=== PATIENT | male | born 1970 | race Caucasian/White ===

== ENCOUNTER → 2016-09-27 | Outpatient (CLI) | payer BC ==
[~2016-09-27] MED LIST: AMLO10TA4 PO; FLNIN NAE; IBUP-1050 PO; LORA10CA2 PO; LPR25 PO; OMEP20CA9 PO; TRIATAB3 PO; XRL20 PO
[2016-09-27 13:04] LABS: BASO % 0.4 %; BASO ABS # 0.03 K/uL (0-0.2); COMPLETE YES; EOS % 2.2 %; HEMATOCRIT 40.2 % (42-52); IG% 0.2 %; LYMPH % 14.2 %; LYMPH ABS # 1.21 K/uL (1.2-3.4); MEAN CELL VOLUME 86.5 fL (80-100); MEAN CORPUSCULAR HEMOGLOBIN 28.6 pg (25-34); MEAN CORPUSCULAR HGB CONC 33.1 g/dl (32-36); MEAN PLATELET VOLUME 10.8 fL (7.4-10.4); MONO % 8.8 %; NEUT % 74.2 %; PLATELET COUNT 300 K/uL (130-400); RED BLOOD COUNT 4.65 M/uL (4.7-6.1); WHITE BLOOD COUNT 8.52 K/uL (4.8-10.8)
[2016-09-27 13:38] LABS: ALT/SGPT 32 U/L (12-78); BLOOD UREA NITROGEN 16 mg/dl (7-18); BUN/CREATININE RATIO 16.3 (10-20); CARBON DIOXIDE 28 mmol/L (21-32); CHLORIDE 105 mmol/L (98-107); CHOLESTEROL 161 mg/dl (0-200); GLUCOSE 90 mg/dl (70-99); POTASSIUM 3.3 mmol/L (3.5-5.1); SODIUM 142 mmol/L (136-145); TRIGLYCERIDES 156 mg/dl (0-150); VERY LOW DENSITY LIPOPROT CALC 31 mg/dl
[2016-09-27 13:43] LABS: ALB/GLOB RATIO 0.9 (0.9-2); ALKALINE PHOSPHATASE 64 U/L (45-117); AST/SGOT 15 U/L (15-37); CHOLESTEROL/HDL RATIO 4.5; HDL CHOLESTEROL 36 mg/dl; LDL CHOLESTEROL CALCULATED 94 mg/dl
== END | disposition home or self-care (01) ==
LOC: C.LABPVFM 08:10
PROVIDERS: ATTEND Family Medicine
DX: I10 Essential (primary) hypertension (principal); D64.9 Anemia, unspecified; E66.01 Morbid (severe) obesity due to excess calories; I48.91 Unspecified atrial fibrillation; G47.30 Sleep apnea, unspecified

== ENCOUNTER → 2017-03-27 | Outpatient (CLI) | payer BC ==
[2017-03-27 13:14] LABS: ALT/SGPT 30 U/L (12-78); AST/SGOT 14 U/L (15-37); BLOOD UREA NITROGEN 19 mg/dl (7-18); BUN/CREATININE RATIO 17.5 (10-20); CALCIUM 8.8 mg/dl (8.5-10.1); CARBON DIOXIDE 31 mmol/L (21-32); CHLORIDE 104 mmol/L (98-107); CREATININE 1.08 mg/dl (0.60-1.40); GLUCOSE 93 mg/dl (70-99); POTASSIUM 3.5 mmol/L (3.5-5.1); SODIUM 141 mmol/L (136-145)
[2017-03-27 13:17] LABS: ALB/GLOB RATIO 0.9 (0.9-2); ALKALINE PHOSPHATASE 63 U/L (45-117)
== END | disposition home or self-care (01) ==
LOC: C.LABPVFM 10:15
PROVIDERS: ATTEND Family Medicine
DX: I10 Essential (primary) hypertension (principal); I48.91 Unspecified atrial fibrillation; E87.6 Hypokalemia

== ENCOUNTER 2022-12-15 07:00 | Inpatient (IN) ==
[2022-12-15] MEDS ORDERED: NITROGLYCERIN SL 0.4 MG/TAB TAB SL STA ×3 (07:26→09:37)
[2022-12-15] MEDS ORDERED: METOPROLOL TARTRATE 1 MG/ML VIAL IV STA ×2 (07:26→08:23)
--- NOTE | 2022-12-15 07:38 | Emergency Department Note ---
Impression & Plan Atrial fibrillation with rapid ventricular response, Chest pain, Non-ST elevation [place] (NSTEMI) ED Provider Note Provider: Maxime Suarez MD DATE OF SERVICE: 12/15/2022 CHIEF COMPLAINT: Chest discomfort HISTORY OF PRESENT ILLNESS: Patient is a 52-year-old gentleman history of atrial fibrillation on Xarelto, obesity, hypertension, and gout presenting here today reporting onset last evening of indigestion chest discomfort. Some radiation to the back. Was maximal around 2 AM but has moderated little bit. Describes 4-5 out of 10 pain. Denies any trauma. Maybe a little bit positional but not pleuritic in nature. Denies significant shortness of breath. States he is taken a bunch of antacid but this has not helped his symptoms as he initially thought this was just indigestion. Denies nausea or other abdominal pain. Was recently treated with steroids for some gout but that is been improving. Some trace but not worsened significant leg swelling. States the pain does radiate to between his shoulder blades to some degree. Given ongoing symptoms came here for evaluation. States compliance with home medications. Denies significant lightheadedness or palpitation sensation. PAST MEDICAL HISTORY: As noted above MEDICATIONS: Reviewed with him includes Xarelto (takes in the evening) and to take his morning medicines this morning SOCIAL HISTORY: Non-smoker PHYSICAL EXAM: GENERAL: alert and oriented in no acute distress on stretcher Head: normocephalic and atraumatic EYES: No injection, discharge or icterus. NECK: Trachea midline. ENT: Mucous membranes pink and moist. LUNGS: Airway patent. No retractions. Breath sounds clear HEART: Irregular irregular rate and rhythm. No chest wall tenderness ABDOMEN: Soft and non-tender, without guarding or rebound. SKIN: Acyanotic, warm, dry, without rashes EXTREMITIES: Without tenderness with 1+ bilateral lower extremity edema without erythema. NEUROLOGICAL: No focal deficits. No aphasia. No facial droop or slurred speech. Ambulatory. EK bpm atrial fibrillation with rapid ventricular response. Nonspecific interventricular conduction delay noted with some diffuse T wave inversions but no clear acute ST segment elevation. QTc approximately 540. CONTINUOUS CARDIAC MONITORING: was ordered and showed a heart rate of 80s-120s bpm in variable A-fib Patient's laboratory studies and imaging reviewed. Differential includes Cardiac ischemia, aortic dissection, pulmonary embolism, pneumothorax, pneumonia, pericarditis, myocarditis, esophageal rupture, GERD, cholecystitis, pancreatitis, musculoskeletal, as well as other pathologies. IMPRESSION/MEDICAL DECISION MAKING: Patient with mid chest discomfort rating to the back started last evening. Somewhat hypertensive. On Xarelto for history of A-fib. Appears to be in A-fib variably rate controlled to rapid response A-fib. We will give a bit of extra metoprolol but states compliance with medication. Low suspicion for VTE given the anticoagulation status. Fairly benign abdomen. We will complete a CT scan of the chest to exclude dissection. A little bit metoprolol nitroglycerin to see if this helps with his symptoms and do have suspicion for cardiac disease. EKG without evidence of acute STEMI but new interventricular conduction delay with rapid RVR will again attempt some better rate control and see how symptoms evolve. Blood work was sent. Slight leuks that is 11.2 and nonspecific. No anemia. Normal platelet count. No significant renal dysfunction or evidence of electrolyte abnormality. No does hepatitis or pancreatitis. Troponin elevated 610 consistent with concerns for ACS. CT of the chest completed without evidence of acute aortic dissection. Coronary artery calcifications noted again of concern given his presentation. Report reviewed patient aware of incidental renal lesion.. Given this finding given a dose of aspirin. On reassessment patient symptoms have improved somewhat with maybe a 2 out of 10 to 3 out of 10 chest discomfort. Discussed with him and his findings. Discussed the need for further cardiac evaluation here. Hospitalist consulted. Recently took Xarelto last evening will defer immediate heparin at this time. Given additional nitroglycerin to see if this would further improve any pain symptoms he is having. DIAGNOSIS: A-fib RVR, NSTEMI, chest DISPOSITION: Hospitalist will evaluate Patient was agreeable with this plan. Patient later had repeat EKG and troponin as ordered by hospitalist and a consultation with bending shed worker and taken to the Drink Box Mechanic from the ER. Past Med/Surg History Medical History Asthma Atrial fibrillation Diabetes mellitus Finger laceration involving tendon Glaucoma Gout HTN (hypertension) Obesity, diabetes, and hypertension syndrome ERNESTO on CPAP Proteinuria Surgical History H/O oral surgery History of hand surgery Family History Mother Coronary heart disease Myocardial infarction Diabetes Father Coronary heart disease Myocardial infarction Other Hypertension Denies family history of Ovarian cancer Prostate cancer Breast cancer Colorectal cancer Social History (Updated 12/15/22 @ 09:58 by Mary Mazariegos PA-C) Smoking Status: Never smoker Second Hand Exposure: No; Do You Dip or Chew Tobacco: No; Hx Alcohol Use: Yes (occasional drink, nothing in 2-3 weeks) Hx Substance Use: No Preferred Language: Uzbek Communication Ability: Effective Visual Impairment: No Limitations Hearing Ability: Normal 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 Conditioner Installer Helper Required: No marital status: Current Living Situation: Spouse current occupational status: employed 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 How many Children do You have: 0 Feels Safe at Home: Yes Childhood Exposure to Second-Hand Smoke: Yes Diet: regular caffeine: Yes Dental Care, Regularly: Yes Physical Activity Frequency: Does not Exercise Seatbelt Use: always Sunscreen Use: No Allergies Allergies Allergy/AdvReac Type Severity Reaction Status Date / Time cat dander Allergy Intermediate Itchy, Verified 11/03/22 11:26 watery eyes, sneezing dog dander Allergy Intermediate Itchy, Verified 11/03/22 11:26 watery eyes, sneezing pollen extracts Allergy Intermediate SNEEZE,ITCHY Verified 11/03/22 11:26 WATERY EYES acetaminophen [From Percocet] Allergy Verified 11/03/22 11:26 house dust mite Allergy Verified 11/03/22 11:26 mold Allergy Verified 11/03/22 11:26 oxycodone [From Percocet] Allergy Verified 11/03/22 11:26 Home Meds Home Medications Medication Instructions Recorded Confirmed fluticasone propionate 50 2 sprays intranasal DAILY 02/24/19 12/15/22 mcg/actuation nasal spray,suspension loratadine 10 mg tablet 10 mg PO DAILY 02/24/19 12/15/22 dorzolamide 22.3 mg-timolol 6.8 1 drops ophthalmic (eye) BID 02/25/19 12/15/22 mg/mL eye drops acetaminophen 500 mg tablet 1,000 mg PO BID PRN Pain 12/15/22 12/15/22 calcium carbonate 600 mg calcium 600 mg PO BID 12/15/22 12/15/22 (1,500 mg) tablet (Calcium) cholecalciferol (vitamin D3) 125 125 mcg PO DAILY 12/15/22 12/15/22 mcg (5,000 unit) tablet (Vitamin D3) ferrous sulfate 325 mg (65 mg 325 mg PO DAILY 12/15/22 12/15/22 iron) tablet Previous Rx's Medication Instructions Recorded colchicine 0.6 mg tablet 0.6 mg PO DAILY PRN gout #9 tabs 09/18/21 amlodipine 10 mg tablet 10 mg PO DAILY #90 tabs 05/02/22 metoprolol tartrate 75 mg tablet 75 mg PO BID #180 tabs 05/02/22 montelukast 10 mg tablet 10 mg PO DAILY #90 tabs 05/02/22 omeprazole 40 mg capsule,delayed 40 mg PO DAILY #90 caps 05/02/22 release triamterene 37.5 1 tab PO DAILY #90 tabs 05/02/22 mg-hydrochlorothiazide 25 mg tablet rivaroxaban 20 mg tablet (Xarelto) 20 mg PO DAILY #90 tabs 08/12/22 metformin 500 mg tablet 500 mg PO DAILY #90 tabs 10/08/22 indomethacin 25 mg capsule 25 mg PO Q8H PRN gout flare #90 10/10/22 caps lisinopril 20 mg tablet 20 mg PO DAILY #30 tabs 10/16/22 empagliflozin 10 mg tablet 10 mg PO DAILY #90 tabs 11/03/22 (Jardiance) allopurinol 300 mg tablet 300 mg PO DAILY #90 tabs 12/12/22 Results & Data (ED) Vital Signs Vital Signs - 24 hr 12/15/22 07:08 12/15/22 07:22 12/15/22 07:33 Temperature 36.3 C L Temperature Source Temporal Artery Scan Pulse Rate 121 H 111 H 104 H Pulse Rate from SpO2 Sensor Pulse Rhythm Respiratory Rate 22 Respiratory Effort / Characteristics Non-Labored Spontaneous Respiratory Depth Blood Pressure 164/108 H 167/104 H Blood Pressure Mean 126 Pulse Oximetry 98 Oxygen Delivery Method Room Air Sepsis Recent Fever Within 48 Hours No Sepsis New/Unexplained Change in Mental Status No Sepsis Action Taken by Nursing No Action Required 12/15/22 07:10 12/15/22 08:02 12/15/22 08:32 Temperature Temperature Source Pulse Rate 105 H 107 H Pulse Rate from SpO2 Sensor Pulse Rhythm Irregular Respiratory Rate 22 Respiratory Effort / Characteristics Respiratory Depth Blood Pressure 155/104 H Blood Pressure Mean Pulse Oximetry 99 99 Oxygen Delivery Method Room Air Room Air Sepsis Recent Fever Within 48 Hours Sepsis New/Unexplained Change in Mental Status Sepsis Action Taken by Nursing 12/15/22 09:00 12/15/22 07:19 12/15/22 07:20 Temperature Temperature Source Pulse Rate 106 H Pulse Rate from SpO2 Sensor 79 Pulse Rhythm Respiratory Rate 13 Respiratory Effort / Characteristics Non-Labored Respiratory Depth Normal Blood Pressure 145/104 H Blood Pressure Mean 125 Pulse Oximetry 94 Oxygen Delivery Method Room Air Sepsis Recent Fever Within 48 Hours Sepsis New/Unexplained Change in Mental Status Sepsis Action Taken by Nursing 12/15/22 07:30 12/15/22 07:31 12/15/22 07:31 Temperature Temperature Source Pulse Rate 122 H 107 H Pulse Rate from SpO2 Sensor 78 79 Pulse Rhythm Respiratory Rate 22 14 Respiratory Effort / Characteristics Respiratory Depth Blood Pressure 167/104 H Blood Pressure Mean 127 Pulse Oximetry 94 95 Oxygen Delivery Method Sepsis Recent Fever Within 48 Hours Sepsis New/Unexplained Change in Mental Status Sepsis Action Taken by Nursing 12/15/22 07:39 12/15/22 07:39 12/15/22 07:40 Temperature Temperature Source Pulse Rate 98 H 109 H Pulse Rate from SpO2 Sensor 75 66 Pulse Rhythm Respiratory Rate 20 22 Respiratory Effort / Characteristics Respiratory Depth Blood Pressure 152/99 H Blood Pressure Mean 103 Pulse Oximetry 95 94 Oxygen Delivery Method Sepsis Recent Fever Within 48 Hours Sepsis New/Unexplained Change in Mental Status Sepsis Action Taken by Nursing 12/15/22 07:59 12/15/22 08:00 12/15/22 08:01 Temperature Temperature Source Pulse Rate 111 H Pulse Rate from SpO2 Sensor 77 97 H 75 Pulse Rhythm Respiratory Rate 16 17 Respiratory Effort / Characteristics Respiratory Depth Blood Pressure Blood Pressure Mean Pulse Oximetry 95 96 94 Oxygen Delivery Method Sepsis Recent Fever Within 48 Hours Sepsis New/Unexplained Change in Mental Status Sepsis Action Taken by Nursing 12/15/22 08:01 12/15/22 08:10 12/15/22 08:20 Temperature Temperature Source Pulse Rate 87 107 H Pulse Rate from SpO2 Sensor 84 72 Pulse Rhythm Respiratory Rate 13 19 Respiratory Effort / Characteristics Respiratory Depth Blood Pressure 145/90 H Blood Pressure Mean 100 Pulse Oximetry 91 93 Oxygen Delivery Method Sepsis Recent Fever Within 48 Hours Sepsis New/Unexplained Change in Mental Status Sepsis Action Taken by Nursing 12/15/22 08:30 12/15/22 08:31 12/15/22 08:31 Temperature Temperature Source Pulse Rate 107 H 98 H Pulse Rate from SpO2 Sensor 75 65 Pulse Rhythm Respiratory Rate 18 15 Respiratory Effort / Characteristics Respiratory Depth Blood Pressure 155/104 H Blood Pressure Mean 124 Pulse Oximetry 95 93 Oxygen Delivery Method Sepsis Recent Fever Within 48 Hours Sepsis New/Unexplained Change in Mental Status Sepsis Action Taken by Nursing 12/15/22 08:40 12/15/22 08:50 12/15/22 08:54 Temperature Temperature Source Pulse Rate 112 H 95 H Pulse Rate from SpO2 Sensor 89 86 Pulse Rhythm Respiratory Rate 38 H 11 L Respiratory Effort / Characteristics Respiratory Depth Blood Pressure 149/103 H Blood Pressure Mean 127 Pulse Oximetry 93 91 Oxygen Delivery Method Sepsis Recent Fever Within 48 Hours Sepsis New/Unexplained Change in Mental Status Sepsis Action Taken by Nursing 12/15/22 08:54 Temperature Temperature Source Pulse Rate 99 H Pulse Rate from SpO2 Sensor 92 H Pulse Rhythm Respiratory Rate 15 Respiratory Effort / Characteristics Respiratory Depth Blood Pressure Blood Pressure Mean Pulse Oximetry 97 Oxygen Delivery Method Sepsis Recent Fever Within 48 Hours Sepsis New/Unexplained Change in Mental Status Sepsis Action Taken by Nursing Laboratory Data 12/15/22 07:22 12/15/22 07:22 Lab Results 12/15/22 12/15/22 12/15/22 Range/Units 07:22 07:22 07:26 WBC 11.24 H (4.8-10.8) K/ul RBC 4.81 (4.70-6.10) M/uL Hgb 14.1 (14.0-18.0) g/dl POC Hgb 15.0 (14.0-18.0) g/dl Hct 40.3 L (42.0-52.0) % POC Hct 44 (42-52) % MCV 83.8 (80.0-100.0) fL MCH 29.3 (25.0-34.0) pg MCHC 35.0 (32.0-36.0) g/dL RDW Std Deviation 37.7 (36.4-46.3) fL RDW Coeff of Tripp 12.5 (11.5-14.5) % Plt Count 279 (130-400) K/uL MPV 11.2 (9.4-12.4) fL Immature Gran % (Auto) 0.5 % Neut % (Auto) 83.0 % Lymph % (Auto) 8.0 % [place] % (Auto) 6.5 % Eos % (Auto) 1.6 % Baso % (Auto) 0.4 % Neut # (Auto) 9.32 H (1.40-6.50) K/uL Lymph # (Auto) 0.90 L (1.2-3.4) K/uL [place] # (Auto) 0.73 H (0.11-0.59) K/uL Eos # (Auto) 0.18 (0-0.50) K/uL Baso # (Auto) 0.05 (0-0.2) K/uL Immature Gran # (Auto) 0.06 (0.01-0.20) K/uL POC Sodium 138 (135-144) mmol/L Sodium 137 (136-145) mmol/L POC Potassium 3.6 (3.3-5.0) mmol/L Potassium 3.6 (3.5-5.1) mmol/L POC Chloride 100 L (101-112) mmol/L Chloride 101 (98-107) mmol/L Carbon Dioxide 25 (21-32) mmol/L POC Total CO2 23 L (24-31) mmol/L Anion Gap 11 (3-11) POC Anion Gap 20.0 (16-25) mmol/L POC BUN 29 H (7-18) mg/dl BUN 30 H (6-23) mg/dl Creatinine 1.05 (0.6-1.4) mg/dl POC Creatinine 1.0 (0.6-1.3) mg/dl Est Cr Clr Drug Dosing 145.1 ml/min Est GFR ( Amer) 95.5 ml/min Est GFR (Non-Af Amer) 82.4 ml/min BUN/Creatinine Ratio 28.6 H (10-20) Glucose 112 H (70-99(Fasting)) mg/dl POC Glucose (other) 111 H (70-99) mg/dl Calcium 9.5 (8.6-10.3) mg/dl POC Ioniz Calcium [place] 1.14 (1.12-1.32) mmol/l Magnesium (1.7-2.4) mg/dl Total Bilirubin 0.5 (0.2-1.0) mg/dl AST 25 (13-39) U/L ALT 21 (7-52) U/L Alkaline Phosphatase 50 (34-104) U/L Troponin I High Sens 610.4 H* (0-20) pg/ml Total Protein 7.7 (6.0-8.3) gm/dl Albumin 4.3 (3.4-5.0) gm/dl Globulin 3.4 (2.5-4.0) gm/dl Albumin/Globulin Ratio 1.3 (0.9-2) Lipase 36 (11-82) U/L TSH (0.300-4.500) uIu/ml 12/15/22 12/15/22 Range/Units 09:21 09:21 WBC (4.8-10.8) K/ul RBC (4.70-6.10) M/uL Hgb (14.0-18.0) g/dl POC Hgb (14.0-18.0) g/dl Hct (42.0-52.0) % POC Hct (42-52) % MCV (80.0-100.0) fL MCH (25.0-34.0) pg MCHC (32.0-36.0) g/dL RDW Std Deviation (36.4-46.3) fL RDW Coeff of Tripp (11.5-14.5) % Plt Count (130-400) K/uL MPV (9.4-12.4) fL Immature Gran % (Auto) % Neut % (Auto) % Lymph % (Auto) % [place] % (Auto) % Eos % (Auto) % Baso % (Auto) % Neut # (Auto) (1.40-6.50) K/uL Lymph # (Auto) (1.2-3.4) K/uL [place] # (Auto) (0.11-0.59) K/uL Eos # (Auto) (0-0.50) K/uL Baso # (Auto) (0-0.2) K/uL Immature Gran # (Auto) (0.01-0.20) K/uL POC Sodium (135-144) mmol/L Sodium (136-145) mmol/L POC Potassium (3.3-5.0) mmol/L Potassium (3.5-5.1) mmol/L POC Chloride (101-112) mmol/L Chloride (98-107) mmol/L Carbon Dioxide (21-32) mmol/L POC Total CO2 (24-31) mmol/L Anion Gap (3-11) POC Anion Gap (16-25) mmol/L POC BUN (7-18) mg/dl BUN (6-23) mg/dl Creatinine (0.6-1.4) mg/dl POC Creatinine (0.6-1.3) mg/dl Est Cr Clr Drug Dosing ml/min Est GFR ( Amer) ml/min Est GFR (Non-Af Amer) ml/min BUN/Creatinine Ratio (10-20) Glucose (70-99(Fasting)) mg/dl POC Glucose (other) (70-99) mg/dl Calcium (8.6-10.3) mg/dl POC Ioniz Calcium [place] (1.12-1.32) mmol/l Magnesium 1.8 (1.7-2.4) mg/dl Total Bilirubin (0.2-1.0) mg/dl AST (13-39) U/L ALT (7-52) U/L Alkaline Phosphatase (34-104) U/L Troponin I High Sens 1189.4 H* D (0-20) pg/ml Total Protein (6.0-8.3) gm/dl Albumin (3.4-5.0) gm/dl Globulin (2.5-4.0) gm/dl Albumin/Globulin Ratio (0.9-2) Lipase (11-82) U/L TSH 1.295 (0.300-4.500) uIu/ml Administered Medications Discontinued Medications Aspirin (Aspirin 81 Mg Chew) 324 mg PO NOW STA Stop: 12/15/22 08:24 Last Admin: 12/15/22 08:32 Dose: 324 mg Documented By: KT Fentanyl Citrate (Fentanyl Citrate Pf 100 Mcg/2 Ml Vial) Confirm Administered Dose 100 mcg .ROUTE .STK-MED ONE Stop: 12/15/22 10:19 Last Increment: 12/15/22 11:06 Dose: 50 mcg Documented By: ABIGAIL Fentanyl Citrate (Fentanyl Citrate Pf 100 Mcg/2 Ml Vial) Confirm Administered D ose 100 mcg .ROUTE .STK-MED ONE Stop: 12/15/22 11:23 Last Increment: 12/15/22 11:42 Dose: 25 mcg Documented By: ABIGAIL Increment: 12/15/22 11:38 Dose: 25 mcg Documented By: ABIGAIL Heparin Sodium (Porcine) (Heparin (Porcine) 1000 Unit/Ml 10 Ml (Drink Box Mechanic Use Only)) Confirm Administered Dose 10,000 units .ROUTE .STK-MED ONE Stop: 12/15/22 10:18 Last Admin: 12/15/22 11:05 Dose: 5,000 units Documented By: ABIGAIL Heparin Sodium (Porcine) (Heparin (Porcine) 1000 Unit/Ml 10 Ml (Drink Box Mechanic Use Only)) Confirm Administered Dose 10,000 units .ROUTE .STK-MED ONE Stop: 12/15/22 11:36 Last Admin: 12/15/22 11:38 Dose: 4,000 units Documented By: ABIGAIL Heparin Sodium/Dextrose (Heparin Iv Adult Wt-Based Standard *No* Bolus Protocol) 1 each IV NOW STA; Protocol Stop: 12/15/22 09:57 Last Admin: 12/15/22 10:09 Dose: Not Given Documented By: KATRINA Heparin Sodium/Dextrose (Heparin 95706 Unit/500 Ml D5w) Confirm Administered Dose 25,000 units IV .STK-MED ONE Stop: 12/15/22 10:07 Last Admin: 12/15/22 10:12 Dose: Not Given Documented By: KATRINA Ioversol (Ioversol 350 Mg 125ml Prefilled Syringe) 120 ml IV ONCE ONE Stop: 12/15/22 07:52 Last Admin: 12/15/22 07:51 Dose: 120 ml Documented By: DEYSI Metoprolol Tartrate (Metoprolol Tartrate 1 Mg/Ml Vial) 5 mg IV NOW STA Stop: 12/15/22 07:27 Last Admin: 12/15/22 07:33 Dose: 5 mg Documented By: KATRINA Metoprolol Tartrate (Metoprolol Tartrate 1 Mg/Ml Vial) 5 mg IV NOW STA Stop: 12/15/22 08:24 Last Admin: 12/15/22 08:32 Dose: 5 mg Documented By: KATRINA Midazolam HCl (Midazolam Hcl 1 Mg/Ml 2ml Vial) Confirm Administered Dose 2 mg .ROUTE .STK-MED ONE Stop: 12/15/22 10:18 Last Increment: 12/15/22 11:06 Dose: 1 mg Documented By: ABIGAIL Midazolam HCl (Midazolam Hcl 1 Mg/Ml 2ml Vial) Confirm Administered Dose 2 mg .ROUTE .STK-MED ONE Stop: 12/15/22 11:23 Last Increment: 12/15/22 11:38 Dose: 1 mg Documented By: ABIGAIL Nitroglycerin (Nitroglycerin Sl 0.4 Mg/Tab Tab) 0.4 mg SL NOW STA Stop: 12/15/22 07:27 Last Admin: 12/15/22 07:33 Dose: 0.4 mg Documented By: KT Nitroglycerin (Nitroglycerin Sl 0.4 Mg/Tab Tab) 0.4 mg SL NOW STA Stop: 12/15/22 08:54 Last Admin: 12/15/22 08:54 Dose: 0.4 mg Documented By: KT Nitroglycerin (Nitroglycerin Sl 0.4 Mg/Tab Tab) 0.4 mg SL NOW STA Stop: 12/15/22 09:38 Last Admin: 12/15/22 09:37 Dose: 0.4 mg Documented By: KT Perflutren Lipid Microsphere (Perflutren Lipid Microsphere (Definity)) 2 ml IV ONCE ONE Stop: 12/15/22 10:03 Last Admin: 12/15/22 10:02 Dose: 2 ml Documented By: NATHAN Ticagrelor (Ticagrelor 90 Mg Tab) Confirm Administered Dose 180 mg .ROUTE .STK- MED ONE Stop: 12/15/22 11:37 Last Admin: 12/15/22 11:38 Dose: 180 mg Documented By: [facility] Imaging Data Radiologist's Impression: Chest CTA 12/15/22 07:28 CT ANGIOGRAPHY OF THE CHEST DISSECTION PROTOCOL CLINICAL HISTORY: Chest pain radiating to back. Evaluate for dissection. COMPARISON STUDY: Chest radiograph February 22, 2016. TECHNIQUE: Before and following the IV administration of 120 mL of Optiray, helical axial images of the chest were obtained. Maximal intensity projections and sagittal and coronal reformats were viewed on an independent 3D workstation. IV contrast was administered without complication. Automated exposure control was utilized for the study. A dose lowering technique was utilized adhering to the principles of ALARA. CT DOSE: 2267.00 mGy.cm FINDINGS: The caliber of the thoracic aorta is normal. There is no intramural hematoma or thoracic aortic dissection. Moderate cardiomegaly is noted. There is no pericardial effusion. There is moderate to extensive coronary calcification. No central pulmonary emboli are identified. The remainder of the pulmonary arteries suboptimally assessed on this exam. There is no thoracic lymphadenopathy. No pneumothorax or pleural effusion is present. There is no consolidation to suggest pneumonia. No acute fractures within the bony thorax are present. Hepatic steatosis is noted. A 3.8 cm subcapsular right hepatic lobe lesion represents a cyst. The left kidney is atrophic. A 1.8 cm lesion within the midpole the right kidney measures above water attenuation. A small lesion arising from the upper pole of the right kidney likely reflects a cyst. IMPRESSION: 1. No thoracic aortic dissection. 2. Moderate cardiomegaly. Moderate to extensive coronary artery calcification. 3. No consolidation to suggest pneumonia. 4. 1.8 cm right renal lesion. This could reflect a complex cyst or small solid renal lesion. Nonemergent renal protocol CT is recommended. 5. Atrophic left kidney. ACT 112: Positive. There are findings on this exam that require communication between the performing entity and the patient following Patient Test Result Information Act ([place] Act 112) guidelines. Electronically signed by: Donovan Sanders M.D. 12/15/2022 8:31 AM Discharge Plan Visit Data Chief Complaint: Chest Pain Stated Complaint: CHEST PAIN ED Provider: Maxime Suarez Discharge Problem: Atrial fibrillation with rapid ventricular response, Chest pain, Non-ST elevation LA (NSTEMI) Patient Disposition: Admitted As Inpatient Discharge Instructions Interventions: ED Discharge Assessment Last Done: 12/15/22 10:22
[2022-12-15 07:40] LABS: iSTAT Ionized Calcium 1.14 mmol/l (1.12-1.32); iSTAT Potassium 3.6 mmol/L (3.3-5.0)
[2022-12-15 07:42] LABS: Basophils # (auto) 0.05 K/uL (0-0.2); Basophils % (auto) 0.4 %; Eosinophils # (auto) 0.18 K/uL (0-0.50); Eosinophils % (auto) 1.6 %; Hematocrit (blood only) 40.3 % (42.0-52.0); Hemoglobin 14.1 g/dl (14.0-18.0); Immature Granulocytes # (auto) 0.06 K/uL (0.01-0.20); Immature Granulocytes % (auto) 0.5 %; Mean Corpuscular Hemoglobin 29.3 pg (25.0-34.0); Mean Corpuscular Volume 83.8 fL (80.0-100.0); Mean Platelet Volume 11.2 fL (9.4-12.4); Monocytes # (auto) 0.73 K/uL (0.11-0.59); Monocytes % (auto) 6.5 %; Neutrophils # (auto) 9.32 K/uL (1.40-6.50); Platelet Count 279 K/uL (130-400); RDW Coefficient of Variation 12.5 % (11.5-14.5); RDW Standard Deviation 37.7 fL (36.4-46.3); Red Blood Count 4.81 M/uL (4.70-6.10); White Blood Count 11.24 K/ul (4.8-10.8)
[2022-12-15] MEDS ORDERED: IOVERSOL 350 MG 125mL Prefilled Syringe IV ONE (07:51)
[2022-12-15 07:57] LABS: Albumin Globulin Ratio 1.3 (0.9-2); Albumin Level 4.3 gm/dl (3.4-5.0); BUN Creatinine Ratio 28.6 (10-20); Bilirubin,Total 0.5 mg/dl (0.2-1.0); Calcium 9.5 mg/dl (8.6-10.3); Creatinine Clr Calc Pharmacy 145.1 ml/min; Est GFR (African American) 95.5 ml/min; Est GFR (Non-African American) 82.4 ml/min; Globulin 3.4 gm/dl (2.5-4.0); Potassium 3.6 mmol/L (3.5-5.1); Total Protein 7.7 gm/dl (6.0-8.3)
[2022-12-15 08:09] LABS: Troponin I High Sensitivity 610.4 pg/ml (0-20)
[2022-12-15] MEDS ORDERED: ASPIRIN 81 MG CHEW PO STA (08:23)
--- NOTE | 2022-12-15 08:32 | CT Scan Report ---
CT ANGIOGRAPHY OF THE CHEST DISSECTION PROTOCOL CLINICAL HISTORY: Chest pain radiating to back. Evaluate for dissection. COMPARISON STUDY: Chest radiograph February 22, 2016. TECHNIQUE: Before and following the IV administration of 120 mL of Optiray, helical axial images of t he chest were obtained. Maximal intensity projections and sagittal and coronal reformats were viewed on an independent 3D workstation. IV contrast was administered without complication. Automated exp osure control was utilized for the study. A dose lowering technique was utilized adhering to the kranthi Saleem. CT DOSE: 2267.00 mGy.cm FINDINGS: The caliber of the thoracic aorta is normal. There is no intramural hematoma or thoracic a ortic dissection. Moderate cardiomegaly is noted. There is no pericardial effusion. There is moderate to extensive coronary calcification. No central pulmonary emboli are identified. The remainder of th e pulmonary arteries suboptimally assessed on this exam. There is no thoracic lymphadenopathy. No pne umothorax or pleural effusion is present. There is no consolidation to suggest pneumonia. No acute fr actures within the bony thorax are present. Hepatic steatosis is noted. A 3.8 cm subcapsular right he patic lobe lesion represents a cyst. The left kidney is atrophic. A 1.8 cm lesion within the midpole the right kidney measures above water attenuation. A small lesion arising from the upper pole of the right kidney likely reflects a cyst. IMPRESSION: 1. No thoracic aortic dissection. 2. Moderate cardiomegaly. Moderate to extensive coronary artery calcification. 3. No consolidation to suggest pneumonia. 4. 1.8 cm right renal lesion. This could reflect a complex cyst or small solid renal lesion. Nonemerg ent renal protocol CT is recommended. 5. Atrophic left kidney. ACT 112: Positive. There are findings on this exam that require communication between the performing entity and the patient following Patient Test Result Information Act ([place] Act 112) guidelines. Electronically signed by: Donovan Sanders M.D. 12/15/2022 8:31 AM
[2022-12-15] MEDS ORDERED: MoRPHine SULFATE 2 MG/ML CARP IV PRN (09:15)
--- NOTE | 2022-12-15 09:18 | History & Physical Report ---
Date of Service December 15, 2022 Assessment & Plan (1) Non-ST elevation [place] (NSTEMI): Plan: concerns for NSTEMI w/ elevaed troponin/EKG/symptoms -- tx as outlined below (2) Chest pain: Plan: Presented with CP since last evening, initially thought was indigestion/heartburn but unrelieved with his usual PPI or pepcid x 2, initial trop 610.4 EKG w/o significant ST elevation however new IVCD since prior EKG in system. Concerning for NSTEMI ASCVD risk factors include type 2 diabetes, hypertension, dyslipidemia, obesity, family history of premature CAD in mom/dad (father w/ bypass in 50s) Nitro x 2, ASA 324mg x 1, Lopressor IV in ER w/ ongoing discomfort / Admit to PCU Additional 1 nitro x 1, alerted cardiology Repeat EKG/troponin NOW EKG w/ CP Trend troponin ECHO now -- tech at bedside Lopressor IV prn, pain control as needed, supplemenatal O2 to maintain sats Cardiology consulted Heparin gtt ordered -- defer to cards as Dr Barroso regarding need for bolus as just saw and taking to cath. Xarelto placed on hold ASA ordered for AM, defer to cards pending cath results for further recs NPO for likely need for cath, cardiology alerted and seeing at bedside IVF while npo K/mag replete given afib Hold diuretics for now to prevent JEANINE w/ cath/dye Lipid panel/A1c in AM (not on statin) Monitor labs in AM (3) Atrial fibrillation with rapid ventricular response: Plan: rates fairly stable but were 110s in ER, provided IV lopressor. Patient did take his morning medications Continue metoprolol 75mg BID for now, holding amlodipine in meantime Check Mag/TSH, replete electrolytes as needed Mag 1.8 -- will give 2 gm IV, K 3.6 -- 2gm IV to keep Mag ~2, K ~4 Holding xarelto, placed on heprarin gtt as above Monitor on telemetry (4) HTN (hypertension): Plan: BP elevation on arrival, ?2nd to pain from above. No hx HLD (last lipid panel August w/ chol 178, LDL 111, HDL 45, TRG 112) Took his AM meds, will continue metoprolol alone, hold diuretics, pain control Monitor (5) Diabetes mellitus: Plan: Last A1c 6.3 Hold home DM meds, BSG AC/HS while inpatient/SSI A1c w/ am labs Monitor BSGs (6) ERNESTO on CPAP: Plan: CPAP HS (7) Obesity, diabetes, and hypertension syndrome: Plan: noted, weight loss encouraged, ?ozempic pending A1c (8) Acid reflux disease: Plan: continue PPI Plan for cardiac cath tech this morning w/ Dr Barroso. Repeat troponin just resulted 1189.4 from 610.4 on admission. History of Present Illness Chief Complaint: chest pain Primary Care Provider: Fidel Borden, DO 52yo male with PMHx significant for afib (on Xarelto, last dose last evening), HTN, DM (A1c 6.3 earlier this year), obesity, gout presented with chest pain which he thought initially was indigestion starting last evening, no relief with OTC antacids, worsening overnight around 2am and convinced to bring im in. Given metoprolol, nitro, aspirin. Initial troponin 600s. Pain reported 4/10 on arrival, 2/10 after nitro. Patient evaluated in B10 with at bedside. States last night after supper started having discomfort, midsternum/radiation to back. Thought was reflux/indigestion. Had already taken his omeprazole but then took two pepcid and awoke around 11pm with worsening pain, which he reports was slightly better moving around but worsened around 2am. convinced him to come in to be evaluated. No smoking/chewing tobacco history, occassional wine use. He reports the pain is still present but not worsening in nature. Discussed likely need for cardiac catheterization for evaluation, repeat troponin being drawn now in the room and RN to obtain repeat EKG. Messaged cardiology given ongoing chest discomfort/elevated troponin and symptoms concerning for CAD and requirement for catheterization. He reports he had not missed dose of Xarelto, no palpitations/fluttering repor marci in his chest, no shortness of breath, abdominal pain, vomiting at this time. Did take his usual medications this morning. Asked RN to provide additional nitro SL x 1 and notified cardiology about ongoing discomfort. Dr Barroso to see. BP in ER 140s/100s, rates 90s-100, afib. 97% on RA Discussed code status - FULL CODE. Questions/concerns addressed at this time. STRONG Family History -- reports mother and father with MIs in their 50s, also discussed imaging with moderate to severe coronary artery calcifications. No prior hx HLD or on statin statin therapy. ER Course; New IVCD on EKG, rates low 110s. Troponin 610.4 on initial draw. CTA chest negative for dissection but does note moderate to severe coronary artery calcifications. WBC elevation, afebrile. BUN/Cr 30/1.05. Added repeat troponin/EKG, mag/TSH to labs. diesel technician mechanic alerted, obtaining bedside ECHO presently, Dr Barroso now at bedside to see patient as well. Allergies Allergy/AdvReac Type Severity Reaction Status Date / Time cat dander Allergy Intermediate Itchy, Verified 11/03/22 11:26 watery eyes, sneezing dog dander Allergy Intermediate Itchy, Verified 11/03/22 11:26 watery eyes, sneezing pollen extracts Allergy Intermediate SNEEZE,ITCHY Verified 11/03/22 11:26 WATERY EYES acetaminophen [From Percocet] Allergy Verified 11/03/22 11:26 house dust mite Allergy Verified 11/03/22 11:26 mold Allergy Verified 11/03/22 11:26 oxycodone [From Percocet] Allergy Verified 11/03/22 11:26 Home Medications Medication Instructions Recorded Confirmed Type fluticasone propionate 50 2 sprays intranasal DAILY 02/24/19 12/15/22 History mcg/actuation nasal spray,suspension loratadine 10 mg tablet 10 mg PO DAILY 02/24/19 12/15/22 History dorzolamide 22.3 mg-timolol 6.8 1 drops ophthalmic (eye) BID 02/25/19 12/15/22 History mg/mL eye drops colchicine 0.6 mg tablet 0.6 mg PO DAILY PRN gout #9 tabs 09/18/21 12/15/22 Rx amlodipine 10 mg tablet 10 mg PO DAILY #90 tabs 05/02/22 12/15/22 Rx metoprolol tartrate 75 mg tablet 75 mg PO BID #180 tabs 05/02/22 12/15/22 Rx montelukast 10 mg tablet 10 mg PO DAILY #90 tabs 05/02/22 12/15/22 Rx omeprazole 40 mg capsule,delayed 40 mg PO DAILY #90 caps 05/02/22 12/15/22 Rx release triamterene 37.5 1 tab PO DAILY #90 tabs 05/02/22 12/15/22 Rx mg-hydrochlorothiazide 25 mg tablet rivaroxaban 20 mg tablet (Xarelto) 20 mg PO DAILY #90 tabs 08/12/22 12/15/22 Rx metformin 500 mg tablet 500 mg PO DAILY #90 tabs 10/08/22 12/15/22 Rx indomethacin 25 mg capsule 25 mg PO Q8H PRN gout flare #90 10/10/22 12/15/22 Rx caps lisinopril 20 mg tablet 20 mg PO DAILY #30 tabs 10/16/22 12/15/22 Rx empagliflozin 10 mg tablet 10 mg PO DAILY #90 tabs 11/03/22 12/15/22 Rx (Jardiance) allopurinol 300 mg tablet 300 mg PO DAILY #90 tabs 12/12/22 12/15/22 Rx acetaminophen 500 mg tablet 1,000 mg PO BID PRN Pain 12/15/22 12/15/22 History calcium carbonate 600 mg calcium 600 mg PO BID 12/15/22 12/15/22 History (1,500 mg) tablet (Calcium) cholecalciferol (vitamin D3) 125 125 mcg PO DAILY 12/15/22 12/15/22 History mcg (5,000 unit) tablet (Vitamin D3) ferrous sulfate 325 mg (65 mg 325 mg PO DAILY 12/15/22 12/15/22 History iron) tablet Past Med/Surg History Medical History Asthma Atrial fibrillation Diabetes mellitus Finger laceration involving tendon Glaucoma Gout HTN (hypertension) Obesity, diabetes, and hypertension syndrome ERNESTO on CPAP Proteinuria Surgical History H/O oral surgery History of hand surgery Family History Mother Coronary heart disease Myocardial infarction Diabetes Father Coronary heart disease Myocardial infarction Other Hypertension Denies family history of Ovarian cancer Prostate cancer Breast cancer Colorectal cancer Social History (Updated 12/15/22 @ 09:58 by Mary Mazariegos PA-C) Smoking Status: Never smoker Second Hand Exposure: No; Do You Dip or Chew Tobacco: No; Hx Alcohol Use: Yes (occasional drink, nothing in 2-3 weeks) Hx Substance Use: No Preferred Language: Upper [place] Communication Ability: Effective Visual Impairment: No Limitations Hearing Ability: Normal Bakery Supervisor Required: No marital status: Current Living Situation: Spouse current occupational status: employed 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 How many Children do You have: 0 Feels Safe at Home: Yes Childhood Exposure to Second-Hand Smoke: Yes Diet: regular caffeine: Yes Dental Care, Regularly: Yes Physical Activity Frequency: Does not Exercise Seatbelt Use: always Sunscreen Use: No Review of Systems Review of Systems: All systems reviewed & are unremarkable except as noted in HPI & below Physical Exam Physical Exam: General: WD/WN obese male sitting up in bed, at bedside, NAD but appears minimally uncomfortable at rest HEENT: head normocephalic, atraumatic, mm slightly dry, trachea midline, thick neck Resp: CTA, no w/c/r, on room air Chest: no reproducible pain, irregularly irregular rhythm, rates in 90s on monitor at present, no significant m/r/g, trace pedal edema, no calf tenderness, pulses palpable GI: +BS, soft/NT to palpation : no jesus MSK/Neuro: no focal deficits, no slurred speech, no facial droop, following commands Psych: alert to person/place/time/events, cooperative with examination Skin: no obvious lesions/rashes Results & Data Results & Data Vital Signs (Past 12 Hours) Vital Signs Temp Pulse Resp BP Pulse Ox O2 Del Method 12/15/22 08:54 99 H 15 97 12/15/22 08:54 149/103 H 12/15/22 08:50 95 H 11 L 91 12/15/22 08:40 112 H 38 H 93 12/15/22 08:31 155/104 H 12/15/22 08:31 98 H 15 93 12/15/22 08:30 107 H 18 95 12/15/22 08:20 107 H 19 93 12/15/22 08:10 87 13 91 12/15/22 08:01 145/90 H 12/15/22 08:01 17 94 12/15/22 08:00 111 H 16 96 12/15/22 07:59 95 12/15/22 07:40 109 H 22 94 12/15/22 07:39 152/99 H 12/15/22 07:39 98 H 20 95 12/15/22 07:31 167/104 H 12/15/22 07:31 107 H 14 95 12/15/22 07:30 122 H 22 94 12/15/22 07:20 106 H 13 94 12/15/22 07:19 145/104 H 12/15/22 09:00 Room Air 12/15/22 08:32 107 H 155/104 H 12/15/22 08:02 99 Room Air 12/15/22 07:10 105 H 22 99 Room Air 12/15/22 07:33 104 H 167/104 H 12/15/22 07:22 111 H 12/15/22 07:08 36.3 C L 121 H 22 164/108 H 98 Room Air Laboratory Results 12/15/22 12/15/22 12/15/22 Range/Units 09:21 09:21 07:26 WBC (4.8-10.8) K/ul RBC (4.70-6.10) M/uL Hgb (14.0-18.0) g/dl POC Hgb 15.0 (14.0-18.0) g/dl Hct (42.0-52.0) % POC Hct 44 (42-52) % MCV (80.0-100.0) fL MCH (25.0-34.0) pg MCHC (32.0-36.0) g/dL RDW Std Deviation (36.4-46.3) fL RDW Coeff of Tripp (11.5-14.5) % Plt Count (130-400) K/uL MPV (9.4-12.4) fL Immature Gran % (Auto) % Neut % (Auto) % Lymph % (Auto) % [place] % (Auto) % Eos % (Auto) % Baso % (Auto) % Neut # (Auto) (1.40-6.50) K/uL Lymph # (Auto) (1.2-3.4) K/uL [place] # (Auto) (0.11-0.59) K/uL Eos # (Auto) (0-0.50) K/uL Baso # (Auto) (0-0.2) K/uL Immature Gran # (Auto) (0.01-0.20) K/uL POC Sodium 138 (135-144) mmol/L Sodium (136-145) mmol/L POC Potassium 3.6 (3.3-5.0) mmol/L Potassium (3.5-5.1) mmol/L POC Chloride 100 L (101-112) mmol/L Chloride (98-107) mmol/L Carbon Dioxide (21-32) mmol/L POC Total CO2 23 L (24-31) mmol/L Anion Gap (3-11) POC Anion Gap 20.0 (16-25) mmol/L POC BUN 29 H (7-18) mg/dl BUN (6-23) mg/dl Creatinine (0.6-1.4) mg/dl POC Creatinine 1.0 (0.6-1.3) mg/dl Est Cr Clr Drug Dosing ml/min Est GFR ( Amer) ml/min Est GFR (Non-Af Amer) ml/min BUN/Creatinine Ratio (10-20) Glucose (70-99(Fasting)) mg/dl POC Glucose (other) 111 H (70-99) mg/dl Calcium (8.6-10.3) mg/dl POC Ioniz Calcium Estrellita 1.14 (1.12-1.32) mmol/l Magnesium Pending Total Bilirubin (0.2-1.0) mg/dl AST (13-39) U/L ALT (7-52) U/L Alkaline Phosphatase (34-104) U/L Troponin I High Sens Pending (0-20) pg/ml Total Protein (6.0-8.3) gm/dl Albumin (3.4-5.0) gm/dl Globulin (2.5-4.0) gm/dl Albumin/Globulin Ratio (0.9-2) Lipase (11-82) U/L TSH Pending 12/15/22 12/15/22 Range/Units 07:22 07:22 WBC 11.24 H (4.8-10.8) K/ul RBC 4.81 (4.70-6.10) M/uL Hgb 14.1 (14.0-18.0) g/dl POC Hgb (14.0-18.0) g/dl Hct 40.3 L (42.0-52.0) % POC Hct (42-52) % MCV 83.8 (80.0-100.0) fL MCH 29.3 (25.0-34.0) pg MCHC 35.0 (32.0-36.0) g/dL RDW Std Deviation 37.7 (36.4-46.3) fL RDW Coeff of Tripp 12.5 (11.5-14.5) % Plt Count 279 (130-400) K/uL MPV 11.2 (9.4-12.4) fL Immature Gran % (Auto) 0.5 % Neut % (Auto) 83.0 % Lymph % (Auto) 8.0 % [place] % (Auto) 6.5 % Eos % (Auto) 1.6 % Baso % (Auto) 0.4 % Neut # (Auto) 9.32 H (1.40-6.50) K/uL Lymph # (Auto) 0.90 L (1.2-3.4) K/uL [place] # (Auto) 0.73 H (0.11-0.59) K/uL Eos # (Auto) 0.18 (0-0.50) K/uL Baso # (Auto) 0.05 (0-0.2) K/uL Immature Gran # (Auto) 0.06 (0.01-0.20) K/uL POC Sodium (135-144) mmol/L Sodium 137 (136-145) mmol/L POC Potassium (3.3-5.0) mmol/L Potassium 3.6 (3.5-5.1) mmol/L POC Chloride (101-112) mmol/L Chloride 101 (98-107) mmol/L Carbon Dioxide 25 (21-32) mmol/L POC Total CO2 (24-31) mmol/L Anion Gap 11 (3-11) POC Anion Gap (16-25) mmol/L POC BUN (7-18) mg/dl BUN 30 H (6-23) mg/dl Creatinine 1.05 (0.6-1.4) mg/dl POC Creatinine (0.6-1.3) mg/dl Est Cr Clr Drug Dosing 145.1 ml/min Est GFR ( Amer) 95.5 ml/min Est GFR (Non-Af Amer) 82.4 ml/min BUN/Creatinine Ratio 28.6 H (10-20) Glucose 112 H (70-99(Fasting)) mg/dl POC Glucose (other) (70-99) mg/dl Calcium 9.5 (8.6-10.3) mg/dl POC Ioniz Calcium Estrellita (1.12-1.32) mmol/l Magnesium Total Bilirubin 0.5 (0.2-1.0) mg/dl AST 25 (13-39) U/L ALT 21 (7-52) U/L Alkaline Phosphatase 50 (34-104) U/L Troponin I High Sens 610.4 H* (0-20) pg/ml Total Protein 7.7 (6.0-8.3) gm/dl Albumin 4.3 (3.4-5.0) gm/dl Globulin 3.4 (2.5-4.0) gm/dl Albumin/Globulin Ratio 1.3 (0.9-2) Lipase 36 (11-82) U/L TSH Diagnostic Findings Chest CTA 12/15/22 07:28 CT ANGIOGRAPHY OF THE CHEST DISSECTION PROTOCOL CLINICAL HISTORY: Chest pain radiating to back. Evaluate for dissection. COMPARISON STUDY: Chest radiograph February 22, 2016. TECHNIQUE: Before and following the IV administration of 120 mL of Optiray, helical axial images of the chest were obtained. Maximal intensity projections and sagittal and coronal reformats were viewed on an independent 3D workstation. IV contrast was administered without complication. Automated exposure control was utilized for the study. A dose lowering technique was utilized adhering to the principles of ALARA. CT DOSE: 2267.00 mGy.cm FINDINGS: The caliber of the thoracic aorta is normal. There is no intramural hematoma or thoracic aortic dissection. Moderate cardiomegaly is noted. There is no pericardial effusion. There is moderate to extensive coronary calcification. No central pulmonary emboli are identified. The remainder of the pulmonary arteries suboptimally assessed on this exam. There is no thoracic lymphadenopathy. No pneumothorax or pleural effusion is present. There is no consolidation to suggest pneumonia. No acute fractures within the bony thorax are present. Hepatic steatosis is noted. A 3.8 cm subcapsular right hepatic lobe lesion represents a cyst. The left kidney is atrophic. A 1.8 cm lesion within the midpole the right kidney measures above water attenuation. A small lesion arising from the upper pole of the right kidney likely reflects a cyst. IMPRESSION: 1. No thoracic aortic dissection. 2. Moderate cardiomegaly. Moderate to extensive coronary artery calcification. 3. No consolidation to suggest pneumonia. 4. 1.8 cm right renal lesion. This could reflect a complex cyst or small solid renal lesion. Nonemergent renal protocol CT is recommended. 5. Atrophic left kidney. ACT 112: Positive. There are findings on this exam that require communication between the performing entity and the patient following Patient Test Result Information Act ([place] Act 112) guidelines. Electronically signed by: Donovan Sanders M.D. 12/15/2022 8:31 AM ECG Additional Comments: Initial EKG Afib/RVR w/ IVCD, rates 114bpm Repeat EKG appearing afib in 90s but with changes in inferior leads concerning Supervising Physician Co-Signing Physician Notes During face to face encounter, I obtained a history and physical examination with patient. I discussed discharge plan of care with IRENE Mazariegos. I reviewed above note and agree with it except for the following: Patient will be admitted for chest pain, likely NSTEMI. Patient will be going to a cardiac cath directly. Discussed with cardiology. PG Care Time/CCT Total # of Minutes Spent Total Time Spent with Patient: Total time spent is greater than 50% in coordination of care (as documented) at patient's floor/unit and/or counseling patient: Coding Level of Care Code 07225 INT INP/OBS CARE 3/75MIN Diagnoses Non-ST elevation IA (NSTEMI) I21.4 Chest pain R07.9 Atrial fibrillation with rapid ventricular response I48.91 HTN (hypertension) I10 Diabetes mellitus E11.9 ERNESTO on CPAP G47.33; Z99.89 Obesity, diabetes, and hypertension syndrome E11.69; E11.59; E66.9; I15.2 Acid reflux disease K21.9
[2022-12-15] MEDS ORDERED: Heparin IV Adult Wt-Based Standard *NO* Bolus Protocol IV STA (09:56)
[2022-12-15] MEDS ORDERED: PERFLUTREN LIPID MICROSPHERE (DEFINITY) IV ONE (10:02)
[2022-12-15 10:05] LABS: Magnesium 1.8 mg/dl (1.7-2.4)
[2022-12-15] MEDS ORDERED: HEPARIN 25000 UNIT/500 ML D5W IV ONE (10:06)
[2022-12-15 10:12] LABS: Troponin I High Sensitivity 1189.4 pg/ml (0-20)
[2022-12-15] MEDS ORDERED: HEPARIN SODIUM/DEXTROSE 25,000 UNITS/500 ML BAG IV SCH (10:15)
[2022-12-15] MEDS ORDERED: SODIUM CHLORIDE 0.9% 1000ML 1,000 ML IV SCH (10:15)
[2022-12-15] MEDS ORDERED: HEPARIN (PORCINE) 1000 UNIT/ML 10 ML (CATH LAB USE ONLY) ONE ×2 (10:17→11:35)
[2022-12-15] MEDS ORDERED: niCARdipine HCL INJ 2.5 MG/ML 10 ML AMP ONE (10:17)
[2022-12-15] MEDS ORDERED: MIDAZOLAM HCL 1 MG/ML 2ML VIAL ONE ×2 (10:17→11:22)
[2022-12-15] MEDS ORDERED: NITROGLYCERIN/D5W 100MCG/ML 20ML SYR ONE (10:18)
[2022-12-15] MEDS ORDERED: fentaNYL citrate PF 100 MCG/2 ML VIAL ONE ×2 (10:18→11:22)
--- NOTE | 2022-12-15 10:25 | Cardiology Consultation ---
Date of Consultation December 15, 2022 Assessment & Plan (1) Non-ST elevation [place] (NSTEMI): Presentation consistent with high risk ACS and recommend proceeding with cardiac catheterization and possible PCI. No apparent contraindications to procedure. Discussed risks, benefits, alternatives of procedure with patient and they are willing to proceed. Further recommendations pending findings of coronary angiography. History of Present Illness History of Present Illness Mr. Roque is a 52-year-old male here with acute chest pain and elevated troponin concerning for ACS. Past cardiac history remarkable for persistent atrial fibrillation. He is followed by Dr. Espinal for his cardiac care. ASCVD risk factors include type 2 diabetes, hypertension, dyslipidemia, obesity and family history of premature CAD (father had bypass surgery in 50s). Other medical issues include ERNESTO on CPAP, GERD, anemia, gout. Chest pain began approximately 6 PM yesterday, approximately 13 hours prior to arrival. Patient had persistent pain overnight repeatedly waking him from sleep. Describes substernal chest pain with associated nausea Denies similar symptoms in the past. Prior to chest pain has been in his usual state of health. Not terribly active but no recent change to exercise tolerance. Has never had a heart catheterization previously. Prior remote stress test. Chest pain at time of arrival 07/25. Hemodynamically stable. EKG showed atrial fibrillation with RVR to the [id number] and new right bundle branch block. HS TropI elevated at 610, uptrending to 1100. CTA in ED negative for PE, dissection or pneumonia. Heavy coronary calcifications on CT. Patient with ongoing mild chest pain despite sublingual nitroglycerin, IV Toprol. Social history: Works for [employer]. . Lifelong non-smoker. Allergies Allergy/AdvReac Type Severity Reaction Status Date / Time cat dander Allergy Intermediate Itchy, Verified 11/03/22 11:26 watery eyes, sneezing dog dander Allergy Intermediate Itchy, Verified 11/03/22 11:26 watery eyes, sneezing pollen extracts Allergy Intermediate SNEEZE,ITCHY Verified 11/03/22 11:26 WATERY EYES acetaminophen [From Percocet] Allergy Verified 11/03/22 11:26 house dust mite Allergy Verified 11/03/22 11:26 mold Allergy Verified 11/03/22 11:26 oxycodone [From Percocet] Allergy Verified 11/03/22 11:26 Home Medications Medication Instructions Recorded Confirmed Type fluticasone propionate 50 2 sprays intranasal DAILY 02/24/19 12/15/22 History mcg/actuation nasal spray,suspension loratadine 10 mg tablet 10 mg PO DAILY 02/24/19 12/15/22 History dorzolamide 22.3 mg-timolol 6.8 1 drops ophthalmic (eye) BID 02/25/19 12/15/22 History mg/mL eye drops colchicine 0.6 mg tablet 0.6 mg PO DAILY PRN gout #9 tabs 09/18/21 12/15/22 Rx amlodipine 10 mg tablet 10 mg PO DAILY #90 tabs 05/02/22 12/15/22 Rx metoprolol tartrate 75 mg tablet 75 mg PO BID #180 tabs 05/02/22 12/15/22 Rx montelukast 10 mg tablet 10 mg PO DAILY #90 tabs 05/02/22 12/15/22 Rx omeprazole 40 mg capsule,delayed 40 mg PO DAILY #90 caps 05/02/22 12/15/22 Rx release triamterene 37.5 1 tab PO DAILY #90 tabs 05/02/22 12/15/22 Rx mg-hydrochlorothiazide 25 mg tablet rivaroxaban 20 mg tablet (Xarelto) 20 mg PO DAILY #90 tabs 08/12/22 12/15/22 Rx metformin 500 mg tablet 500 mg PO DAILY #90 tabs 10/08/22 12/15/22 Rx indomethacin 25 mg capsule 25 mg PO Q8H PRN gout flare #90 10/10/22 12/15/22 Rx caps lisinopril 20 mg tablet 20 mg PO DAILY #30 tabs 10/16/22 12/15/22 Rx empagliflozin 10 mg tablet 10 mg PO DAILY #90 tabs 11/03/22 12/15/22 Rx (Jardiance) allopurinol 300 mg tablet 300 mg PO DAILY #90 tabs 12/12/22 12/15/22 Rx acetaminophen 500 mg tablet 1,000 mg PO BID PRN Pain 12/15/22 12/15/22 History calcium carbonate 600 mg calcium 600 mg PO BID 12/15/22 12/15/22 History (1,500 mg) tablet (Calcium) cholecalciferol (vitamin D3) 125 125 mcg PO DAILY 12/15/22 12/15/22 History mcg (5,000 unit) tablet (Vitamin D3) ferrous sulfate 325 mg (65 mg 325 mg PO DAILY 12/15/22 12/15/22 History iron) tablet Patient History Medical History Asthma Atrial fibrillation Diabetes mellitus Finger laceration involving tendon Glaucoma Gout HTN (hypertension) Obesity, diabetes, and hypertension syndrome ERNESTO on CPAP Proteinuria Surgical History H/O oral surgery History of hand surgery Family History Mother Coronary heart disease Myocardial infarction Diabetes Father Coronary heart disease Myocardial infarction Other Hypertension Denies family history of Ovarian cancer Prostate cancer Breast cancer Colorectal cancer Social History (Updated 12/15/22 @ 09:58 by Mary Mazariegos PA-C) Smoking Status: Never smoker Second Hand Exposure: No; Do You Dip or Chew Tobacco: No; Hx Alcohol Use: No Hx Substance Use: No Preferred Language: [place] Citizen Communication Ability: Effective Visual Impairment: No Limitations Hearing Ability: Normal Chocolate Maker Required: No Beliefs That Will Affect Care: None marital status: Current Living Situation: Spouse current occupational status: employed 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 How many Children do You have: 0 Feels Safe at Home: Yes Safety Concerns: Feels Safe At This Time Childhood Exposure to Second-Hand Smoke: Yes Diet: regular caffeine: Yes Dental Care, Regularly: Yes Physical Activity Frequency: Does not Exercise Seatbelt Use: always Sunscreen Use: No Assistive Devices: None Review of Systems Review of Systems: All systems reviewed & are unremarkable except as noted in HPI & below Physical Exam Physical Exam: General: Comfortable HEENT: Sclerae anicteric Lungs: Clear to auscultation bilaterally Cardiac: Irregularly irregular, no murmurs Vascular: 2+ radial Abdomen: Soft, nontender Extremities: Well perfused, no peripheral edema Neuro: Nonfocal Psych: Alert orient x3, normal affect and mood Results & Data Vital Signs (Past 12 Hours) Vital Signs Temp Pulse Resp BP Pulse Ox O2 Del Method 12/15/22 08:54 99 H 15 97 12/15/22 08:54 149/103 H 12/15/22 08:50 95 H 11 L 91 12/15/22 08:40 112 H 38 H 93 12/15/22 08:31 155/104 H 12/15/22 08:31 98 H 15 93 12/15/22 08:30 107 H 18 95 12/15/22 08:20 107 H 19 93 12/15/22 08:10 87 13 91 12/15/22 08:01 145/90 H 12/15/22 08:01 17 94 12/15/22 08:00 111 H 16 96 12/15/22 07:59 95 12/15/22 07:40 109 H 22 94 12/15/22 07:39 152/99 H 12/15/22 07:39 98 H 20 95 12/15/22 07:31 167/104 H 12/15/22 07:31 107 H 14 95 12/15/22 07:30 122 H 22 94 12/15/22 07:20 106 H 13 94 12/15/22 07:19 145/104 H 12/15/22 09:00 Room Air 12/15/22 08:32 107 H 155/104 H 12/15/22 08:02 99 Room Air 12/15/22 07:10 105 H 22 99 Room Air 12/15/22 07:33 104 H 167/104 H 12/15/22 07:22 111 H 12/15/22 07:08 97.3 F L 121 H 22 164/108 H 98 Room Air PG Care Time/CCT Total # of Minutes Spent Total Time Spent with Patient: Total time spent is greater than 50% in coordination of care (as documented) at patient's floor/unit and/or counseling patient: Coding Level of Care Code 94967 IN/OBS CONSULT LVL 4,60M Diagnoses Non-ST elevation [place] (NSTEMI) I21.4
--- NOTE | 2022-12-15 10:32 | Pre Anesthesia Assessment ---
Date of Service December 15, 2022 Pre Sedation Assessment Vital Signs Temp Pulse Resp BP Pulse Ox O2 Del Method 12/15/22 08:54 99 H 15 97 12/15/22 08:54 149/103 H 12/15/22 08:50 95 H 11 L 91 12/15/22 08:40 112 H 38 H 93 12/15/22 08:31 155/104 H 12/15/22 08:31 98 H 15 93 12/15/22 08:30 107 H 18 95 12/15/22 08:20 107 H 19 93 12/15/22 08:10 87 13 91 12/15/22 08:01 145/90 H 12/15/22 08:01 17 94 12/15/22 08:00 111 H 16 96 12/15/22 07:59 95 12/15/22 07:40 109 H 22 94 12/15/22 07:39 152/99 H 12/15/22 07:39 98 H 20 95 12/15/22 07:31 167/104 H 12/15/22 07:31 107 H 14 95 12/15/22 07:30 122 H 22 94 12/15/22 07:20 106 H 13 94 12/15/22 07:19 145/104 H 12/15/22 09:00 Room Air 12/15/22 08:32 107 H 155/104 H 12/15/22 08:02 99 Room Air 12/15/22 07:10 105 H 22 99 Room Air 12/15/22 07:33 104 H 167/104 H 12/15/22 07:22 111 H 12/15/22 07:08 97.3 F L 121 H 22 164/108 H 98 Room Air Cardiovascular RRR, no murmur, no edema Respiratory normal respiratory effort, lungs clear to auscultation Pre-Sedation Airway Assessment Smoking Status: Never smoker Hx Sleep Apnea: Yes Hx Difficult Intubation: No Short, Thick Neck: No Thyromental Distance: > or= 3.5 Finger Breadths Oral Cavity: + WNL Mallampati Class: III ASA: ASA4 Procedure Planning Contraindications for Sedation: none Current Medications Reviewed: Yes Notes The planned sedation has been discussed with the patient. Informed Consent was obtained. I have identified the patient, determined the appropriateness of sedation and have assessed the patient immediately prior to the procedure. All medicine(s) and interventions are by my order.
[2022-12-15] MEDS ORDERED: TICAGRELOR 90 MG TAB ONE (11:36)
--- NOTE | 2022-12-15 12:17 | Post Anesthesia Assessment ---
Date of Service December 15, 2022 Post Sedation Assessment Vital Signs Temp Pulse Pulse Resp BP BP Pulse Ox 12/15/22 12:00 74 18 178/94 H 93 12/15/22 08:54 99 H 15 97 12/15/22 08:54 149/103 H 12/15/22 08:50 95 H 11 L 91 12/15/22 08:40 112 H 38 H 93 12/15/22 08:31 155/104 H 12/15/22 08:31 98 H 15 93 12/15/22 08:30 107 H 18 95 12/15/22 08:20 107 H 19 93 12/15/22 08:10 87 13 91 12/15/22 08:01 145/90 H 12/15/22 08:01 17 94 12/15/22 08:00 111 H 16 96 12/15/22 07:59 95 12/15/22 07:40 109 H 22 94 12/15/22 07:39 152/99 H 12/15/22 07:39 98 H 20 95 12/15/22 07:31 167/104 H 12/15/22 07:31 107 H 14 95 12/15/22 07:30 122 H 22 94 12/15/22 07:20 106 H 13 94 12/15/22 07:19 145/104 H 12/15/22 09:00 12/15/22 08:32 107 H 155/104 H 12/15/22 08:02 99 12/15/22 07:10 105 H 22 99 12/15/22 07:33 104 H 167/104 H 12/15/22 07:22 111 H 12/15/22 07:08 97.3 F L 121 H 22 164/108 H 98 O2 Del Method 12/15/22 12:00 Room Air 12/15/22 08:54 12/15/22 08:54 12/15/22 08:50 12/15/22 08:40 12/15/22 08:31 12/15/22 08:31 12/15/22 08:30 12/15/22 08:20 12/15/22 08:10 12/15/22 08:01 12/15/22 08:01 12/15/22 08:00 12/15/22 07:59 12/15/22 07:40 12/15/22 07:39 12/15/22 07:39 12/15/22 07:31 12/15/22 07:31 12/15/22 07:30 12/15/22 07:20 12/15/22 07:19 12/15/22 09:00 Room Air 12/15/22 08:32 12/15/22 08:02 Room Air 12/15/22 07:10 Room Air 12/15/22 07:33 12/15/22 07:22 12/15/22 07:08 Room Air Recovery Score Activity: Moves 4 extremities Respiration: Deep Breath/Cough Circulation: +/-20% PreAnes Value Consciousness: Fully Awake Oxygen Saturation: > 92% On Room Air Post Anesthesia Score: 10 Discharge Sedation Level of Care: Fast Track Phase II Post Sedation Plan On clinical assessment, the patient appears to have tolerated the sedation without complications. Patient is recovering as anticipated. Patient will continue to be monitored by nursing and may be discharged when sedation discharge criteria are met per below protocol. Upon Completions of procedure up to 15 minutes continue every 5 minute vital si gns and the P.A.R. score; then discharge to a Phase I or Fast Track to Phase II per the following guidelines: * Discharge Patient to appropriate Phase II area if PAR is 8 or greater or return to pre- procedure baseline. The post - procedure orders will be as directed. * If PAR score is less than 8 or not return to pre-procedure baseline then patient will follow Phase I monitoring till PAR is reached for Phase II. The Phase I may be done in procedure room or may call to secure a Phase I area. * If naloxone or flumazenil are used for reversal, hold in Phase I for continued monitoring from when last reversal dose was given for a minimum of 60 minutes or longer pending the nurse and/or physician discretion of patient condition before discharge to Phase II. Please call the Sedation Physician to re-evaluate and complete post-note for discharge to Phase II area. Do NOT discharge from procedure sedation or Phase 1 until post- sedation evaluation note is complete by procedure /sedation MD Sedation Discharge Instructions to be given to the patient at discharge to home.
[2022-12-15] MEDS ORDERED: ONDANSETRON INJ 2 MG/ML 2 ML VIAL IV PRN ×2 (12:33→14:10)
--- NOTE | 2022-12-15 12:45 | Cardiac Catheterization ---
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 Clinical evaluation leading to the procedure CAD Presenation: Non STEMI Anginal Classification: CCS IV Heart Failure: No Diagnostic Physicians Name: Zane Barroso MD Closure Device Recommendations: PCI without planned CABG Cardiac Cath Procedure Full Procedure Date December 15, 2022 Pre-Procedure Diagnosis Pre-Procedure Diagnosis: Non STEMI AUC Score AUC Score: 8 Post-Procedure Diagnosis Post-Procedure Diagnosis: Severe CAD, Successful PCI and Elevated Intracardiac Pressures Procedure(s) Performed Procedure(s) Performed: Coronary Angiography, Left Heart Cath and Drug Eluting Stent Bag Making Machine Tender Zane Barroso MD Interpretive Naturalist(s) Carlos Estimated Blood Loss Estimated Blood Loss: 10 Medication(s) Medication(s): Fentanyl, Heparin, Lidocaine 1%, Nicardipine, Nitroglycerin and Versed Summary of Findings Indication: High risk NSTEMI Access: 6 Fr right radial artery Catheters: [place], diagnostic JR4, JL 3.5. EBU 3.5 guide Findings: LM -normal caliber, no significant disease LAD -large caliber, calcified, 50 to 60% mid segment stenosis at takeoff of second diagonal, distal vessel without significant disease and wraps around apex. Small to medium bifurcating D1 with 90% proximal stenosis and sluggish flow in superior branch. Medium D2 with 80-90% ostial stenosis Circumflex -large caliber, 20 to 30% proximal stenosis, 30 to 40% mid segment stenosis at takeoff of small OM2. Gives a very small left PDA which tapers prior to apex RCA -nondominant, 30% proximal to mid disease LVEDP -20 -- PCI -- Antithrombotic therapy: Heparin, ticagrelor Procedure: Left main cannulated with EBU 3.5 guide Pre-procedure flow EDWIGE 2-3 Evaporator Helper 50 wire passed across lesion into distal D1 Proximal D1 lesion predilated with 2.0 compliant balloon Dilated lesion stented with 2.25 x 22 mm Isai drug-eluting stent Stent post-dilated with 2.5 noncompliant balloon IC vasodilators administered for spasm Post procedure EDWIGE 3 flow, stent well expanded with minimal residual stenosis and no apparent cardiac complications. Arterial Closure: TR band Summary: 1. Multivessel coronary artery disease -Small to medium D1 90% proximal 50 to 60% mid LAD at bifurcation with D2. Medium D2 80-90% ostial 40% mid circumflex 2. Elevated intracardiac filling pressure 3. Successful PCI of proximal D1 with single drug-eluting stent (2.5 x 22 mm Apex; postdilated with 2.5 NC). Recommendations: To PCU for continued monitoring Loaded with ticagrelor 180 mg. Transition to clopidogrel tomorrow and continue dual therapy with Xarelto, clopidogrel after discharge for at least 1 year. Continue statin, and ASCVD risk factor modification Consult cardiac Rehab Medical management of residual CAD. If refractory anginal symptoms in the future could consider bifurcation PCI of mid LAD/D2. Hemodynamics Rest Ao:: 150/110/124 Final Ao: 139/98/110 LV: 140/20 Recommendations Recommendations: PCI without planned CABG Specimens Specimens: None Radiation Exposure (mGy) 3551 Contrast (mls) 210 Anesthesia Moderate 8330-8708 Procedural Complication(s) None Disposition PCU I attest to the content of the Intraoperative Record and any orders documented therein. Any exceptions are noted below. [facility] Card Cath Procedure Codes Cardiac Catheterization Procedure 1: Cardiovascular Cath Procedures: 01582 Coronaries and LHC (+/-LV) Moderate Sedation Procedure 1: Sedation/Anesthesia: 79788 Mod Sedation by the same physician;Init15 Min Child Age 5 & Up Procedure 2: Sedation/Anesthesia: 21375 Mod Sedation by the same physician; Ea [id number] Minutes Stenting Procedure 1: Cardiovascular Stent Procedures: 98330 Perc transcatheter placement of intracoronary stent(s), with ang PG Care Time/CCT Total # of Minutes Spent Total Time Spent with Patient: Total time spent is greater than 50% in coordination of care (as documented) at patient's floor/unit and/or counseling patient:
[2022-12-15] MEDS ORDERED: GLUCOSE 40% GEL 15 GM TUBE PO PRN (14:10)
[2022-12-15] MEDS ORDERED: CARBOHYDRATES FOR HYPOGLYCEMIA PO PRN (14:10)
[2022-12-15] MEDS ORDERED: NITROGLYCERIN SL 0.4 MG/TAB TAB SL PRN (14:10)
[2022-12-15] MEDS ORDERED: ACETAMINOPHEN 325 MG TAB PO PRN (14:10)
[2022-12-15] MEDS ORDERED: GLUCAGON FOR INJ 1 MG VIAL SQ PRN (14:10)
[2022-12-15] MEDS ORDERED: DEXTROSE 50% 50 ML SYRINGE IV PRN (14:10)
[2022-12-15] MEDS ORDERED: GLUCOSE 10 TAB/TUBE PO PRN (14:10)
[2022-12-15] MEDS: POTASSIUM CHLORIDE / WTR 10 MEQ/100 ML PLCT IV SCH ×2 (14:20→14:21)
[2022-12-15] MEDS: MAGNESIUM SULFATE / D5W 1 GM/100 ML BAG IV SCH ×2 (14:20→14:21)
[2022-12-15] MEDS: METOPROLOL TARTRATE 1 MG/ML VIAL IV PRN ×2 (14:31→17:49)
[2022-12-15] MEDS ORDERED: METOPROLOL TARTRATE 25 MG TAB PO STA (14:34)
[2022-12-15] MEDS: INSULIN ASPART PER UNIT CHARGE SC SCH ×3 (14:52→20:50)
[2022-12-15 15:18] LABS: Partial Thromboplastin Ratio 1.4; Partial Thromboplastin Time 38.5 Seconds (21.0-31.0)
[2022-12-15] MEDS: PANTOprazole 40 MG TAB PO SCH (17:54)
[2022-12-15] MEDS ORDERED: lisinopril 10 MG TAB PO ONE (18:07)
--- NOTE | 2022-12-15 18:47 | XCELERA ---
[id number] \\[id number]
[2022-12-15] MEDS: DORZOLAMIDE/TIMOLOL 22.3/6.8MG/ML 10 ML BTL OP SCH (20:50)
[2022-12-15] MEDS ORDERED: METOPROLOL TARTRATE 25 MG TAB PO SCH (21:00)
[2022-12-16] MEDS: METOPROLOL TARTRATE 1 MG/ML VIAL IV PRN ×2 (02:17→06:37)
[2022-12-16 06:39] LABS: Basophils # (auto) 0.03 K/uL (0-0.2); Basophils % (auto) 0.2 %; Eosinophils # (auto) 0.06 K/uL (0-0.50); Eosinophils % (auto) 0.4 %; Hematocrit (blood only) 39.6 % (42.0-52.0); Hemoglobin 13.7 g/dl (14.0-18.0); Immature Granulocytes # (auto) 0.06 K/uL (0.01-0.20); Immature Granulocytes % (auto) 0.4 %; Lymphocytes # (auto) 0.76 K/uL (1.2-3.4); Mean Corpuscular Hemoglobin 29.3 pg (25.0-34.0); Mean Corpuscular Hgb Conc 34.6 g/dL (32.0-36.0); Mean Corpuscular Volume 84.6 fL (80.0-100.0); Mean Platelet Volume 10.9 fL (9.4-12.4); Monocytes # (auto) 1.32 K/uL (0.11-0.59); Monocytes % (auto) 8.7 %; Neutrophils # (auto) 12.95 K/uL (1.40-6.50); Neutrophils % (auto) 85.3 %; Platelet Count 278 K/uL (130-400); RDW Coefficient of Variation 12.9 % (11.5-14.5); RDW Standard Deviation 39.1 fL (36.4-46.3); Red Blood Count 4.68 M/uL (4.70-6.10); White Blood Count 15.18 K/ul (4.8-10.8)
[2022-12-16 07:05] LABS: Albumin Globulin Ratio 1.2 (0.9-2); Albumin Level 4.1 gm/dl (3.4-5.0); BUN Creatinine Ratio 18.1 (10-20); Bilirubin,Total 0.5 mg/dl (0.2-1.0); Calcium 9.6 mg/dl (8.6-10.3); Chol HDL Ratio 4.4 (0-5); Creatinine Clr Calc Pharmacy 116.9 ml/min; Est GFR (African American) 75.8 ml/min; Est GFR (Non-African American) 65.4 ml/min; Globulin 3.5 gm/dl (2.5-4.0); Magnesium 1.9 mg/dl (1.7-2.4); Potassium 3.3 mmol/L (3.5-5.1); Total Protein 7.6 gm/dl (6.0-8.3)
[2022-12-16 07:15] LABS: Troponin I High Sensitivity 13327.3 pg/ml (0-20)
[2022-12-16 07:35] LABS: Estimated Average Glucose 123 mg/dl; Hemoglobin A1C 5.9 % (4.5-5.6)
[2022-12-16] MEDS ORDERED: POTASSIUM CHLORIDE CRTAB 20 MEQ TABCR PO STA ×2 (07:57→07:59)
[2022-12-16] MEDS ORDERED: MAGNESIUM SULFATE / D5W 1 GM/100 ML BAG IV ONE (07:59)
[2022-12-16] MEDS ORDERED: CLOPIDOGREL BISULFATE 300 MG TAB PO ONE (08:00)
--- NOTE | 2022-12-16 08:04 | Hospitalist Progress Note ---
Date of Service December 16, 2022 Assessment & Plan (1) Non-ST elevation MS (NSTEMI): Plan: concerns for NSTEMI w/ elevaed troponin/EKG/symptoms Presented with CP since evening 12/14, initially thought was indigestion/heartburn but unrelieved with his usual PPI or pepcid x 2, initial trop 610.4 EKG w/o significant ST elevation however new IVCD since prior EKG in system. Concerning for NSTEMI ASCVD risk factors include type 2 diabetes, hypertension, dyslipidemia, obesity, family history of premature CAD in mom/dad (father w/ bypass in 50s) Nitro x 2, ASA 324mg x 1, Lopressor IV in ER w/ ongoing discomfort 06/27 ECHO w/ mildly dilated LV. Mildly to moderately reduced systolic function. EF 40-45%. Akinesis of basal inferoseptum and inferior base. Otherwise mild global hypokinesis. Mild-mod cLVH. Mild left atrial dilation. Atrial fibrillation. Poor image quality. Compared to prior study 2015, LV systolic function declined w/ wma abnormalities as reported. Afib replaced SR Cards consulted, Dr Barroso s/p cath with Dr Barroso on 12/15 Summary: 1. Multivessel coronary artery disease * Small to medium D1 90% proximal * 50 to 60% mid LAD at bifurcation with D2. Medium D2 80-90% ostial * 40% mid circumflex 2. Elevated intracardiac filling pressure 3. Successful PCI of proximal D1 with single drug-eluting stent (2.5 x 22 mm Isai; postdilated with 2.5 NC). Discussed w/ Dr Barroso and will continue ASA/Plavix and Xarelto (resumed today) for today, plan for Xarelto/Plavix alone for tomorrow (will place ASA on hold for tomorrow) Metoprolol increased to 100mg BID given ongoing afib/RVR. Mag/K replacement Resume home lisinopril -- 20mg PO x1 now, resume for AM. Consideration to add amlodipine if BPs remain elevated after resuming this Resume jardiance as outpatient. Unclear if reduced EF 2nd to true LV dysfunction vs artifact in setting of AF/conduction abn. Consider adding spironolactone as outpatient Rates now down to the 50s this afternoon, BPs improving Trop w/ continued rise -- did report discomfort overnight that has since resolved. Monitoring repeat troponin, no discharge until trending down and discussed continued inpatient stay HLD- heavy calcifications, lipid panel reviewed/cath report. Started lipitor 40mg daily DM- A1c 5.9 from 6.3 and can continue current regimen (SSI while inpatient) ERNESTO--> CPAP ordered while sleeping -- has machine but hasn't used/dirty. Will need cleaned/compliance. If needing new machine likely set up outpatient for repeat studies Continued inpatient stay, monitoring HR/troponin on repeat Hopefully able to discharge tomorrow --> will need rx for Plavix 75mg daily, increased metoprolol 100mg BID, as well as atorvastatin 40mg daily --> would also send rx for Nitro SL/instructions when to use (2) Chest pain: Plan: none reported at present, trop trending til downtrending prior to dc (3) Atrial fibrillation with rapid ventricular response: Plan: elevated rates on admission, IV lopressor, mag/K replacement (of note, ordered in ER yesterday, [employer] non-admin as wasn't sure if given despite confirming w/ ER/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 If still elevated, consideration to add amlodipine Improvement in BP this afternoon adn will monitor HLD not previously on statin therapy- last lipid panel August w/ chol 178, LDL 111, HDL 45, TRG 112 given CAD as above, s/p stent. Repeat lipid panel w/ TRG 141, Chl 155, LDL 92, HDL 35 STARTED lipitor 40mg daily -- new RX at discharge (5) Diabetes mellitus: Plan: Last A1c 6.3 Hold home DM meds, BSG AC/HS while inpatient/SSI A1c w/ am labs Monitor BSGs (6) ERNESTO on CPAP: Plan: CPAP HS (7) Obesity, diabetes, and hypertension syndrome: Plan: noted, weight loss encouraged compliance w/ CPAP (8) Acid reflux disease: Plan: continue PPI -- resumed Plan continued inpatient stay, hopeful discharge tomorrow Admission and Anticipated Discharge Date Admission Date: December 15, 2022 Subjective Eval this afternoon, HRs now to the 50s, no further increase in metorpolol and maintaining 100mg BID. Discussed CPAP -- asked RN to call RT to place on CPAP while sleeping, currently sleeping on arrival in room. Unsure of his home settings but agreeable to clean/start using at discharge. Had some CP overnight, nothing further. Per Dr Barroso, also wanting to see downtrending of his trop prior to discharge. Hopefully now that HR improved repeat will be as well. Physical Exam Physical Exam: General: WD/WN obese male sleeping in bed, NAD HEENT: head normocephalic, atraumatic, mmm, trachea midline, thick neck Resp: CTA, no w/c/r, on room air CV: irregularly irregular (rates now down to 50s), no significant m/r/g, trace pedal edema, no calf tenderness, radial site looks good, no significant hematoma GI: +BS, soft/NT to palpation : no jesus MSK/Neuro: no focal deficits, no slurred speech, no facial droop, following commands Psych: alert to person/place/time/events, cooperative with examination Skin: no obvious lesions/rashes Results & Data Results & Data Vital Signs (Past 12 Hours) Vital Signs Temp Pulse Pulse Resp BP BP Pulse Ox 12/16/22 06:47 121 H 12/16/22 06:37 131 H 12/16/22 02:30 110 H 12/16/22 03:18 36.8 C 16 140/97 94 12/16/22 02:17 135 H 12/15/22 22:40 37.3 C 66 18 141/71 H 96 O2 Del Method 12/16/22 06:47 12/16/22 06:37 12/16/22 02:30 12/16/22 03:18 Room Air 12/16/22 02:17 12/15/22 22:40 Room Air Laboratory Results 12/16/22 12/16/22 12/16/22 Range/Units 11:41 11:41 07:36 WBC (4.8-10.8) K/ul RBC (4.70-6.10) M/uL Hgb (14.0-18.0) g/dl Hct (42.0-52.0) % MCV (80.0-100.0) fL MCH (25.0-34.0) pg MCHC (32.0-36.0) g/dL RDW Std Deviation (36.4-46.3) fL RDW Coeff of Tripp (11.5-14.5) % Plt Count (130-400) K/uL MPV (9.4-12.4) fL Immature Gran % (Auto) % Neut % (Auto) % Lymph % (Auto) % [place] % (Auto) % Eos % (Auto) % Baso % (Auto) % Neut # (Auto) (1.40-6.50) K/uL Lymph # (Auto) (1.2-3.4) K/uL [place] # (Auto) (0.11-0.59) K/uL Eos # (Auto) (0-0.50) K/uL Baso # (Auto) (0-0.2) K/uL Immature Gran # (Auto) (0.01-0.20) K/uL PT (9.0-12.0) Seconds INR (0.9-1.1) APTT (21.0-31.0) Seconds PTT Ratio Sodium (136-145) mmol/L Potassium (3.5-5.1) mmol/L Chloride (98-107) mmol/L Carbon Dioxide (21-32) mmol/L Anion Gap (3-11) BUN (6-23) mg/dl Creatinine (0.6-1.4) mg/dl Est Cr Clr Drug Dosing ml/min Est GFR ( Amer) ml/min Est GFR (Non-Af Amer) ml/min BUN/Creatinine Ratio (10-20) Glucose (70-99(Fasting)) mg/dl POC Glucose 118 H 113 H (70-99) mg/dl Estimat Average Glucose mg/dl Hemoglobin A1c (4.5-5.6) % Calcium (8.6-10.3) mg/dl Magnesium (1.7-2.4) mg/dl Total Bilirubin (0.2-1.0) mg/dl AST (13-39) U/L ALT (7-52) U/L Alkaline Phosphatase (34-104) U/L Troponin I High Sens 59334.2 H* (0-20) pg/ml Total Protein (6.0-8.3) gm/dl Albumin (3.4-5.0) gm/dl Globulin (2.5-4.0) gm/dl Albumin/Globulin Ratio (0.9-2) Triglycerides (0-150) mg/dl Cholesterol (0-200) mg/dl LDL Cholesterol, Calc mg/dl VLDL Cholesterol, Calc (0-30) mg/dl HDL Cholesterol mg/dl Cholesterol/HDL Ratio (0-5) 12/16/22 12/16/22 12/16/22 Range/Units 05:57 05:57 05:57 WBC 15.18 H (4.8-10.8) K/ul RBC 4.68 L (4.70-6.10) M/uL Hgb 13.7 L (14.0-18.0) g/dl Hct 39.6 L (42.0-52.0) % MCV 84.6 (80.0-100.0) fL MCH 29.3 (25.0-34.0) pg MCHC 34.6 (32.0-36.0) g/dL RDW Std Deviation 39.1 (36.4-46.3) fL RDW Coeff of Tripp 12.9 (11.5-14.5) % Plt Count 278 (130-400) K/uL MPV 10.9 (9.4-12.4) fL Immature Gran % (Auto) 0.4 % Neut % (Auto) 85.3 % Lymph % (Auto) 5.0 % [place] % (Auto) 8.7 % Eos % (Auto) 0.4 % Baso % (Auto) 0.2 % Neut # (Auto) 12.95 H (1.40-6.50) K/uL Lymph # (Auto) 0.76 L (1.2-3.4) K/uL [place] # (Auto) 1.32 H (0.11-0.59) K/uL Eos # (Auto) 0.06 (0-0.50) K/uL Baso # (Auto) 0.03 (0-0.2) K/uL Immature Gran # (Auto) 0.06 (0.01-0.20) K/uL PT (9.0-12.0) Seconds INR (0.9-1.1) APTT (21.0-31.0) Seconds PTT Ratio Sodium 138 (136-145) mmol/L Potassium 3.3 L (3.5-5.1) mmol/L Chloride 101 (98-107) mmol/L Carbon Dioxide 28 (21-32) mmol/L Anion Gap 9 (3-11) BUN 23 (6-23) mg/dl Creatinine 1.27 (0.6-1.4) mg/dl Est Cr Clr Drug Dosing 116.9 ml/min Est GFR ( Amer) 75.8 ml/min Est GFR (Non-Af Amer) 65.4 ml/min BUN/Creatinine Ratio 18.1 (10-20) Glucose 108 H (70-99(Fasting)) mg/dl POC Glucose (70-99) mg/dl Estimat Average Glucose 123 mg/dl Hemoglobin A1c 5.9 H (4.5-5.6) % Calcium 9.6 (8.6-10.3) mg/dl Magnesium 1.9 (1.7-2.4) mg/dl Total Bilirubin 0.5 (0.2-1.0) mg/dl AST 114 H (13-39) U/L ALT 28 (7-52) U/L Alkaline Phosphatase 56 (34-104) U/L Troponin I High Sens 09956.3 H* D (0-20) pg/ml Total Protein 7.6 (6.0-8.3) gm/dl Albumin 4.1 (3.4-5.0) gm/dl Globulin 3.5 (2.5-4.0) gm/dl Albumin/Globulin Ratio 1.2 (0.9-2) Triglycerides 141 (0-150) mg/dl Cholesterol 155 (0-200) mg/dl LDL Cholesterol, Calc 92 mg/dl VLDL Cholesterol, Calc 28 (0-30) mg/dl HDL Cholesterol 35 mg/dl Cholesterol/HDL Ratio 4.4 (0-5) 12/15/22 12/15/22 12/15/22 Range/Units 20:05 14:52 14:25 WBC (4.8-10.8) K/ul RBC (4.70-6.10) M/uL Hgb (14.0-18.0) g/dl Hct (42.0-52.0) % MCV (80.0-100.0) fL MCH (25.0-34.0) pg MCHC (32.0-36.0) g/dL RDW Std Deviation (36.4-46.3) fL RDW Coeff of Tripp (11.5-14.5) % Plt Count (130-400) K/uL MPV (9.4-12.4) fL Immature Gran % (Auto) % Neut % (Auto) % Lymph % (Auto) % [place] % (Auto) % Eos % (Auto) % Baso % (Auto) % Neut # (Auto) (1.40-6.50) K/uL Lymph # (Auto) (1.2-3.4) K/uL [place] # (Auto) (0.11-0.59) K/uL Eos # (Auto) (0-0.50) K/uL Baso # (Auto) (0-0.2) K/uL Immature Gran # (Auto) (0.01-0.20) K/uL PT 11.0 (9.0-12.0) Seconds INR 1.0 (0.9-1.1) APTT 38.5 H (21.0-31.0) Seconds PTT Ratio 1.4 Sodium (136-145) mmol/L Potassium (3.5-5.1) mmol/L Chloride (98-107) mmol/L Carbon Dioxide (21-32) mmol/L Anion Gap (3-11) BUN (6-23) mg/dl Creatinine (0.6-1.4) mg/dl Est Cr Clr Drug Dosing ml/min Est GFR ( Amer) ml/min Est GFR (Non-Af Amer) ml/min BUN/Creatinine Ratio (10-20) Glucose (70-99(Fasting)) mg/dl POC Glucose 108 H 106 H (70-99) mg/dl Estimat Average Glucose mg/dl Hemoglobin A1c (4.5-5.6) % Calcium (8.6-10.3) mg/dl Magnesium (1.7-2.4) mg/dl Total Bilirubin (0.2-1.0) mg/dl AST (13-39) U/L ALT (7-52) U/L Alkaline Phosphatase (34-104) U/L Troponin I High Sens (0-20) pg/ml Total Protein (6.0-8.3) gm/dl Albumin (3.4-5.0) gm/dl Globulin (2.5-4.0) gm/dl Albumin/Globulin Ratio (0.9-2) Triglycerides (0-150) mg/dl Cholesterol (0-200) mg/dl LDL Cholesterol, Calc mg/dl VLDL Cholesterol, Calc (0-30) mg/dl HDL Cholesterol mg/dl Cholesterol/HDL Ratio (0-5) 12/15/22 Range/Units 14:25 WBC (4.8-10.8) K/ul RBC (4.70-6.10) M/uL Hgb (14.0-18.0) g/dl Hct (42.0-52.0) % MCV (80.0-100.0) fL MCH (25.0-34.0) pg MCHC (32.0-36.0) g/dL RDW Std Deviation (36.4-46.3) fL RDW Coeff of Tripp (11.5-14.5) % Plt Count (130-400) K/uL MPV (9.4-12.4) fL Immature Gran % (Auto) % Neut % (Auto) % Lymph % (Auto) % [place] % (Auto) % Eos % (Auto) % Baso % (Auto) % Neut # (Auto) (1.40-6.50) K/uL Lymph # (Auto) (1.2-3.4) K/uL [place] # (Auto) (0.11-0.59) K/uL Eos # (Auto) (0-0.50) K/uL Baso # (Auto) (0-0.2) K/uL Immature Gran # (Auto) (0.01-0.20) K/uL PT (9.0-12.0) Seconds INR (0.9-1.1) APTT (21.0-31.0) Seconds PTT Ratio Sodium (136-145) mmol/L Potassium (3.5-5.1) mmol/L Chloride (98-107) mmol/L Carbon Dioxide (21-32) mmol/L Anion Gap (3-11) BUN (6-23) mg/dl Creatinine (0.6-1.4) mg/dl Est Cr Clr Drug Dosing ml/min Est GFR ( Amer) ml/min Est GFR (Non-Af Amer) ml/min BUN/Creatinine Ratio (10-20) Glucose (70-99(Fasting)) mg/dl POC Glucose (70-99) mg/dl Estimat Average Glucose mg/dl Hemoglobin A1c (4.5-5.6) % Calcium (8.6-10.3) mg/dl Magnesium (1.7-2.4) mg/dl Total Bilirubin (0.2-1.0) mg/dl AST (13-39) U/L ALT (7-52) U/L Alkaline Phosphatase (34-104) U/L Troponin I High Sens 4115.5 H* D (0-20) pg/ml Total Protein (6.0-8.3) gm/dl Albumin (3.4-5.0) gm/dl Globulin (2.5-4.0) gm/dl Albumin/Globulin Ratio (0.9-2) Triglycerides (0-150) mg/dl Cholesterol (0-200) mg/dl LDL Cholesterol, Calc mg/dl VLDL Cholesterol, Calc (0-30) mg/dl HDL Cholesterol mg/dl Cholesterol/HDL Ratio (0-5) Diagnostic Findings ECHOCARDIOGRAM - mildly dilated LV. Mildly to moderately reduced systolic function. EF 40-45%. Akinesis of basal inferoseptum and inferior base. Otherwise mild global hypokinesis. Mild-mod cLVH. Mild left atrial dilation. Atrial fibrillation. PG Care Time/CCT Total # of Minutes Spent Total Time Spent with Patient: Total time spent is greater than 50% in coordination of care (as documented) at patient's floor/unit and/or counseling patient: Coding Level of Care Code 40800 SUB INP/OBS CARE 3/50MIN Diagnoses Non-ST elevation MS (NSTEMI) I21.4 Chest pain R07.9 Atrial fibrillation with rapid ventricular response I48.91 HTN (hypertension) I10 Diabetes mellitus E11.9 ERNESTO on CPAP G47.33; Z99.89 Obesity, diabetes, and hypertension syndrome E11.69; E11.59; E66.9; I15.2 Acid reflux disease K21.9
[2022-12-16] MEDS: ATORVASTATIN 40 MG TAB PO SCH (08:54)
[2022-12-16] MEDS: LORATADINE 10 MG TAB PO SCH (08:54)
[2022-12-16] MEDS: DORZOLAMIDE/TIMOLOL 22.3/6.8MG/ML 10 ML BTL OP SCH ×2 (08:54→20:33)
[2022-12-16] MEDS: RIVAROXABAN 20 MG TAB PO SCH (08:54)
[2022-12-16] MEDS: FLUTICASONE PROPIONATE NA SPR 16 GM BTL NAE SCH (08:54)
[2022-12-16] MEDS: allopurinoL 300 MG TAB PO SCH (08:54)
[2022-12-16] MEDS: CHOLECALCIFEROL 5,000 UNITS 125 MCG TAB PO SCH (08:54)
[2022-12-16] MEDS: METOPROLOL TARTRATE 100 MG TAB PO SCH ×2 (08:54→20:29)
[2022-12-16] MEDS ORDERED: ASPIRIN 81 MG ECTAB PO SCH ×2 (09:00)
[2022-12-16] MEDS: INSULIN ASPART PER UNIT CHARGE SC SCH ×4 (09:03→20:31)
[2022-12-16] MEDS: PANTOprazole 40 MG TAB PO SCH (09:59)
--- NOTE | 2022-12-16 11:28 | Cardiology Progress Note ---
Date of Service December 16, 2022 Assessment & Plan (1) Non-ST elevation PA (NSTEMI): Plan: 2. 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 Residual intermediate mid LAD, 90% ostial D2 3. A-fib with RVR 4. CardiomyopathyEF 40 to 45% with inferoseptal wall motion abnormality 5. Hypertension 6. Right bundle branch block 7. Type 2 diabetes 8. GERD Patient chest pain-free this morning. No signs of heart failure on exam. No apparent access site complications. Troponin up this morning, may have peaked overnight Remains in A-fib with RVR, asymptomatic. Repeat HS TropI later today Okay to restart Xarelto this morning. Triple therapy while hospitalized Xarelto, clopidogrel, aspirin. Discharged on dual therapy with Xarelto, clopidogrel. Titrate beta-maico to heart rates <110 ideally less than 90. Metoprolol increased to 100 mg twice daily today. If remains elevated can increase to 3 times daily Restart home lisinopril 20 mg daily. Can resume amlodipine if blood pressures remain elevated High intensity statin with LDL goal <70 Continue to hold metformin. Resume Jardiance as an outpatient Unclear how much of newly reduced EF secondary to true LV dysfunction versus artifact in setting of AF/conduction abnormality. We will consider chelo nolactone as an outpatient Continue to monitor on telemetry today. If heart rate better controlled and troponin downtrending potentially could be discharged this evening or tomorrow a.m. We will follow Admission and Anticipated Discharge Date Admission Date: December 15, 2022 Subjective Feeling well this morning. Chest pain has completely resolved. Had some mild nausea this morning which attributed to phlegm. Appetite still not normal. No other new concerns. Telemetry reviewedA-fib with RVR primarily in the 120s up to as high as the 150s this morning. Review of Systems Review of Systems: All systems reviewed & are unremarkable except as noted in HPI & below Physical Exam Physical Exam: General: Comfortable HEENT: Sclerae anicteric Lungs: Clear to auscultation bilaterally Cardiac: Irregularly irregular, no murmurs Vascular: Right radial artery access site with no ecchymosis, hematoma. Distal pulse and sensation intact. Abdomen: Soft, nontender Extremities: Well perfused, no peripheral edema Neuro: Nonfocal Psych: Alert orient x3, normal affect and mood Results & Data Vital Signs (Past 12 Hours) Vital Signs Temp Pulse Pulse Resp BP Pulse Ox O2 Del Method 12/16/22 10:50 53 L 12/16/22 08:07 97.9 F 95 H 20 159/81 H 97 Room Air 12/16/22 08:01 115 H 12/16/22 06:47 121 H 12/16/22 06:37 131 H 12/16/22 02:30 110 H 12/16/22 03:18 98.2 F 16 140/97 94 Room Air 12/16/22 02:17 135 H PG Care Time/CCT Total # of Minutes Spent Total Time Spent with Patient: Total time spent is greater than 50% in coordination of care (as documented) at patient's floor/unit and/or counseling patient: Coding Level of Care Code 81959 SUB INP/OBS CARE 3/50MIN Diagnoses Non-ST elevation PA (NSTEMI) I21.4
[2022-12-16] MEDS ORDERED: lisinopril 20 MG TAB PO STA (14:22)
--- NOTE | 2022-12-16 18:16 | Communication Note ---
Date of Service: December 16, 2022 Discussed rising troponin levels with Dr Barroso. Possible small occluded branch not able to be found during cath, but given patient chest pain free at present, ok to hold off repeating troponin until AM. Would repeat sooner if any reported of CP w/ EKG for eval but per cardiology, on appropriate medical therapy at present time and will continue current course for now.
[2022-12-16] MEDS ORDERED: MONTELUKAST SODIUM 10 MG TABLET PO SCH (21:00)
--- NOTE | 2022-12-17 05:41 | Electrocardiogram Report ---
Test Reason : Blood Pressure : / mmHG Vent. Rate : 114 BPM Atrial Rate : 000 BPM P-R Int : 000 ms QRS Dur : 150 ms QT Int : 392 ms P-R-T Axes : 000 024 -63 degrees QTc Int : 540 ms Atrial fibrillation with rapid ventricular response Right bundle branch block Abnormal ECG When compared with ECG of 22-FEB-2016 16:10, Right bundle branch block is now Present Confirmed by Tommy Min ([id number]) on 12/17/2022 5:41:27 AM Referred By: Confirmed By:Tommy Min
--- NOTE | 2022-12-17 05:50 | Electrocardiogram Report ---
Test Reason : Blood Pressure : / mmHG Vent. Rate : 090 BPM Atrial Rate : 000 BPM P-R Int : 000 ms QRS Dur : 154 ms QT Int : 428 ms P-R-T Axes : 000 010 -19 degrees QTc Int : 523 ms Atrial fibrillation Right bundle branch block Inferior infarct , age undetermined Abnormal ECG When compared with ECG of 15-DEC-2022 07:07, No significant change was found Confirmed by Tommy Min ([id number]) on 12/17/2022 5:49:52 AM Referred By: REFERRED SELF Confirmed By:Tommy Min
--- NOTE | 2022-12-17 06:07 | Electrocardiogram Report ---
Test Reason : Blood Pressure : / mmHG Vent. Rate : 110 BPM Atrial Rate : 000 BPM P-R Int : 000 ms QRS Dur : 148 ms QT Int : 360 ms P-R-T Axes : 000 017 -32 degrees QTc Int : 487 ms Atrial fibrillation with rapid ventricular response Right bundle branch block T wave abnormality, consider inferolateral ischemia Abnormal ECG When compared with ECG of 15-DEC-2022 09:28, No significant change was found Confirmed by Tommy Min ([id number]) on 12/17/2022 6:07:05 AM Referred By: REFERRED SELF Confirmed By:Tommy Min
--- NOTE | 2022-12-17 06:22 | Electrocardiogram Report ---
Test Reason : Blood Pressure : / mmHG Vent. Rate : 101 BPM Atrial Rate : 182 BPM P-R Int : 000 ms QRS Dur : 154 ms QT Int : 408 ms P-R-T Axes : 000 038 -14 degrees QTc Int : 529 ms Atrial fibrillation with rapid ventricular response Right bundle branch block Anteroseptal infarct , age undetermined T wave abnormality, consider inferolateral ischemia Abnormal ECG When compared with ECG of 15-DEC-2022 12:14, Anteroseptal infarct is now Present Confirmed by Tommy Min ([id number]) on 12/17/2022 6:22:25 AM Referred By: REFERRED SELF Confirmed By:Tommy Min
[2022-12-17 07:12] LABS: Basophils # (auto) 0.04 K/uL (0-0.2); Basophils % (auto) 0.3 %; Eosinophils # (auto) 0.06 K/uL (0-0.50); Eosinophils % (auto) 0.4 %; Hematocrit (blood only) 38.5 % (42.0-52.0); Hemoglobin 13.1 g/dl (14.0-18.0); Immature Granulocytes % (auto) 1.9 %; Lymphocytes # (auto) 1.03 K/uL (1.2-3.4); Lymphocytes % (auto) 6.5 %; Mean Corpuscular Hemoglobin 29.6 pg (25.0-34.0); Mean Corpuscular Volume 87.1 fL (80.0-100.0); Mean Platelet Volume 11.2 fL (9.4-12.4); Monocytes # (auto) 1.92 K/uL (0.11-0.59); Neutrophils # (auto) 12.61 K/uL (1.40-6.50); Neutrophils % (auto) 78.9 %; Platelet Count 242 K/uL (130-400); RDW Coefficient of Variation 12.9 % (11.5-14.5); RDW Standard Deviation 41.1 fL (36.4-46.3); Red Blood Count 4.42 M/uL (4.70-6.10); White Blood Count 15.96 K/ul (4.8-10.8)
[2022-12-17 07:32] LABS: BUN Creatinine Ratio 17.8 (10-20); Calcium 9.1 mg/dl (8.6-10.3); Creatinine Clr Calc Pharmacy 102.3 ml/min; Est GFR (African American) 64.1 ml/min; Est GFR (Non-African American) 55.3 ml/min; Magnesium 2.1 mg/dl (1.7-2.4); Potassium 3.6 mmol/L (3.5-5.1)
[2022-12-17] MEDS ORDERED: lisinopril 20 MG TAB PO SCH (09:00)
[2022-12-17] MEDS ORDERED: CLOPIDOGREL BISULFATE 75 MG TAB PO SCH (09:00)
[2022-12-17] MEDS: allopurinoL 300 MG TAB PO SCH (09:02)
[2022-12-17] MEDS: CHOLECALCIFEROL 5,000 UNITS 125 MCG TAB PO SCH (09:02)
[2022-12-17] MEDS: LORATADINE 10 MG TAB PO SCH (09:02)
[2022-12-17] MEDS: METOPROLOL TARTRATE 100 MG TAB PO SCH (09:02)
[2022-12-17] MEDS: ATORVASTATIN 40 MG TAB PO SCH (09:02)
[2022-12-17] MEDS: FLUTICASONE PROPIONATE NA SPR 16 GM BTL NAE SCH (09:02)
[2022-12-17] MEDS: DORZOLAMIDE/TIMOLOL 22.3/6.8MG/ML 10 ML BTL OP SCH (09:02)
[2022-12-17] MEDS: PANTOprazole 40 MG TAB PO SCH (09:03)
[2022-12-17] MEDS: RIVAROXABAN 20 MG TAB PO SCH (09:03)
[2022-12-17] MEDS: INSULIN ASPART PER UNIT CHARGE SC SCH ×2 (09:05→12:27)
--- NOTE | 2022-12-17 13:12 | Cardiology Progress Note ---
Date of Service December 17, 2022 Assessment & Plan (1) Non-ST elevation DC (NSTEMI): Plan: 2. 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 Residual intermediate mid LAD, 90% ostial D2 3. A-fib with RVR 4. CardiomyopathyEF 40 to 45% with inferoseptal wall motion abnormality 5. Hypertension 6. Right bundle branch block 7. Type 2 diabetes 8. GERD 9. Mild JENAINE Troponin downtrending and patient chest pain-free No signs of heart failure on exam. No apparent access site complications. Back in AF with RVR but heart rates better controlled From a cardiac standpoint okay with discharge today Discharge on dual therapy with Xarelto, clopidogrel. Continue current metoprolol 100 mg twice daily Hold lisinopril, HCTZ with JEANINE. Can resume amlodipine 10 mg daily Continue current statin Can resume metformin, Jardiance as an outpatient Repeat echo as an outpatient to reassess LV function. Consider spironolactone if LV dysfunction persists Follow-up with Dr. Espinal in 1 to 2 weeks. He will arrange cardiac rehab. Admission and Anticipated Discharge Date Admission Date: December 15, 2022 Subjective Patient feeling well today. No recurrent chest pain. No other new concerns. Appetite improved. Telemetry reviewedyesterday afternoon converted to what appears to be sinus rhythm with heart rates in the low 50s. Overnight flipped back into A-fib with heart rates primarily in the 90s to 110s this morning. Review of Systems Review of Systems: All systems reviewed & are unremarkable except as noted in HPI & below Physical Exam Physical Exam: General: Comfortable HEENT: Sclerae anicteric Lungs: Clear to auscultation bilaterally Cardiac: Irregularly irregular, no murmurs Vascular: Right radial artery access site with no ecchymosis, hematoma. Distal pulse and sensation intact. Abdomen: Soft, nontender Extremities: Well perfused, no peripheral edema Neuro: Nonfocal Psych: Alert orient x3, normal affect and mood Results & Data Vital Signs (Past 12 Hours) Vital Signs Temp Pulse Pulse Pulse Resp BP Pulse Ox 12/17/22 11:38 98.1 F 83 18 136/88 94 12/17/22 08:01 97 H 12/17/22 07:50 98.2 F 85 20 152/78 H 96 12/17/22 03:04 98.4 F 78 18 112/57 L 96 12/17/22 02:29 98 H Pulse Ox O2 Del Method O2 Del Method 12/17/22 11:38 Room Air 12/17/22 08:01 12/17/22 07:50 Room Air 12/17/22 03:04 Room Air 12/17/22 02:29 98 Room Air PG Care Time/CCT Total # of Minutes Spent Total Time Spent with Patient: Total time spent is greater than 50% in coordination of care (as documented) at patient's floor/unit and/or counseling patient: Coding Level of Care Code 56712 SUB INP/OBS CARE 3/50MIN Diagnoses Non-ST elevation DC (NSTEMI) I21.4
--- NOTE | 2022-12-17 14:49 | Discharge Summary ---
Date of Service December 17, 2022 Admission HPI Per Admitting Provider 52yo male with PMHx significant for afib (on Xarelto, last dose last evening), HTN, DM (A1c 6.3 earlier this year), obesity, gout presented with chest pain which he thought initially was indigestion starting last evening, no relief with OTC antacids, worsening overnight around 2am and convinced to bring im in. Given metoprolol, nitro, aspirin. Initial troponin 600s. Pain reported 4/10 on arrival, 2/10 after nitro. Patient evaluated in B10 with at bedside. States last night after supper started having discomfort, midsternum/radiation to back. Thought was reflux/indigestion. Had already taken his omeprazole but then took two pepcid and awoke around 11pm with worsening pain, which he reports was slightly better moving around but worsened around 2am. convinced him to come in to be evaluated. No smoking/chewing tobacco history, occassional wine use. He reports the pain is still present but not worsening in nature. Discussed likely need for cardiac catheterization for evaluation, repeat trop onin being drawn now in the room and RN to obtain repeat EKG. Messaged cardiology given ongoing chest discomfort/elevated troponin and symptoms concerning for CAD and requirement for catheterization. He reports he had not missed dose of Xarelto, no palpitations/fluttering reported in his chest, no shortness of breath, abdominal pain, vomiting at this time. Did take his usual medications this morning. Asked RN to provide additional nitro SL x 1 and notified cardiology about ongoing discomfort. Dr Barroso to see. BP in ER 140s/100s, rates 90s-100, afib. 97% on RA Discussed code status - FULL CODE. Questions/concerns addressed at this time. STRONG Family History -- reports mother and father with MIs in their 50s, also discussed imaging with moderate to severe coronary artery calcifications. No prior hx HLD or on statin statin therapy. ER Course; New IVCD on EKG, rates low 110s. Troponin 610.4 on initial draw. CTA chest negative for dissection but does note moderate to severe coronary ar syl calcifications. WBC elevation, afebrile. BUN/Cr 30/1.05. Added repeat troponin/EKG, mag/TSH to labs. upholstery tech alerted, obtaining bedside ECHO presently, Dr Barroso now at bedside to see patient as well. Principal Diagnosis NSTEMI Discharge Exam General: WD/WN obese male sleeping in bed, NAD HEENT: head normocephalic, atraumatic, mmm, trachea midline, thick neck Resp: CTA, no w/c/r, on room air CV: irregularly irregular (rates now down to 50s), no significant m/r/g, trace pedal edema, no calf tenderness, radial site looks good, no significant hematoma GI: +BS, soft/NT to palpation : no jesus MSK/Neuro: no focal deficits, no slurred speech, no facial droop, following commands Psych: alert to person/place/time/events, cooperative with examination Skin: no obvious lesions/rashes Discharge Data Allergies Allergy/AdvReac Type Severity Reaction Status Date / Time cat dander Allergy Intermediate Itchy, Verified 11/03/22 11:26 watery eyes, sneezing dog dander Allergy Intermediate Itchy, Verified 11/03/22 11:26 watery eyes, sneezing pollen extracts Allergy Intermediate SNEEZE,ITCHY Verified 11/03/22 11:26 WATERY EYES house dust mite Allergy Unknown Verified 12/20/22 19:20 mold Allergy Unknown Verified 12/20/22 19:20 morphine Allergy Vomiting Verified 12/20/22 19:20 oxycodone [From Percocet] Allergy Unknown Verified 12/20/22 19:20 Consultations 12/15/22 09:13 ED Decision to Admit Stat 12/15/22 12:36 Consult Cardiac Rehabilitation Routine 12/15/22 14:10 Consult Cardiology Routine Procedures Performed Operation Date: 12/15/22 10:30 Actual Procedures p Cineradiography w/Routine Exam - Jose Angel Barroso MD s Cath, Left with Cors and Vent(Right) - Jose Angel Barroso MD p Drug Eluting Stent SGl Vessel - Jose Angel Barroso MD Ordered Studies 12/15/22 07:28 CT angio chest dissec wo/w con Stat 12/15/22 10:22 CL Cath Imgs for PACS use only Stat Hospital Course (1) Non-ST elevation HI (NSTEMI): concerns for NSTEMI w/ elevaed troponin/EKG/symptoms Presented with CP since evening 12/14, initially thought was indigestion/heartburn but unrelieved with his usual PPI or pepcid x 2, initial trop 610.4 EKG w/o significant ST elevation however new IVCD since prior EKG in system. Concerning for NSTEMI ASCVD risk factors include type 2 diabetes, hypertension, dyslipidemia, obesity, family history of premature CAD in mom/dad (father w/ bypass in 50s) Nitro x 2, ASA 324mg x 1, Lopressor IV in ER w/ ongoing discomfort 06/27 ECHO w/ mildly dilated LV. Mildly to moderately reduced systolic function. EF 40-45%. Akinesis of basal inferoseptum and inferior base. Otherwise mild global hypokinesis. Mild-mod cLVH. Mild left atrial dilation. Atrial fibrillation. Poor image quality. Compared to prior study 2015, LV systolic function declined w/ wma abnormalities as reported. Afib replaced SR Cards consulted, Dr Barroso s/p cath with Dr Barroso on 12/15 Summary: 1. Multivessel coronary artery disease * Small to medium D1 90% proximal * 50 to 60% mid LAD at bifurcation with D2. Medium D2 80-90% ostial * 40% mid circumflex 2. Elevated intracardiac filling pressure 3. Successful PCI of proximal D1 with single drug-eluting stent (2.5 x 22 mm Isai; postdilated with 2.5 NC). Discussed w/ Dr Barroso and will continue ASA/Plavix and Xarelto (resumed today) for today, plan for Xarelto/Plavix alone for tomorrow (will place ASA on hold for tomorrow) Metoprolol increased to 100mg BID given ongoing afib/RVR. Mag/K replacement Resume home lisinopril -- 20mg PO x1 now, resume for AM. Consideration to add amlodipine if BPs remain elevated after resuming this Resume jardiance as outpatient. Unclear if reduced EF 2nd to true LV dysfunction vs artifact in setting of AF/conduction abn. Consider adding spironolactone as outpatient Rates now down to the 50s afternoon prior to discharge BPs improving Trop w/ continued rise -- did report discomfort overnight that has since resolved. Trop now downtrending. HLD- heavy calcifications, lipid panel reviewed/cath report. Started lipitor 40mg daily DM- A1c 5.9 from 6.3 and can continue current regimen (SSI while inpatient) ERNESTO--> CPAP ordered while sleeping -- has machine but hasn't used/dirty. Will need cleaned/compliance. If needing new machine likely set up outpatient for repeat studies Continued inpatient stay, monitoring HR/troponin on repeat will discharge on --> Plavix 75mg daily, increased metoprolol 100mg BID, as well as atorvastatin 40mg daily --> Nitro SL/instructions when to use (2) Chest pain: none reported at present, trop trending til downtrending prior to dc (3) Atrial fibrillation with rapid ventricular response: elevated rates on admission, IV lopressor, mag/K replacement (of note, ordered in ER yesterday, [employer] non-admin as wasn't sure if given despite confirming w/ ER/skill labor these were not - he did not call/verify) K/mag replacement to prevent elevated rates Xarelto resumed Metoprolol increased to 100mg PO BID (had gotten several doses IV lopressor) (4) HTN (hypertension): Significant elevations, no "known" hx HLD, however prior panel not ideal, significant coronary artery calcifications on CT imaging Metoprolol increased as above Resuming lisinopril for today. If still elevated, consideration to add amlodipine Improvement in BP this afternoon HLD not previously on statin therapy- last lipid panel August w/ chol 178, LDL 111, HDL 45, TRG 112 given CAD as above, s/p stent. Repeat lipid panel w/ TRG 141, Chl 155, LDL 92, HDL 35 STARTED lipitor 40mg daily -- new RX at discharge (5) Diabetes mellitus: Last A1c 6.3 (6) ERNESTO on CPAP: CPAP HS (7) Obesity, diabetes, and hypertension syndrome: noted, weight loss encouraged compliance w/ CPAP (8) Acid reflux disease: continue PPI -- resumed Total Time Total Time Spent Total Time Spent (In Minutes): 32 Discharge Plan Discharge Items Patient Disposition: Home - Self-Care Reason For Visit: CHEST PAIN, UNSTABLE ANGINA Discharge Diagnosis: Coronary Artery Disease, NSTEMI Goals: You have been hospitalized for an acute medical problem. During your stay at [facility], we have made an effort to correct the problem that brought you to the hospital while keeping you as comfortable as possible. Medications were used to bring your condition under control and your discharge instructions will include directions for any medications you should take after leaving the hospital. Please make sure you see your Primary Care Provider as part of your follow up plan. Activity: As commented below Non-emergency contact: Primary Care Provider and Associate Director Of Development Call non-emergency contact if: you have any medication questions, your symptoms worsen and your pain is concerning for you Follow-up/Referrals: Roel Mooney PA-C [Physician Rock Loader] - 12/23/22 3:00 pm Fidel Borden DO [Primary Care Provider] - 12/26/22 12:30 pm Diet: Carb Consistent or DM2 and Heart Healthy Addtl Attending Provider Instructions: You have been hospitalized for chest pain concerning for coronary artery disease, especially given findings on cat scan with coronary artery calcifications and family history along with elevated troponin. Cardiology consultation was undertaken and you went to the skill labor which showed multivessel disease and you had a stent placed and should continue on PLAVIX 75mg daily (no more aspirin) as well as your Xarelto for at least one year. Please do not miss any doses of these medications. Please monitor for any bleeding and alert primary care if this occurs. No NSAIDs. You have been started on atorvastatin 40mg daily as per guidelines as well to help with cholesterol/decrease risks. You will be set up for cardiac rehab at discharge as well as cardiology. You had your metoprolol increased to 100mg by mouth twice daily to help with rate control of your afib, and we have resumed your lisinopril for blood pressure. If your blood pressure remains elevated we can consider adding amlodipine in the outpatient setting. You should resume your Jardiance as an outpatient. We have also sent in for sublingual nitroglycerin to take as needed if you have chest pain at home. This can be taken every 5 minutes and you should report to the ER for any chest pain not relieved with nitro. You should follow up with Dr Barroso at discharge as well as primary care to monitor your progress after discharge from the hospital to monitor your progress after discharge. Please return to the ER with any fever, chills, chest pain, shortness of breath or for any other symptoms concerning for you. It has been a pleasure being a part of the medical team providing for you while you have been in the hospital. Take care! Pending Studies at Discharge: No Stand-Alone Forms: My [employer], Work/School Release, Smoking Cessation Medications and DC Order Prescriptions: New atorvastatin 40 mg Tablet 40 mg PO QAM Qty: 30 3RF metoprolol tartrate 100 mg Tablet 100 mg PO BID Qty: 60 0RF clopidogrel 75 mg Tablet 75 mg PO QAM Qty: 30 3RF nitroglycerin 0.4 mg tablet, sublingual 0.4 mg sublingual Q5M PRN (Reason: chest pain) Qty: 14 0RF Rx Instructions: every 5 minutes for chest pain x max 3 doses. Report to ER for pain not relieved with Nitro pantoprazole 40 mg Tablet,Delayed Release (Dr/Ec) 40 mg PO QAM Qty: 30 0RF Continued montelukast 10 mg tablet 10 mg PO DAILY Qty: 90 3RF amlodipine 10 mg tablet 10 mg PO DAILY Qty: 90 3RF Xarelto 20 mg tablet 20 mg PO DAILY Qty: 90 3RF Rx Instructions: must administer with evening meal metformin 500 mg tablet 500 mg PO DAILY Qty: 90 3RF allopurinol 300 mg tablet 300 mg PO DAILY Qty: 90 3RF fluticasone propionate 50 mcg/actuation spray,suspension 2 sprays intranasal DAILY loratadine 10 mg tablet 10 mg PO DAILY dorzolamide-timolol 22.3-6.8 mg/mL drops 1 drops OP BID Jardiance 10 mg tablet 10 mg PO DAILY Qty: 90 3RF acetaminophen 500 mg Tablet 1,000 mg PO BID PRN (Reason: Pain) calcium carbonate [Calcium 600] 600 mg calcium (1,500 mg) Tablet 600 mg PO BID ferrous sulfate 325 mg (65 mg iron) Tablet 325 mg PO DAILY cholecalciferol (vitamin D3) [Vitamin D3] 125 mcg (5,000 unit) Tablet 125 mcg PO DAILY Discontinued metoprolol tartrate 75 mg tablet 75 mg PO BID Qty: 180 3RF triamterene-hydrochlorothiazid 37.5-25 mg tablet 1 tab PO DAILY Qty: 90 3RF omeprazole 40 mg capsule,delayed release(DR/EC) 40 mg PO DAILY Qty: 90 3RF lisinopril 20 mg tablet 20 mg PO DAILY Qty: 30 2RF No Action fluticasone propion-salmeterol [AirDuo RespiClick] 113-14 mcg/actuation aerosol powdr breath activated 1 inh inhalation BID Qty: 1 5RF Rx Instructions: PT REPORTS THAT HE STILL TAKES THIS 12/18 Discharge Orders: Discharge Order (Routine); Ordered 12/17/22 Ordered By: Sarthak West Admission Data Admit Date/Time: 12/15/22 10:25 Attending Provider: Sarthak West Admit Provider: Sarthak West Primary Care Provider: Fidel Borden Other Providers: Tommy Min ; Sarthak West Other Interventions: Discharge Summary Assessment (RN) Last Done: 12/17/22 16:01 Coding Level of Care Code 51634 INP/OBS DISCH >30 MIN Diagnoses Non-ST elevation HI (NSTEMI) I21.4 Chest pain R07.9 Atrial fibrillation with rapid ventricular response I48.91 HTN (hypertension) I10 Diabetes mellitus E11.9 ERNESTO on CPAP G47.33; Z99.89 Obesity, diabetes, and hypertension syndrome E11.69; E11.59; E66.9; I15.2 Acid reflux disease K21.9
--- NOTE | 2022-12-18 05:47 | Electrocardiogram Report ---
Test Reason : Blood Pressure : / mmHG Vent. Rate : 112 BPM Atrial Rate : 133 BPM P-R Int : 000 ms QRS Dur : 152 ms QT Int : 398 ms P-R-T Axes : 000 037 -45 degrees QTc Int : 543 ms Atrial fibrillation with rapid ventricular response with premature ventricular or aberrantly conducte d complexes Right bundle branch block T wave abnormality, consider inferolateral ischemia Abnormal ECG When compared with ECG of 15-DEC-2022 15:50, Criteria for Anteroseptal infarct are no longer Present T wave inversion more evident in Inferior leads Confirmed by Tommy Min ([id number]) on 12/18/2022 5:47:07 AM Referred By: REFERRED SELF Confirmed By:Tommy Min
== END 2022-12-17 16:26 | disposition home or self-care (01) | DRG 247 ==
LOC: ED 07:00 → CC 10:20 → 2S 10:25
DX: Z79.01 Long term (current) use of anticoagulants; E66.9 Obesity, unspecified; I48.19 Other persistent atrial fibrillation; I21.4 Non-ST elevation (NSTEMI) myocardial infarction; I10 Essential (primary) hypertension; I42.9 Cardiomyopathy, unspecified; G47.33 Obstructive sleep apnea (adult) (pediatric); I45.10 Unspecified right bundle-branch block; K30 Functional dyspepsia; N17.9 Acute kidney failure, unspecified; E11.9 Type 2 diabetes mellitus without complications; Z88.5 Allergy status to narcotic agent; Z68.43 Body mass index [BMI] 50.0-59.9, adult; M10.9 Gout, unspecified; Z79.84 Long term (current) use of oral hypoglycemic drugs; I25.10 Atherosclerotic heart disease of native coronary artery without angina pectoris

== ENCOUNTER 2022-12-20 10:37 | Inpatient (IN) ==
[2022-12-20] MEDS ORDERED: fentaNYL citrate PF 100 MCG/2 ML VIAL ONE ×2 (11:13→11:18)
[2022-12-20] MEDS ORDERED: HEPARIN (PORCINE) 1000 UNIT/ML 10 ML (CATH LAB USE ONLY) ONE ×2 (11:18→12:48)
[2022-12-20] MEDS ORDERED: niCARdipine HCL INJ 2.5 MG/ML 10 ML AMP ONE (11:18)
[2022-12-20] MEDS ORDERED: MIDAZOLAM HCL 1 MG/ML 2ML VIAL ONE (11:18)
[2022-12-20] MEDS ORDERED: NITROGLYCERIN/D5W 100MCG/ML 20ML SYR ONE (11:19)
[2022-12-20 11:22] LABS: iSTAT Creatinine 1.2 mg/dl (0.6-1.3); iSTAT Hemoglobin 12.2 g/dl (14.0-18.0); iSTAT Ionized Calcium 1.05 mmol/l (1.12-1.32); iSTAT Potassium 3.6 mmol/L (3.3-5.0)
[2022-12-20 11:27] LABS: Basophils # (auto) 0.05 K/uL (0-0.2); Basophils % (auto) 0.4 %; Eosinophils # (auto) 0.14 K/uL (0-0.50); Eosinophils % (auto) 1.2 %; Hematocrit (blood only) 35.8 % (42.0-52.0); Hemoglobin 12.4 g/dl (14.0-18.0); Immature Granulocytes # (auto) 0.05 K/uL (0.01-0.20); Immature Granulocytes % (auto) 0.4 %; Lymphocytes # (auto) 0.94 K/uL (1.2-3.4); Lymphocytes % (auto) 7.9 %; Mean Corpuscular Hemoglobin 29.8 pg (25.0-34.0); Mean Corpuscular Hgb Conc 34.6 g/dL (32.0-36.0); Mean Corpuscular Volume 86.1 fL (80.0-100.0); Mean Platelet Volume 11.7 fL (9.4-12.4); Monocytes # (auto) 1.32 K/uL (0.11-0.59); Monocytes % (auto) 11.1 %; Neutrophils # (auto) 9.41 K/uL (1.40-6.50); Platelet Count 272 K/uL (130-400); RDW Coefficient of Variation 12.8 % (11.5-14.5); RDW Standard Deviation 39.8 fL (36.4-46.3); Red Blood Count 4.16 M/uL (4.70-6.10); White Blood Count 11.91 K/ul (4.8-10.8)
[2022-12-20] MEDS ORDERED: LIDOCAINE 1% LOCAL 20 ML VIAL ONE (11:31)
--- NOTE | 2022-12-20 11:33 | History & Physical Report ---
Date of Service December 20, 2022 Assessment & Plan (1) Chest pain: Plan: Chang is a 52-year-old male with a past medical history of ERNESTO on CPAP, A-fib with history of RVR on Xarelto, DM 2, hypertension, GERD and recent hospital admission 12/15 - 12/17 for chest pain who presents to the ER as a heart alert and had multiple 7+ second pauses while on telemetry in the ER Chest pain w/ cadiac pauses >3 sec, CAD, recent NSTEMI admission - P/w crushing substernal chest pain, SoB, diaphoresis ~9:30am 12/20/22 Admitting EKG: A-fib with right bundle branch block and aberrancy vs PVCs, qtc 380. EKG 12/16/2022: A-fib with right bundle branch block and aberrant conduction, inferior T wave inversion. QTc 543 Patient admitted for chest pain s/p PCI. Peak troponin 12/16 was 17,321, was downtrending and at time of discharge 12/17 was 9711 - 7-second recurrent pauses on ER on arrival, recurrent and 1-3 second pauses post 1x atropine. ?mac ischemia. Is w/ hx of Afib on MTP. MTP held. PCI as noted above Cardiac cath 12/15: Multivessel CAD. Small to medium D1 90% proximal disease, 50-60% mid LAD at bifurcation, 80-90% ostial disease, 40% mid circumflex disease 12/15 PCI LUZ x1 to D1, residual mid LAD disease and 90% osteal D2. 12/17 dc: D ischarged on Xarelto/Plavix. DC meds: Metoprolol 100 twice daily. Lisinopril 20 mg daily be resumed once JEANINE resolved. Amlodipine considered if BP persistently elevated Admitting troponin 1934, BNP 334 TTE 12/15/2022: Mildly dilated left ventricle, EF 40-45%. Akinesis of basal inferoseptum and inferior base otherwise mild global hypokinesis. Mild to moderate concentric LVH. Mild left atrial dilation. A-fib. No significant valvular disease noted. Patient taken emergently to the [facility]. D1 stent found to be occluded. S/p transvenous pacer placement, transferred to the ICU postcatheterization. Cardiology consulted, following for ?permanent pacer. BB/PATRICIA pending A-fib with history of RVR Optimize potassium 4.0, magnesium 2.0 Continue Xarelto Continue metoprolol IV metoprolol 5 mg as needed for rate greater than 130 Recent JEANINE, resolved Baseline creatinine approximately 1.11.2 Last discharge creatinine 1.46 Admitting creatinine 1.2. [E] - K 3.6, Mg 1.8, Ical 1.05. ICU electrolyte protocol, mag/k/ca ordered by ICU - Goal K 4.0, Mg 2.0 Hyperlipidemia Started on lipid therapy 12/15, lipid panel last admission with cholesterol 155, LDL 92, HDL 35 Lipitor 40 daily - Defer lipid repeat, was checked within the last week DM 2 Last A1c 5.9% VASCULAR PHYSICIAN regimen includes metformin, recently added Jardiance Hold home antiglycemic's, ICU hyperglycemia protocol Goal BSG [id number] ERNESTO CPAP nightly Hypertension Antihypertensives as noted, nomotensive post cath triam-hctz recently discontinued GERD PPI daily continue DVT prophylaxis: Anticoagulated on DOAC Diet: NPO, pt taken to clinical lab assistant Disposition: ICU post cath CODE STATUS: Full (2) Atrial fibrillation: (3) Diabetes mellitus: (4) HTN (hypertension): (5) ERNESTO on CPAP: (6) Acid reflux disease: History of Present Illness Primary Care Provider: DO Chang Chavez is a 52-year-old male with a past medical history of ERNESTO on CPAP, A-fib with history of RVR on Xarelto, DM 2, hypertension, GERD and recent hospital admission 12/15 - 12/17 for chest pain who presents to the ER as a heart alert and had multiple 7+ second pauses while on telemetry in the ER Patient taken emergently to the Hand [facility], history collected via collateral. Patient was pain-free upon discharge from the hospital from his prior NSTEMI and stent placement. Around 930 this morning patient developedCrushing substernal chest pressure with shortness of breath, diaphoresis, dizziness, and radiation of pain into his left arm. He was brought to the hospital as a heart alert. While in the ER initial EKG was A-fib with aberrancy versus right bundle branch block, while on telemetry patient subsequently had multiple 7-second pauses. Patient received atropine x1 with reduction in pause length to around 1-3 seconds, pacer pads were obtained but ultimately not used, and patient was taken emergently to the [facility] for transvenous pacer placement and cardiac catheterization Addendum: Pt seen after xfer to ICU. Feels cold, but is chest pain free. Denies chest pressur,e chest pain, palpitations at bedside. Does endorse comse chest soreness when moving in bed, none currently at rest. Notes potassium pills did upset his stomach slightly, felt better after burping. He notes he has been taking his Xarelto/Plavix as instructed VASCULAR PHYSICIAN with no missed doses. He reprots he has never had problems with slow heart rate before, only his afib going too quickly. +diarrhea for 2 days, ndenies fever/abdominal pain. Cotinues to feel cold but without shaking/rigors post-cath. Curious about whether he will receive a pacer or not, otherwise no questions at time of visit. Medical History: Reviewed Medications: Reviewed Surgical History: Reviewed Family history: Reviewed Allergies: Reviewed Social History: Reviewed Code Status: Full Allergies Allergy/AdvReac Type Severity Reaction Status Date / Time cat dander Allergy Intermediate Itchy, Verified 11/03/22 11:26 watery eyes, sneezing dog dander Allergy Intermediate Itchy, Verified 11/03/22 11:26 watery eyes, sneezing pollen extracts Allergy Intermediate SNEEZE,ITCHY Verified 11/03/22 11:26 WATERY EYES acetaminophen [From Percocet] Allergy Verified 11/03/22 11:26 house dust mite Allergy Verified 11/03/22 11:26 mold Allergy Verified 11/03/22 11:26 oxycodone [From Percocet] Allergy Verified 11/03/22 11:26 Home Medications Medication Instructions Recorded Confirmed Type fluticasone propionate 50 2 sprays intranasal DAILY 02/24/19 12/18/22 History mcg/actuation nasal spray,suspension loratadine 10 mg tablet 10 mg PO DAILY 02/24/19 12/18/22 History dorzolamide 22.3 mg-timolol 6.8 1 drops ophthalmic (eye) BID 02/25/19 12/18/22 H istory mg/mL eye drops colchicine (gout) 0.6 mg tablet 0.6 mg PO DAILY PRN gout #9 tabs 09/18/21 12/18/22 Rx amlodipine 10 mg tablet 10 mg PO DAILY #90 tabs 05/02/22 12/18/22 Rx montelukast 10 mg tablet 10 mg PO DAILY #90 tabs 05/02/22 12/18/22 Rx rivaroxaban 20 mg tablet (Xarelto) 20 mg PO DAILY #90 tabs 08/12/22 12/18/22 Rx metformin 500 mg tablet 500 mg PO DAILY #90 tabs 10/08/22 12/18/22 Rx indomethacin 25 mg capsule 25 mg PO Q8H PRN gout flare #90 10/10/22 12/18/22 Rx caps empagliflozin 10 mg tablet 10 mg PO DAILY #90 tabs 11/03/22 12/18/22 Rx (Jardiance) allopurinol 300 mg tablet 300 mg PO DAILY #90 tabs 12/12/22 12/18/22 Rx acetaminophen 500 mg tablet 1,000 mg PO BID PRN Pain 12/15/22 12/18/22 History calcium carbonate 600 mg calcium 600 mg PO BID 12/15/22 12/18/22 History (1,500 mg) tablet (Calcium) cholecalciferol (vitamin D3) 125 125 mcg PO DAILY 12/15/22 12/18/22 History mcg (5,000 unit) tablet (Vitamin D3) ferrous sulfate 325 mg (65 mg 325 mg PO DAILY 12/15/22 12/18/22 History iron) tablet atorvastatin 40 mg tablet 40 mg PO QAM #30 tabs 12/16/22 12/18/22 Rx clopidogrel 75 mg tablet 75 mg PO QAM #30 tabs 12/16/22 12/18/22 Rx metoprolol tartrate 100 mg tablet 100 mg PO BID #60 tabs 12/16/22 12/18/22 Rx nitroglycerin 0.4 mg sublingual 0.4 mg sublingual Q5M PRN chest 12/16/22 12/18/22 Rx tablet pain #14 tabs pantoprazole 40 mg tablet,delayed 40 mg PO QAM #30 tabs 12/17/22 12/18/22 Rx release fluticasone 113 mcg-salmeterol 14 1 inh inhalation BID #1 ea 12/18/22 12/18/22 Rx mcg/actuation breath activated powdr (AirDuo RespiClick) Past Med/Surg History Medical History Asthma Atrial fibrillation Diabetes mellitus Finger laceration involving tendon Glaucoma Gout HTN (hypertension) Obesity, diabetes, and hypertension syndrome ERNESTO on CPAP Proteinuria Surgical History H/O oral surgery History of hand surgery Family History Mother Coronary heart disease Myocardial infarction Diabetes Father Coronary heart disease Myocardial infarction Other Hypertension Denies family history of Ovarian cancer Prostate cancer Breast cancer Colorectal cancer Social History Smoking Status: Never smoker Second Hand Exposure: No; Do You Dip or Chew Tobacco: No; Hx Alcohol Use: No Hx Substance Use: No Preferred Language: Frisian Communication Ability: Effective Visual Impairment: No Limitations Hearing Ability: Normal Skidder Operator Required: No Beliefs That Will Affect Care: None marital status: Current Living Situation: Spouse current occupational status: employed 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 NAD post cath. HEENT: Atraumatic, normocephalic. Vision/hearing intact Pulm: CTAB A&P. -wheezes, -rales, -rhonchi. Symmetrical chest rise. No increased work of breathing. No respiratory distress. Cardiac: irir, -mrg. Radial pulses intact and symmetrical. Abdominal: Nontender, nondistended, soft. BS present. Ext: warm, dry. cap refill in fingers intact and brisk Results & Data Results & Data Vital Signs (Past 12 Hours) Vital Signs Temp Pulse Pulse Resp BP BP Pulse Ox 12/20/22 11:09 82 22 145/93 H 96 12/20/22 11:08 96 12/20/22 11:05 152 H 12/20/22 10:43 36.5 C 70 18 140/74 97 O2 Del Method 12/20/22 11:09 Room Air 12/20/22 11:08 Room Air 12/20/22 11:05 12/20/22 10:43 Room Air PG Care Time/CCT Total # of Minutes Spent Total Time Spent with Patient: Total time spent is greater than 50% in coordination of care (as documented) at patient's floor/unit and/or counseling patient: Coding Level of Care Code 85584 INT INP/OBS CARE 3/75MIN Diagnoses Chest pain R07.9 Atrial fibrillation I48.91 Diabetes mellitus E11.9 HTN (hypertension) I10 ERNESTO on CPAP G47.33; Z99.89 Acid reflux disease K21.9
--- NOTE | 2022-12-20 11:33 | Emergency Department Note ---
History of Present Illness General Chief complaint: Chest Pain Stated complaint: SOB, CHEST PAIN Time Seen by Provider: 12/20/22 10:49 History of Present Illness Maximum Pain Intensity: 2 52-year-old male presents emergency department with complaint of substernal chest pressure that started at 9:30 AM while he was getting ready to take his cardiac meds. Patient is status postcardiac cath from Dr. Barroso on Thursday for a acute VA and he received 1 stent. Patient is taking metoprolol he took nitro he is taking amlodipine he is on Xarelto. Patient states that the pain radiates from the substernal region of his chest to the left arm. Patient also states he is sweaty and dizzy. Patient also complains of diarrhea for the past 2 days. Home Medications Medication Instructions Recorded Confirmed Type fluticasone propionate 50 2 sprays intranasal DAILY 02/24/19 12/18/22 History mcg/actuation nasal spray,suspension loratadine 10 mg tablet 10 mg PO DAILY 02/24/19 12/18/22 History dorzolamide 22.3 mg-timolol 6.8 1 drops ophthalmic (eye) BID 02/25/19 12/18/22 History mg/mL eye drops colchicine (gout) 0.6 mg tablet 0.6 mg PO DAILY PRN gout #9 tabs 09/18/21 12/18/22 Rx amlodipine 10 mg tablet 10 mg PO DAILY #90 tabs 05/02/22 12/18/22 Rx montelukast 10 mg tablet 10 mg PO DAILY #90 tabs 05/02/22 12/18/22 Rx rivaroxaban 20 mg tablet (Xarelto) 20 mg PO DAILY #90 tabs 08/12/22 12/18/22 Rx metformin 500 mg tablet 500 mg PO DAILY #90 tabs 10/08/22 12/18/22 Rx indomethacin 25 mg capsule 25 mg PO Q8H PRN gout flare #90 10/10/22 12/18/22 Rx caps empagliflozin 10 mg tablet 10 mg PO DAILY #90 tabs 11/03/22 12/18/22 Rx (Jardiance) allopurinol 300 mg tablet 300 mg PO DAILY #90 tabs 12/12/22 12/18/22 Rx acetaminophen 500 mg tablet 1,000 mg PO BID PRN Pain 12/15/22 12/18/22 History calcium carbonate 600 mg calcium 600 mg PO BID 12/15/22 12/18/22 History (1,500 mg) tablet (Calcium) cholecalciferol (vitamin D3) 125 125 mcg PO DAILY 12/15/22 12/18/22 History mcg (5,000 unit) tablet (Vitamin D3) ferrous sulfate 325 mg (65 mg 325 mg PO DAILY 12/15/22 12/18/22 History iron) tablet atorvastatin 40 mg tablet 40 mg PO QAM #30 tabs 12/16/22 12/18/22 Rx clopidogrel 75 mg tablet 75 mg PO QAM #30 tabs 12/16/22 12/18/22 Rx metoprolol tartrate 100 mg tablet 100 mg PO BID #60 tabs 12/16/22 12/18/22 Rx nitroglycerin 0.4 mg sublingual 0.4 mg sublingual Q5M PRN chest 12/16/22 12/18/22 Rx tablet pain #14 tabs pantoprazole 40 mg tablet,delayed 40 mg PO QAM #30 tabs 12/17/22 12/18/22 Rx release fluticasone 113 mcg-salmeterol 14 1 inh inhalation BID #1 ea 12/18/22 12/18/22 Rx mcg/actuation breath activated powdr (AirDuo RespiClick) Allergies Allergy/AdvReac Type Severity Reaction Status Date / Time cat dander Allergy Intermediate Itchy, Verified 11/03/22 11:26 watery eyes, sneezing dog dander Allergy Intermediate Itchy, Verified 11/03/22 11:26 watery eyes, sneezing pollen extracts Allergy Intermediate SNEEZE,ITCHY Verified 11/03/22 11:26 WATERY EYES acetaminophen [From Percocet] Allergy Verified 11/03/22 11:26 house dust mite Allergy Verified 11/03/22 11:26 mold Allergy Verified 11/03/22 11:26 oxycodone [From Percocet] Allergy Verified 11/03/22 11:26 Past Med/Surg History Medical History Asthma Atrial fibrillation Diabetes mellitus Finger laceration involving tendon Glaucoma Gout HTN (hypertension) Obesity, diabetes, and hypertension syndrome ERNESTO on CPAP Proteinuria Surgical History H/O oral surgery History of hand surgery Family History Mother Coronary heart disease Myocardial infarction Diabetes Father Coronary heart disease Myocardial infarction Other Hypertension Denies family history of Ovarian cancer Prostate cancer Breast cancer Colorectal cancer Social History Smoking Status: Never smoker Second Hand Exposure: No; Do You Dip or Chew Tobacco: No; Hx Alcohol Use: No Hx Substance Use: No Preferred Language: Colombian Communication Ability: Effective Visual Impairment: No Limitations Hearing Ability: Normal Help Desk Analyst Required: No Beliefs That Will Affect Care: None marital status: Current Living Situation: Spouse current occupational status: employed 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 Barroso Review of Systems A total of 10 systems reviewed and were otherwise negative Cardiovascular: + chest pain Gastrointestinal: + nausea and + diarrhea/loose stools Physical Exam Vital Signs Vital Signs - 24 hr 12/20/22 10:43 12/20/22 11:05 12/20/22 11:08 Temperature 36.5 C Temperature Source Temporal Artery Scan Pulse Rate 70 152 H Pulse Rate [Apical] Pulse Rhythm [Apical] Respiratory Rate 18 Respiratory Effort / Characteristics Non-Labored Respiratory Depth Normal Respiratory Pattern Regular Blood Pressure 140/74 Blood Pressure [Right Arm] Blood Pressure Mean 96 Blood Pressure Mean [Right Arm] Blood Pressure Position [Right Arm] Pulse Oximetry 97 96 Oxygen Delivery Method Room Air Room Air Sepsis Recent Fever Within 48 Hours No Sepsis New/Unexplained Change in Mental Status N/A Sepsis Action Taken by Nursing No Action Required 12/20/22 11:09 Temperature Temperature Source Pulse Rate Pulse Rate [Apical] 82 Pulse Rhythm [Apical] Regular Respiratory Rate 22 Respiratory Effort / Characteristics Non-Labored Spontaneous Respiratory Depth Normal Respiratory Pattern Regular Blood Pressure Blood Pressure [Right Arm] 145/93 H Blood Pressure Mean Blood Pressure Mean [Right Arm] 110 Blood Pressure Position [Right Arm] Lying Pulse Oximetry 96 Oxygen Delivery Method Room Air Sepsis Recent Fever Within 48 Hours Sepsis New/Unexplained Change in Mental Status Sepsis Action Taken by Nursing GENERAL: Patient is awake alert in mild distress, diaphoretic EYES: The conjunctivae are clear. The pupils are round and reactive. EARS, NOSE, MOUTH AND THROAT: The nose is without any evidence of any deformity. Mucous membranes are moist. Tongue is midline. NECK: The neck is nontender and supple. RESPIRATORY: Normal respiratory effort is noted there is no evidence of wheezing rhonchi or rales CARDIOVASCULAR: Irregularly irregular with ectopy and sinus pauses GASTROINTESTINAL: The abdomen is soft. Abdomen is nontender. BACK: No midline tenderness or or step-off noted range of motion in flexion extension as well as rotation no signs of muscle spasm noted MUSCULOSKELETAL/EXTREMITIES: There is no evidence of gross deformity full range of motion is noted in the hips and shoulders. SKIN: There is no obvious evidence of any rash. There are no petechiae, pallor or cyanosis noted. Diaphoresis is present NEUROLOGIC: Patient is awake alert and oriented x3 strength is symmetric Course Reevaluation(s) Reevaluation #1: Patient was started on IV fluids was given 600 of saline, fentanyl 50, at 1 point time he was placed on the pacer with pacer pads present he was not however paced. Patient was normotensive and however was also given 1 mg of IV atropine a heart alert was activated. I spoke with Dr. Barroso and the cardiac cath team at bedside regarding the patient's presentation Time: 11:20 Consultations Consultation #1: Case was discussed with Dr. Barroso at bedside at 11:20 AM Time: 11:20 Consultation #2: Case was discussed with the [facility] for admission Time: 11:47 Administered Medications Discontinued Medications Fentanyl Citrate (Fentanyl Citrate Pf 100 Mcg/2 Ml Vial) Confirm Administered Dose 100 mcg .ROUTE .STK-MED ONE Stop: 12/20/22 11:14 Last Increment: 12/20/22 11:14 Dose: 50 mcg Documented By: GARETH Critical Care Time Critical Care Time: Yes Total Critical Care Time: 60 I have personally spent greater than 60 minutes of critical care time in the direct management of this patient. This includes bedside care, interpretation of diagnostic studies, and testing, discussion with consultants, patient, and family members, and other required patient management activities. These minutes are in excess of all separately billable procedures. Medical Decision Making Medical Records Attestation: I reviewed the patient's medical records. Home Medications Current Medication List: was personally reviewed by me Laboratory Data Attestation: I reviewed the patient's lab results. 12/20/22 11:05 12/20/22 11:05 Lab Results 12/20/22 12/20/22 Range/Units 11:05 11:09 WBC 11.91 H (4.8-10.8) K/ul RBC 4.16 L (4.70-6.10) M/uL Hgb 12.4 L (14.0-18.0) g/dl POC Hgb 12.2 L (14.0-18.0) g/dl Hct 35.8 L (42.0-52.0) % POC Hct 36 L (42-52) % MCV 86.1 (80.0-100.0) fL MCH 29.8 (25.0-34.0) pg MCHC 34.6 (32.0-36.0) g/dL RDW Std Deviation 39.8 (36.4-46.3) fL RDW Coeff of Tripp 12.8 (11.5-14.5) % Plt Count 272 (130-400) K/uL MPV 11.7 (9.4-12.4) fL Immature Gran % (Auto) 0.4 % Neut % (Auto) 79.0 % Lymph % (Auto) 7.9 % Caldwell % (Auto) 11.1 % Eos % (Auto) 1.2 % Baso % (Auto) 0.4 % Neut # (Auto) 9.41 H (1.40-6.50) K/uL Lymph # (Auto) 0.94 L (1.2-3.4) K/uL Caldwell # (Auto) 1.32 H (0.11-0.59) K/uL Eos # (Auto) 0.14 (0-0.50) K/uL Baso # (Auto) 0.05 (0-0.2) K/uL Immature Gran # (Auto) 0.05 (0.01-0.20) K/uL POC Sodium 135 (135-144) mmol/L POC Potassium 3.6 (3.3-5.0) mmol/L POC Chloride 103 (101-112) mmol/L POC Total CO2 21 L (24-31) mmol/L POC Anion Gap 16.0 (16-25) mmol/L POC BUN 19 H (7-18) mg/dl POC Creatinine 1.2 (0.6-1.3) mg/dl POC Glucose (other) 147 H (70-99) mg/dl POC Ioniz Calcium Estrellita 1.05 L (1.12-1.32) mmol/l Imaging Data Attestation: I personally reviewed and interpreted this imaging study as follows: My Impression: Chest x-ray interpreted by me cardiomegaly, pneumothorax no effusions Radiologist's Impression: Chest X-Ray 12/20/22 10:49 SINGLE VIEW CHEST CLINICAL HISTORY: Atypical chest pain. FINDINGS: An AP, portable, upright chest radiograph is compared to study dated 02/22/2016 and correlated with chest CT dated 12/15/2022. The examination is degraded by portable technique and apical lordotic positioning. The heart isn't enlarged. The pulmonary vasculature is noncongested. The lungs and pleural spaces are clear noting mild bibasilar atelectasis. No pneumothorax is seen. The bony thorax is grossly intact. IMPRESSION: Cardiomegaly with no acute cardiopulmonary abnormality. ACT 112: Negative or not required by law. Electronically signed by: Nolan Michaels M.D. 12/20/2022 11:36 AM ECG Data Attestation: I personally reviewed and interpreted this ECG as follows: Additional Comments: EKG interpreted by me rapid atrial [place] [id number], no obvious ST segment elevation or depression, normal axis, sinus pauses present in varying leads Telemetry was ordered by me interpreted as sinus pauses, rapid A-fib, rate controlled, PVCs MDM Narrative Medical decision making differential diagnosis includes angina, unstable angina, acute coronary syndrome, acute VA, cardiac dysrhythmia, electrolyte abnormality, occluded stent Plan is to check labs, EKG, chest x-ray A heart alert was activated by me immediately after seeing the patient due to chest pain and sinus pauses Case was discussed with Dr. Barroso at bedside at 1120 Patient will go back to the [facility] emergently Impression & Plan Chest pain, Atrial fibrillation, Sinus pause Discharge Plan Visit Data Chief Complaint: Chest Pain Stated Complaint: SOB, CHEST PAIN ED Provider: Dae Álvarez Discharge Problem: Chest pain, Atrial fibrillation, Sinus pause Patient Disposition: Admitted As Inpatient
--- NOTE | 2022-12-20 11:37 | XRay Report ---
SINGLE VIEW CHEST CLINICAL HISTORY: Atypical chest pain. FINDINGS: An AP, portable, upright chest radiograph is compared to study dated 02/22/2016 and correlat ed with chest CT dated 12/15/2022. The examination is degraded by portable technique and apical lordot ic positioning. The heart isn't enlarged. The pulmonary vasculature is noncongested. The lungs and pl eural spaces are clear noting mild bibasilar atelectasis. No pneumothorax is seen. The bony thorax is grossly intact. IMPRESSION: Cardiomegaly with no acute cardiopulmonary abnormality. ACT 112: Negative or not required by law. Electronically signed by: Nolan Michaels M.D. 12/20/2022 11:36 AM
--- NOTE | 2022-12-20 11:40 | Pre Anesthesia Assessment ---
Date of Service December 20, 2022 Pre Sedation Assessment Vital Signs Temp Pulse Pulse Resp BP BP Pulse Ox 12/20/22 11:09 82 22 145/93 H 96 12/20/22 11:08 96 12/20/22 11:05 152 H 12/20/22 10:43 97.7 F 70 18 140/74 97 O2 Del Method 12/20/22 11:09 Room Air 12/20/22 11:08 Room Air 12/20/22 11:05 12/20/22 10:43 Room Air Cardiovascular RRR, no murmur, no edema Respiratory normal respiratory effort, lungs clear to auscultation Pre-Sedation Airway Assessment Smoking Status: Never smoker Hx Sleep Apnea: Yes Hx Difficult Intubation: No Short, Thick Neck: No Thyromental Distance: > or= 3.5 Finger Breadths Oral Cavity: + WNL Mallampati Class: III ASA: ASA3 Procedure Planning Contraindications for Sedation: none Current Medications Reviewed: Yes Notes The planned sedation has been discussed with the patient. Informed Consent was obtained. I have identified the patient, determined the appropriateness of sedation and have assessed the patient immediately prior to the procedure. All medicine(s) and interventions are by my order.
[2022-12-20] MEDS ORDERED: MAGNESIUM SULFATE 1GM / D5W BAG IV ONE (11:41)
[2022-12-20 11:53] LABS: INR 1.2 (0.9-1.1); Partial Thromboplastin Ratio 1.1; Partial Thromboplastin Time 31.3 Seconds (21.0-31.0); Prothrombin Time 12.6 Seconds (9.0-12.0)
[2022-12-20 11:57] LABS: Troponin I High Sensitivity 1934.7 pg/ml (0-20)
[2022-12-20 12:00] LABS: Albumin Level 3.8 gm/dl (3.4-5.0); Bilirubin,Total 0.6 mg/dl (0.2-1.0); Calcium 8.7 mg/dl (8.6-10.3); Magnesium 1.8 mg/dl (1.7-2.4); Potassium 3.6 mmol/L (3.5-5.1)
[2022-12-20 12:06] LABS: BUN Creatinine Ratio 18.6 (10-20); Creatinine Clr Calc Pharmacy 131.2 ml/min; Est GFR (African American) 87.4 ml/min; Est GFR (Non-African American) 75.4 ml/min; Globulin 3.8 gm/dl (2.5-4.0); Total Protein 7.6 gm/dl (6.0-8.3)
[2022-12-20] MEDS ORDERED: TICAGRELOR 90 MG TAB ONE (12:57)
[2022-12-20] MEDS ORDERED: ONDANSETRON INJ 2 MG/ML 2 ML VIAL IV PRN (13:19)
--- NOTE | 2022-12-20 13:24 | Post Anesthesia Assessment ---
Date of Service December 20, 2022 Post Sedation Assessment Vital Signs Temp Pulse Pulse Resp BP BP Pulse Ox 12/20/22 11:58 12/20/22 11:09 82 22 145/93 H 96 12/20/22 11:08 96 12/20/22 11:05 152 H 12/20/22 10:43 97.7 F 70 18 140/74 97 O2 Del Method 12/20/22 11:58 Room Air 12/20/22 11:09 Room Air 12/20/22 11:08 Room Air 12/20/22 11:05 12/20/22 10:43 Room Air Recovery Score Activity: Moves 4 extremities Respiration: Deep Breath/Cough Circulation: +/-20% PreAnes Value Consciousness: Fully Awake Oxygen Saturation: O2 needed for >90% Discharge Sedation Level of Care: Fast Track Phase II Post Sedation Plan On clinical assessment, the patient appears to have tolerated the sedation without complications. Patient is recovering as anticipated. Patient will continue to be monitored by nursing and may be discharged when sedation discharge criteria are met per below protocol. Upon Completions of procedure up to 15 minutes continue every 5 minute vital signs and the P.A.R. score; then discharge to a Phase I or Fast Track to Phase II per the following guidelines: * Discharge Patient to appropriate Phase II area if PAR is 8 or greater or return to pre- procedure baseline. The post - procedure orders will be as directed. * If PAR score is less than 8 or not return to pre-procedure baseline then patient will follow Phase I monitoring till PAR is reached for Phase II. The Phase I may be done in procedure room or may call to secure a Phase I area. * If naloxone or flumazenil are used for reversal, hold in Phase I for continued monitoring from when last reversal dose was given for a minimum of 60 minutes or longer pending the nurse and/or physician discretion of patient condition before discharge to Phase II. Please call the Sedation Physician to re-evaluate and complete post-note for discharge to Phase II area. Do NOT discharge from procedure sedation or Phase 1 until post- sedation evaluation note is complete by procedure /sedation MD Sedation Discharge Instructions to be given to the patient at discharge to home.
--- NOTE | 2022-12-20 13:26 | Post Operative Brief Note ---
Cardiology Brief Post Op Date of Surgery December 20, 2022 Pre & Post Diagnosis ACS Procedure Cardiac catheterization PCI to 1st diagonal Temporary pacemaker placement Denial Management Representative Zane Barroso MD Rad Technologist Deibler Estimated Blood Loss 20 Findings See Below Acute stent thrombosis of proximal D1 stentsuccessful PCI with new LUZ overlapping proximal aspect of prior stent Stable moderate to severe mid LAD stenosis at bifurcation with D2. D2 with severe ostial stenosis Atrial fibrillation with RVR Prolonged pauses with episode of asystole with initial left system angiographynow post transvenous pacemaker Anesthesia Type RN Sedation Complications none Disposition Accompanied Patient To Recovery: No Disposition: Surgical ICU Overlapping Procedure I was present for: the critical portions of procedure. I was immediately available: during the entire case.
[2022-12-20] MEDS ORDERED: POTASSIUM CHLORIDE 20 MEQ/15 ML UDC PO STA (13:28)
[2022-12-20] MEDS ORDERED: CALCIUM GLUCONATE 10% 2,000 MG in DEXTROSE 5% 50 ML IV ONE (13:30)
[2022-12-20] MEDS ORDERED: STAT IV STA (13:30)
--- NOTE | 2022-12-20 13:42 | Cardiology Consultation ---
Date of Consultation December 20, 2022 Assessment & Plan (1) ACS (acute coronary syndrome): 2. 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 Residual intermediate mid LAD, 90% ostial D2 3. A-fib with RVR 4. CardiomyopathyEF 40 to 45% with inferoseptal wall motion abnormality 5. Hypertension 6. Right bundle branch block 7. Type 2 diabetes 8. GERD 9. Mild JEANINE Patient here with recurrent chest pain reminiscent of his prior symptoms before recent PCI. Electrically unstable currently. Recommend repeating cardiac catheterization to reassess prior stent and evaluate for other new disease or obstructive branch vessel disease not appreciated on prior imaging. Further recommendations pending coronary angiography. History of Present Illness Attending Physician: Zane Barroso MD History of Present Illness Mr. Roque is a 52-year-old man 5 days post PCI to diagonal in the setting of ACS here with recurrent chest pain, AF with RVR and prolonged pauses. Seen emergently in the ED after heart alert activated. Patient discharged 3 days ago initially had been doing okay. More recently been dealing with GI symptoms including diarrhea. This morning acutely developed chest pain reminiscent of what he had preceding stent. No new presyncopal symptoms this morning. In ED hemodynamically stable. Atrial fibrillation showed A-fib with RVR, right bundle branch block (old from last visit) and questionable inferior ST changes. On telemetry had repeated pauses 5 to 7 seconds and received 1 dose of atropine. During prior hospitalization patient underwent cardiac catheterization which revealed moderate to severe mid LAD disease of bifurcation of D2. D2. D2 with chronic severe ostial disease. Culprit for his acute symptoms was not immediately clear. Did have sluggish flow in D1 at time of procedure and treated with 1 LUZ to proximal D1 post procedure chest pain resolved but did have continued rise in troponins peaking at 17,000. Echo preprocedure showed mild reduced LV function, EF 45% with basal inferior/inferoseptal hypokinesis. During hospitalization patient had no additional chest pain. He remained in A- fib with RVR and was discharged on increased metoprolol 100 mg twice daily along with Xarelto, clopidogrel. Patient had been taking medications as prescribed including clopidogrel this morning. Past cardiac history remarkable for persistent atrial fibrillation. He is followed by Dr. Espinal for his cardiac care. ASCVD risk factors include type 2 diabetes, hypertension, dyslipidemia, obesity and family history of premature CAD (father had bypass surgery in 50s). Other medical issues include ERNESTO on CPAP, GERD, anemia, gout. Social history: Works for [employer]. . Lifelong non-smoker. Allergies Allergy/AdvReac Type Severity Reaction Status Date / Time cat dander Allergy Intermediate Itchy, Verified 11/03/22 11:26 watery eyes, sneezing dog dander Allergy Intermediate Itchy, Verified 11/03/22 11:26 watery eyes, sneezing pollen extracts Allergy Intermediate SNEEZE,ITCHY Verified 11/03/22 11:26 WATERY EYES acetaminophen [From Percocet] Allergy Verified 11/03/22 11:26 house dust mite Allergy Verified 11/03/22 11:26 mold Allergy Verified 11/03/22 11:26 oxycodone [From Percocet] Allergy Verified 11/03/22 11:26 Home Medications Medication Instructions Recorded Confirmed Type fluticasone propionate 50 2 sprays intranasal DAILY 02/24/19 12/18/22 History mcg/actuation nasal spray,suspension loratadine 10 mg tablet 10 mg PO DAILY 02/24/19 12/18/22 History dorzolamide 22.3 mg-timolol 6.8 1 drops ophthalmic (eye) BID 02/25/19 12/18/22 History mg/mL eye drops colchicine (gout) 0.6 mg tablet 0.6 mg PO DAILY PRN gout #9 tabs 09/18/21 12/18/22 Rx amlodipine 10 mg tablet 10 mg PO DAILY #90 tabs 05/02/22 12/18/22 Rx montelukast 10 mg tablet 10 mg PO DAILY #90 tabs 05/02/22 12/18/22 Rx rivaroxaban 20 mg tablet (Xarelto) 20 mg PO DAILY #90 tabs 08/12/22 12/18/22 Rx metformin 500 mg tablet 500 mg PO DAILY #90 tabs 10/08/22 12/18/22 Rx indomethacin 25 mg capsule 25 mg PO Q8H PRN gout flare #90 10/10/22 12/18/22 Rx caps empagliflozin 10 mg tablet 10 mg PO DAILY #90 tabs 11/03/22 12/18/22 Rx (Jardiance) allopurinol 300 mg tablet 300 mg PO DAILY #90 tabs 12/12/22 12/18/22 Rx acetaminophen 500 mg tablet 1,000 mg PO BID PRN Pain 12/15/22 12/18/22 History calcium carbonate 600 mg calcium 600 mg PO BID 12/15/22 12/18/22 History (1,500 mg) tablet (Calcium) cholecalciferol (vitamin D3) 125 125 mcg PO DAILY 12/15/22 12/18/22 History mcg (5,000 unit) tablet (Vitamin D3) ferrous sulfate 325 mg (65 mg 325 mg PO DAILY 12/15/22 12/18/22 History iron) tablet atorvastatin 40 mg tablet 40 mg PO QAM #30 tabs 12/16/22 12/18/22 Rx clopidogrel 75 mg tablet 75 mg PO QAM #30 tabs 12/16/22 12/18/22 Rx metoprolol tartrate 100 mg tablet 100 mg PO BID #60 tabs 12/16/22 12/18/22 Rx nitroglycerin 0.4 mg sublingual 0.4 mg sublingual Q5M PRN chest 12/16/22 12/18/22 Rx tablet pain #14 tabs pantoprazole 40 mg tablet,delayed 40 mg PO QAM #30 tabs 12/17/22 12/18/22 Rx release fluticasone 113 mcg-salmeterol 14 1 inh inhalation BID #1 ea 12/18/22 12/18/22 Rx mcg/actuation breath activated powdr (AirDuo RespiClick) Patient History Medical History Asthma Atrial fibrillation Diabetes mellitus Finger laceration involving tendon Glaucoma Gout HTN (hypertension) Obesity, diabetes, and hypertension syndrome ERNESTO on CPAP Proteinuria Surgical History H/O oral surgery History of hand surgery Family History Mother Coronary heart disease Myocardial infarction Diabetes Father Coronary heart disease Myocardial infarction Other Hypertension Denies family history of Ovarian cancer Prostate cancer Breast cancer Colorectal cancer Social History Smoking Status: Never smoker Second Hand Exposure: No; Do You Dip or Chew Tobacco: No; Hx Alcohol Use: No Hx Substance Use: No Preferred Language: Turkish Communication Ability: Effective Visual Impairment: No Limitations Hearing Ability: Normal Roving Court Reporter Required: No Beliefs That Will Affect Care: None marital status: Current Living Situation: Spouse current occupational status: employed 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 [employer] How many Children do You have: 0 Other Information That Helps Us Care for You: No Feels Safe at Home: Yes Safety Concerns: Feels Safe At This Time Childhood Exposure to Second-Hand Smoke: Yes Diet: regular caffeine: Yes Dental Care, Regularly: Yes Physical Activity Frequency: Does not Exercise Seatbelt Use: always Sunscreen Use: No Assistive Devices: CPAP Review of Systems Review of Systems: All systems reviewed & are unremarkable except as noted in HPI & below Physical Exam Physical Exam: General: Uncomfortable HEENT: Sclerae anicteric Lungs: Clear to auscultation anteriorly Cardiac: Tachycardic, irregular irregular Vascular: 2+ radial Abdomen: Soft, nontender Extremities: Well perfused, no peripheral edema Neuro: Nonfocal Psych: Alert orient x3, normal affect and mood Results & Data Vital Signs (Past 12 Hours) Vital Signs Temp Pulse Pulse Resp BP BP Pulse Ox 12/20/22 11:09 82 22 145/93 H 96 12/20/22 11:08 96 12/20/22 11:05 152 H 12/20/22 10:43 97.7 F 70 18 140/74 97 O2 Del Method 12/20/22 11:09 Room Air 12/20/22 11:08 Room Air 12/20/22 11:05 12/20/22 10:43 Room Air PG Care Time/CCT Total # of Minutes Spent Total Time Spent with Patient: Total time spent is greater than 50% in coordination of care (as documented) at patient's floor/unit and/or counseling patient: Coding Level of Care Code 43311 IN/OBS CONSULT LVL 4,60M Diagnoses ACS (acute coronary syndrome) I24.9
--- NOTE | 2022-12-20 13:49 | Critical Care Consultation ---
Date of Consultation December 20, 2022 Assessment & Plan (1) ACS (acute coronary syndrome): (2) Atrial fibrillation: (3) Sinus pause: (4) Atrial fibrillation: (5) Obesity, diabetes, and hypertension syndrome: (6) Gout: (7) ERNESTO on CPAP: Plan NEURO -- A/O x 3 -- PT/OT as able -- Minimize sedatives CV 1. CAD with stent thrombosis at D1 s/p overlapping LUZ after recent stent on 12/15 2. Afib on Xarelto 3. Sinus node dysfunction 2/2 ischemia / metabolic abnormalities vs. sick sinus syndrome s/p TVP 3. HTN 4. RBBB -- Continue Brilinta, Xarelto, statin, metoprolol low dose -- replace K, Mg, Ca -- will avoid amiodarone for now due to QTc -- Repeat Echo, cardiology following, on going evaluation for possible PPM RESP 1. Hx ERNESTO with CPAP intolerance 2. Morbid obesity -- CPAP 8 cm for sleep during hospitalization RENAL 1. Cr has been stable -- Follow daily ENDO 1. DM -- SSI -- Blood glucose goal 140-180 while in ICU GI 1. GERD -- Continue ppi HEME 1. Reactive leukocytosis -- CBC daily DVT ppx: on DOAC GI ppx: ppi History of Present Illness Reason for Consultation: Post cardiac cath Requesting Physician: Dr. Marmolejo Attending Physician: Zane Barroso MD History of Present Illness 52 M with hx of ERNESTO with CPAP intolerance, Afib on Xarelto, DM2, HTN, GRED, CAD with recent hospitalization from 12/15 to 12/17 for NSTEMI and underwent PCI with LUZ x 1 to D1, also noted 60% md LAD, 80-90% ostial, 40% mid cx and was discharged on plavix and Xarelto. Discharge echo with EF 45%, mild global hypokinesis, akinesis of basal inferoseptum / base. Patient presents to the ED on 12/20/2022 with complaints of severe substernal chest pressure, dypsnea, and diaphoresis staring at 9:30 am. Intake EKG with Afib, RVR, RBBB, QTc 540s, with inferolateral T-wave inversions. He was also noted to have frequent pauses. Taken to lab director again today and TVP was inserted, repeat cath demonstrated thrombosis of recent D1 stent and underwent another PCI with prox overlapping stent x 1 with EDWIGE III flow. Arrived in ICU in stable condition, slightly hypertensive, on room air, A/O x 3, chest pressure free. Currently receiving K, Ca, and Mg supplementation. EKG with Afib RVR, QTc 540s, RBBB. TVP 60 bpm, amp5. Cr has been stable. Spouse is at bedside. Allergies Allergy/AdvReac Type Severity Reaction Status Date / Time cat dander Allergy Intermediate Itchy, Verified 11/03/22 11:26 watery eyes, sneezing dog dander Allergy Intermediate Itchy, Verified 11/03/22 11:26 watery eyes, sneezing pollen extracts Allergy Intermediate SNEEZE,ITCHY Verified 11/03/22 11:26 WATERY EYES acetaminophen [From Percocet] Allergy Verified 11/03/22 11:26 house dust mite Allergy Verified 11/03/22 11:26 mold Allergy Verified 11/03/22 11:26 oxycodone [From Percocet] Allergy Verified 11/03/22 11:26 Home Medications Medication Instructions Recorded Confirmed Type fluticasone propionate 50 2 sprays intranasal DAILY 02/24/19 12/18/22 History mcg/actuation nasal spray,suspension loratadine 10 mg tablet 10 mg PO DAILY 02/24/19 12/18/22 History dorzolamide 22.3 mg-timolol 6.8 1 drops ophthalmic (eye) BID 02/25/19 12/18/22 History mg/mL eye drops colchicine (gout) 0.6 mg tablet 0.6 mg PO DAILY PRN gout #9 tabs 09/18/21 12/18/22 Rx amlodipine 10 mg tablet 10 mg PO DAILY #90 tabs 05/02/22 12/18/22 Rx montelukast 10 mg tablet 10 mg PO DAILY #90 tabs 05/02/22 12/18/22 Rx rivaroxaban 20 mg tablet (Xarelto) 20 mg PO DAILY #90 tabs 08/12/22 12/18/22 Rx metformin 500 mg tablet 500 mg PO DAILY #90 tabs 10/08/22 12/18/22 Rx indomethacin 25 mg capsule 25 mg PO Q8H PRN gout flare #90 10/10/22 12/18/22 Rx caps empagliflozin 10 mg tablet 10 mg PO DAILY #90 tabs 11/03/22 12/18/22 Rx (Jardiance) allopurinol 300 mg tablet 300 mg PO DAILY #90 tabs 12/12/22 12/18/22 Rx acetaminophen 500 mg tablet 1,000 mg PO BID PRN Pain 12/15/22 12/18/22 History calcium carbonate 600 mg calcium 600 mg PO BID 12/15/22 12/18/22 History (1,500 mg) tablet (Calcium) cholecalciferol (vitamin D3) 125 125 mcg PO DAILY 12/15/22 12/18/22 History mcg (5,000 unit) tablet (Vitamin D3) ferrous sulfate 325 mg (65 mg 325 mg PO DAILY 12/15/22 12/18/22 History iron) tablet atorvastatin 40 mg tablet 40 mg PO QAM #30 tabs 12/16/22 12/18/22 Rx clopidogrel 75 mg tablet 75 mg PO QAM #30 tabs 12/16/22 12/18/22 Rx metoprolol tartrate 100 mg tablet 100 mg PO BID #60 tabs 12/16/22 12/18/22 Rx nitroglycerin 0.4 mg sublingual 0.4 mg sublingual Q5M PRN chest 12/16/22 12/18/22 Rx tablet pain #14 tabs pantoprazole 40 mg tablet,delayed 40 mg PO QAM #30 tabs 12/17/22 12/18/22 Rx release fluticasone 113 mcg-salmeterol 14 1 inh inhalation BID #1 ea 12/18/22 12/18/22 Rx mcg/actuation breath activated powdr (AirDuo RespiClick) Patient History Medical History Asthma Atrial fibrillation Diabetes mellitus Finger laceration involving tendon Glaucoma Gout HTN (hypertension) Obesity, diabetes, and hypertension syndrome ERNESTO on CPAP Proteinuria Surgical History H/O oral surgery History of hand surgery Family History Mother Coronary heart disease Myocardial infarction Diabetes Father Coronary heart disease Myocardial infarction Other Hypertension Denies family history of Ovarian cancer Prostate cancer Breast cancer Colorectal cancer Social History Smoking Status: Never smoker Second Hand Exposure: No; Do You Dip or Chew Tobacco: No; Hx Alcohol Use: No Hx Substance Use: No Preferred Language: Faroese Communication Ability: Effective Visual Impairment: No Limitations Hearing Ability: Normal Director Supply Required: No Beliefs That Will Affect Care: None marital status: Current Living Situation: Spouse current occupational status: employed 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 How many Children do You have: 0 Other Information That Helps Us Care for You: No Feels Safe at Home: Yes Safety Concerns: Feels Safe At This Time Childhood Exposure to Second-Hand Smoke: Yes Diet: regular caffeine: Yes Dental Care, Regularly: Yes Physical Activity Frequency: Does not Exercise Seatbelt Use: always Sunscreen Use: No Assistive Devices: CPAP Review of Systems Review of Systems: Denies, dyspnea, chest pressure, chest pain, N/V Physical Exam Physical Exam: Gen: A/O x 3, NAD, obese CV: Irregular, tachycardic Resp: CTAB Abd: protuberant, NT Ext: warm, dry, well perfused Skin: no rashes Results & Data Results & Data Vital Signs (Past 12 Hours) Vital Signs Temp Pulse Pulse Resp BP BP Pulse Ox 12/20/22 11:58 12/20/22 11:09 82 22 145/93 H 96 12/20/22 11:08 96 12/20/22 11:05 152 H 12/20/22 10:43 36.5 C 70 18 140/74 97 O2 Del Method 12/20/22 11:58 Room Air 12/20/22 11:09 Room Air 12/20/22 11:08 Room Air 12/20/22 11:05 12/20/22 10:43 Room Air Coding Level of Care Code 21162 CRITICAL CARE 1ST 30-74M Diagnoses ACS (acute coronary syndrome) I24.9 Atrial fibrillation I48.91 Sinus pause I45.5 Obesity, diabetes, and hypertension syndrome E11.69; E11.59; E66.9; I15.2 Gout M10.9 ERNESTO on CPAP G47.33; Z99.89 Time Spent (min) 60
[2022-12-20] MEDS: MAGNESIUM SULFATE / D5W 1 GM/100 ML BAG IV SCH ×2 (13:58→15:48)
--- NOTE | 2022-12-20 14:45 | Cardiac Catheterization ---
[facility] Data: Adding Machine Operator Cardiac Status Clinical evaluation leading to the procedure CAD Presenation: Non STEMI Anginal Classification: CCS IV Diagnostic Physicians Name: Zane Barroso MD Closure Device Recommendations: PCI without planned CABG Cardiac Cath Procedure Full Procedure Date December 20, 2022 Pre-Procedure Diagnosis Pre-Procedure Diagnosis: Acute Coronary Syndrome AUC Score AUC Score: 8 Post-Procedure Diagnosis Post-Procedure Diagnosis: Severe CAD, Successful PCI and Elevated Intracardiac Pressures Procedure(s) Performed Procedure(s) Performed: Coronary Angiography, Left Heart Cath, Drug Eluting Stent and Temporary Pacemaker Mathematics Education Professor Zane Barroso MD Green House Manager(s) Deibler Estimated Blood Loss Estimated Blood Loss: 15 Medication(s) Medication(s): Fentanyl, Heparin, Lidocaine 1%, Nicardipine, Nitroglycerin and Versed Medication(s): Ticagrelor Summary of Findings Indication: ACS, AF with RVR and prolonged pauses. Prior LUZ to D1 5 days ago. Access: 6 Fr right radial artery Catheters: [place], EBU 3.5 guide Findings: LM -normal caliber, no significant disease LAD -large caliber, calcified, 60% mid segment stenosis at takeoff of second diagonal, distal vessel without significant disease and wraps around apex. D1 with acute 100% stent occlusion. Medium D2 with 90% ostial stenosis Circumflex -large caliber, 20 to 30% proximal stenosis, 30 to 40% mid segment stenosis at takeoff of small OM2. Gives a very small left PDA which tapers prior to apex. RCA -nondominant, 30% proximal to mid disease LVEDP -25 With coronary angiography patient developed asystole requiring atropine, transcutaneous pacing. 7 Fr sheath placed to right CFV Temporary transvenous pacing wire navigated into RV. Successful pacing down to outputs <1 mA. Final PPM setting 60 bpm, output 5 mA. -- PCI -- Antithrombotic therapy: Heparin, ticagrelor Procedure: Left main cannulated with EBU 3.5 guide Pre-procedure flow EDWIGE 0 and LAD Firer Retort 50 wire passed across occlusion into distal D1 Proximal D1 lesion predilated with 2.5 compliant balloon with reestablish flow Proximal edge stented with 2.25 x 12 mm Xience LUZ Stent post-dilated with stent balloon IC vasodilators administered for spasm Post procedure EDWIGE 3 flow, stents well expanded with minimal residual stenosis and no apparent cardiac complications. IFR Attempt made to IFR mid LAD stenosis Uninterpretable results in the setting of AF with RVR Arterial Closure: TR band Summary: 1. Multivessel coronary artery disease -Subacute D1 stent thrombosis 60% mid LAD at bifurcation with D2. Medium D2 90% ostial 40% mid circumflex 2. Elevated intracardiac filling pressure 3. Atrial fibrillation with RVR 4. Prolonged pauses with asystole with angiography of left system 5. Successful placement of transvenous temporary pacemaker 6. Successful PCI of occluded D1 stent with angioplasty with 2.5 balloon and placement of additional LUZ (2.25 x 12 mm Xience) overlapping proximal aspect of prior stent. Recommendations: To ICU for continued monitoring Loaded with ticagrelor 180 mg. Can resume Xarelto tomorrow. Long-term plan for triple therapy for at least 1 month Resume beta-blockers as needed for RVR Replete electrolytes and will assess need for continued pacemaker Medical management of residual CAD. Do not feel bifurcation mid LAD/D2 disease causing acute symptoms. Could lead to exertional anginal symptoms in the future. Appears amenable to PCI if refractory angina. Hemodynamics Rest Ao:: 125/87/97 Final Ao: 118/90/98 LV: 131/25 Recommendations Recommendations: PCI without planned CABG Specimens Specimens: None Radiation Exposure (mGy) 3235 Contrast (mls) 105 Anesthesia Moderate 7205-5489 Procedural Complication(s) None Disposition ICU I attest to the content of the Intraoperative Record and any orders documented therein. Any exceptions are noted below. [facility] Card Cath Procedure Codes Cardiac Catheterization Procedure 1: Cardiovascular Cath Procedures: 73072 Coronaries and LHC (+/-LV) Therapeutic Services & Ancillary Procedure 1: Cardiovascular Tx and Anc Procedures: 45043 Temp Pacer Insert Moderate Sedation Procedure 1: Sedation/Anesthesia: 69093 Mod Sedation by the same physician;Init15 Min Child Age 5 & Up Procedure 2: Sedation/Anesthesia: 76167 Mod Sedation by the same physician; Ea [id number] Minutes Stenting Procedure 1: Cardiovascular Stent Procedures: 20099 Perc transluminal revascularization of acute sub/total occl, aMI PG Care Time/CCT Total # of Minutes Spent Total Time Spent with Patient: Total time spent is greater than 50% in coordination of care (as documented) at patient's floor/unit and/or counseling patient:
[2022-12-20] MEDS ORDERED: hydrALAZINE 10 MG TAB PO PRN (15:07)
[2022-12-20] MEDS ORDERED: METOPROLOL TARTRATE 25 MG TAB PO SCH (15:11)
[2022-12-20] MEDS: ATORVASTATIN 40 MG TAB PO SCH (15:53)
[2022-12-20] MEDS: ICU Protocol for HYPERglycemia SCH ×2 (15:53→20:56)
[2022-12-20] MEDS ORDERED: ICU Protocol for HYPERglycemia SCH (16:30)
[2022-12-20] MEDS: FAMOTIDINE 20 MG TAB PO SCH ×2 (17:10→20:56)
[2022-12-20] MEDS: ACETAMINOPHEN 325 MG TAB PO PRN (17:11)
[2022-12-20] MEDS ORDERED: MoRPHine SULFATE 2 MG/ML CARP IV PRN (18:22)
--- NOTE | 2022-12-20 18:44 | XCELERA ---
[id number]
[2022-12-20] MEDS: METOPROLOL TARTRATE 1 MG/ML VIAL IV PRN (18:53)
[2022-12-20] MEDS ORDERED: HYDROmorphone INJ 0.5 MG/0.5 ML SYR IV PRN (19:21)
[2022-12-20] MEDS: METOPROLOL TARTRATE 25 MG TAB PO SCH (20:56)
[2022-12-20 21:42] LABS: BUN Creatinine Ratio 15.5 (10-20); Creatinine Clr Calc Pharmacy 143.1 ml/min; Est GFR (African American) 97.7 ml/min; Est GFR (Non-African American) 84.3 ml/min; Magnesium 2.2 mg/dl (1.7-2.4); Potassium 3.9 mmol/L (3.5-5.1)
[2022-12-20] MEDS: POTASSIUM CHLORIDE / WTR 10 MEQ/100 ML PLCT IV SCH ×2 (22:05→23:50)
[2022-12-21] MEDS: METOPROLOL TARTRATE 1 MG/ML VIAL IV PRN ×2 (00:07→22:21)
[2022-12-21 04:16] LABS: Basophils # (auto) 0.04 K/uL (0-0.2); Basophils % (auto) 0.3 %; Eosinophils # (auto) 0.04 K/uL (0-0.50); Eosinophils % (auto) 0.3 %; Hematocrit (blood only) 35.6 % (42.0-52.0); Immature Granulocytes # (auto) 0.06 K/uL (0.01-0.20); Immature Granulocytes % (auto) 0.5 %; Lymphocytes # (auto) 0.78 K/uL (1.2-3.4); Mean Corpuscular Hemoglobin 29.4 pg (25.0-34.0); Mean Corpuscular Hgb Conc 33.7 g/dL (32.0-36.0); Mean Corpuscular Volume 87.3 fL (80.0-100.0); Mean Platelet Volume 11.8 fL (9.4-12.4); Monocytes % (auto) 10.7 %; Neutrophils # (auto) 10.74 K/uL (1.40-6.50); Neutrophils % (auto) 82.2 %; Platelet Count 253 K/uL (130-400); RDW Standard Deviation 41.5 fL (36.4-46.3); Red Blood Count 4.08 M/uL (4.70-6.10); White Blood Count 13.06 K/ul (4.8-10.8)
[2022-12-21 04:30] LABS: Albumin Level 3.5 gm/dl (3.4-5.0); BUN Creatinine Ratio 16.8 (10-20); Bilirubin,Total 0.7 mg/dl (0.2-1.0); Calcium 8.8 mg/dl (8.6-10.3); Creatinine Clr Calc Pharmacy 155.2 ml/min; Est GFR (African American) 107.7 ml/min; Globulin 3.6 gm/dl (2.5-4.0); Potassium 4.1 mmol/L (3.5-5.1); Total Protein 7.1 gm/dl (6.0-8.3)
--- NOTE | 2022-12-21 07:09 | Electrocardiogram Report ---
Test Reason : Blood Pressure : / mmHG Vent. Rate : 105 BPM Atrial Rate : 136 BPM P-R Int : 000 ms QRS Dur : 158 ms QT Int : 414 ms P-R-T Axes : 000 052 -40 degrees QTc Int : 547 ms Suspect unspecified pacemaker failure Atrial fibrillation with rapid ventricular response with occasional ventricular-paced complexes Right bundle branch block T wave abnormality, consider inferior ischemia Abnormal ECG When compared with ECG of 20-DEC-2022 10:58, (unconfirmed) Electronic ventricular pacemaker has replaced Atrial fibrillation Confirmed by Zane Mccartney ([id number]) on 12/21/2022 7:08:49 AM Referred By: REFERRED SELF Confirmed By:Santana Mccartney
--- NOTE | 2022-12-21 07:11 | Electrocardiogram Report ---
Test Reason : Blood Pressure : / mmHG Vent. Rate : 087 BPM Atrial Rate : 000 BPM P-R Int : 000 ms QRS Dur : 158 ms QT Int : 316 ms P-R-T Axes : 000 043 -69 degrees QTc Int : 380 ms Atrial fibrillation with premature ventricular or aberrantly conducted complexes and with ventricular escape complexes Right bundle branch block T wave abnormality, consider inferolateral ischemia Abnormal ECG When compared with ECG of 16-DEC-2022 05:00, Sinus rhythm is now with ventricular escape complexes T wave inversion more evident in Lateral leads Confirmed by Zane Mccartney ([id number]) on 12/21/2022 7:11:32 AM Referred By: REFERRED SELF Confirmed By:Santana Mccartney
--- NOTE | 2022-12-21 07:18 | Electrocardiogram Report ---
Test Reason : Blood Pressure : / mmHG Vent. Rate : 103 BPM Atrial Rate : 174 BPM P-R Int : 000 ms QRS Dur : 156 ms QT Int : 400 ms P-R-T Axes : 000 068 -33 degrees QTc Int : 524 ms Atrial fibrillation with rapid ventricular response with occasional ventricular-paced complexes and w ith premature ventricular or aberrantly conducted complexes Right bundle branch block T wave abnormality, consider lateral ischemia Abnormal ECG When compared with ECG of 20-DEC-2022 13:36, (unconfirmed) Vent. rate has decreased BY 2 BPM Confirmed by Zane Mccartney ([id number]) on 12/21/2022 7:18:28 AM Referred By: REFERRED SELF Confirmed By:Santana Mccartney
--- NOTE | 2022-12-21 07:59 | Hospitalist Progress Note ---
Date of Service December 21, 2022 Assessment & Plan (1) Chest pain: Plan: Chang is a 52-year-old male with a past medical history of ERNESTO on CPAP, A-fib with history of RVR on Xarelto, DM 2, hypertension, GERD and recent hospital admission 12/15 - 12/17 for chest pain who presents to the ER as a heart alert and had multiple 7+ second pauses while on telemetry in the ER Patient presents with recurrent NSTEMI, emergent cath, D1 stent occludedPCI and additional stent pain, transvenous pacing was required for tachybradycardia syndrome Cardiac cath 12/15: Multivessel CAD. Small to medium D1 90% proximal disease, 50-60% mid LAD at bifurcation, 80-90% ostial disease, 40% mid circumflex disease 12/15 PCI LUZ x1 to D1, residual mid LAD disease and 90% osteal D2. 12/17 dc: Discharged on Xarelto/Plavix. DC meds: Metoprolol 100 twice daily. Lisinopril 20 mg daily be resumed once JEANINE resolved. Amlodipine considered if BP persistently elevated TTE 12/15/2022: Mildly dilated left ventricle, EF 40-45%. Akinesis of basal inferoseptum and inferior base otherwise mild global hypokinesis. Mild to moderate concentric LVH. Mild left atrial dilation. A-fib. No significant valvular disease noted. A-fib with history of RVR Typically on Xarelto which is on hold for possible pacemaker placement Continue metoprolol dose increased 12/21/2022 Consideration tachybradycardia syndrome in the situation of recent NSTEMI and stenting x2 now patient will be considered for permanent pacemaker on 12/22/2022 Recent JEANINE, resolved, ckd 3 Hyperlipidemia Started on lipid therapy 12/15, lipid panel last admission with cholesterol 155, LDL 92, HDL 35 Lipitor 40 daily - DM [address] 5[address]9% [employer] regimen includes metformin, recently added Jardiance Hold home antiglycemic's, ICU hyperglycemia protocol Goal BSG [id number] ERNESTO CPAP nightly Hypertension Amlodipine started metoprolol dose increased GERD PPI daily continue DVT prophylaxis: Anticoagulated on DOAC CODE STATUS: Full (2) Atrial fibrillation: (3) Diabetes mellitus: (4) HTN (hypertension): (5) ERNESTO on CPAP: (6) Acid reflux disease: Admission and Anticipated Discharge Date Admission Date: December 20, 2022 Subjective Patient is no complaints or problems. Did discuss permanent pacemaker placement on [address] Mccartney. Patient lives anticoagulation held. Patient has she is metoprolol dose increased and institute on amlodipine for hypertension. Physical Exam Physical Exam: Patient wires are in place temporarily. Cardiac exam is regular without murmurs clicks rubs or gallops it is tachycardic at times. Lungs are diminished at the bases but otherwise are clear Results & Data Results & Data Vital Signs (Past 12 Hours) Vital Signs Pulse Resp BP Pulse Ox O2 Del Method O2 Flow Rate 12/21/22 07:01 97 H 23 96 12/21/22 07:01 127/78 12/21/22 07:00 100 H 25 H 97 12/21/22 06:00 118 H 27 H 96 12/21/22 06:00 148/97 H 12/21/22 05:00 111 H 19 98 12/21/22 05:00 138/103 H 12/21/22 04:01 112 H 29 H 97 12/21/22 04:01 136/100 12/21/22 04:00 108 H 25 H 97 12/21/22 03:48 141/103 H 12/21/22 03:48 102 H 20 97 12/21/22 03:00 111 H 15 99 12/21/22 02:00 134 H 25 H 95 12/21/22 01:01 121 H 15 94 12/21/22 01:01 145/100 H 12/21/22 01:00 116 H 21 85 L 12/21/22 00:11 154/99 H 12/21/22 00:11 112 H 20 95 12/21/22 00:01 100/74 12/21/22 00:01 114 H 26 H 93 12/21/22 00:00 114 H 21 93 12/20/22 23:01 120 H 20 95 12/20/22 23:01 123/95 12/20/22 23:00 129 H 23 97 12/21/22 00:58 118 H 145/100 H 12/21/22 00:07 114 H 154/99 H 12/20/22 22:40 115 H 16 79 L 12/20/22 22:30 130 H 17 96 12/20/22 22:20 90 14 96 12/20/22 22:10 103 H 13 90 12/20/22 22:01 122 H 24 95 12/20/22 22:00 124 H 13 94 12/20/22 21:50 119 H 12 97 12/20/22 21:40 125 H 17 92 12/20/22 21:30 76 18 91 12/20/22 21:20 141 H 16 97 12/20/22 21:10 115 H 17 96 12/20/22 21:03 130/109 H 12/20/22 21:03 115 H 20 96 12/20/22 21:00 121 H 35 H 94 12/20/22 20:50 132 H 15 97 12/20/22 20:40 126 H 13 97 12/20/22 20:30 149 H 23 87 L 12/20/22 20:20 120 H 26 H 96 12/20/22 20:10 92 H 19 89 L 12/20/22 20:01 106/91 12/20/22 20:01 120 H 17 79 L 12/20/22 20:00 117 H 19 96 12/20/22 20:15 Nasal Cannula 2 Laboratory Results Reviewed CBC, reviewed chemistry, reviewed troponin trend PG Care Time/CCT Total # of Minutes Spent Total Time Spent with Patient: Total time spent is greater than 50% in coordination of care (as documented) at patient's floor/unit and/or counseling patient: Coding Level of Care Code 79334 SUB INP/OBS CARE 2/35MIN Diagnoses Chest pain R07.9 Atrial fibrillation I48.91 Diabetes mellitus E11.9 HTN (hypertension) I10 ERNESTO on CPAP G47.33; Z99.89 Acid reflux disease K21.9
[2022-12-21] MEDS: ATORVASTATIN 40 MG TAB PO SCH (08:07)
[2022-12-21] MEDS: METOPROLOL TARTRATE 25 MG TAB PO SCH (08:07)
[2022-12-21] MEDS: FAMOTIDINE 20 MG TAB PO SCH ×2 (08:07→20:24)
[2022-12-21] MEDS: TICAGRELOR 90 MG TAB PO SCH ×2 (08:07→20:24)
[2022-12-21] MEDS: ASPIRIN 81 MG ECTAB PO SCH (08:07)
[2022-12-21] MEDS: ICU Protocol for HYPERglycemia SCH ×4 (08:08→20:24)
[2022-12-21] MEDS ORDERED: METOPROLOL TARTRATE 25 MG TAB PO ONE (08:20)
[2022-12-21] MEDS ORDERED: STAT IV STA (09:52)
--- NOTE | 2022-12-21 10:00 | Cardiology Progress Note ---
Date of Service December 21, 2022 Assessment & Plan (1) ACS (acute coronary syndrome): Plan 1. Tachy-adeola syndrome 2. 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 Residual intermediate mid LAD, 90% ostial D2 3. A-fib with RVR 4. CardiomyopathyEF 40 to 45% with inferoseptal wall motion abnormality 5. Hypertension 6. Right bundle branch block 7. Type 2 diabetes 8. GERD 9. Mild JEANINE Chest pain has resolved any appears to have completed his NSTEMI. Biomarkers trending down words. Will continue dual anti-platelet therapy, beta blockade and aggressive risk factor modification. He may have an element of mildly reduced LV systolic function. Evaluation was difficulty yesterday in the acute setting. I think we will continue on beta- blockade, control his heart rate and possibly re-evaluate. He continues to have elevated rates at times with brief periods asystole treated with his temporary pacing wire. It is very likely he will require a permanent pacemaker due to tachy-adeola syndrome. I discussed the procedure and associated risks with the patient today and will tentatively plan on proceeding tomorrow. I will reinitiate his amlodipine given the continuously elevated blood pressures. We will continue to hold systemic anticoagulation in anticipation of her procedure tomorrow. I will increase his metoprolol for better rate control. Admission and Anticipated Discharge Date Admission Date: December 20, 2022 Subjective This morning patient reports feeling uncomfortable on his back. He did have significant back discomfort and some element of chest discomfort immediately following his procedure yesterday. This was treated with intravenous morphine which resulted in significant nausea and vomiting. He does report some difficulty taking deep breaths while lying flat on his back. No current chest discomfort. Review of Systems Review of Systems: Per HPI. Nausea resolved. Physical Exam Physical Exam: The patient is alert and oriented. Mood and affect appeared normal. He answered all questions appropriately. Obese HEENT: Pupils are equal and reactive to light and accommodation. Extraocular movements are intact. The sclerae are anicteric. Neuro: Cranial nerves intact Lungs: Clear to auscultation bilaterally. He has good air movement without use of accessory muscles. No rales wheezes or rhonchi. Cardiac: Heart demonstrates an irregular rate and rhythm. Normal S1 and S2. No murmurs on examination. Pulses: Good perfusion of the right hand with palpable right radial pulse. Extremities: There was no evidence of hypoperfusion. There is no cyanosis or clubbing. There is no edema. Temporary pacing wire and sheath in the right femoral vein. No hematoma or bleeding. Skin: I did not appreciate any rashes on examination today. Results & Data Vital Signs (Past 12 Hours) Vital Signs Pulse Resp BP Pulse Ox 12/21/22 08:01 150/111 H 12/21/22 08:01 98 H 24 97 12/21/22 08:00 108 H 23 99 12/21/22 08:00 97 H 12/21/22 07:01 97 H 23 96 12/21/22 07:01 127/78 12/21/22 07:00 100 H 25 H 97 12/21/22 06:00 118 H 27 H 96 12/21/22 06:00 148/97 H 12/21/22 05:00 111 H 19 98 12/21/22 05:00 138/103 H 12/21/22 04:01 112 H 29 H 97 12/21/22 04:01 136/100 12/21/22 04:00 108 H 25 H 97 12/21/22 03:48 141/103 H 12/21/22 03:48 102 H 20 97 12/21/22 03:00 111 H 15 99 12/21/22 02:00 134 H 25 H 95 12/21/22 01:01 121 H 15 94 12/21/22 01:01 145/100 H 12/21/22 01:00 116 H 21 85 L 12/21/22 00:11 154/99 H 12/21/22 00:11 112 H 20 95 12/21/22 00:01 100/74 12/21/22 00:01 114 H 26 H 93 12/21/22 00:00 114 H 21 93 12/20/22 23:01 120 H 20 95 12/20/22 23:01 123/95 12/20/22 23:00 129 H 23 97 12/21/22 00:58 118 H 145/100 H 12/21/22 00:07 114 H 154/99 H 12/20/22 22:40 115 H 16 79 L 12/20/22 22:30 130 H 17 96 12/20/22 22:20 90 14 96 12/20/22 22:10 103 H 13 90 12/20/22 22:01 122 H 24 95 12/20/22 22:00 124 H 13 94 Laboratory Results Abnormal Lab Results 12/20/22 12/20/22 12/20/22 11:05 11:05 11:05 WBC 11.91 H RBC 4.16 L Hgb 12.4 L POC Hgb Hct 35.8 L POC Hct MCV 86.1 MCH 29.8 MCHC 34.6 RDW Std Deviation 39.8 RDW Coeff of Tripp 12.8 Plt Count 272 MPV 11.7 Immature Gran % (Auto) 0.4 Neut % (Auto) 79.0 Lymph % (Auto) 7.9 [place] % (Auto) 11.1 Eos % (Auto) 1.2 Baso % (Auto) 0.4 Neut # (Auto) 9.41 H Lymph # (Auto) 0.94 L [place] # (Auto) 1.32 H Eos # (Auto) 0.14 Baso # (Auto) 0.05 Immature Gran # (Auto) 0.05 PT 12.6 H INR 1.2 H APTT 31.3 H PTT Ratio 1.1 POC Sodium Sodium 134 L POC Potassium Potassium 3.6 POC Chloride Chloride 101 Carbon Dioxide 20 L POC Total CO2 Anion Gap 13 H POC Anion Gap POC BUN BUN 21 Creatinine 1.13 POC Creatinine Est Cr Clr Drug Dosing 131.2 Est GFR ( Amer) 87.4 Est GFR (Non-Af Amer) 75.4 BUN/Creatinine Ratio 18.6 Glucose 142 H POC Glucose POC Glucose (other) Calcium 8.7 POC Ioniz Calcium Estrellita Ionized Calcium Magnesium 1.8 Total Bilirubin 0.6 AST 25 ALT 36 Alkaline Phosphatase 57 Troponin I High Sens 1934.7 H* B-Natriuretic Peptide Total Protein 7.6 Albumin 3.8 Globulin 3.8 Albumin/Globulin Ratio 1.0 Nasal Screen MRSA (PCR) 12/20/22 12/20/22 12/20/22 11:09 11:33 15:59 WBC RBC Hgb POC Hgb 12.2 L Hct POC Hct 36 L MCV MCH MCHC RDW Std Deviation RDW Coeff of Tripp Plt Count MPV Immature Gran % (Auto) Neut % (Auto) Lymph % (Auto) [place] % (Auto) Eos % (Auto) Baso % (Auto) Neut # (Auto) Lymph # (Auto) [place] # (Auto) Eos # (Auto) Baso # (Auto) Immature Gran # (Auto) PT INR APTT PTT Ratio POC Sodium 135 Sodium POC Potassium 3.6 Potassium POC Chloride 103 Chloride Carbon Dioxide POC Total CO2 21 L Anion Gap POC Anion Gap 16.0 POC BUN 19 H BUN Creatinine POC Creatinine 1.2 Est Cr Clr Drug Dosing Est GFR ( Amer) Est GFR (Non-Af Amer) BUN/Creatinine Ratio Glucose POC Glucose 88 POC Glucose (other) 147 H Calcium POC Ioniz Calcium Estrellita 1.05 L Ionized Calcium Magnesium Total Bilirubin AST ALT Alkaline Phosphatase Troponin I High Sens B-Natriuretic Peptide 334 H Total Protein Albumin Globulin Albumin/Globulin Ratio Nasal Screen MRSA (PCR) 12/20/22 12/20/22 12/20/22 20:02 21:10 21:10 WBC RBC Hgb POC Hgb Hct POC Hct MCV MCH MCHC RDW Std Deviation RDW Coeff of Tripp Plt Count MPV Immature Gran % (Auto) Neut % (Auto) Lymph % (Auto) [place] % (Auto) Eos % (Auto) Baso % (Auto) Neut # (Auto) Lymph # (Auto) [place] # (Auto) Eos # (Auto) Baso # (Auto) Immature Gran # (Auto) PT INR APTT PTT Ratio POC Sodium Sodium 135 L POC Potassium Potassium 3.9 POC Chloride Chloride 103 Carbon Dioxide 22 POC Total CO2 Anion Gap 10 POC Anion Gap POC BUN BUN 16 Creatinine 1.03 POC Creatinine Est Cr Clr Drug Dosing 143.1 Est GFR ( Amer) 97.7 Est GFR (Non-Af Amer) 84.3 BUN/Creatinine Ratio 15.5 Glucose 102 H POC Glucose 96 POC Glucose (other) Calcium 9.0 POC Ioniz Calcium Estrellita Ionized Calcium Magnesium 2.2 Total Bilirubin AST ALT Alkaline Phosphatase Troponin I High Sens 79258.9 H* D B-Natriuretic Peptide Total Protein Albumin Globulin Albumin/Globulin Ratio Nasal Screen MRSA (PCR) 12/20/22 12/21/22 12/21/22 Unknown 03:40 03:40 WBC 13.06 H RBC 4.08 L Hgb 12.0 L POC Hgb Hct 35.6 L POC Hct MCV 87.3 MCH 29.4 MCHC 33.7 RDW Std Deviation 41.5 RDW Coeff of Tripp 13.0 Plt Count 253 MPV 11.8 Immature Gran % (Auto) 0.5 Neut % (Auto) 82.2 Lymph % (Auto) 6.0 [place] % (Auto) 10.7 Eos % (Auto) 0.3 Baso % (Auto) 0.3 Neut # (Auto) 10.74 H Lymph # (Auto) 0.78 L [place] # (Auto) 1.40 H Eos # (Auto) 0.04 Baso # (Auto) 0.04 Immature Gran # (Auto) 0.06 PT INR APTT PTT Ratio POC Sodium Sodium POC Potassium Potassium POC Chloride Chloride Carbon Dioxide POC Total CO2 Anion Gap POC Anion Gap POC BUN BUN Creatinine POC Creatinine Est Cr Clr Drug Dosing Est GFR ( Amer) Est GFR (Non-Af Amer) BUN/Creatinine Ratio Glucose POC Glucose POC Glucose (other) Calcium POC Ioniz Calcium Estrellita Ionized Calcium Magnesium Total Bilirubin AST ALT Alkaline Phosphatase Troponin I High Sens 09946.4 H* D B-Natriuretic Peptide Total Protein Albumin Globulin Albumin/Globulin Ratio Nasal Screen MRSA (PCR) Negative 12/21/22 12/21/22 12/21/22 03:40 07:49 09:00 WBC RBC Hgb POC Hgb Hct POC Hct MCV MCH MCHC RDW Std Deviation RDW Coeff of Tripp Plt Count MPV Immature Gran % (Auto) Neut % (Auto) Lymph % (Auto) [place] % (Auto) Eos % (Auto) Baso % (Auto) Neut # (Auto) Lymph # (Auto) [place] # (Auto) Eos # (Auto) Baso # (Auto) Immature Gran # (Auto) PT INR APTT PTT Ratio POC Sodium Sodium 136 POC Potassium Potassium 4.1 POC Chloride Chloride 103 Carbon Dioxide 22 POC Total CO2 Anion Gap 11 POC Anion Gap POC BUN BUN 16 Creatinine 0.95 POC Creatinine Est Cr Clr Drug Dosing 155.2 Est GFR ( Amer) 107.7 Est GFR (Non-Af Amer) 93.0 BUN/Creatinine Ratio 16.8 Glucose 107 H POC Glucose 88 POC Glucose (other) Calcium 8.8 POC Ioniz Calcium Estrelltia Ionized Calcium Magnesium Total Bilirubin 0.7 AST 71 H ALT 40 Alkaline Phosphatase 56 Troponin I High Sens 7787.6 H* D B-Natriuretic Peptide Total Protein 7.1 Albumin 3.5 Globulin 3.6 Albumin/Globulin Ratio 1.0 Nasal Screen MRSA (PCR) 12/21/22 12/21/22 09:00 09:00 WBC RBC Hgb POC Hgb Hct POC Hct MCV MCH MCHC RDW Std Deviation RDW Coeff of Tripp Plt Count MPV Immature Gran % (Auto) Neut % (Auto) Lymph % (Auto) [place] % (Auto) Eos % (Auto) Baso % (Auto) Neut # (Auto) Lymph # (Auto) [place] # (Auto) Eos # (Auto) Baso # (Auto) Immature Gran # (Auto) PT INR APTT PTT Ratio POC Sodium Sodium POC Potassium Potassium POC Chloride Chloride Carbon Dioxide POC Total CO2 Anion Gap POC Anion Gap POC BUN BUN Creatinine POC Creatinine Est Cr Clr Drug Dosing Est GFR ( Amer) Est GFR (Non-Af Amer) BUN/Creatinine Ratio Glucose POC Glucose POC Glucose (other) Calcium POC Ioniz Calcium Estrellita Ionized Calcium 1.10 L Magnesium 2.1 Total Bilirubin AST ALT Alkaline Phosphatase Troponin I High Sens B-Natriuretic Peptide Total Protein Albumin Globulin Albumin/Globulin Ratio Nasal Screen MRSA (PCR) Diagnostic Findings Cardiac catheterization yesterday revealed occlusion of the previously stented 1st diagonal branch. PCI was performed with successful revascularization. Borderline reduced LV systolic function with moderate left atrial dilation. Borderline aortic root dilation PG Care Time/CCT Total # of Minutes Spent Total Time Spent with Patient: Total time spent is greater than 50% in coordination of care (as documented) at patient's floor/unit and/or counseling patient: Coding Level of Care Code 48400 SUB INP/OBS CARE 3/50MIN Diagnoses ACS (acute coronary syndrome) I24.9
[2022-12-21] MEDS ORDERED: CALCIUM GLUCONATE 10% 1,000 MG in DEXTROSE 5% 50 ML IV ONE (10:15)
[2022-12-21] MEDS: amLODIPine BESYLATE 5 MG TAB PO SCH (10:30)
[2022-12-21] MEDS: MAGNESIUM SULFATE / D5W 1 GM/100 ML BAG IV SCH ×2 (10:31→12:15)
[2022-12-21] MEDS: ENOXAPARIN INJ 40 MG/0.4 ML SYR SQ SCH (10:52)
--- NOTE | 2022-12-21 11:51 | Critical Care Progress Note ---
Date of Service December 21, 2022 Assessment & Plan (1) ACS (acute coronary syndrome): (2) Atrial fibrillation: (3) Sinus pause: (4) Obesity, diabetes, and hypertension syndrome: (5) Gout: (6) ERNESTO on CPAP: Plan NEURO -- A/O x 3 -- PT/OT as able -- Minimize sedatives CV 1. CAD with stent thrombosis at D1 s/p overlapping LUZ after recent stent on 12/15 2. Afib on Xarelto 3. Sinus sinus syndrome 3. HTN 4. RBBB -- Continue Brilinta, ASA , statin, metoprolol. -- Current Echo with EF 45-50%, septal hypokinesis -- replace K, Mg, Ca -- Planning for PPM tomorrow, NPO after midnight. Lovenox for chemical DVT ppx today then hold -- Final anticoagulation regimen per cardiology post PPM RESP 1. Hx ERNESTO with CPAP intolerance 2. Morbid obesity -- CPAP 8 cm for sleep during hospitalization RENAL 1. Cr has been stable -- Follow daily ENDO 1. DM -- SSI -- Blood glucose goal 140-180 while in ICU GI 1. GERD -- Continue ppi HEME 1. Reactive leukocytosis -- CBC daily -- Monitoring off abx DVT ppx: on DOAC GI ppx: ppi Admission and Anticipated Discharge Date Admission Date: December 20, 2022 Subjective Summary: 52 M with hx of ERNESTO with CPAP intolerance, Afib on Xarelto, DM2, HTN, GRED, CAD with recent hospitalization from 12/15 to 12/17 for NSTEMI and underwent PCI with LUZ x 1 to D1, also noted 60% md LAD, 80-90% ostial, 40% mid cx and was discharged on plavix and Xarelto. Discharge echo with EF 45%, mild global hypokinesis, akinesis of basal inferoseptum / base. Patient presents to the ED on 12/20/2022 with complaints of severe substernal chest pressure, dypsnea, and diaphoresis staring at 9:30 am. Intake EKG with Afib, RVR, RBBB, QTc 540s, with inferolateral T-wave inversions. He was also noted to have frequent pauses. Taken to crown and bridge dental lab technician again today and TVP was inserted, repeat cath demonstrated thrombosis of recent D1 stent and underwent another PCI with prox overlapping stent x 1 with EDWIGE III flow. Arrived in ICU in stable condition, slightly hypertensive, on room air, A/O x 3, chest pressure free. Replaced K, Ca, and Mg. Interval events: 12/21/2022. Afib RVR overnight and into this am. Metoprolol increased to 50 bid (note home dose is 100 bid), currently maintaining HR < 120. TV[address], planning for PPM tomorrow. Continues on DAPT therapy, home xarelto has been on hold. Review of Systems Review of Systems: Denies, dyspnea, chest pressure, chest pain, N/V Physical Exam Physical Exam: Gen: A/O x 3, NAD, obese CV: Irregular, tachycardic Resp: CTAB Abd: protuberant, NT Ext: warm, dry, well perfused Skin: no rashes Results & Data Results & Data Vital Signs (Past 12 Hours) Vital Signs Pulse Resp BP Pulse Ox 12/21/22 11:01 102 H 25 H 96 12/21/22 11:01 128/83 12/21/22 11:00 121 H 20 98 12/21/22 10:01 90 25 H 97 12/21/22 10:01 152/103 H 12/21/22 10:00 93 H 24 97 12/21/22 09:00 119 H 19 96 12/21/22 11:32 102 H 12/21/22 08:01 150/111 H 12/21/22 08:01 98 H 24 97 12/21/22 08:00 108 H 23 99 12/21/22 08:00 97 H 12/21/22 07:01 97 H 23 96 12/21/22 07:01 127/78 12/21/22 07:00 100 H 25 H 97 12/21/22 06:00 118 H 27 H 96 12/21/22 06:00 148/97 H 12/21/22 05:00 111 H 19 98 12/21/22 05:00 138/103 H 12/21/22 04:01 112 H 29 H 97 12/21/22 04:01 136/100 12/21/22 04:00 108 H 25 H 97 12/21/22 03:48 141/103 H 12/21/22 03:48 102 H 20 97 12/21/22 03:00 111 H 15 99 12/21/22 02:00 134 H 25 H 95 12/21/22 01:01 121 H 15 94 12/21/22 01:01 145/100 H 12/21/22 01:00 116 H 21 85 L 12/21/22 00:11 154/99 H 12/21/22 00:11 112 H 20 95 12/21/22 00:01 100/74 12/21/22 00:01 114 H 26 H 93 12/21/22 00:00 114 H 21 93 12/21/22 00:58 118 H 145/100 H 12/21/22 00:07 114 H 154/99 H Coding Level of Care Code 15854 CRITICAL CARE 1ST 30-74M Diagnoses ACS (acute coronary syndrome) I24.9 Atrial fibrillation I48.91 Sinus pause I45.5 Obesity, diabetes, and hypertension syndrome E11.69; E11.59; E66.9; I15.2 Gout M10.9 ERNESTO on CPAP G47.33; Z99.89 Time Spent (min) 35
[2022-12-21] MEDS ORDERED: FLUTICASONE/VILANTEROL 100/25MCG 14 PUFFS/INHALER INH ONE (13:15)
[2022-12-21] MEDS: FLUTICASONE PROPIONATE NA SPR 16 GM BTL SCH (14:23)
[2022-12-21] MEDS: allopurinoL 300 MG TAB PO SCH (14:23)
[2022-12-21] MEDS: DORZOLAMIDE/TIMOLOL 22.3/6.8MG/ML 10 ML BTL OP SCH ×2 (14:23→20:24)
[2022-12-21] MEDS ORDERED: COUGH DROP (SUGAR FREE) LOZ 24 LOZ/1 BOX BUCCAL PRN (19:20)
[2022-12-21] MEDS: METOPROLOL TARTRATE 100 MG TAB PO SCH (20:24)
[2022-12-21] MEDS ORDERED: METOPROLOL TARTRATE 50 MG TAB PO SCH (21:00)
[2022-12-22] MEDS: METOPROLOL TARTRATE 1 MG/ML VIAL IV PRN (03:23)
[2022-12-22 05:08] LABS: Basophils # (auto) 0.06 K/uL (0-0.2); Basophils % (auto) 0.4 %; Eosinophils # (auto) 0.35 K/uL (0-0.50); Eosinophils % (auto) 2.5 %; Hematocrit (blood only) 37.3 % (42.0-52.0); Hemoglobin 12.3 g/dl (14.0-18.0); Immature Granulocytes # (auto) 0.08 K/uL (0.01-0.20); Immature Granulocytes % (auto) 0.6 %; Lymphocytes # (auto) 0.92 K/uL (1.2-3.4); Lymphocytes % (auto) 6.6 %; Mean Corpuscular Hemoglobin 28.9 pg (25.0-34.0); Mean Corpuscular Volume 87.6 fL (80.0-100.0); Mean Platelet Volume 11.7 fL (9.4-12.4); Monocytes # (auto) 1.36 K/uL (0.11-0.59); Monocytes % (auto) 9.8 %; Neutrophils # (auto) 11.13 K/uL (1.40-6.50); Neutrophils % (auto) 80.1 %; Platelet Count 300 K/uL (130-400); RDW Coefficient of Variation 12.9 % (11.5-14.5); RDW Standard Deviation 41.2 fL (36.4-46.3); Red Blood Count 4.26 M/uL (4.70-6.10)
[2022-12-22 05:23] LABS: BUN Creatinine Ratio 15.2 (10-20); Creatinine Clr Calc Pharmacy 142.8 ml/min; Est GFR (African American) 95.5 ml/min; Est GFR (Non-African American) 82.4 ml/min; Magnesium 1.8 mg/dl (1.7-2.4); Potassium 4.1 mmol/L (3.5-5.1)
[2022-12-22] MEDS: MAGNESIUM SULFATE / D5W 1 GM/100 ML BAG IV SCH ×2 (06:37→09:00)
[2022-12-22] MEDS ORDERED: LIDOCAINE 1% LOCAL 20 ML VIAL ONE ×2 (07:05→10:14)
[2022-12-22] MEDS ORDERED: WATER, STERILE FOR INJ 10 ML VIAL ONE (07:05)
[2022-12-22] MEDS ORDERED: VANCOMYCIN HCL 1000MG/20ML VIAL ONE (07:06)
[2022-12-22] MEDS ORDERED: BUPIVACAINE 0.25% PF 30 ML VIAL ONE (07:06)
[2022-12-22] MEDS: DORZOLAMIDE/TIMOLOL 22.3/6.8MG/ML 10 ML BTL OP SCH ×2 (08:21→21:00)
[2022-12-22] MEDS: FLUTICASONE PROPIONATE NA SPR 16 GM BTL SCH (08:22)
[2022-12-22] MEDS: FLUTICASONE/VILANTEROL 100/25MCG 14 PUFFS/INHALER INH SCH (08:22)
[2022-12-22] MEDS: ICU Protocol for HYPERglycemia SCH ×2 (08:28→13:00)
[2022-12-22] MEDS: TICAGRELOR 90 MG TAB PO SCH ×2 (09:00→21:00)
--- NOTE | 2022-12-22 09:31 | Pre Anesthesia Assessment ---
Date of Service December 22, 2022 Pre Sedation Assessment Vital Signs Temp Pulse Pulse Resp BP BP Pulse Ox 12/22/22 09:18 62 18 132/102 H 93 12/22/22 06:00 157 H 22 146/80 H 96 12/22/22 04:50 103 H 23 143/82 H 96 12/22/22 04:00 110 H 26 H 162/82 H 94 12/22/22 03:38 102 H 159/82 H 12/22/22 03:23 172 H 156/102 H 12/22/22 03:01 111 H 18 162/86 H 94 12/22/22 02:04 157 H 18 134/77 94 12/22/22 01:10 107 H 19 133/109 H 96 12/22/22 00:01 120 H 19 125/104 H 97 12/21/22 23:01 112 H 23 121/91 94 12/21/22 22:01 114 H 24 133/86 97 12/21/22 22:20 135 H 12/21/22 22:47 76 125/86 12/21/22 22:43 36.7 C 12/21/22 22:21 162 H 133/86 12/21/22 21:01 100 H 19 149/73 H 96 12/21/22 20:01 91 H 13 138/68 96 12/21/22 19:01 112 H 26 H 115/91 94 12/21/22 19:45 12/21/22 19:44 102 H 12/21/22 18:01 120/61 12/21/22 18:01 111 H 20 94 12/21/22 18:00 79 18 95 12/21/22 17:01 142/94 H 12/21/22 17:01 112 H 23 98 12/21/22 17:00 112 H 23 98 12/21/22 16:02 123/87 12/21/22 16:02 98 H 33 H 95 12/21/22 16:00 113 H 28 H 98 12/21/22 15:01 113/72 12/21/22 15:01 121 H 26 H 96 12/21/22 15:00 93 H 25 H 97 12/21/22 15:40 72 12/21/22 14:01 115/85 12/21/22 14:01 72 23 96 12/21/22 14:00 74 23 98 12/21/22 13:00 71 18 98 12/21/22 13:00 121/92 12/21/22 12:01 132/92 12/21/22 12:01 88 20 96 12/21/22 12:00 83 31 H 96 12/21/22 11:01 102 H 25 H 96 12/21/22 11:01 128/83 12/21/22 11:00 121 H 20 98 12/21/22 10:01 90 25 H 97 12/21/22 10:01 152/103 H 12/21/22 10:00 93 H 24 97 12/21/22 11:32 102 H O2 Del Method O2 Flow Rate 12/22/22 09:18 Room Air 12/22/22 06:00 12/22/22 04:50 12/22/22 04:00 12/22/22 03:38 12/22/22 03:23 12/22/22 03:01 12/22/22 02:04 12/22/22 01:10 12/22/22 00:01 12/21/22 23:01 12/21/22 22:01 12/21/22 22:20 12/21/22 22:47 12/21/22 22:43 12/21/22 22:21 12/21/22 21:01 Nasal Cannula 2 12/21/22 20:01 12/21/22 19:01 12/21/22 19:45 Nasal Cannula 2 12/21/22 19:44 12/21/22 18:01 12/21/22 18:01 12/21/22 18:00 12/21/22 17:01 12/21/22 17:01 12/21/22 17:00 12/21/22 16:02 12/21/22 16:02 12/21/22 16:00 12/21/22 15:01 12/21/22 15:01 12/21/22 15:00 12/21/22 15:40 12/21/22 14:01 12/21/22 14:01 12/21/22 14:00 12/21/22 13:00 12/21/22 13:00 12/21/22 12:01 12/21/22 12:01 12/21/22 12:00 12/21/22 11:01 12/21/22 11:01 12/21/22 11:00 12/21/22 10:01 12/21/22 10:01 12/21/22 10:00 12/21/22 11:32 Cardiovascular + tachycardic and + irregularly irregular Respiratory + respiratory effort normal Pre-Sedation Airway Assessment Smoking Status: Never smoker Hx Sleep Apnea: No Hx Difficult Intubation: No Short, Thick Neck: No Thyromental Distance: > or= 3.5 Finger Breadths Oral Cavity: + WNL Mallampati Class: III ASA: ASA3 NPO Status Date of Last Intake of Fluids: 12/22/22 Time of Last Intake of Fluids: 07:00 Date of Last Intake of Solid Food: 12/21/22 Time of Last Intake of Solid Foods: 18:00 Procedure Planning Contraindications for Sedation: none Current Medications Reviewed: Yes Notes The planned sedation has been discussed with the patient. Informed Consent was obtained. I have identified the patient, determined the appropriateness of s edation and have assessed the patient immediately prior to the procedure. All medicine(s) and interventions are by my order.
[2022-12-22] MEDS ORDERED: ceFAZolin 330 MG/ML 1 GM VIAL ONE (09:40)
[2022-12-22] MEDS ORDERED: fentaNYL citrate PF 100 MCG/2 ML VIAL ONE ×2 (09:40→11:09)
[2022-12-22] MEDS ORDERED: MIDAZOLAM HCL 5 MG/ML 1 ML VIAL ONE (09:40)
[2022-12-22] MEDS ORDERED: AMIODARONE 150MG / 100ML D5W IV ONE (09:52)
[2022-12-22] MEDS ORDERED: AMIODARONE 360MG / 200ML D5W IV ONE (09:55)
[2022-12-22] MEDS ORDERED: METOPROLOL TARTRATE 1 MG/ML VIAL IV ONE ×2 (10:31→11:16)
[2022-12-22] MEDS ORDERED: FUROSEMIDE 40 MG/4 ML VIAL IV ONE (11:50)
--- NOTE | 2022-12-22 12:30 | Electrophysiology Report ---
Date of Service December 22, 2022 Electrophysiology Procedure Electrophysiology Procedure Report Procedure performed: Implantation of biventricular ICD Staff turbine assembler: Zane Mccartney MD Indication: The patient is a 52-year-old gentleman with a history of coronary disease who had previously suffered myocardial infarction on 2 occasions. Recently he has been noted to have atrial fibrillation rapid ventricular rates and occasional periods of ventricular asystole. As such she was felt to be a good candidate for permanent pacemaker. He did suffer a witnessed cardiac arrest related to ventricular fibrillation and therefore an ICD was selected in order to provide secondary prevention for sudden cardiac . Procedure in detail: The patient was informed of the risks benefits and alternatives to the intended procedure and she wished to proceed. He was taken to the electrophysiology suite in a fasting state. A preoperative antibiotic had been administered. The patient was monitored electrocardiographically throughout today's procedure and conscious sedation was administered per protocol. The left upper pectoral area is prepped and draped in usual sterile fashion. This area was anesthetized using subcutaneous administration of a xylocaine solution. An incision was made at this site and carried down to the prepectoralis fascia using sharp dissection. Electrocautery was also employed for dissection as well as for hemostasis. A device pocket was fashioned tissues above the pectoralis muscle. Subsequent to this maneuver the left axillary vein was accessed using modified Seldinger technique. Sheaths were placed over guidewires at this site and used to facilitate passage of the pacing leads to the respective chambers under fluoroscopic guidance. Initially this involved placement of the right ventricular ICD lead. Adequate sensing threshold parameters were obtained prior to active fixation lead to the endocardial surface. The proximal portion of lead was then sutured to the prepectoralis fascia using nonabsorbable suture. A sheath was placed over the remaining guidewire and used facilitate passage of the guiding catheter for mapping of the interventricular septum. Multiple attempts to obtain good waveforms and pacing characteristics with a left bundle pacing lead could not be achieved. This was despite using several different guiding catheters. At this point the guiding catheters were removed. A standard catheter for engagement of the coronary sinus was then employed for accessing the coronary sinus. Limited coronary sinus venography was then performed in order to identify suitable target vessel. Once identified standard guidewire techniques were used to advance the pacing lead to the tributary of the coronary sinus. Adequate sensing threshold parameters as was the absence of diaphragmatic stimulation at high output were obtained prior to removal of the guiding catheter. The proximal portion lead was then sutured to prepectoralis fascia using nonabsorbable suture.. The device pocket was irrigated with antibiotic solution. The leads were then attached to the device. The device and leads were then placed in the pocket and pocket was closed in 3 layers of absorbable suture. Steri-Strips and sterile dressing were applied. The device was tested noninvasively prior to conclusion the procedure. The patient tolerated procedure well there no immediate complications. Equipment used: New pulse generator: Amusement Machine [employer]ic [employer]. Model number: Right atrial lead: This port was capped (patient in permanent atrial fibrillation) Right ventricular lead: [employer]. Model number: [id number] serial n umber [id number] V Coronary sinus lead: Amusement [employer]ic [employer] model 4298 serial number [id number] Measured data: Right ventricular lead: R-waves measured 9.8 mV. Pacing threshold 0.5 volts at 0.5 milliseconds with a pacing impedance of 561 Ohms Coronary sinus lead: R-waves were 19.8 mV. Pacing threshold 1.5 volts at 0.4 milliseconds with a pacing impedance of 538 Ohms in the LV 2 to LV 3 configuration. Impression: Successful implantation of biventricular ICD [facility] Electrophysiology codes Pacing Procedure 1: Pacin BiV electrode w/Pacer / ICD implant, add on code ICD Procedure 1: ICD: 00097 Insert single or dual ICD system PG Moderate Sedation Codes Moderate Sedation Codes Procedure 1: Sedation/Anesthesia: 38747 Mod Sedation by the same physician;Init15 Min Child Age 5 & Up Procedure 2: Sedation/Anesthesia: 35970 Mod Sedation by the same physician; Ea Addition al15 Minutes
--- NOTE | 2022-12-22 12:31 | Post Anesthesia Assessment ---
Date of Service December 22, 2022 Post Sedation Assessment Vital Signs Temp Pulse Pulse Resp BP BP Pulse Ox 12/22/22 10:18 28 H 12/22/22 09:18 62 18 132/102 H 93 12/22/22 06:00 157 H 22 146/80 H 96 12/22/22 04:50 103 H 23 143/82 H 96 12/22/22 04:00 110 H 26 H 162/82 H 94 12/22/22 03:38 102 H 159/82 H 12/22/22 03:23 172 H 156/102 H 12/22/22 03:01 111 H 18 162/86 H 94 12/22/22 02:04 157 H 18 134/77 94 12/22/22 01:10 107 H 19 133/109 H 96 12/22/22 00:01 120 H 19 125/104 H 97 12/21/22 23:01 112 H 23 121/91 94 12/21/22 22:01 114 H 24 133/86 97 12/21/22 22:20 135 H 12/21/22 22:47 76 125/86 12/21/22 22:43 36.7 C 12/21/22 22:21 162 H 133/86 12/21/22 21:01 100 H 19 149/73 H 96 12/21/22 20:01 91 H 13 138/68 96 12/21/22 19:01 112 H 26 H 115/91 94 12/21/22 19:45 12/21/22 19:44 102 H 12/21/22 18:01 120/61 12/21/22 18:01 111 H 20 94 12/21/22 18:00 79 18 95 12/21/22 17:01 142/94 H 12/21/22 17:01 112 H 23 98 12/21/22 17:00 112 H 23 98 12/21/22 16:02 123/87 12/21/22 16:02 98 H 33 H 95 12/21/22 16:00 113 H 28 H 98 12/21/22 15:01 113/72 12/21/22 15:01 121 H 26 H 96 12/21/22 15:00 93 H 25 H 97 12/21/22 15:40 72 12/21/22 14:01 115/85 12/21/22 14:01 72 23 96 12/21/22 14:00 74 23 98 12/21/22 13:00 71 18 98 12/21/22 13:00 121/92 O2 Del Method O2 Flow Rate 12/22/22 10:18 4 12/22/22 09:18 Room Air 12/22/22 06:00 12/22/22 04:50 12/22/22 04:00 12/22/22 03:38 12/22/22 03:23 12/22/22 03:01 12/22/22 02:04 12/22/22 01:10 12/22/22 00:01 12/21/22 23:01 12/21/22 22:01 12/21/22 22:20 12/21/22 22:47 12/21/22 22:43 12/21/22 22:21 12/21/22 21:01 Nasal Cannula 2 12/21/22 20:01 12/21/22 19:01 12/21/22 19:45 Nasal Cannula 2 12/21/22 19:44 12/21/22 18:01 12/21/22 18:01 12/21/22 18:00 12/21/22 17:01 12/21/22 17:01 12/21/22 17:00 12/21/22 16:02 12/21/22 16:02 12/21/22 16:00 12/21/22 15:01 12/21/22 15:01 12/21/22 15:00 12/21/22 15:40 12/21/22 14:01 12/21/22 14:01 12/21/22 14:00 12/21/22 13:00 12/21/22 13:00 Recovery Score Activity: Moves 4 extremities Respiration: Deep Breath/Cough Circulation: +/-20% PreAnes Value Consciousness: Arouseable (by name) Oxygen Saturation: O2 needed for >90% Discharge Sedation Level of Care: Fast Track Phase II Post Sedation Plan On clinical assessment, the patient appears to have tolerated the sedation without complications. Patient is recovering as anticipated. Patient will continue to be monitored by nursing and may be discharged when sedation discharge criteria are met per below protocol. Upon Completions of procedure up to 15 minutes continue every 5 minute vital signs and the P.A.R. score; then discharge to a Phase I or Fast Track to Phase II per the following guidelines: * Discharge Patient to appropriate Phase II area if PAR is 8 or greater or return to pre- procedure baseline. The post - procedure orders will be as directed. * If PAR score is less than 8 or not return to pre-procedure baseline then patient will follow Phase I monitoring till PAR is reached for Phase II. The Phase I may be done in procedure room or may call to secure a Phase I area. * If naloxone or flumazenil are used for reversal, hold in Phase I for continued monitoring from when last reversal dose was given for a minimum of 60 minutes or longer pending the nurse and/or physician discretion of patient condition before discharge to Phase II. Please call the Sedation Physician to re-evaluate and complete post-note for discharge to Phase II area. Do NOT discharge from procedure sedation or Phase 1 until post- sedation evaluation note is complete by procedure /sedation MD Sedation Discharge Instructions to be given to the patient at discharge to home.
[2022-12-22] MEDS: ENOXAPARIN INJ 40 MG/0.4 ML SYR SQ SCH (13:58)
[2022-12-22] MEDS: allopurinoL 300 MG TAB PO SCH (13:58)
[2022-12-22] MEDS: amLODIPine BESYLATE 5 MG TAB PO SCH (13:58)
[2022-12-22] MEDS: METOPROLOL TARTRATE 100 MG TAB PO SCH ×2 (13:58→21:00)
[2022-12-22] MEDS: ATORVASTATIN 40 MG TAB PO SCH (13:58)
[2022-12-22] MEDS: FAMOTIDINE 20 MG TAB PO SCH ×2 (13:58→21:00)
[2022-12-22] MEDS: ASPIRIN 81 MG ECTAB PO SCH (13:58)
--- NOTE | 2022-12-22 14:05 | Critical Care Progress Note ---
Date of Service December 22, 2022 Assessment & Plan (1) ACS (acute coronary syndrome): (2) Atrial fibrillation: (3) Sinus pause: (4) Obesity, diabetes, and hypertension syndrome: (5) Gout: (6) ERNESTO on CPAP: Plan Impression: 52-year-old male with history of coronary disease status post recent drug-eluting stent with in-stent stenosis. He has tachybradycardia syndrome and required permanent pacemaker this morning. Prior to the procedure he suffered a brief episode of VT/VF requiring CPR and initially CPAP but is now returned back to baseline. Recommendations NEURO -no sequelae from the event. Continue to follow currently. Increase activity. Out of bed to chair with PT and OT evaluation CV -stent thrombosis first diagonal status post repeat angioplasty. He is now got a permanent pacemaker so we will be more aggressive with his AV mac blocking agents. Likely restart Xarelto tomorrow RESP -sleep apnea: Continue CPAP nightly RENAL -no current issues. Acid-base status stable. Electrolytes stable. Volume status stable. ENDO -glycemic control per protocol GI -advancing diet as tolerated. Continue PPI HEME -mild anemia. Mild leukocytosis stable. No indication for transfusion. No indication for antibiotics currently. DVT ppx: Lovenox. DOAC to resume tomorrow GI ppx: ppi Given the patient's periprocedural events, will monitor overnight in the intensive care unit. If he does well, anticipate he can transfer to telemetry for or in the morning. Admission and Anticipated Discharge Date Admission Date: December 20, 2022 Subjective Patient seen and examined. EMR reviewed. Discussed on multidisciplinary rounds. Discussed with off going shift production supervisor. Patient was taken to the [facility] earlier today for permanent pacemaker. Prior to the procedure he suffered a brief VT/VF arrest requiring brief CPR. Afterwards he required CPAP for period of time. He is returned back to normal. His pacemaker has been placed. He is not having any complaints currently. Review of Systems Review of Systems: All systems reviewed & are unremarkable except as noted in Subjective Physical Exam Constitutional: WD/WN, vitals as above Neck: trachea midline, no thyromegaly Respiratory: normal respiratory effort, lungs clear to auscultation Cardiovascular: RRR, no murmur, no edema Gastrointestinal (Abdomen): normal bowel sounds, soft, nontender, no hepatosplenomegaly Musculoskeletal: Extremities: extremities normal to inspection Skin: no rashes, warm and dry Neurologic: Nonfocal exam Lymphatic: no cervical lymphadenopathy Results & Data Results & Data Vital Signs (Past 12 Hours) Vital Signs Temp Pulse Pulse Resp BP BP Pulse Ox 12/22/22 13:00 112 H 24 92 12/22/22 12:46 151/102 H 12/22/22 12:45 107 H 22 94 12/22/22 12:43 98 H 19 92 12/22/22 12:43 142/99 H 12/22/22 09:01 151/90 H 12/22/22 09:01 117 H 16 96 12/22/22 09:00 103 H 19 96 12/22/22 08:01 139/84 12/22/22 08:01 125 H 20 94 12/22/22 08:00 111 H 19 93 12/22/22 07:02 101 H 32 H 97 12/22/22 07:02 153/60 H 12/22/22 07:00 132 H 25 H 96 12/22/22 13:00 102 H 19 154/104 H 92 12/22/22 08:00 37.9 C H 12/22/22 10:18 28 H 12/22/22 09:18 62 18 132/102 H 93 12/22/22 06:00 157 H 22 146/80 H 96 12/22/22 04:50 103 H 23 143/82 H 96 12/22/22 04:00 110 H 26 H 162/82 H 94 12/22/22 03:38 102 H 159/82 H 12/22/22 03:23 172 H 156/102 H 12/22/22 03:01 111 H 18 162/86 H 94 12/22/22 02:04 157 H 18 134/77 94 O2 Del Method O2 Flow Rate 12/22/22 13:00 12/22/22 12:46 12/22/22 12:45 12/22/22 12:43 12/22/22 12:43 12/22/22 09:01 12/22/22 09:01 12/22/22 09:00 12/22/22 08:01 12/22/22 08:01 12/22/22 08:00 12/22/22 07:02 12/22/22 07:02 12/22/22 07:00 12/22/22 13:00 Room Air 12/22/22 08:00 12/22/22 10:18 4 12/22/22 09:18 Room Air 12/22/22 06:00 12/22/22 04:50 12/22/22 04:00 12/22/22 03:38 12/22/22 03:23 12/22/22 03:01 12/22/22 02:04 Critical Care Results & Data Vital Signs (Past 12 Hours) Vital Signs Temp Pulse Pulse Resp BP BP Pulse Ox 12/22/22 13:00 112 H 24 92 12/22/22 12:46 151/102 H 12/22/22 12:45 107 H 22 94 12/22/22 12:43 98 H 19 92 12/22/22 12:43 142/99 H 12/22/22 09:01 151/90 H 12/22/22 09:01 117 H 16 96 12/22/22 09:00 103 H 19 96 12/22/22 08:01 139/84 12/22/22 08:01 125 H 20 94 12/22/22 08:00 111 H 19 93 12/22/22 07:02 101 H 32 H 97 12/22/22 07:02 153/60 H 12/22/22 07:00 132 H 25 H 96 12/22/22 13:00 102 H 19 154/104 H 92 12/22/22 08:00 37.9 C H 12/22/22 10:18 28 H 12/22/22 09:18 62 18 132/102 H 93 12/22/22 06:00 157 H 22 146/80 H 96 12/22/22 04:50 103 H 23 143/82 H 96 12/22/22 04:00 110 H 26 H 162/82 H 94 12/22/22 03:38 102 H 159/82 H 12/22/22 03:23 172 H 156/102 H 12/22/22 03:01 111 H 18 162/86 H 94 12/22/22 02:04 157 H 18 134/77 94 O2 Del Method O2 Flow Rate 12/22/22 13:00 12/22/22 12:46 12/22/22 12:45 12/22/22 12:43 12/22/22 12:43 12/22/22 09:01 12/22/22 09:01 12/22/22 09:00 08/07/23 08:01 12/22/22 08:01 12/22/22 08:00 12/22/22 07:02 12/22/22 07:02 12/22/22 07:00 12/22/22 13:00 Room Air 12/22/22 08:00 12/22/22 10:18 4 12/22/22 09:18 Room Air 12/22/22 06:00 12/22/22 04:50 12/22/22 04:00 12/22/22 03:38 12/22/22 03:23 12/22/22 03:01 12/22/22 02:04 Lab & Micro Results (Past 24 Hours) RBC 4.26 M/uL (4.70-6.10) L 12/22/22 WBC 13.90 K/ul (4.8-10.8) H 12/22/22 Hgb 12.3 g/dl (14.0-18.0) L 12/22/22 Hct 37.3 % (42.0-52.0) L 12/22/22 MCV 87.6 fL (80.0-100.0) 12/22/22 MCH 28.9 pg (25.0-34.0) 12/22/22 MCHC 33.0 g/dL (32.0-36.0) 12/22/22 RDW Standard Deviation 41.2 fL (36.4-46.3) 12/22/22 RDW Coefficient of Variation 12.9 % (11.5-14.5) 12/22/22 Plt Count 300 K/uL (130-400) 12/22/22 MPV 11.7 fL (9.4-12.4) 12/22/22 Neutrophils (%) (Auto) 80.1 % 12/22/22 Lymphocytes (%) (Auto) 6.6 % 12/22/22 Monocytes # (Auto) 1.36 K/uL (0.11-0.59) H 12/22/22 Eosinophils # (Auto) 0.35 K/uL (0-0.50) 12/22/22 Immature Granulocyte % (Auto) 0.6 % 12/22/22 Neutrophils # (Auto) 11.13 K/uL (1.40-6.50) H 12/22/22 Lymphocytes # (Auto) 0.92 K/uL (1.2-3.4) L 12/22/22 Monocytes # (Auto) 1.36 K/uL (0.11-0.59) H 12/22/22 Eosinophils # (Auto) 0.35 K/uL (0-0.50) 12/22/22 Basophils # (Auto) 0.06 K/uL (0-0.2) 12/22/22 Immature Granulocyte # (Auto) 0.08 K/uL (0.01-0.20) 3 Na 136 mmol/L (136-145) 12/22/22 K 4.1 mmol/L (3.5-5.1) 12/22/22 Cl 103 mmol/L (98-107) 12/22/22 CO2 26 mmol/L (21-32) 12/22/22 Anion Gap 7 (3-11) 12/22/22 BUN 16 mg/dl (6-23) 12/22/22 Creatinine 1.05 mg/dl (0.6-1.4) 12/22/22 Estimated GFR ( Amer) 95.5 ml/min 12/22/22 Estimated GFR (Non-Af Amer) 82.4 ml/min 12/22/22 BUN/Creatinine Ratio 15.2 (10-20) 12/22/22 Glu 102 mg/dl (70-99(Fasting)) H 12/22/22 Ca 9.0 mg/dl (8.6-10.3) 12/22/22 Mg 1.8 mg/dl (1.7-2.4) 12/22/22 04:39 Calcium Level 9.0 mg/dl (8.6-10.3) 12/22/22 04:39 I & O Totals 24 Hours 12/21/22 12/22/22 12/23/22 06:59 06:59 06:59 Intake Total 3099.167 / 3099.167 2596.667 / 2596.667 100 / 100 Output Total 2400 / 2400 1999 / 1999 525 / 525 Balance 699.167 / 699.167 596.667 / 596.667 -425 / -425 Cumulative 12/20/22 10:37 thru 12/22/22 12:00 Intake Total 5795.834 Output Total 4925 Balance 870.834 RT Ventilator Mngmt (Last Documented) Ventilator Ordered Settings Respiratory Rate 19 12/22/22 13:00 Fraction of Inspired Oxygen 21 12/20/22 19:46 Ventilator - PT Measurements Respiratory Rate 19 Coding Level of Care Code 29248 SUB INP/OBS CARE 3/50MIN Diagnoses ACS (acute coronary syndrome) I24.9 Atrial fibrillation I48.91 Sinus pause I45.5 Obesity, diabetes, and hypertension syndrome E11.69; E11.59; E66.9; I15.2 Gout M10.9 ERNESTO on CPAP G47.33; Z99.89
[2022-12-22] MEDS: ACETAMINOPHEN 325 MG TAB PO PRN (14:44)
[2022-12-22] MEDS ORDERED: PROMETHAZINE HCL 12.5 MG/10 ML UDP PO PRN (17:21)
[2022-12-22] MEDS ORDERED: ceFAZolin 1000MG 1,000 MG/7.5 ML SYR IV ONE (18:00)
--- NOTE | 2022-12-22 18:30 | Cardiology Progress Note ---
Date of Service December 22, 2022 Assessment & Plan (1) ACS (acute coronary syndrome): (2) Atrial fibrillation: (3) Ventricular fibrillation: Plan 1. Tachy-adeola syndrome 2. 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 Residual intermediate mid LAD, 90% ostial D2 3. A-fib with RVR 4. CardiomyopathyEF 40 to 45% with inferoseptal wall motion abnormality 5. Hypertension 6. Right bundle branch block 7. Type 2 diabetes 8. GERD 9. Mild JEANINE 10. Ventricular fibrillation Patient stable after device implant performed today. Initial intention was to place a single-chamber pacemaker given his frequent slow heart rates and pauses. However, immediately preceding the procedure the patient had episode ventricular fibrillation. We decided at that point to implant a biventricular device to facilitate both defibrillation if necessary as well as pacing in the setting of his mildly reduced LV systolic function. Etiology of ventricular fibrillation unclear. Possibly pause dependent. No R on T phenomenon. No concurrent chest pain to suggest recurrent ischemia. No recurrent symptoms of chest discomfort. No evidence of mechanical complication. Will continue his dual anti-platelet therapy Atrial fibrillation still demonstrating high rates. We will intensify his rate control agents. No concerns about bradycardia currently. Will resume systemic anticoagulation in a couple of days. Admission and Anticipated Discharge Date Admission Date: December 20, 2022 Subjective This afternoon the patient claims to be feeling well. He underwent implantation of a biventricular ICD earlier today. Minimal discomfort at the implant site. Feeling much better as he is able to sit up currently. He has a nonproductive cough which is aggravating. No breathing difficulty. No recurrent chest pain. Review of Systems Review of Systems: Per HPI Physical Exam Physical Exam: The patient is alert and oriented. Mood and affect appeared normal. He answered all questions appropriately. Obese HEENT: Pupils are equal and reactive to light and accommodation. Extraocular movements are intact. The sclerae are anicteric. Neuro: Cranial nerves intact Chest: No evidence of hematoma at the device implant site in the left upper pectoral area. Lungs: Clear to auscultation bilaterally. He has good air movement without use of accessory muscles. No rales wheezes or rhonchi. Cardiac: Heart demonstrates an irregular rate and rhythm. Normal S1 and S2. No murmurs on examination. Pulses: Good perfusion of the right hand with palpable right radial pulse. Extremities: There was no evidence of hypoperfusion. There is no cyanosis or clubbing. There is no edema. No hematoma at the site of prior temporary pacing wire. Skin: I did not appreciate any rashes on examination today. Results & Data Vital Signs (Past 12 Hours) Vital Signs Temp Pulse Pulse Resp BP BP Pulse Ox 12/22/22 13:00 37.3 C 12/22/22 14:45 118 H 28 H 141/108 H 94 12/22/22 14:31 107 H 24 93 12/22/22 14:31 150/121 H 12/22/22 14:15 126 H 23 92 12/22/22 14:00 109 H 19 163/104 H 93 12/22/22 13:45 108 H 28 H 93 12/22/22 13:30 112 H 24 95 12/22/22 13:30 137/95 12/22/22 13:15 105 H 35 H 92 12/22/22 13:15 133/108 H 12/22/22 13:00 112 H 24 92 12/22/22 12:46 151/102 H 12/22/22 12:45 107 H 22 94 12/22/22 12:43 98 H 19 92 12/22/22 12:43 142/99 H 12/22/22 09:01 151/90 H 12/22/22 09:01 117 H 16 96 12/22/22 09:00 103 H 19 96 12/22/22 08:01 139/84 12/22/22 08:01 125 H 20 94 12/22/22 08:00 111 H 19 93 12/22/22 07:02 101 H 32 H 97 12/22/22 07:02 153/60 H 12/22/22 07:00 132 H 25 H 96 12/22/22 13:00 102 H 19 154/104 H 92 12/22/22 08:00 37.9 C H 12/22/22 10:18 28 H 12/22/22 09:18 62 18 132/102 H 93 O2 Del Method O2 Flow Rate 12/22/22 13:00 12/22/22 14:45 12/22/22 14:31 12/22/22 14:31 12/22/22 14:15 12/22/22 14:00 12/22/22 13:45 12/22/22 13:30 12/22/22 13:30 12/22/22 13:15 12/22/22 13:15 12/22/22 13:00 12/22/22 12:46 12/22/22 12:45 12/22/22 12:43 12/22/22 12:43 12/22/22 09:01 12/22/22 09:01 12/22/22 09:00 12/22/22 08:01 12/22/22 08:01 12/22/22 08:00 12/22/22 07:02 12/22/22 07:02 12/22/22 07:00 12/22/22 13:00 Room Air 12/22/22 08:00 12/22/22 10:18 4 12/22/22 09:18 Room Air Laboratory Results Abnormal Lab Results 12/20/22 12/20/22 12/20/22 11:05 11:05 11:05 WBC 11.91 H RBC 4.16 L Hgb 12.4 L POC Hgb Hct 35.8 L POC Hct MCV 86.1 MCH 29.8 MCHC 34.6 RDW Std Deviation 39.8 RDW Coeff of Tripp 12.8 Plt Count 272 MPV 11.7 Immature Gran % (Auto) 0.4 Neut % (Auto) 79.0 Lymph % (Auto) 7.9 Perry % (Auto) 11.1 Eos % (Auto) 1.2 Baso % (Auto) 0.4 Neut # (Auto) 9.41 H Lymph # (Auto) 0.94 L Perry # (Auto) 1.32 H Eos # (Auto) 0.14 Baso # (Auto) 0.05 Immature Gran # (Auto) 0.05 PT 12.6 H INR 1.2 H APTT 31.3 H PTT Ratio 1.1 POC Sodium Sodium 134 L POC Potassium Potassium 3.6 POC Chloride Chloride 101 Carbon Dioxide 20 L POC Total CO2 Anion Gap 13 H POC Anion Gap POC BUN BUN 21 Creatinine 1.13 POC Creatinine Est Cr Clr Drug Dosing 131.2 Est GFR ( Amer) 87.4 Est GFR (Non-Af Amer) 75.4 BUN/Creatinine Ratio 18.6 Glucose 142 H POC Glucose POC Glucose (other) Calcium 8.7 POC Ioniz Calcium Estrellita Ionized Calcium Magnesium 1.8 Total Bilirubin 0.6 AST 25 ALT 36 Alkaline Phosphatase 57 Troponin I High Sens 1934.7 H* B-Natriuretic Peptide Total Protein 7.6 Albumin 3.8 Globulin 3.8 Albumin/Globulin Ratio 1.0 Nasal Screen MRSA (PCR) 12/20/22 12/20/22 12/20/22 11:09 11:33 15:59 WBC RBC Hgb POC Hgb 12.2 L Hct POC Hct 36 L MCV MCH MCHC RDW Std Deviation RDW Coeff of Tripp Plt Count MPV Immature Gran % (Auto) Neut % (Auto) Lymph % (Auto) Perry % (Auto) Eos % (Auto) Baso % (Auto) Neut # (Auto) Lymph # (Auto) Perry # (Auto) Eos # (Auto) Baso # (Auto) Immature Gran # (Auto) PT INR APTT PTT Ratio POC Sodium 135 Sodium POC Potassium 3.6 Potassium POC Chloride 103 Chloride Carbon Dioxide POC Total CO2 21 L Anion Gap POC Anion Gap 16.0 POC BUN 19 H BUN Creatinine POC Creatinine 1.2 Est Cr Clr Drug Dosing Est GFR ( Amer) Est GFR (Non-Af Amer) BUN/Creatinine Ratio Glucose POC Glucose 88 POC Glucose (other) 147 H Calcium POC Ioniz Calcium Estrellita 1.05 L Ionized Calcium Magnesium Total Bilirubin AST ALT Alkaline Phosphatase Troponin I High Sens B-Natriuretic Peptide 334 H Total Protein Albumin Globulin Albumin/Globulin Ratio Nasal Screen MRSA (PCR) 12/20/22 12/20/22 12/20/22 20:02 21:10 21:10 WBC RBC Hgb POC Hgb Hct POC Hct MCV MCH MCHC RDW Std Deviation RDW Coeff of Tripp Plt Count MPV Immature Gran % (Auto) Neut % (Auto) Lymph % (Auto) Perry % (Auto) Eos % (Auto) Baso % (Auto) Neut # (Auto) Lymph # (Auto) Perry # (Auto) Eos # (Auto) Baso # (Auto) Immature Gran # (Auto) PT INR APTT PTT Ratio POC Sodium Sodium 135 L POC Potassium Potassium 3.9 POC Chloride Chloride 103 Carbon Dioxide 22 POC Total CO2 Anion Gap 10 POC Anion Gap POC BUN BUN 16 Creatinine 1.03 POC Creatinine Est Cr Clr Drug Dosing 143.1 Est GFR ( Amer) 97.7 Est GFR (Non-Af Amer) 84.3 BUN/Creatinine Ratio 15.5 Glucose 102 H POC Glucose 96 POC Glucose (other) Calcium 9.0 POC Ioniz Calcium Estrellita Ionized Calcium Magnesium 2.2 Total Bilirubin AST ALT Alkaline Phosphatase Troponin I High Sens 58782.9 H* D B-Natriuretic Peptide Total Protein Albumin Globulin Albumin/Globulin Ratio Nasal Screen MRSA (PCR) 12/20/22 12/21/22 12/21/22 Unknown 03:40 03:40 WBC 13.06 H RBC 4.08 L Hgb 12.0 L POC Hgb Hct 35.6 L POC Hct MCV 87.3 MCH 29.4 MCHC 33.7 RDW Std Deviation 41.5 RDW Coeff of Tripp 13.0 Plt Count 253 MPV 11.8 Immature Gran % (Auto) 0.5 Neut % (Auto) 82.2 Lymph % (Auto) 6.0 Perry % (Auto) 10.7 Eos % (Auto) 0.3 Baso % (Auto) 0.3 Neut # (Auto) 10.74 H Lymph # (Auto) 0.78 L Perry # (Auto) 1.40 H Eos # (Auto) 0.04 Baso # (Auto) 0.04 Immature Gran # (Auto) 0.06 PT INR APTT PTT Ratio POC Sodium Sodium POC Potassium Potassium POC Chloride Chloride Carbon Dioxide POC Total CO2 Anion Gap POC Anion Gap POC BUN BUN Creatinine POC Creatinine Est Cr Clr Drug Dosing Est GFR ( Amer) Est GFR (Non-Af Amer) BUN/Creatinine Ratio Glucose POC Glucose POC Glucose (other) Calcium POC Ioniz Calcium Estrellita Ionized Calcium Magnesium Total Bilirubin AST ALT Alkaline Phosphatase Troponin I High Sens 24949.4 H* D B-Natriuretic Peptide Total Protein Albumin Globulin Albumin/Globulin Ratio Nasal Screen MRSA (PCR) Negative 12/21/22 12/21/22 12/21/22 03:40 07:49 09:00 WBC RBC Hgb POC Hgb Hct POC Hct MCV MCH MCHC RDW Std Deviation RDW Coeff of Tripp Plt Count MPV Immature Gran % (Auto) Neut % (Auto) Lymph % (Auto) Perry % (Auto) Eos % (Auto) Baso % (Auto) Neut # (Auto) Lymph # (Auto) Perry # (Auto) Eos # (Auto) Baso # (Auto) Immature Gran # (Auto) PT INR APTT PTT Ratio POC Sodium Sodium 136 POC Potassium Potassium 4.1 POC Chloride Chloride 103 Carbon Dioxide 22 POC Total CO2 Anion Gap 11 POC Anion Gap POC BUN BUN 16 Creatinine 0.95 POC Creatinine Est Cr Clr Drug Dosing 155.2 Est GFR ( Amer) 107.7 Est GFR (Non-Af Amer) 93.0 BUN/Creatinine Ratio 16.8 Glucose 107 H POC Glucose 88 POC Glucose (other) Calcium 8.8 POC Ioniz Calcium Estrellita Ionized Calcium Magnesium Total Bilirubin 0.7 AST 71 H ALT 40 Alkaline Phosphatase 56 Troponin I High Sens 7787.6 H* D B-Natriuretic Peptide Total Protein 7.1 Albumin 3.5 Globulin 3.6 Albumin/Globulin Ratio 1.0 Nasal Screen MRSA (PCR) 12/21/22 12/21/22 09:00 09:00 WBC RBC Hgb POC Hgb Hct POC Hct MCV MCH MCHC RDW Std Deviation RDW Coeff of Tripp Plt Count MPV Immature Gran % (Auto) Neut % (Auto) Lymph % (Auto) Perry % (Auto) Eos % (Auto) Baso % (Auto) Neut # (Auto) Lymph # (Auto) Perry # (Auto) Eos # (Auto) Baso # (Auto) Immature Gran # (Auto) PT INR APTT PTT Ratio POC Sodium Sodium POC Potassium Potassium POC Chloride Chloride Carbon Dioxide POC Total CO2 Anion Gap POC Anion Gap POC BUN BUN Creatinine POC Creatinine Est Cr Clr Drug Dosing Est GFR ( Amer) Est GFR (Non-Af Amer) BUN/Creatinine Ratio Glucose POC Glucose POC Glucose (other) Calcium POC Ioniz Calcium Estrellita Ionized Calcium 1.10 L Magnesium 2.1 Total Bilirubin AST ALT Alkaline Phosphatase Troponin I High Sens B-Natriuretic Peptide Total Protein Albumin Globulin Albumin/Globulin Ratio Nasal Screen MRSA (PCR) Diagnostic Findings Cardiac catheterization yesterday revealed occlusion of the previously stented 1st diagonal branch. PCI was performed with successful revascularization. Borderline reduced LV systolic function with moderate left atrial dilation. Borderline aortic root dilation Implantation of biventricular Med[employer] ICD 12/22/2022 PG Care Time/CCT Total # of Minutes Spent Total Time Spent with Patient: Total time spent is greater than 50% in coordination of care (as documented) at patient's floor/unit and/or counseling patient: Coding Level of Care Code None Diagnoses ACS (acute coronary syndrome) I24.9 Atrial fibrillation I48.91 Ventricular fibrillation I49.01
[2022-12-22] MEDS ORDERED: AMIODARONE 200 MG TAB PO ONE (18:33)
--- NOTE | 2022-12-22 18:40 | Hospitalist Progress Note ---
Date of Service December 22, 2022 Assessment & Plan (1) Chest pain: Plan: Chang is a 52-year-old male with a past medical history of ERNESTO on CPAP, A-fib with history of RVR on Xarelto, DM 2, hypertension, GERD and recent hospital admission 12/15 - 12/17 for chest pain who presents to the ER as a heart alert and had multiple 7+ second pauses while on telemetry in the ER Patient presents with recurrent NSTEMI, emergent cath, D1 stent occludedPCI and additional stent pain, transvenous pacing was required for tachybradycardia syndrome patient went to the [facility] for pacemaker placement developed V. tach V-fib prior to procedure patient had an AICD placed on 12/22/2022 Cardiac cath 12/15: Multivessel CAD. Small to medium D1 90% proximal disease, 50-60% mid LAD at bifurcation, 80-90% ostial disease, 40% mid circumflex disease 12/15 PCI LUZ x1 to D1, residual mid LAD disease and 90% osteal D2. 12/17 dc: Discharged on Xarelto/Plavix. DC meds: Metoprolol 100 twice daily. Lisinopril 20 mg daily be resumed once JEANINE resolved. Amlodipine considered if BP persistently elevated TTE 12/15/2022: Mildly dilated left ventricle, EF 40-45%. Akinesis of basal inferoseptum and inferior base otherwise mild global hypokinesis. Mild to moderate concentric LVH. Mild left atrial dilation. A-fib. No significant valvular disease noted. A-fib with history of RVR Typically on Xarelto which is on hold for AICD/ pacemaker placement resume postprocedure likely 24 hours Continue metoprolol dose increased now on 100 twice daily of tartrate Consideration tachybradycardia syndrome in the situation of recent NSTEMI and stenting x2 Recent JEANINE, resolved, ckd 3 Hyperlipidemia Started on lipid therapy 12/15, lipid panel last admission with cholesterol 155, LDL 92, HDL 35 Lipitor 40 daily - DM 2 Last A1c 5.9% [employer] regimen includes metformin, recently added Jardiance Hold home antiglycemic's, ICU hyperglycemia protocol Goal BSG [id number] ERNESTO CPAP nightly Hypertension Amlodipine started metoprolol dose increased GERD PPI daily continue DVT prophylaxis: Anticoagulated on DOAC CODE STATUS: Full (2) Atrial fibrillation: (3) Diabetes mellitus: (4) HTN (hypertension): (5) ERNESTO on CPAP: (6) Acid reflux disease: Admission and Anticipated Discharge Date Admission Date: December 20, 2022 Subjective patient seen postprocedure he is doing well except for nagging cough and congested nasal drip. Patient had V. tach V-fib at the time of his device insertion subsequently his device was converted to an ICD placement. Patient is tolerating this well with only minor discomfort in his left upper chest. Physical Exam Physical Exam: Patient has a nasal voice he has some nasal congestion cardiac exam is tachycardic and appearing to be irregular defibrillator site is with the bandage but not particularly tender lungs are clear anteriorly and laterally Results & Data Results & Data Vital Signs (Past 12 Hours) Vital Signs Temp Pulse Pulse Resp BP BP Pulse Ox 12/22/22 13:00 99.1 F 12/22/22 14:45 118 H 28 H 141/108 H 94 12/22/22 14:31 107 H 24 93 12/22/22 14:31 150/121 H 12/22/22 14:15 126 H 23 92 12/22/22 14:00 109 H 19 163/104 H 93 12/22/22 13:45 108 H 28 H 93 12/22/22 13:30 112 H 24 95 12/22/22 13:30 137/95 12/22/22 13:15 105 H 35 H 92 12/22/22 13:15 133/108 H 12/22/22 13:00 112 H 24 92 12/22/22 12:46 151/102 H 12/22/22 12:45 107 H 22 94 12/22/22 12:43 98 H 19 92 12/22/22 12:43 142/99 H 12/22/22 09:01 151/90 H 12/22/22 09:01 117 H 16 96 12/22/22 09:00 103 H 19 96 12/22/22 08:01 139/84 12/22/22 08:01 125 H 20 94 12/22/22 08:00 111 H 19 93 12/22/22 07:02 101 H 32 H 97 12/22/22 07:02 153/60 H 12/22/22 07:00 132 H 25 H 96 12/22/22 13:00 102 H 19 154/104 H 92 12/22/22 08:00 100.2 F H 12/22/22 10:18 28 H 12/22/22 09:18 62 18 132/102 H 93 O2 Del Method O2 Flow Rate 12/22/22 13:00 12/22/22 14:45 12/22/22 14:31 12/22/22 14:31 12/22/22 14:15 12/22/22 14:00 12/22/22 13:45 12/22/22 13:30 12/22/22 13:30 12/22/22 13:15 12/22/22 13:15 12/22/22 13:00 12/22/22 12:46 12/22/22 12:45 12/22/22 12:43 12/22/22 12:43 12/22/22 09:01 12/22/22 09:01 12/22/22 09:00 12/22/22 08:01 12/22/22 08:01 12/22/22 08:00 12/22/22 07:02 12/22/22 07:02 12/22/22 07:00 12/22/22 13:00 Room Air 12/22/22 08:00 12/22/22 10:18 4 12/22/22 09:18 Room Air Laboratory Results reviewed CBC reviewed chemistry personally discussed case with Dr. Murphy PG Care Time/CCT Total # of Minutes Spent Total Time Spent with Patient: Total time spent is greater than 50% in coordination of care (as documented) at patient's floor/unit and/or counseling patient: Coding Level of Care Code 41848 SUB INP/OBS CARE 2/35MIN Diagnoses Chest pain R07.9 Atrial fibrillation I48.91 Diabetes mellitus E11.9 HTN (hypertension) I10 ERNESTO on CPAP G47.33; Z99.89 Acid reflux disease K21.9
[2022-12-22] MEDS ORDERED: guaiFENesin/CODEINE 100MG/10MG 5ML UDC PO PRN (18:45)
[2022-12-22] MEDS: BENZONATATE 100 MG CAPSULE PO PRN (19:19)
[2022-12-22] MEDS ORDERED: dilTIAZem HCL 30 MG TAB PO SCH (21:00)
[2022-12-23] MEDS: BENZONATATE 100 MG CAPSULE PO PRN ×2 (03:35→12:25)
[2022-12-23 04:50] LABS: Basophils # (auto) 0.06 K/uL (0-0.2); Basophils % (auto) 0.5 %; Eosinophils # (auto) 0.36 K/uL (0-0.50); Eosinophils % (auto) 2.9 %; Hematocrit (blood only) 39.3 % (42.0-52.0); Immature Granulocytes # (auto) 0.05 K/uL (0.01-0.20); Immature Granulocytes % (auto) 0.4 %; Lymphocytes # (auto) 0.63 K/uL (1.2-3.4); Lymphocytes % (auto) 5.1 %; Mean Corpuscular Hemoglobin 29.2 pg (25.0-34.0); Mean Corpuscular Hgb Conc 33.1 g/dL (32.0-36.0); Mean Corpuscular Volume 88.3 fL (80.0-100.0); Mean Platelet Volume 11.6 fL (9.4-12.4); Monocytes # (auto) 1.38 K/uL (0.11-0.59); Monocytes % (auto) 11.1 %; Neutrophils # (auto) 9.92 K/uL (1.40-6.50); Platelet Count 320 K/uL (130-400); RDW Coefficient of Variation 12.5 % (11.5-14.5); RDW Standard Deviation 40.7 fL (36.4-46.3); Red Blood Count 4.45 M/uL (4.70-6.10)
[2022-12-23 04:55] LABS: BUN Creatinine Ratio 15.5 (10-20); Calcium 8.9 mg/dl (8.6-10.3); Creatinine Clr Calc Pharmacy 145.6 ml/min; Est GFR (African American) 97.7 ml/min; Est GFR (Non-African American) 84.3 ml/min; Magnesium 1.9 mg/dl (1.7-2.4); Potassium 3.7 mmol/L (3.5-5.1)
[2022-12-23] MEDS ORDERED: POTASSIUM CHLORIDE CRTAB 20 MEQ TABCR PO ONE (07:15)
[2022-12-23] MEDS: MAGNESIUM SULFATE / D5W 1 GM/100 ML BAG IV SCH ×2 (07:37→09:49)
--- NOTE | 2022-12-23 07:58 | XRay Report ---
TWO VIEW CHEST CLINICAL HISTORY: Pacemaker implantation.. FINDINGS: AP and lateral chest radiographs are compared to study dated 12/20/2022 and correlated with c hest CT dated 12/15/2022. The examination is significantly degraded by large body habitus and patient positioning. A 2-lead cardiac AICD has been implanted. Leads project over the ventricles. The pacemak er partially obscures left upper chest. The heart is enlarged. The pulmonary vasculature is not conge sted. Atelectasis is noted at the lung bases. No airspace consolidation or pleural effusion is identi fied. There is no pneumothorax. The skeletal structures appear osteopenic. The bony thorax appears in tact. IMPRESSION: 1. A 2-lead cardiac AICD has been implanted as above. No pneumothorax is identified post procedure. 2. Cardiomegaly without radiographic evidence of congestive failure. 3. No airspace consolidation or pleural effusion is identified. ACT 112: Negative or not required by law. Electronically signed by: Nolan Michaels M.D. 12/23/2022 7:57 AM
[2022-12-23] MEDS: ASPIRIN 81 MG ECTAB PO SCH (08:29)
[2022-12-23] MEDS: METOPROLOL TARTRATE 100 MG TAB PO SCH (08:29)
[2022-12-23] MEDS: allopurinoL 300 MG TAB PO SCH (08:29)
[2022-12-23] MEDS: amLODIPine BESYLATE 5 MG TAB PO SCH (08:29)
[2022-12-23] MEDS: ATORVASTATIN 40 MG TAB PO SCH (08:29)
[2022-12-23] MEDS: ENOXAPARIN INJ 40 MG/0.4 ML SYR SQ SCH (08:30)
[2022-12-23] MEDS: FLUTICASONE/VILANTEROL 100/25MCG 14 PUFFS/INHALER INH SCH (08:30)
[2022-12-23] MEDS: FAMOTIDINE 20 MG TAB PO SCH ×2 (08:30→20:00)
[2022-12-23] MEDS: FLUTICASONE PROPIONATE NA SPR 16 GM BTL SCH (08:30)
[2022-12-23] MEDS: DORZOLAMIDE/TIMOLOL 22.3/6.8MG/ML 10 ML BTL OP SCH ×2 (08:30→20:02)
[2022-12-23] MEDS: TICAGRELOR 90 MG TAB PO SCH ×2 (08:30→20:00)
[2022-12-23] MEDS ORDERED: DIGOXIN 250 MCG in SYRINGE 9 ML IV ONE (09:30)
[2022-12-23] MEDS: METOPROLOL TARTRATE 1 MG/ML VIAL IV PRN ×3 (10:12→10:38)
--- NOTE | 2022-12-23 11:57 | Electrocardiogram Report ---
Test Reason : Blood Pressure : / mmHG Vent. Rate : 116 BPM Atrial Rate : 131 BPM P-R Int : 000 ms QRS Dur : 156 ms QT Int : 408 ms P-R-T Axes : 000 049 267 degrees QTc Int : 567 ms Atrial fibrillation with demand ventricular pacing Abnormal ECG When compared with ECG of 21-DEC-2022 03:45, Vent. rate has increased BY 13 BPM Confirmed by Zane Mccartney ([id number]) on 12/23/2022 11:57:03 AM Referred By: REFERRED SELF Confirmed By:Santana Mccartney
--- NOTE | 2022-12-23 12:56 | Cardiology Progress Note ---
Date of Service December 23, 2022 Assessment & Plan (1) ACS (acute coronary syndrome): (2) Atrial fibrillation: (3) Ventricular fibrillation: Plan 1. Tachy-adeola syndrome 2. 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 Residual intermediate mid LAD, 90% ostial D2 3. A-fib with RVR 4. CardiomyopathyEF 40 to 45% with inferoseptal wall motion abnormality 5. Hypertension 6. Right bundle branch block 7. Type 2 diabetes 8. GERD 9. Mild JEANINE 10. Ventricular fibrillation Overall improving. No recurrent chest discomfort, evidence of ischemia, mechanical complication or heart failure. Will continue dual anti-platelet therapy. Currently holding systemic anticoagulation secondary to device implant yesterday. I would anticipate restarting on December 25. Continued atrial fibrillation with high ventricular rates. Will increase metoprolol and start amiodarone. Amiodarone primarily indicated for episode of ventricular fibrillation yesterday. He did also receive additional doses of intravenous metoprolol and digoxin. I think this is the main issue that would limit his discharge. Hopefully will see some improvement in the next 24 hours. Ventricular fibrillation: No recurrent arrhythmias. Possibly pause dependent. However, in the setting of recent ischemic disease and perhaps mildly reduced LV systolic function and ICD was placed. Normally functioning biventricular ICD. No evident complication on x-ray or by evaluation. Admission and Anticipated Discharge Date Admission Date: December 20, 2022 Subjective This morning the patient claims to be feeling better. Mild discomfort at the device implant site in left pectoral area. No recurrence of his index chest pain. No breathing difficulty. He did feel somewhat weak with ambulation today. Somewhat fatigued as well. He did not describe limiting dyspnea. No dizziness. Review of Systems Review of Systems: Per HPI Physical Exam Physical Exam: The patient is alert and oriented. Mood and affect appeared normal. He answered all questions appropriately. Obese HEENT: Pupils are equal and reactive to light and accommodation. Extraocular movements are intact. The sclerae are anicteric. Neuro: Cranial nerves intact Chest: No evidence of hematoma at the device implant site in the left upper pectoral area. Lungs: Clear to auscultation bilaterally. He has good air movement without use of accessory muscles. No rales wheezes or rhonchi. Cardiac: Heart demonstrates an irregular rate and rhythm. Normal S1 and S2. No murmurs on examination. Pulses: Good perfusion of the right hand with palpable right radial pulse. Extremities: There was no evidence of hypoperfusion. There is no cyanosis or clubbing. There is no edema. No hematoma at the site of prior temporary pacing wire. Skin: I did not appreciate any rashes on examination today. Results & Data Vital Signs (Past 12 Hours) Vital Signs Temp Pulse Pulse Resp BP BP Pulse Ox 12/23/22 12:15 142/89 H 12/23/22 12:00 102 H 27 H 95 12/23/22 11:01 136/96 12/23/22 11:00 113 H 16 95 12/23/22 10:29 130 H 23 12/23/22 10:01 149/123 H 12/23/22 10:01 125 H 19 95 12/23/22 12:00 37.3 C 12/23/22 11:35 94 12/23/22 10:53 98 H 136/96 12/23/22 10:37 119 H 156/128 H 12/23/22 10:38 126 H 144/112 H 12/23/22 10:27 115 H 144/112 H 12/23/22 09:00 114 H 28 H 98 12/23/22 09:00 157/110 H 12/23/22 08:01 129/104 H 12/23/22 08:01 120 H 17 95 12/23/22 07:00 124 H 37 H 92 12/23/22 07:00 140/104 H 12/23/22 09:30 12/23/22 08:40 12/23/22 08:00 12/23/22 08:00 37.8 C H 12/23/22 08:00 121 H 12/23/22 07:51 36.7 C 71 13 129/69 96 12/23/22 10:22 122 H 12/23/22 10:12 136 H 149/123 H 12/23/22 09:52 155 H 12/23/22 06:01 125 H 18 145/88 H 95 12/23/22 05:00 100 H 17 151/96 H 92 12/23/22 04:00 120 H 25 H 140/100 94 12/23/22 03:10 121 H 22 141/104 H 95 12/23/22 02:02 108 H 29 H 118/68 99 12/23/22 01:01 110 H 23 126/93 98 08/08/23 02:23 101 H 23 96 12/23/22 00:54 108 H O2 Del Method O2 Flow Rate 12/23/22 12:15 12/23/22 12:00 12/23/22 11:01 12/23/22 11:00 12/23/22 10:29 12/23/22 10:01 12/23/22 10:01 12/23/22 12:00 12/23/22 11:35 12/23/22 10:53 12/23/22 10:37 12/23/22 10:38 12/23/22 10:27 12/23/22 09:00 12/23/22 09:00 12/23/22 08:01 12/23/22 08:01 12/23/22 07:00 12/23/22 07:00 12/23/22 09:30 Room Air 12/23/22 08:40 CPAP 12/23/22 08:00 Room Air 12/23/22 08:00 12/23/22 08:00 12/23/22 07:51 Room Air 12/23/22 10:22 12/23/22 10:12 12/23/22 09:52 12/23/22 06:01 12/23/22 05:00 12/23/22 04:00 12/23/22 03:10 12/23/22 02:02 12/23/22 01:01 12/23/22 02:23 2 12/23/22 00:54 Laboratory Results Abnormal Lab Results 12/20/22 12/20/22 12/20/22 11:05 11:05 11:05 WBC 11.91 H RBC 4.16 L Hgb 12.4 L POC Hgb Hct 35.8 L POC Hct MCV 86.1 MCH 29.8 MCHC 34.6 RDW Std Deviation 39.8 RDW Coeff of Tripp 12.8 Plt Count 272 MPV 11.7 Immature Gran % (Auto) 0.4 Neut % (Auto) 79.0 Lymph % (Auto) 7.9 [place] % (Auto) 11.1 Eos % (Auto) 1.2 Baso % (Auto) 0.4 Neut # (Auto) 9.41 H Lymph # (Auto) 0.94 L [place] # (Auto) 1.32 H Eos # (Auto) 0.14 Baso # (Auto) 0.05 Immature Gran # (Auto) 0.05 PT 12.6 H INR 1.2 H APTT 31.3 H PTT Ratio 1.1 POC Sodium Sodium 134 L POC Potassium Potassium 3.6 POC Chloride Chloride 101 Carbon Dioxide 20 L POC Total CO2 Anion Gap 13 H POC Anion Gap POC BUN BUN 21 Creatinine 1.13 POC Creatinine Est Cr Clr Drug Dosing 131.2 Est GFR ( Amer) 87.4 Est GFR (Non-Af Amer) 75.4 BUN/Creatinine Ratio 18.6 Glucose 142 H POC Glucose POC Glucose (other) Calcium 8.7 POC Ioniz Calcium Estrellita Ionized Calcium Magnesium 1.8 Total Bilirubin 0.6 AST 25 ALT 36 Alkaline Phosphatase 57 Troponin I High Sens 1934.7 H* B-Natriuretic Peptide Total Protein 7.6 Albumin 3.8 Globulin 3.8 Albumin/Globulin Ratio 1.0 Nasal Screen MRSA (PCR) 12/20/22 12/20/22 12/20/22 11:09 11:33 15:59 WBC RBC Hgb POC Hgb 12.2 L Hct POC Hct 36 L MCV MCH MCHC RDW Std Deviation RDW Coeff of Tripp Plt Count MPV Immature Gran % (Auto) Neut % (Auto) Lymph % (Auto) [place] % (Auto) Eos % (Auto) Baso % (Auto) Neut # (Auto) Lymph # (Auto) [place] # (Auto) Eos # (Auto) Baso # (Auto) Immature Gran # (Auto) PT INR APTT PTT Ratio POC Sodium 135 Sodium POC Potassium 3.6 Potassium POC Chloride 103 Chloride Carbon Dioxide POC Total CO2 21 L Anion Gap POC Anion Gap 16.0 POC BUN 19 H BUN Creatinine POC Creatinine 1.2 Est Cr Clr Drug Dosing Est GFR ( Amer) Est GFR (Non-Af Amer) BUN/Creatinine Ratio Glucose POC Glucose 88 POC Glucose (other) 147 H Calcium POC Ioniz Calcium Estrellita 1.05 L Ionized Calcium Magnesium Total Bilirubin AST ALT Alkaline Phosphatase Troponin I High Sens B-Natriuretic Peptide 334 H Total Protein Albumin Globulin Albumin/Globulin Ratio Nasal Screen MRSA (PCR) 12/20/22 12/20/22 12/20/22 20:02 21:10 21:10 WBC RBC Hgb POC Hgb Hct POC Hct MCV MCH MCHC RDW Std Deviation RDW Coeff of Tripp Plt Count MPV Immature Gran % (Auto) Neut % (Auto) Lymph % (Auto) [place] % (Auto) Eos % (Auto) Baso % (Auto) Neut # (Auto) Lymph # (Auto) [place] # (Auto) Eos # (Auto) Baso # (Auto) Immature Gran # (Auto) PT INR APTT PTT Ratio POC Sodium Sodium 135 L POC Potassium Potassium 3.9 POC Chloride Chloride 103 Carbon Dioxide 22 POC Total CO2 Anion Gap 10 POC Anion Gap POC BUN BUN 16 Creatinine 1.03 POC Creatinine Est Cr Clr Drug Dosing 143.1 Est GFR ( Amer) 97.7 Est GFR (Non-Af Amer) 84.3 BUN/Creatinine Ratio 15.5 Glucose 102 H POC Glucose 96 POC Glucose (other) Calcium 9.0 POC Ioniz Calcium Estrellita Ionized Calcium Magnesium 2.2 Total Bilirubin AST ALT Alkaline Phosphatase Troponin I High Sens 46598.9 H* D B-Natriuretic Peptide Total Protein Albumin Globulin Albumin/Globulin Ratio Nasal Screen MRSA (PCR) 12/20/22 12/21/22 12/21/22 Unknown 03:40 03:40 WBC 13.06 H RBC 4.08 L Hgb 12.0 L POC Hgb Hct 35.6 L POC Hct MCV 87.3 MCH 29.4 MCHC 33.7 RDW Std Deviation 41.5 RDW Coeff of Tripp 13.0 Plt Count 253 MPV 11.8 Immature Gran % (Auto) 0.5 Neut % (Auto) 82.2 Lymph % (Auto) 6.0 [place] % (Auto) 10.7 Eos % (Auto) 0.3 Baso % (Auto) 0.3 Neut # (Auto) 10.74 H Lymph # (Auto) 0.78 L [place] # (Auto) 1.40 H Eos # (Auto) 0.04 Baso # (Auto) 0.04 Immature Gran # (Auto) 0.06 PT INR APTT PTT Ratio POC Sodium Sodium POC Potassium Potassium POC Chloride Chloride Carbon Dioxide POC Total CO2 Anion Gap POC Anion Gap POC BUN BUN Creatinine POC Creatinine Est Cr Clr Drug Dosing Est GFR ( Amer) Est GFR (Non-Af Amer) BUN/Creatinine Ratio Glucose POC Glucose POC Glucose (other) Calcium POC Ioniz Calcium Estrellita Ionized Calcium Magnesium Total Bilirubin AST ALT Alkaline Phosphatase Troponin I High Sens 72977.4 H* D B-Natriuretic Peptide Total Protein Albumin Globulin Albumin/Globulin Ratio Nasal Screen MRSA (PCR) Negative 12/21/22 12/21/22 12/21/22 03:40 07:49 09:00 WBC RBC Hgb POC Hgb Hct POC Hct MCV MCH MCHC RDW Std Deviation RDW Coeff of Tripp Plt Count MPV Immature Gran % (Auto) Neut % (Auto) Lymph % (Auto) [place] % (Auto) Eos % (Auto) Baso % (Auto) Neut # (Auto) Lymph # (Auto) [place] # (Auto) Eos # (Auto) Baso # (Auto) Immature Gran # (Auto) PT INR APTT PTT Ratio POC Sodium Sodium 136 POC Potassium Potassium 4.1 POC Chloride Chloride 103 Carbon Dioxide 22 POC Total CO2 Anion Gap 11 POC Anion Gap POC BUN BUN 16 Creatinine 0.95 POC Creatinine Est Cr Clr Drug Dosing 155.2 Est GFR ( Amer) 107.7 Est GFR (Non-Af Amer) 93.0 BUN/Creatinine Ratio 16.8 Glucose 107 H POC Glucose 88 POC Glucose (other) Calcium 8.8 POC Ioniz Calcium Estrellita Ionized Calcium Magnesium Total Bilirubin 0.7 AST 71 H ALT 40 Alkaline Phosphatase 56 Troponin I High Sens 7787.6 H* D B-Natriuretic Peptide Total Protein 7.1 Albumin 3.5 Globulin 3.6 Albumin/Globulin Ratio 1.0 Nasal Screen MRSA (PCR) 12/21/22 12/21/22 09:00 09:00 WBC RBC Hgb POC Hgb Hct POC Hct MCV MCH MCHC RDW Std Deviation RDW Coeff of Tripp Plt Count MPV Immature Gran % (Auto) Neut % (Auto) Lymph % (Auto) [place] % (Auto) Eos % (Auto) Baso % (Auto) Neut # (Auto) Lymph # (Auto) [place] # (Auto) Eos # (Auto) Baso # (Auto) Immature Gran # (Auto) PT INR APTT PTT Ratio POC Sodium Sodium POC Potassium Potassium POC Chloride Chloride Carbon Dioxide POC Total CO2 Anion Gap POC Anion Gap POC BUN BUN Creatinine POC Creatinine Est Cr Clr Drug Dosing Est GFR ( Amer) Est GFR (Non-Af Amer) BUN/Creatinine Ratio Glucose POC Glucose POC Glucose (other) Calcium POC Ioniz Calcium Estrellita Ionized Calcium 1.10 L Magnesium 2.1 Total Bilirubin AST ALT Alkaline Phosphatase Troponin I High Sens B-Natriuretic Peptide Total Protein Albumin Globulin Albumin/Globulin Ratio Nasal Screen MRSA (PCR) Diagnostic Findings Cardiac catheterization yesterday revealed occlusion of the previously stented 1st diagonal branch. PCI was performed with successful revascularization. Borderline reduced LV systolic function with moderate left atrial dilation. Borderline aortic root dilation Implantation of biventricular Med[employer] ICD 12/22/2022
[2022-12-23] MEDS ORDERED: AMIODARONE 200 MG TAB PO ONE (13:15)
--- NOTE | 2022-12-23 14:51 | Critical Care Progress Note ---
Date of Service December 23, 2022 Assessment & Plan (1) ACS (acute coronary syndrome): (2) Atrial fibrillation: (3) Sinus pause: (4) Obesity, diabetes, and hypertension syndrome: (5) Gout: (6) ERNESTO on CPAP: Plan Impression: 52-year-old male with history of coronary disease status post recent drug-eluting stent with in-stent stenosis. He has tachybradycardia syndrome and required permanent pacemaker this morning. Prior to the procedure he suffered a brief episode of VT/VF requiring CPR and initially CPAP but is now returned back to baseline. Recommendations NEURO -no sequelae from the event. Continue to follow currently. Increase activity. Out of bed to chair with PT and OT evaluation CV -stent thrombosis first diagonal status post repeat angioplasty. He is status post permanent pacemaker. Discussed with EP today. Settings were adjusted. Amiodarone was added. Diltiazem and digoxin of been discontinued. Plan to restart anticoagulation tomorrow evening RESP -sleep apnea: Continue CPAP nightly RENAL -no current issues. Acid-base status stable. Electrolytes stable. Volume status stable. ENDO -glycemic control per protocol GI -advancing diet as tolerated. Continue PPI HEME -mild anemia. Mild leukocytosis stable. No indication for transfusion. No indication for antibiotics currently. DVT ppx: Lovenox. DOAC to resume tomorrow GI ppx: ppi Patient is clinically stable at this point time. Discussed with cardiology. He is stable to transfer to the telemetry floor at this point in time. Critical care will sign off and hospitalist will reassume management of the patient. Admission and Anticipated Discharge Date Admission Date: December 20, 2022 Subjective Patient seen and examined. EMR reviewed. Discussed on multidisciplinary rounds. The patient states he is doing better. He is had no issues of syncope or presyncope. He continues to complain of a mild cough. He is not producing any phlegm. He denies any wheezing. He did receive some cough syrup last night. His pacemaker was adjusted today and amiodarone was added. He is not yet fully anticoagulated Review of Systems Review of Systems: All systems reviewed & are unremarkable except as noted in Subjective Physical Exam Constitutional: WD/WN, vitals as above Neck: trachea midline, no thyromegaly Respiratory: normal respiratory effort, lungs clear to auscultation Cardiovascular: Rate/Rhythm: + tachycardic and + irregularly irregular Heart Sounds: normal S1 and normal S2; no murmur Gastrointestinal (Abdomen): normal bowel sounds, soft, nontender, no hepatosplenomegaly Musculoskeletal: Extremities: extremities normal to inspection Skin: no rashes, warm and dry Lymphatic: no cervical lymphadenopathy Results & Data Results & Data Vital Signs (Past 12 Hours) Vital Signs Temp Pulse Pulse Resp BP BP Pulse Ox 12/23/22 13:01 125/91 12/23/22 13:00 120 H 28 H 94 12/23/22 12:15 142/89 H 12/23/22 12:00 102 H 27 H 95 12/23/22 11:01 136/96 12/23/22 11:00 113 H 16 95 12/23/22 10:29 130 H 23 12/23/22 10:01 149/123 H 12/23/22 10:01 125 H 19 95 12/23/22 12:00 37.3 C 12/23/22 11:35 94 12/23/22 10:53 98 H 136/96 12/23/22 10:37 119 H 156/128 H 12/23/22 10:38 126 H 144/112 H 12/23/22 10:27 115 H 144/112 H 12/23/22 09:00 114 H 28 H 98 12/23/22 09:00 157/110 H 12/23/22 08:01 129/104 H 12/23/22 08:01 120 H 17 95 12/23/22 07:00 124 H 37 H 92 12/23/22 07:00 140/104 H 12/23/22 09:30 12/23/22 08:40 12/23/22 08:00 12/23/22 08:00 37.8 C H 12/23/22 08:00 121 H 12/23/22 07:51 36.7 C 71 13 129/69 96 12/23/22 10:22 122 H 12/23/22 10:12 136 H 149/123 H 12/23/22 09:52 155 H 12/23/22 06:01 125 H 18 145/88 H 95 12/23/22 05:00 100 H 17 151/96 H 92 12/23/22 04:00 120 H 25 H 140/100 94 12/23/22 03:10 121 H 22 141/104 H 95 O2 Del Method 12/23/22 13:01 12/23/22 13:00 12/23/22 12:15 12/23/22 12:00 12/23/22 11:01 12/23/22 11:00 12/23/22 10:29 12/23/22 10:01 12/23/22 10:01 12/23/22 12:00 12/23/22 11:35 12/23/22 10:53 12/23/22 10:37 12/23/22 10:38 12/23/22 10:27 12/23/22 09:00 12/23/22 09:00 12/23/22 08:01 12/23/22 08:01 12/23/22 07:00 12/23/22 07:00 12/23/22 09:30 Room Air 12/23/22 08:40 CPAP 12/23/22 08:00 Room Air 12/23/22 08:00 12/23/22 08:00 12/23/22 07:51 Room Air 12/23/22 10:22 12/23/22 10:12 12/23/22 09:52 12/23/22 06:01 12/23/22 05:00 12/23/22 04:00 12/23/22 03:10 Critical Care Results & Data Vital Signs (Past 12 Hours) Vital Signs Temp Pulse Pulse Resp BP BP Pulse Ox 12/23/22 13:01 125/91 12/23/22 13:00 120 H 28 H 94 12/23/22 12:15 142/89 H 12/23/22 12:00 102 H 27 H 95 12/23/22 11:01 136/96 12/23/22 11:00 113 H 16 95 12/23/22 10:29 130 H 23 12/23/22 10:01 149/123 H 12/23/22 10:01 125 H 19 95 12/23/22 12:00 37.3 C 12/23/22 11:35 94 12/23/22 10:53 98 H 136/96 12/23/22 10:37 119 H 156/128 H 12/23/22 10:38 126 H 144/112 H 12/23/22 10:27 115 H 144/112 H 12/23/22 09:00 114 H 28 H 98 12/23/22 09:00 157/110 H 12/23/22 08:01 129/104 H 12/23/22 08:01 120 H 17 95 12/23/22 07:00 124 H 37 H 92 12/23/22 07:00 140/104 H 12/23/22 09:30 12/23/22 08:40 12/23/22 08:00 12/23/22 08:00 37.8 C H 12/23/22 08:00 121 H 12/23/22 07:51 36.7 C 71 13 129/69 96 12/23/22 10:22 122 H 12/23/22 10:12 136 H 149/123 H 12/23/22 09:52 155 H 12/23/22 06:01 125 H 18 145/88 H 95 12/23/22 05:00 100 H 17 151/96 H 92 12/23/22 04:00 120 H 25 H 140/100 94 12/23/22 03:10 121 H 22 141/104 H 95 O2 Del Method 12/23/22 13:01 12/23/22 13:00 12/23/22 12:15 12/23/22 12:00 12/23/22 11:01 12/23/22 11:00 12/23/22 10:29 12/23/22 10:01 12/23/22 10:01 12/23/22 12:00 12/23/22 11:35 12/23/22 10:53 12/23/22 10:37 12/23/22 10:38 12/23/22 10:27 12/23/22 09:00 12/23/22 09:00 12/23/22 08:01 12/23/22 08:01 12/23/22 07:00 12/23/22 07:00 12/23/22 09:30 Room Air 12/23/22 08:40 CPAP 12/23/22 08:00 Room Air 12/23/22 08:00 12/23/22 08:00 12/23/22 07:51 Room Air 12/23/22 10:22 12/23/22 10:12 12/23/22 09:52 12/23/22 06:01 12/23/22 05:00 12/23/22 04:00 12/23/22 03:10 Lab & Micro Results (Past 24 Hours) RBC 4.45 M/uL (4.70-6.10) L 12/23/22 WBC 12.40 K/ul (4.8-10.8) H 12/23/22 Hgb 13.0 g/dl (14.0-18.0) L 12/23/22 Hct 39.3 % (42.0-52.0) L 12/23/22 MCV 88.3 fL (80.0-100.0) 12/23/22 MCH 29.2 pg (25.0-34.0) 12/23/22 MCHC 33.1 g/dL (32.0-36.0) 12/23/22 RDW Standard Deviation 40.7 fL (36.4-46.3) 12/23/22 RDW Coefficient of Variation 12.5 % (11.5-14.5) 12/23/22 Plt Count 320 K/uL (130-400) 12/23/22 MPV 11.6 fL (9.4-12.4) 12/23/22 Neutrophils (%) (Auto) 80.0 % 12/23/22 Lymphocytes (%) (Auto) 5.1 % 12/23/22 Monocytes # (Auto) 1.38 K/uL (0.11-0.59) H 12/23/22 Eosinophils # (Auto) 0.36 K/uL (0-0.50) 12/23/22 Immature Granulocyte % (Auto) 0.4 % 12/23/22 Neutrophils # (Auto) 9.92 K/uL (1.40-6.50) H 12/23/22 Lymphocytes # (Auto) 0.63 K/uL (1.2-3.4) L 12/23/22 Monocytes # (Auto) 1.38 K/uL (0.11-0.59) H 12/23/22 Eosinophils # (Auto) 0.36 K/uL (0-0.50) 12/23/22 Basophils # (Auto) 0.06 K/uL (0-0.2) 12/23/22 Immature Granulocyte # (Auto) 0.05 K/uL (0.01-0.20) 3 Na 139 mmol/L (136-145) 12/23/22 K 3.7 mmol/L (3.5-5.1) 12/23/22 Cl 103 mmol/L (98-107) 12/23/22 CO2 27 mmol/L (21-32) 12/23/22 Anion Gap 9 (3-11) 12/23/22 BUN 16 mg/dl (6-23) 12/23/22 Creatinine 1.03 mg/dl (0.6-1.4) 12/23/22 Estimated GFR ( Amer) 97.7 ml/min 12/23/22 Estimated GFR (Non-Af Amer) 84.3 ml/min 12/23/22 BUN/Creatinine Ratio 15.5 (10-20) 12/23/22 Glu 109 mg/dl (70-99(Fasting)) H 12/23/22 Ca 8.9 mg/dl (8.6-10.3) 12/23/22 Mg 1.9 mg/dl (1.7-2.4) 12/23/22 04:21 Calcium Level 8.9 mg/dl (8.6-10.3) 12/23/22 04:21 Diagnostic Findings (Past 24 Hours) Chest X-Ray 12/23/22 07:00 TWO VIEW CHEST CLINICAL HISTORY: Pacemaker implantation.. FINDINGS: AP and lateral chest radiographs are compared to study dated 12/20/2022 and correlated with chest CT dated 12/15/2022. The examination is significantly degraded by large body habitus and patient positioning. A 2-lead cardiac AICD has been implanted. Leads project over the ventricles. The pacemaker partially obscures left upper chest. The heart is enlarged. The pulmonary vasculature is not congested. Atelectasis is noted at the lung bases. No airspace consolidation or pleural effusion is identified. There is no pneumothorax. The skeletal structures appear osteopenic. The bony thorax appears intact. IMPRESSION: 1. A 2-lead cardiac AICD has been implanted as above. No pneumothorax is identified post procedure. 2. Cardiomegaly without radiographic evidence of congestive failure. 3. No airspace consolidation or pleural effusion is identified. ACT 112: Negative or not required by law. Electronically signed by: Nolan Michaels M.D. 12/23/2022 7:57 AM I & O Totals 24 Hours 12/22/22 12/23/2223 06:59 06:59 06:59 Intake Total 2596.667 / 2596.667 1080 / 1080 990 / 990 Output Total 1999 2875 / 2875 Balance 596.667 / 596.667 -1795 / -1795 989 / 989 Cumulative 12/20/22 10:37 thru 12/23/22 14:33 Intake Total 7765.834 Output Total 7276 Balance 489.834 RT Ventilator Mngmt (Last Documented) Ventilator Ordered Settings Respiratory Rate 28 12/23/22 13:00 Fraction of Inspired Oxygen 12/20/22 19:46 Ventilator - PT Measurements Respiratory Rate 28 Coding Level of Care Code 10143 SUB INP/OBS CARE 2/35MIN Diagnoses ACS (acute coronary syndrome) I24.9 Atrial fibrillation I48.91 Sinus pause I45.5 Obesity, diabetes, and hypertension syndrome E11.69; E11.59; E66.9; I15.2 Gout M10.9 ERNESTO on CPAP G47.33; Z99.89
--- NOTE | 2022-12-23 14:52 | Hospitalist Progress Note ---
Date of Service December 23, 2022 Assessment & Plan (1) Chest pain: Plan: Chang is a 52-year-old male with a past medical history of ERNESTO on CPAP, A-fib with history of RVR on Xarelto, DM 2, hypertension, GERD and recent hospital admission 12/15 - 12/17 for chest pain who presents to the ER as a heart alert and had multiple 7+ second pauses while on telemetry in the ER Patient presents with recurrent NSTEMI, emergent cath, D1 stent occludedPCI and additional stent pain, transvenous pacing was required for tachybradycardia syndrome patient went to the Roll Off Driver for pacemaker placement developed V. tach V-fib prior to procedure patient had an AICD placed on 12/22/2022, started on amiodarone now continued for poorly controlled afib Cardiac cath 12/15: Multivessel CAD. Small to medium D1 90% proximal disease, 50-60% mid LAD at bifurcation, 80-90% ostial disease, 40% mid circumflex disease 12/15 PCI LUZ x1 to D1, residual mid LAD disease and 90% osteal D2. 12/17 dc: Discharged on Xarelto/Plavix. DC meds: Metoprolol 100 twice daily. Lisinopril 20 mg daily be resumed once JEANINE resolved. Amlodipine considered if BP persistently elevated TTE 12/15/2022: Mildly dilated left ventricle, EF 40-45%. Akinesis of basal inferoseptum and inferior base otherwise mild global hypokinesis. Mild to moderate concentric LVH. Mild left atrial dilation. A-fib. No significant valvular disease noted. 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, recently added Jardiance Hold home antiglycemic's, ICU hyperglycemia protocol Goal BSG [id number] ERNESTO CPAP nightly, restart claritan and singulair Hypertension Amlodipine started metoprolol dose increased GERD PPI daily continue DVT prophylaxis: Anticoagulated on DOAC CODE STATUS: Full (2) Atrial fibrillation: (3) Diabetes mellitus: (4) HTN (hypertension): (5) ERNESTO on CPAP: (6) Acid reflux disease: Admission and Anticipated Discharge Date Admission Date: December 20, 2022 Subjective pt is on Cpap, still with unremitting cough, still with rapid response heart rate afib, continuing on amiodarone 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 and updated Physical Exam Physical Exam: Patient has a nasal voice he continues with nasal congestion cardiac exam is tachycardic and appearing to be irregular defibrillator site is with the bandage but not particularly tender lungs are clear anteriorly and laterally Results & Data Results & Data Vital Signs (Past 12 Hours) Vital Signs Temp Pulse Pulse Resp BP BP Pulse Ox 12/23/22 13:01 125/91 12/23/22 13:00 120 H 28 H 94 12/23/22 12:15 142/89 H 12/23/22 12:00 102 H 27 H 95 12/23/22 11:01 136/96 12/23/22 11:00 113 H 16 95 12/23/22 10:29 130 H 23 12/23/22 10:01 149/123 H 12/23/22 10:01 125 H 19 95 12/23/22 12:00 99.1 F 12/23/22 11:35 94 12/23/22 10:53 98 H 136/96 12/23/22 10:37 119 H 156/128 H 12/23/22 10:38 126 H 144/112 H 12/23/22 10:27 115 H 144/112 H 12/23/22 09:00 114 H 28 H 98 12/23/22 09:00 157/110 H 12/23/22 08:01 129/104 H 12/23/22 08:01 120 H 17 95 12/23/22 07:00 124 H 37 H 92 12/23/22 07:00 140/104 H 12/23/22 09:30 12/23/22 08:40 12/23/22 08:00 12/23/22 08:00 100.0 F H 12/23/22 08:00 121 H 12/23/22 07:51 98.1 F 71 13 129/69 96 12/23/22 10:22 122 H 12/23/22 10:12 136 H 149/123 H 12/23/22 09:52 155 H 12/23/22 06:01 125 H 18 145/88 H 95 12/23/22 05:00 100 H 17 151/96 H 92 12/23/22 04:00 120 H 25 H 140/100 94 12/23/22 03:10 121 H 22 141/104 H 95 O2 Del Method 12/23/22 13:01 12/23/22 13:00 12/23/22 12:15 12/23/22 12:00 12/23/22 11:01 12/23/22 11:00 12/23/22 10:29 12/23/22 10:01 12/23/22 10:01 12/23/22 12:00 12/23/22 11:35 12/23/22 10:53 12/23/22 10:37 12/23/22 10:38 12/23/22 10:27 12/23/22 09:00 12/23/22 09:00 12/23/22 08:01 12/23/22 08:01 12/23/22 07:00 12/23/22 07:00 12/23/22 09:30 Room Air 12/23/22 08:40 CPAP 12/23/22 08:00 Room Air 12/23/22 08:00 12/23/22 08:00 12/23/22 07:51 Room Air 12/23/22 10:22 12/23/22 10:12 12/23/22 09:52 12/23/22 06:01 12/23/22 05:00 12/23/22 04:00 12/23/22 03:10 Laboratory Results reviewed cbc reviewed chemistry PG Care Time/CCT Total # of Minutes Spent Total Time Spent with Patient: Total time spent is greater than 50% in coordination of care (as documented) at patient's floor/unit and/or counseling patient: Coding Level of Care Code 08716 SUB INP/OBS CARE 3/50MIN Diagnoses Chest pain R07.9 Atrial fibrillation I48.91 Diabetes mellitus E11.9 HTN (hypertension) I10 ERNESTO on CPAP G47.33; Z99.89 Acid reflux disease K21.9
[2022-12-23] MEDS: PROMETHAZINE HCL 12.5 MG/10 ML UDP PO PRN (16:08)
[2022-12-23] MEDS ORDERED: RIVAROXABAN 20 MG TAB PO SCH (16:30)
[2022-12-23] MEDS: METOPROLOL SUCC 50MG EXT REL TAB PO SCH (20:01)
[2022-12-24] MEDS: PROMETHAZINE HCL 12.5 MG/10 ML UDP PO PRN ×3 (03:39→22:11)
[2022-12-24 05:19] LABS: Calcium 8.5 mg/dl (8.6-10.3); Creatinine Clr Calc Pharmacy 135.1 ml/min; Est GFR (African American) 89.3 ml/min; Potassium 3.8 mmol/L (3.5-5.1)
[2022-12-24] MEDS: ACETAMINOPHEN 325 MG TAB PO PRN ×2 (06:27→20:27)
[2022-12-24] MEDS: allopurinoL 300 MG TAB PO SCH (08:39)
[2022-12-24] MEDS: amLODIPine BESYLATE 5 MG TAB PO SCH (08:39)
[2022-12-24] MEDS: ASPIRIN 81 MG ECTAB PO SCH (08:40)
[2022-12-24] MEDS: FAMOTIDINE 20 MG TAB PO SCH (08:40)
[2022-12-24] MEDS: ATORVASTATIN 40 MG TAB PO SCH (08:40)
[2022-12-24] MEDS: DORZOLAMIDE/TIMOLOL 22.3/6.8MG/ML 10 ML BTL OP SCH ×2 (08:40→20:24)
[2022-12-24] MEDS: LORATADINE 10 MG TAB PO SCH (08:41)
[2022-12-24] MEDS: FLUTICASONE PROPIONATE NA SPR 16 GM BTL SCH (08:41)
[2022-12-24] MEDS: FLUTICASONE/VILANTEROL 100/25MCG 14 PUFFS/INHALER INH SCH (08:41)
[2022-12-24] MEDS: METOPROLOL SUCC 50MG EXT REL TAB PO SCH ×2 (08:42→20:26)
[2022-12-24] MEDS: TICAGRELOR 90 MG TAB PO SCH ×2 (08:42→20:25)
[2022-12-24] MEDS: MONTELUKAST SODIUM 10 MG TABLET PO SCH (08:42)
[2022-12-24] MEDS: AMIODARONE 200 MG TAB PO SCH ×2 (08:44→20:26)
--- NOTE | 2022-12-24 12:11 | Cardiology Progress Note ---
Date of Service December 24, 2022 Assessment & Plan (1) ACS (acute coronary syndrome): (2) Atrial fibrillation: (3) Ventricular fibrillation: Plan 1. Tachy-adeola syndrome 2. 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 Residual intermediate mid LAD, 90% ostial D2 3. A-fib with RVR 4. CardiomyopathyEF 40 to 45% with inferoseptal wall motion abnormality 5. Hypertension 6. Right bundle branch block 7. Type 2 diabetes 8. GERD 9. Mild JEANINE 10. Ventricular fibrillation Overall improving. No recurrent chest discomfort, evidence of ischemia, mechanical complication or heart failure. Will continue dual anti-platelet therapy. Currently holding systemic anticoagulation secondary to device implant yesterday. I would anticipate restarting on December 25. Continued atrial fibrillation with high ventricular rates. Actually improved this morning. On a higher dose of metoprolol succinate. Amiodarone also added. Will plan on reinstituting systemic anticoagulation tomorrow. Ventricular fibrillation: No recurrent arrhythmias. Possibly pause dependent. However, in the setting of recent ischemic disease and perhaps mildly reduced LV systolic function and ICD was placed. Started on amiodarone. Normally functioning biventricular ICD. No evident complication on x-ray or by evaluation. I think he is getting close to discharge. Overall heart rates are improving. Ambulation is also improving. Minor setback with ankle pain. Admission and Anticipated Discharge Date Admission Date: December 20, 2022 Subjective This morning the patient complained of left ankle discomfort. Also some mild swelling in both lower extremities. Persistent dry nonproductive cough. No sense of palpitation. No recurrent chest pain. No breathing difficulty. Minimal discomfort at the device implant site in the left upper pectoral area. He was ambulatory with a walker and is feeling stronger today. Main limitation is now the ankle. Review of Systems Review of Systems: Per HPI Physical Exam Physical Exam: The patient is alert and oriented. Mood and affect appeared normal. He answered all questions appropriately. Obese HEENT: Pupils are equal and reactive to light and accommodation. Extraocular movements are intact. The sclerae are anicteric. Neuro: Cranial nerves intact Chest: No evidence of hematoma at the device implant site in the left upper pectoral area. Minor ecchymosis Lungs: Clear to auscultation bilaterally. He has good air movement without use of accessory muscles. No rales wheezes or rhonchi. Cardiac: Heart demonstrates an irregular rate and rhythm. Normal S1 and S2. No murmurs on examination. Pulses: Good perfusion of the right hand with palpable right radial pulse. Extremities: There was no evidence of hypoperfusion. There is no cyanosis or clubbing. Mild lower extremity edema bilaterally Skin: I did not appreciate any rashes on examination today. ENMT: Mallampati Class: III Respiratory: normal respiratory effort Cardiovascular: Rate/Rhythm: + tachycardic and + irregularly irregular Results & Data Vital Signs (Past 12 Hours) Vital Signs Temp Pulse Pulse Resp BP BP Pulse Ox 12/24/22 11:46 108 H 20 145/80 H 98 12/24/22 10:00 89 21 12/24/22 09:00 81 29 H 12/24/22 08:48 157/93 H 12/24/22 08:48 92 H 26 H 12/24/22 08:00 91 H 26 H 12/24/22 07:00 107 H 27 H 12/24/22 08:00 12/24/22 08:00 89 12/24/22 10:20 37 C 12/24/22 04:00 36.7 C 115 H 20 140/78 94 12/24/22 02:42 93 H 25 H O2 Del Method O2 Flow Rate 12/24/22 11:46 Room Air 12/24/22 10:00 12/24/22 09:00 12/24/22 08:48 12/24/22 08:48 12/24/22 08:00 12/24/22 07:00 12/24/22 08:00 Room Air 12/24/22 08:00 12/24/22 10:20 12/24/22 04:00 CPAP 2 12/24/22 02:42 2 Laboratory Results Abnormal Lab Results 12/24/22 04:40 Sodium 136 Potassium 3.8 Chloride 102 Carbon Dioxide 26 Anion Gap 8 BUN 20 Creatinine 1.11 Est Cr Clr Drug Dosing 135.1 Est GFR ( Amer) 89.3 Est GFR (Non-Af Amer) 77.0 BUN/Creatinine Ratio 18.0 Glucose 114 H Calcium 8.5 L Magnesium 2.0 Diagnostic Findings Cardiac catheterization yesterday revealed occlusion of the previously stented 1st diagonal branch. PCI was performed with successful revascularization. Borderline reduced LV systolic function with moderate left atrial dilation. Borderline aortic root dilation Implantation of biventricular Med[employer]onic ICD 12/22/2022 PG Care Time/CCT Total # of Minutes Spent Total Time Spent with Patient: Total time spent is greater than 50% in coordination of care (as documented) at patient's floor/unit and/or counseling patient: Coding Level of Care Code 75253 SUB INP/OBS CARE 2/35MIN Diagnoses ACS (acute coronary syndrome) I24.9 Atrial fibrillation I48.91 Ventricular fibrillation I49.01
[2022-12-24] MEDS ORDERED: FUROSEMIDE 40 MG/4 ML VIAL IV ONE (13:00)
[2022-12-24] MEDS ORDERED: methylPREDNISolone 40 MG in SYRINGE 0 ML IV ONE (13:00)
--- NOTE | 2022-12-24 17:36 | Hospitalist Progress Note ---
Date of Service December 24, 2022 Assessment & Plan (1) Chest pain: Plan: Chang is a 52-year-old male with a past medical history of ERNESTO on CPAP, A-fib with history of RVR on Xarelto, DM 2, hypertension, GERD and recent hospital admission 12/15 - 12/17 for chest pain who presents to the ER as a heart alert and had multiple 7+ second pauses while on telemetry in the ER Patient presents with recurrent NSTEMI, emergent cath, D1 stent occludedPCI and additional stent placec, transvenous pacing was required for tachy-adeola syndrome patient went to the Welding Machine Setter for pacemaker placement developed V. tach V-fib prior to procedure patient had an AICD placed on 12/22/2022, started on amiodarone now continued for poorly controlled afib metoprolol doses escalated, EP cardiology is following Cardiac cath 12/15: Multivessel CAD. Small to medium D1 90% proximal disease, 50-60% mid LAD at bifurcation, 80-90% ostial disease, 40% mid circumflex disease 12/15 PCI LUZ x1 to D1, residual mid LAD disease and 90% osteal D2. 12/17 dc: Discharged on Xarelto/Plavix. DC meds: Metoprolol 100 twice daily. Lisinopril 20 mg daily be resumed once JEANINE resolved. Amlodipine considered if BP persistently elevated TTE 12/15/2022: Mildly dilated left ventricle, EF 40-45%. Akinesis of basal inferoseptum and inferior base otherwise mild global hypokinesis. Mild to moderate concentric LVH. Mild left atrial dilation. A-fib. No significant valvular disease noted. A-fib with history of RVR Typically on Xarelto which was on hold for AICD/ pacemaker placement Continue metoprolol dose increased now on 100 twice daily of tartrate, continues on amiodarone Consideration tachybradycardia syndrome in the situation of recent NSTEMI and stenting x2 Recent JEANINE, resolved, ckd 3 Pts biggest somatic complaint is cough, does have sinus history, restarted sinus meds, trying cough med prn and escalating pepcid to protonix Also c/o gout flare, is having diarrhea before so will not use colchicine, given one dose of methylprednisolone, stared daily prednisone, check uric acid level 12/25 Hyperlipidemia Started on lipid therapy 12/15, lipid panel last admission with cholesterol 155, LDL 92, HDL 35 Lipitor 40 daily - DM 2 Last A1c 5.9% 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, recently added Jardiance Hold home antiglycemic's, ICU hyperglycemia protocol Goal BSG [id number] ERNESTO CPAP nightly, restart claritan and singulair Hypertension Amlodipine started metoprolol dose increased GERD PPI daily continue DVT prophylaxis: Anticoagulated on DOAC CODE STATUS: Full (2) Atrial fibrillation: (3) Diabetes mellitus: (4) HTN (hypertension): (5) ERNESTO on CPAP: (6) Acid reflux disease: Admission and Anticipated Discharge Date Admission Date: December 20, 2022 Subjective patient having persistent issues with coughing, uncontrolled heart rate, and now he feels like he has a gouty flare of his ankles as it feels exactly the same as his gout in the past mostly complaining with left ankle. Does not particularly feel short of breath but is deconditioned. He feels most of his ambulation issues are his ankle pain however and just generalized joint pain Physical Exam Physical Exam: Patient has a nasal voice he continues with nasal congestion cardiac exam is tachycardic and appearing to be irregular defibrillator site is with the bandage but not particularly tender lungs are clear anteriorly and laterally he has trace edema to both lower legs worse around the ankles his left ankle is not particularly warm erythematous it is slightly tender compared to the right Results & Data Results & Data Vital Signs (Past 12 Hours) Vital Signs Temp Pulse Pulse Resp BP BP Pulse Ox 12/24/22 16:10 98.2 F 106 H 20 126/97 95 12/24/22 16:00 132 H 12/24/22 14:05 132 H 17 12/24/22 13:00 104 H 27 H 12/24/22 12:00 85 17 12/24/22 11:46 145/80 H 12/24/22 11:46 94 H 13 98 12/24/22 11:00 100 H 33 H 12/24/22 11:46 108 H 20 145/80 H 98 12/24/22 10:00 89 21 12/24/22 09:00 81 29 H 12/24/22 08:48 157/93 H 12/24/22 08:48 92 H 26 H 12/24/22 08:00 91 H 26 H 12/24/22 07:00 107 H 27 H 12/24/22 08:00 12/24/22 08:00 89 12/24/22 10:20 98.6 F O2 Del Method 12/24/22 16:10 Room Air 12/24/22 16:00 12/24/22 14:05 12/24/22 13:00 12/24/22 12:00 12/24/22 11:46 12/24/22 11:46 12/24/22 11:00 12/24/22 11:46 Room Air 12/24/22 10:00 12/24/22 09:00 12/24/22 08:48 12/24/22 08:48 12/24/22 08:00 12/24/22 07:00 12/24/22 08:00 Room Air 12/24/22 08:00 12/24/22 10:20 Laboratory Results reviewed chemistry ordered uric acid level for 12/25 PG Care Time/CCT Total # of Minutes Spent Total Time Spent with Patient: Total time spent is greater than 50% in coordination of care (as documented) at patient's floor/unit and/or counseling patient: Coding Level of Care Code 33224 SUB INP/OBS CARE 3/50MIN Diagnoses Chest pain R07.9 Atrial fibrillation I48.91 Diabetes mellitus E11.9 HTN (hypertension) I10 ERNESTO on CPAP G47.33; Z99.89 Acid reflux disease K21.9
[2022-12-24] MEDS: PANTOprazole 40 MG TAB PO SCH (20:24)
[2022-12-25] MEDS: PROMETHAZINE HCL 12.5 MG/10 ML UDP PO PRN (05:30)
[2022-12-25 06:07] LABS: Magnesium 2.1 mg/dl (1.7-2.4); Uric Acid 4.3 mg/dl (2.6-7.2)
[2022-12-25 06:25] LABS: Hematocrit (blood only) 38.5 % (42.0-52.0); Hemoglobin 12.9 g/dl (14.0-18.0); Mean Corpuscular Hemoglobin 29.3 pg (25.0-34.0); Mean Corpuscular Hgb Conc 33.5 g/dL (32.0-36.0); Mean Corpuscular Volume 87.5 fL (80.0-100.0); Mean Platelet Volume 11.8 fL (9.4-12.4); Platelet Count 405 K/uL (130-400); RDW Coefficient of Variation 12.4 % (11.5-14.5); RDW Standard Deviation 39.6 fL (36.4-46.3); White Blood Count 14.21 K/ul (4.8-10.8)
--- NOTE | 2022-12-25 07:32 | Hospitalist Progress Note ---
Date of Service December 25, 2022 Assessment & Plan (1) Chest pain: Plan: Chang is a 52-year-old male with a past medical history of ERNESTO on CPAP, A-fib with history of RVR on Xarelto, DM 2, hypertension, GERD and recent hospital admission 12/15 - 12/17 for chest pain who presents to the ER as a heart alert and had multiple 7+ second pauses while on telemetry in the ER s/p Cardiac cath 12/[address] Trujillo last admission. At that time, ECHO w/ mildly dilated left ventricle, EF 40-45%. Akinesis of basal inferoseptum and inferior base otherwise mild global hypokinesis. Mild to moderate concentric LVH. Mild left atrial dilation. A-fib. No significant valvular disease noted. Impression at that time: Multivessel CAD. Small to medium D1 90% proximal disease, 50-60% mid LAD at bifurcation, 80-90% ostial disease, 40% mid circumflex disease. s/p PCI LUZ x1 to D1, residual mid LAD disease and 90% osteal D2. Discharged on 12/17 on Xarelto/Plavix, Metoprolol 100 twice daily. Lisinopril 20 mg daily be resumed once JEANINE resolved. Amlodipine considered if BP persistently elevated Patient presented 12/20 with recurrent NSTEMI, emergent cath, D1 stent occludedPCI and additional stent placed Repeat ECHO 12/20 w/ LV systolic function borderline reduced, EF 45-50%. Borderline aortic root dilatation. 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 tach V-fib prior to procedure patient had an AICD placed on 12/22/2022, Started on amiodarone now continued for poorly controlled afib metoprolol doses escalated, EP cardiology is following 12/25 No chest pain at present, biggest issue is cough. Of note, lisinopril on med list, held at [facility] last time due to JEANINE, has not been resumed. Unlikely from PATRICIA but cannot rule out. Has not gotten during admission currently Had also had his protonix increased to BID for sinus/gerd possible, no improvement Patient given LE swelling/cough will give additional 40mg IV lasix NOW (most recent ECHO w/ borderline reduced LV function 40-45%) Monitor urine output and possible additional dose this evening depending. Noting he was previously on HCTZ-triamterene last admission for diuretic for his BP but as BB was initiated and jardiance/other medications, this was discontinued at that time. Discussed may benefit from daily diuretic and will monitor current response and if not net negative this afternoon 1-2L will plan additional dose lasix for this evening Ankle pain/?Gout Possible gout flare/ankle discomfort, given IV methylprednisolone and lasix 40mg IV on 12/24 w/ improvement in pain. Uric acid w/ this mornings labs not significantly elevated but was checked after starting treatment and stated felt similar to prior attacks Discussed w supervising provider and will order colchicine BID as well, daily EKG while on amiodarone. No significant diarrhea reported On prednisone 20mg daily, hopefully will be able to discontinue to prevent fluid retention/edema (2) Atrial fibrillation: Plan: A-fib with history of RVR Consideration tachybradycardia syndrome in the situation of recent NSTEMI and stenting x2 Typically on Xarelto which was on hold for AICD/ pacemaker placement -- discussed w/ Dr Mccartney and planning to resume tonight 12/25 metoprolol per cardiology, reduced when amlodipine added for BP but increased back to 150mg BID at present and continuing such Per Dr Mccartney, likely needing more time for full effect of amiodarone and continuing current regimen given rates improving and low 100s/1-teens Continues on amiodarone 400mg BID Monitoring on telemetry Keep K/mag replete -- acceptable on AM labs and will continue to monitor (3) Diabetes mellitus: Plan: DM 2 Last A1c 5.9% [employer]ER regimen includes metformin, recently added Jardiance at discharge last admission Hold home antiglycemic's, SSI while inpatient. Goal BSG 250439 BSGs acceptable at present (4) HTN (hypertension): Plan: Hypertension Amlodipine 10mg daily added 12/23, metoprolol decreased to 150mg BID Lasix IV yesterday 40mg x 1, repeat for today and will monitor output and possible additional dose for this evening BPs fluctuating -- monitor/adjustments as needed Prior was on HCTZ/triamterene prior to last admission requiring stenting. Will monitor response to lasix in setting of slightly reduced EF, possible need for low dose diuretic at discharge Hyperlipidemia Started on lipid therapy 12/15, lipid panel last admission with cholesterol 155, LDL 92, HDL 35 Lipitor 40 daily (5) ERNESTO on CPAP: Plan: prior noncompliance due to dirty machine CPAP nightly, restart Claritin and Singulair. (6) Acid reflux disease: Plan: PPI daily continue, increased to BID on 12/24 Recent JEANINE, resolved, ckd 3 --? Able to resume lisinopril-- will hold off now as giving lasix IV again today but if kidney function stable on AM labs will hopefully be able to resume to help given slightly reduced EF/CAD as above vs low dose diuretics. Per Dr trujillo last admission, consideration for addition of spironolactone as well Renal dose meds as able/avoid nephrotoxins BUN/Cr stable on labs and will monitor Plan continued inpatient stay patient hopeful for discharge in next day or so but will monitor for now Admission and Anticipated Discharge Date Admission Date: December 20, 2022 Supervising Physician Co-Signing Physician Notes The patient was not seen by me. The chart was reviewed. Case discussed with OLIVA Valdez. Agree with assessment and plan Subjective Evaluated this morning, cough about the same/slightly worse. LE edema unchanged/possible slightly worse. Dry/unproductive except with extreme coughing -- white/clear color, no brown/green/yellowish appearance. Stated no improvement w/ tessalon pearls or cough syrup previously. Ambulation improved w/ starting steroids. Discussed prior gout attacks seemingly similar. Discussed colchicine possibly, reports taken in the past. Will discuss w/ supervising provider. Discussed additional dose IV lasix for today and monitoring weight/intake & output and if not net neg 1-2L by supper will plan for additional dose. Discussed may need low dose diuretics to maintain volume. He was previously on HCTZ-triamterene as diuretic prior to admission for angina/stent placement 12/15. Of note, felt flushing/clammy last evening, reported possible low grade temp at home last . Discussed no fevers documented, repeat temp at present w/ nursing wnl 36.7C. Discussed was right after IV methylprednisolone and could have flushing from that. Similar sensation endorsed w/ IV steroids when he had his back surgery in the past. He his hopeful for discharge soon. Will monitor overnight/response to diuretics and HR on monitor and hopefully able to discharge in next 24-48 hours. Questions/concerns addressed at this time. Physical Exam Physical Exam: General: WN/WD obese male sitting up in chair, NAD HEENT: head normocephalic, thick neck, mmm, trachea midline Chest: pacemaker site to LEFT chest,no drainage/erythema, mild surrounding ecchymosis Resp: CTA, slightly diminished in the bases, no w/c/r, on room air CV: irregularly irregular, rates 90-110s, no significant m/r/g, +1-2LE edema bilaterally, calves nontender, pulses present GI+ BS, soft/NT : no jesus, urinal at bedside MSK/Neuro: no focal deficits, follows commands, no facial droop/slurred speech edema to b/l LE as above, worse around ankles, R>L ankle tenderness, no obvious warmth/erythema on exam today Psych: AOx3, cooperative with exam Results & Data Results & Data Vital Signs (Past 12 Hours) Vital Signs Temp Pulse Pulse Resp BP Pulse Ox O2 Del Method 12/25/22 06:21 36.4 C L 86 18 158/104 H 96 Room Air 12/25/22 04:00 36.7 C 101 H 20 114/71 93 Room Air 12/25/22 00:00 37 C 95 H 20 151/104 H 97 CPAP 12/24/22 22:58 115 H 21 98 12/24/22 20:00 36.8 C 108 H 12 134/107 H 96 Room Air O2 Flow Rate 12/25/22 06:21 12/25/22 04:00 12/25/22 00:00 2 12/24/22 22:58 2 12/24/22 20:00 Laboratory Results 12/25/22 12/25/22 12/25/22 Range/Units 07:32 05:35 05:35 WBC 14.21 H (4.8-10.8) K/ul RBC 4.40 L (4.70-6.10) M/uL Hgb 12.9 L (14.0-18.0) g/dl Hct 38.5 L (42.0-52.0) % MCV 87.5 (80.0-100.0) fL MCH 29.3 (25.0-34.0) pg MCHC 33.5 (32.0-36.0) g/dL RDW Std Deviation 39.6 (36.4-46.3) fL RDW Coeff of Tripp 12.4 (11.5-14.5) % Plt Count 405 H (130-400) K/uL MPV 11.8 (9.4-12.4) fL Sodium 138 (136-145) mmol/L Potassium 4.0 (3.5-5.1) mmol/L Chloride 101 (98-107) mmol/L Carbon Dioxide 22 (21-32) mmol/L Anion Gap 15 H (3-11) BUN 23 (6-23) mg/dl Creatinine 1.10 (0.6-1.4) mg/dl Est Cr Clr Drug Dosing 134.6 ml/min Est GFR ( Amer) 90.2 ml/min Est GFR (Non-Af Amer) 77.9 ml/min BUN/Creatinine Ratio 20.9 H (10-20) Glucose 112 H (70-99(Fasting)) mg/dl POC Glucose 100 H (70-99) mg/dl Uric Acid 4.3 (2.6-7.2) mg/dl Calcium 9.4 (8.6-10.3) mg/dl Magnesium 2.1 (1.7-2.4) mg/dl Diagnostic Findings Chest X-Ray 12/25/22 08:26 XR chest 1V portable CLINICAL HISTORY: f/u congestion, cough TECHNIQUE: Single frontal radiograph of the chest was obtained. Comparison: Comparison is made to chest radiograph 12/23/2022 FINDINGS: Pacemaker defibrillator is seen. Cardiomegaly is noted. The lungs are clear. No evidence of pleural effusion or pneumothorax. IMPRESSION: No acute chest disease. ACT 112: Negative or not required by law. Electronically signed by: Reynold Park M.D. 12/25/2022 8:58 AM PG Care Time/CCT Total # of Minutes Spent Total Time Spent with Patient: Total time spent is greater than 50% in coordination of care (as documented) at patient's floor/unit and/or counseling patient: Coding Level of Care Code 30947 SUB INP/OBS CARE 3/50MIN Diagnoses Chest pain R07.9 Atrial fibrillation I48.91 Diabetes mellitus E11.9 HTN (hypertension) I10 ERNESTO on CPAP G47.33; Z99.89 Acid reflux disease K21.9
[2022-12-25 08:13] LABS: BUN Creatinine Ratio 20.9 (10-20); Calcium 9.4 mg/dl (8.6-10.3); Creatinine Clr Calc Pharmacy 134.6 ml/min; Est GFR (African American) 90.2 ml/min; Est GFR (Non-African American) 77.9 ml/min
[2022-12-25] MEDS: allopurinoL 300 MG TAB PO SCH (08:24)
[2022-12-25] MEDS: amLODIPine BESYLATE 5 MG TAB PO SCH (08:25)
[2022-12-25] MEDS: AMIODARONE 200 MG TAB PO SCH ×2 (08:25→20:38)
[2022-12-25] MEDS: ASPIRIN 81 MG ECTAB PO SCH (08:26)
[2022-12-25] MEDS: ATORVASTATIN 40 MG TAB PO SCH (08:26)
[2022-12-25] MEDS: DORZOLAMIDE/TIMOLOL 22.3/6.8MG/ML 10 ML BTL OP SCH ×2 (08:28→20:40)
[2022-12-25] MEDS: FLUTICASONE PROPIONATE NA SPR 16 GM BTL SCH (08:28)
[2022-12-25] MEDS: FLUTICASONE/VILANTEROL 100/25MCG 14 PUFFS/INHALER INH SCH (08:29)
[2022-12-25] MEDS: LORATADINE 10 MG TAB PO SCH (08:29)
[2022-12-25] MEDS: PANTOprazole 40 MG TAB PO SCH ×2 (08:30→20:41)
[2022-12-25] MEDS: METOPROLOL SUCC 50MG EXT REL TAB PO SCH ×2 (08:30→20:39)
[2022-12-25] MEDS: MONTELUKAST SODIUM 10 MG TABLET PO SCH (08:30)
[2022-12-25] MEDS: TICAGRELOR 90 MG TAB PO SCH ×2 (08:31→20:38)
[2022-12-25] MEDS: predniSONE 20 MG TAB PO SCH (08:31)
--- NOTE | 2022-12-25 09:00 | XRay Report ---
XR chest 1V portable CLINICAL HISTORY: f/u congestion, cough TECHNIQUE: Single frontal radiograph of the chest was obtained. Comparison: Comparison is made to chest radiograph 12/23/2022 FINDINGS: Pacemaker defibrillator is seen. Cardiomegaly is noted. The lungs are clear. No evidence of pleural e ffusion or pneumothorax. IMPRESSION: No acute chest disease. ACT 112: Negative or not required by law. Electronically signed by: Reynold Park M.D. 12/25/2022 8:58 AM
[2022-12-25] MEDS ORDERED: FUROSEMIDE 40 MG/4 ML VIAL IV ONE (11:37)
[2022-12-25] MEDS: COLCHICINE 0.6 MG TAB PO SCH ×2 (12:39→20:40)
--- NOTE | 2022-12-25 17:32 | Cardiology Progress Note ---
Date of Service December 25, 2022 Assessment & Plan (1) ACS (acute coronary syndrome): (2) Atrial fibrillation: (3) Ventricular fibrillation: Plan 1. Tachy-adeola syndrome 2. 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 Residual intermediate mid LAD, 90% ostial D2 3. A-fib with RVR 4. CardiomyopathyEF 40 to 45% with inferoseptal wall motion abnormality 5. Hypertension 6. Right bundle branch block 7. Type 2 diabetes 8. GERD 9. Mild JEANINE 10. Ventricular fibrillation Overall improving. No recurrent chest discomfort, evidence of ischemia, mechanical complication or heart failure. Will continue dual anti-platelet therapy. Will restart Xarelto this evening. Continued atrial fibrillation. Overall rates improved. Will likely continue to see improvement with amiodarone. Think we still have some room to increase the metoprolol succinate as well. Ventricular fibrillation: No recurrent arrhythmias. Normally functioning biventricular ICD. Admission and Anticipated Discharge Date Admission Date: December 20, 2022 Subjective This morning the patient claimed he feeling well. The ankle pain from yesterday has improved significantly. He was actually ambulatory today without any assistive devices. He denies dizziness, lightheadedness, chest pain or breathing difficulty. Still has a persistent nonproductive cough. Review of Systems Review of Systems: Per HPI Physical Exam Physical Exam: The patient is alert and oriented. Mood and affect appeared normal. He answered all questions appropriately. Obese HEENT: Pupils are equal and reactive to light and accommodation. Extraocular movements are intact. The sclerae are anicteric. Neuro: Cranial nerves intact Chest: No evidence of hematoma at the device implant site in the left upper pectoral area. Minor ecchymosis Lungs: Clear to auscultation bilaterally. He has good air movement without use of accessory muscles. No rales wheezes or rhonchi. Cardiac: Heart demonstrates an irregular rate and rhythm. Normal S1 and S2. No murmurs on examination. Pulses: Good perfusion of the right hand with palpable right radial pulse. Extremities: There was no evidence of hypoperfusion. There is no cyanosis or clubbing. Mild lower extremity edema bilaterally Skin: I did not appreciate any rashes on examination today. Results & Data Vital Signs (Past 12 Hours) Vital Signs Temp Pulse Pulse Pulse Resp BP BP 12/25/22 16:00 103 H 12/25/22 15:40 36.8 C 66 19 124/81 12/25/22 14:41 12/25/22 08:00 93 H 12/25/22 11:23 36.6 C 78 19 133/100 12/25/22 07:47 36.6 C 79 20 131/86 12/25/22 06:21 36.4 C L 86 18 158/104 H Pulse Ox O2 Del Method 12/25/22 16:00 12/25/22 15:40 92 Room Air 12/25/22 14:41 Room Air 12/25/22 08:00 12/25/22 11:23 97 Room Air 12/25/22 07:47 96 Room Air 12/25/22 06:21 96 Room Air Laboratory Results Abnormal Lab Results 12/25/22 12/25/22 12/25/22 05:35 05:35 07:32 WBC 14.21 H RBC 4.40 L Hgb 12.9 L Hct 38.5 L MCV 87.5 MCH 29.3 MCHC 33.5 RDW Std Deviation 39.6 RDW Coeff of Tripp 12.4 Plt Count 405 H MPV 11.8 Sodium 138 Potassium 4.0 Chloride 101 Carbon Dioxide 22 Anion Gap 15 H BUN 23 Creatinine 1.10 Est Cr Clr Drug Dosing 134.6 Est GFR ( Amer) 90.2 Est GFR (Non-Af Amer) 77.9 BUN/Creatinine Ratio 20.9 H Glucose 112 H POC Glucose 100 H Uric Acid 4.3 Calcium 9.4 Magnesium 2.1 Diagnostic Findings Cardiac catheterization yesterday revealed occlusion of the previously stented 1st diagonal branch. PCI was performed with successful revascularization. Borderline reduced LV systolic function with moderate left atrial dilation. Borderline aortic root dilation Implantation of biventricular Med[employer] ICD 12/22/2022 PG Care Time/CCT Total # of Minutes Spent Total Time Spent with Patient: Total time spent is greater than 50% in coordination of care (as documented) at patient's floor/unit and/or counseling patient: Coding Level of Care Code 86697 SUB INP/OBS CARE 2/35MIN Diagnoses ACS (acute coronary syndrome) I24.9 Atrial fibrillation I48.91 Ventricular fibrillation I49.01
[2022-12-26 06:39] LABS: Basophils # (auto) 0.03 K/uL (0-0.2); Basophils % (auto) 0.3 %; Eosinophils # (auto) 0.29 K/uL (0-0.50); Hematocrit (blood only) 34.9 % (42.0-52.0); Hemoglobin 11.5 g/dl (14.0-18.0); Immature Granulocytes # (auto) 0.06 K/uL (0.01-0.20); Immature Granulocytes % (auto) 0.6 %; Lymphocytes # (auto) 1.04 K/uL (1.2-3.4); Lymphocytes % (auto) 10.6 %; Mean Corpuscular Hemoglobin 28.9 pg (25.0-34.0); Mean Corpuscular Volume 87.7 fL (80.0-100.0); Mean Platelet Volume 11.6 fL (9.4-12.4); Monocytes # (auto) 1.17 K/uL (0.11-0.59); Neutrophils # (auto) 7.19 K/uL (1.40-6.50); Neutrophils % (auto) 73.5 %; Platelet Count 329 K/uL (130-400); RDW Coefficient of Variation 12.4 % (11.5-14.5); RDW Standard Deviation 39.8 fL (36.4-46.3); Red Blood Count 3.98 M/uL (4.70-6.10); White Blood Count 9.78 K/ul (4.8-10.8)
[2022-12-26 06:58] LABS: BUN Creatinine Ratio 23.5 (10-20); Calcium 8.8 mg/dl (8.6-10.3); Creatinine Clr Calc Pharmacy 128.3 ml/min; Est GFR (African American) 85.5 ml/min; Est GFR (Non-African American) 73.8 ml/min; Potassium 3.4 mmol/L (3.5-5.1)
[2022-12-26 07:16] LABS: Ferritin 1169.6 ng/ml (8-388)
[2022-12-26 07:19] LABS: Folate (Folic Acid),Ser orPlas 12.98 ng/ml (>5.38)
[2022-12-26] MEDS ORDERED: POTASSIUM CHLORIDE CRTAB 20 MEQ TABCR PO STA ×2 (07:36→11:32)
--- NOTE | 2022-12-26 07:38 | Hospitalist Progress Note ---
Date of Service December 26, 2022 Assessment & Plan (1) Chest pain: Plan: Chang is a 52-year-old male with a past medical history of ERNESTO on CPAP, A-fib with history of RVR on Xarelto, DM 2, hypertension, GERD and recent hospital admission 12/15 - 12/17 for chest pain who presents to the ER as a heart alert and had multiple 7+ second pauses while on telemetry in the ER s/p Cardiac cath 12/[address] Barroso last admission. At that time, ECHO w/ mildly dilated left ventricle, EF 40-45%. Akinesis of basal inferoseptum and inferior base otherwise mild global hypokinesis. Mild to moderate concentric LVH. Mild left atrial dilation. A-fib. No significant valvular disease noted. Impression at that time: Multivessel CAD. Small to medium D1 90% proximal disease, 50-60% mid LAD at bifurcation, 80-90% ostial disease, 40% mid circumflex disease. s/p PCI LUZ x1 to D1, residual mid LAD disease and 90% osteal D2. Discharged on 12/17 on Xarelto/Plavix, Metoprolol 100 twice daily. Lisinopril 20 mg daily be resumed once JEANINE resolved. Amlodipine considered if BP persistently elevated Patient presented 12/20 with recurrent NSTEMI, emergent cath, D1 stent occludedPCI and additional stent placed Repeat ECHO 12/20 w/ LV systolic function borderline reduced, EF 45-50%. Borderline aortic root dilatation. 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 tach V-fib prior to procedure patient had an AICD placed on 12/22/2022, Started on amiodarone now continued for poorly controlled afib metoprolol doses escalated, EP cardiology is following 12/25 No chest pain at present, biggest issue is cough. Of note, lisinopril on med list, held at [facility] last time due to JEANINE, has not been resumed. Unlikely from PATRICIA but cannot rule out. Has not gotten during admission currently Had also had his protonix increased to BID for sinus/gerd possible, no improvement Patient given LE swelling/cough will give additional 40mg IV lasix NOW (most recent ECHO w/ borderline reduced LV function 40-45%) Monitor urine output and possible additional dose this evening depending. Noting he was previously on HCTZ-triamterene last admission for diuretic for his BP but as BB was initiated and jardiance/other medications, this was discontinued at that time. Discussed may benefit from daily diuretic and will monitor current response and if not net negative this afternoon 1-2L will plan additional dose lasix for this evening 12/26 --> Given lasix 40mg IV, reported improvement in cough. K 3.4, 40meq KCL ordered for this morning. Mag wnl Dr Mccartney also increased metoprolol to 200mg BID and appears rates are also improved Ankle pain/?Gout Possible gout flare/ankle discomfort, given IV methylprednisolone and lasix 40mg IV on 12/24 w/ improvement in pain. Uric acid w/ this mornings labs not significantly elevated but was checked after starting treatment and stated felt similar to prior attacks Discussed w supervising provider and will order colchicine BID as well, daily EKG while on amiodarone. No significant diarrhea reported On prednisone 20mg daily, hopefully will be able to discontinue to prevent fluid retention/edema (2) Atrial fibrillation: Plan: A-fib with history of RVR Consideration tachybradycardia syndrome in the situation of recent NSTEMI and stenting x2 Typically on Xarelto which was on hold for AICD/ pacemaker placement -- discussed w/ Dr Mccartney and planning to resume tonight 12/25 metoprolol per cardiology, reduced when amlodipine added for BP but increased back to 150mg BID at present and continuing such Per Dr Mccartney, likely needing more time for full effect of amiodarone and continuing current regimen given rates improving and low 100s/1-teens Continues on amiodarone 400mg BID Monitoring on telemetry Keep K/mag replete -- acceptable on AM labs and will continue to monitor (3) Diabetes mellitus: Plan: DM 2 Last A1c 5.9% [employer] C[employer] 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 Goal BSG [id number] BSGs acceptable at present (4) HTN (hypertension): Plan: Hypertension Amlodipine 10mg daily added 12/23, metoprolol decreased to 150mg BID Lasix IV yesterday 40mg x 1, repeat for today and will monitor output and possible additional dose for this evening BPs fluctuating -- monitor/adjustments as needed Prior was on HCTZ/triamterene prior to last admission requiring stenting. Will monitor response to lasix in setting of slightly reduced EF, possible need for low dose diuretic at discharge Hyperlipidemia Started on lipid therapy 12/15, lipid panel last admission with cholesterol 155, LDL 92, HDL 35 Lipitor 40 daily (5) ERNESTO on CPAP: Plan: prior noncompliance due to dirty machine CPAP nightly, restart Claritin and Singulair. (6) Acid reflux disease: Plan: PPI daily continue, increased to BID on 12/24 Recent JEANINE, resolved, ckd 3 --? Able to resume lisinopril-- will hold off now as giving lasix IV again today but if kidney function stable on AM labs will hopefully be able to resume to help given slightly reduced EF/CAD as above vs low dose diuretics. Per Dr barroso last admission, consideration for addition of spironolactone as well Renal dose meds as able/avoid nephrotoxins BUN/Cr stable on labs and will monitor Plan continued inpatient stay patient hopeful for discharge in next day or so but will monitor for now Admission and Anticipated Discharge Date Admission Date: December 20, 2022 Results & Data Results & Data Vital Signs (Past 12 Hours) Vital Signs Temp Pulse Pulse Pulse Resp BP BP 12/26/22 07:17 36.6 C 76 16 135/87 12/26/22 04:56 36.4 C L 88 18 147/84 H 12/26/22 02:12 14 12/26/22 00:00 85 12/25/22 22:57 36.5 C 87 18 116/74 12/25/22 20:00 12/25/22 22:05 107 H 21 Pulse Ox O2 Del Method O2 Flow Rate 12/26/22 07:17 95 Room Air 12/26/22 04:56 98 Room Air 12/26/22 02:12 99 12/26/22 00:00 12/25/22 22:57 99 Room Air 12/25/22 20:00 Room Air 12/25/22 22:05 97 2 PG Care Time/CCT Total # of Minutes Spent Total Time Spent with Patient: Total time spent is greater than 50% in coordination of care (as documented) at patient's floor/unit and/or counseling patient: Coding Diagnoses Chest pain R07.9 Atrial fibrillation I48.91 Diabetes mellitus E11.9 HTN (hypertension) I10 ERNESTO on CPAP G47.33; Z99.89 Acid reflux disease K21.9
[2022-12-26] MEDS: FLUTICASONE PROPIONATE NA SPR 16 GM BTL SCH (07:59)
[2022-12-26] MEDS: TICAGRELOR 90 MG TAB PO SCH (08:00)
[2022-12-26] MEDS: FLUTICASONE/VILANTEROL 100/25MCG 14 PUFFS/INHALER INH SCH (08:00)
[2022-12-26] MEDS: MONTELUKAST SODIUM 10 MG TABLET PO SCH (08:00)
[2022-12-26] MEDS: ATORVASTATIN 40 MG TAB PO SCH (08:00)
[2022-12-26] MEDS: DORZOLAMIDE/TIMOLOL 22.3/6.8MG/ML 10 ML BTL OP SCH (08:00)
[2022-12-26] MEDS: COLCHICINE 0.6 MG TAB PO SCH (08:01)
[2022-12-26] MEDS: LORATADINE 10 MG TAB PO SCH (08:01)
[2022-12-26] MEDS: METOPROLOL SUCC 50MG EXT REL TAB PO SCH (08:01)
[2022-12-26] MEDS: ASPIRIN 81 MG ECTAB PO SCH (08:02)
[2022-12-26] MEDS: allopurinoL 300 MG TAB PO SCH (08:02)
[2022-12-26] MEDS: PANTOprazole 40 MG TAB PO SCH (08:02)
[2022-12-26] MEDS: amLODIPine BESYLATE 5 MG TAB PO SCH (08:02)
[2022-12-26] MEDS: AMIODARONE 200 MG TAB PO SCH (08:03)
--- NOTE | 2022-12-26 08:28 | Electrocardiogram Report ---
Test Reason : Blood Pressure : / mmHG Vent. Rate : 082 BPM Atrial Rate : 082 BPM P-R Int : 000 ms QRS Dur : 170 ms QT Int : 484 ms P-R-T Axes : 000 -59 092 degrees QTc Int : 565 ms Ventricular-paced rhythm Biventricular pacemaker detected Abnormal ECG Confirmed by Zane Mccartney ([id number]) on 12/26/2022 8:27:55 AM Referred By: REFERRED SELF Confirmed By:Santana Mccartney
[2022-12-26] MEDS: predniSONE 20 MG TAB PO SCH (08:42)
--- NOTE | 2022-12-26 11:33 | Discharge Summary ---
Date of Service December 26, 2022 Admission HPI Per Admitting Provider Chang is a 52-year-old male with a past medical history of ERNESTO on CPAP, A-fib with history of RVR on Xarelto, DM 2, hypertension, GERD and recent hospital admission 12/15 - 12/17 for chest pain who presents to the ER as a heart alert and had multiple 7+ second pauses while on telemetry in the ER Patient taken emergently to the Lathe Operator, history collected via collateral. Patient was pain-free upon discharge from the hospital from his prior NSTEMI and stent placement. Around 930 this morning patient developedCrushing substernal chest pressure with shortness of breath, diaphoresis, dizziness, and radiation of pain into his left arm. He was brought to the hospital as a heart alert. While in the ER initial EKG was A-fib with aberrancy versus right bundle branch block, while on telemetry patient subsequently had multiple 7-second pauses. Patient received atropine x1 with reduction in pause length to around 1-3 seconds, pacer pads were obtained but ultimately not used, and patient was taken emergently to the Lathe Operator for transvenous pacer placement and cardiac catheterization Addendum: Pt seen after xfer to ICU. Feels cold, but is chest pain free. Denies chest pressur,e chest pain, palpitations at bedside. Does endorse comse chest soreness when moving in bed, none currently at rest. Notes potassium pills did upset his stomach slightly, felt better after burping. 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 He reprots he has never had problems with slow heart rate before, only his afib going too quickly. +diarrhea for 2 days, ndenies fever/abdominal pain. Cotinues to feel cold but without shaking/rigors post-cath. Curious about whether he will receive a pacer or not, otherwise no questions at time of visit. Medical History: Reviewed Medications: Reviewed Surgical History: Reviewed Family history: Reviewed Allergies: Reviewed Social History: Reviewed Code Status: Full Admission Exam Per Admitting Provider General: A&Ox3. NAD post cath. HEENT: Atraumatic, normocephalic. Vision/hearing intact Pulm: CTAB A&P. -wheezes, -rales, -rhonchi. Symmetrical chest rise. No increased work of breathing. No respiratory distress. Cardiac: irir, -mrg. Radial pulses intact and symmetrical. Abdominal: Nontender, nondistended, soft. BS present. Ext: warm, dry. cap refill in fingers intact and brisk Principal Diagnosis Chest Pain, CAD, in-stent thrombosis, tachybrady syndrome with pauses requiring pacemaker/ICD Discharge Exam General: WN/WD obese male sitting up in chair, NAD HEENT: head normocephalic, thick neck, mmm, trachea midline Chest: pacemaker site to LEFT chest,no drainage/erythema, mild surrounding ecchymosis Resp: CTA, slightly diminished in the bases, no w/c/r, on room air CV: irregularly irregular, rates 70s, no significant m/r/g, +1LE edema bilaterally, calves nontender, pulses present GI+ BS, soft/NT : no jesus, urinal at bedside MSK/Neuro: no focal deficits, follows commands, no facial droop/slurred speech edema to b/l LE as above IMPROVING, worse around ankles, R>L ankle DECREASED tenderness, no obvious warmth/erythema on exam today Psych: AOx3, cooperative with exam Discharge Data Allergies Allergy/AdvReac Type Severity Reaction Status Date / Time cat dander Allergy Intermediate Itchy, Verified 11/03/22 11:26 watery eyes, sneezing dog dander Allergy Intermediate Itchy, Verified 11/03/22 11:26 watery eyes, sneezing pollen extracts Allergy Intermediate SNEEZE,ITCHY Verified 11/03/22 11:26 WATERY EYES house dust mite Allergy Unknown Verified 12/20/22 19:20 mold Allergy Unknown Verified 12/20/22 19:20 morphine Allergy Vomiting Verified 12/20/22 19:20 oxycodone [From Percocet] Allergy Unknown Verified 12/20/22 19:20 Consultations 12/20/22 11:38 ED Decision to Admit Stat 12/20/22 13:05 Consult Huller Operator Routine Procedures Performed Operation Date: 12/22/22 10:00 Actual Procedures p ICD Insertion Single or Dual - Zane Mccartney MD s Venogram, Unilateral - Zane Mccartney MD s Lead LV (No Priopr Implant) - Zane Mccartney MD s Cardiopulmonary Resuscitation - Zane Mccartney MD Ordered Studies 12/20/22 11:14 CL Cath Imgs for PACS use only Stat 12/22/22 07:00 EP Lab Images for PACS ONCE Hospital Course (1) Chest pain: Chang is a 52-year-old male with a past medical history of ERNESTO on CPAP, A-fib with history of RVR on Xarelto, DM 2, hypertension, GERD and recent hospital admission 12/15 - 12/17 for chest pain who presents to the ER as a heart alert and had multiple 7+ second pauses while on telemetry in the ER s/p Cardiac cath 12/[address] Barroso last admission. At that time, ECHO w/ mildly dilated left ventricle, EF 40-45%. Akinesis of basal inferoseptum and inferior base otherwise mild global hypokinesis. Mild to moderate concentric LVH. Mild left atrial dilation. A-fib. No significant valvular disease noted. Impression at that time: Multivessel CAD. Small to medium D1 90% proximal disease, 50-60% mid LAD at bifurcation, 80-90% ostial disease, 40% mid circumflex disease. s/p PCI LUZ x1 to D1, residual mid LAD disease and 90% osteal D2. Discharged on 12/17 on Xarelto/Plavix, Metoprolol 100 twice daily. Lisinopril 20 mg daily be resumed once JEANINE resolved. Patient presented 12/20 with recurrent NSTEMI, emergent cath, D1 stent occludedPCI and additional stent placed and patient switched from ASA/Plavix to ASA/Brillinta Repeat ECHO 12/20 w/ LV systolic function borderline reduced, EF 45-50%. Borderline aortic root dilatation. LA moderately dilated Transvenous pacing was required for tachy-adeola syndrome patient went to the Lathe Operator for pacemaker placement developed V. tach V-fib prior to procedure patient had an AICD placed on 12/22/2022, with Dr Mccartney Started on amiodarone for poorly controlled afib metoprolol doses escalated, EP cardiology following during inpatient stay No further chest pain reported but had issues with gout as well as LE swelling concerning for volume overload. Suspected combination of elevated HR w/ prior poorly controlled rates as well as he was discontinued from his prior HCTZ- triamterene (also reports drinking LOTS of water, encouraged to limit 1.5-2L/day max). Given lasix 40mg IV x 1 on 12/24, repeated again on 12/25 with improvement in cough as well as LE edema and decision to continue lasix 40mg PO daily at discharge and instructed to monitor his weights. He notes his weight is back to what he came in at but had been elevated. Discussed monitoring for weight gain >3lb in 24 hours or 5lb in a week to call and this may need to be adjusted. Metoprolol was increased to 200mg BID evening 12/25 with improvement in rates and currently in the 70s Discussed keeping patient overnight to monitor electrolytes but he preferred to go home and discussed repeat labs for Thursday to ensure renal function stable. Instructed to hold off resuming his lisinopril or metformin until seen in followup. Can resume his Jardiance. To consider ozempic w/ PCP to assist w/ weight loss as well.. Discussed case with cardiology prior to discharge and felt stable from cardiac standpoint On discharge, patient to be on ASA/Plavix/Xarelto x 1 month at LEAST (also increased PPI to BID) -- duration TBD by cardiology thereafter. Continue metoprolol 200mg BID, amiodarone 400mg BID, amlodipine 10mg, statin, nitro prn and lasix 40mg PO daily. He also had a gout flare, given IV methylpred, lasix as above. Uric acid after that was normal but exam was c/w acute gout. Given prednisone PO and colchicine w/ improvement and complete course prednisone at discharge. 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 BSGs acceptable. Discussed holding off restarting metformin until repeat labs to prevent hypoglycemia. To discuss possible ozempic for weight loss w/ PCP (4) HTN (hypertension): Uncontrolled, adjustments made w/ improvements On dc, amlodipine 10mg, metoprolol 200mg BID as above, lasix given prior on HCTZ-triamterene for volume management Hyperlipidemia Started on lipid therapy 12/15, lipid panel last admission with cholesterol 155, LDL 92, HDL 35 Lipitor 40 daily (5) ERNESTO on CPAP: prior noncompliance due to dirty machine CPAP nightly, restarted Claritin and Singulair. (6) Acid reflux disease: PPI daily continue, increased to BID on 12/24 and continued BID at discahrge given triple therapy to prevent issues/bleeding Recent JEANINE, resolved, ckd 3 Resolved, Cr slight bump, likely due to lasix. Decision for 40mg daily, hold off lisinopril until seen in f/u repeat labs (7) Gout attack: reported, hx, similar symptoms. erythema/pain on exam. IV steroids/convert to PO prednisone. Given colchicine for a day w/ improvement and prednisone PO at dc for 5 day course. Continue allopurinol. Improvement in symptoms, now able to ambulate No need for rehab per therapy since improvement /w treatment Plan discharged home on triple therapy, BP/afib management, diuretics f/u cardiology/EP and PCP Total Time Total Time Spent Total Time Spent (In Minutes): 50 Discharge Plan Discharge Items Patient Disposition: Home - Self-Care Reason For Visit: HEART ALERT, S/O TV PACING FOR PRLONGED PAUSE Discharge Diagnosis: Tachybrady syndrome requiring pacemaker, coronary artery disease requiring stent Goals: You have been hospitalized for an urgent problem which required surgery. During your stay at [facility], we have made an effort to correct the problem that brought you to the hospital while keeping you as comfortable as possible. Surgery and medications were used to bring your condition under control and your discharge instructions will include directions for any medications you should take after leaving the hospital. Please make sure to follow the advice of your surgeon regarding follow up with the surgeon and with your primary care provider. Activity: As commented below Non-emergency contact: Primary Care Provider and Surgical Coordinator Call non-emergency contact if: you have any medication questions, your symptoms worsen and your pain is not controlled Follow-up/Referrals: Jose Angel Barroso MD [Physician] - Zane Mccartney MD [Physician] - 12/30/22 9:45 Fidel Foster, DO [Primary Care Provider] - 12/29/22 9:30 am Diet: Carb Consistent or DM2 and Dialysis Renal Ambulatory Orders: Basic Metabolic Panel (Routine) Timeframe: 20221229 Location: Determined by Patient Ordered By: Mary Mazariegos Magnesium (Routine) Timeframe: 20221229 Location: Determined by Patient Ordered By: Mary Mazariegos Addtl Attending Provider Instructions: You have been hospitalized for chest pain and required cardiac catheterization for stenting with Dr Barroso. You then developed pauses that required placement of an implantable cardiac device with Dr Mccartney. You should not lift your arm above your head for 2 weeks until seen by Dr Mccartney. You had a little gout flare while in the hospital and have another 3 days of 20mg daily to complete treatment. We have restarted a diuretic, lasix 40mg orally by mouth, to help with fluid retention/edema given your previous HCTZ- triamterene was discontinued. Your medications at discharge as follows for your stent: * Continue Xarelto 20mg daily * Brillinta 90mg TWICE daily * Aspirin 81mg ONCE DAILY * --> These three medications will be for at least 1 month and should be cleared by Dr Barroso prior to discontinuing your Aspirin. * Your protonix was increased to twice daily to prevent issues with reflux/bleeding prophylaxis For blood pressure and your atrial fibrillation: * Metoprolol 200mg by mouth TWICE daily * Amlodipine 10mg ONCE daily * Amiodarone 400mg by mouth TWICE daily You will have prednisone 20mg daily for another 3 days for your gout. For swelling and volume management you will be continued on lasix 40mg orally once daily at noon. We will place orders for repeat labs for on Thursday to ensure kidney function/electrolytes stay stable on this. You should continue to hold your lisinopril until seen by cardiology in follow up [facility]LL THE METFORMIN. Please follow up with primary care in the next 7-10 days to monitor your progress after discharge. Please return to the ER with any worsening pain, chest pain, shortness of breath, or for any other symptoms concerning for you. It has been a pleasure being a part of the medical team providing for you while you have been in the hospital. Take care! Pending Studies at Discharge: No Stand-Alone Forms: My [facility] [employer], Smoking Cessation Medications and DC Order Prescriptions: New amiodarone 200 mg Tablet 400 mg PO BID 30 Days Qty: 120 0RF metoprolol succinate 50 mg Tablet Extended Release 24 Hr 200 mg PO BID 30 Days Qty: 240 0RF prednisone 20 mg Tablet 20 mg PO DAILY Qty: 3 0RF aspirin 81 mg Tablet,Delayed Release (Dr/Ec) 81 mg PO QAM 30 Days Qty: 30 0RF Brilinta 90 mg Tablet 90 mg PO BID 30 Days Qty: 60 0RF furosemide 40 mg tablet 40 mg PO DAILY Qty: 30 0RF Continued montelukast 10 mg tablet 10 mg PO DAILY Qty: 90 3RF amlodipine 10 mg tablet 10 mg PO DAILY Qty: 90 3RF Xarelto 20 mg tablet 20 mg PO DAILY Qty: 90 3RF Rx Instructions: must administer with evening meal allopurinol 300 mg tablet 300 mg PO DAILY Qty: 90 3RF fluticasone propion-salmeterol [AirDuo RespiClick] 113-14 mcg/actuation aerosol powdr breath activated 1 inh inhalation BID Qty: 1 5RF Rx Instructions: PT REPORTS THAT HE STILL TAKES THIS /3 fluticasone propionate 50 mcg/actuation spray,suspension 2 sprays intranasal DAILY loratadine 10 mg tablet 10 mg PO DAILY dorzolamide-timolol 22.3-6.8 mg/mL drops 1 drops OP BID Jardiance 10 mg tablet 10 mg PO DAILY Qty: 90 3RF acetaminophen 500 mg Tablet 1,000 mg PO BID PRN (Reason: Pain) calcium carbonate [Calcium 600] 600 mg calcium (1,500 mg) Tablet 600 mg PO BID ferrous sulfate 325 mg (65 mg iron) Tablet 325 mg PO DAILY cholecalciferol (vitamin D3) [Vitamin D3] 125 mcg (5,000 unit) Tablet 125 mcg PO DAILY atorvastatin 40 mg Tablet 40 mg PO QAM Qty: 30 3RF nitroglycerin 0.4 mg tablet, sublingual 0.4 mg sublingual Q5M PRN (Reason: chest pain) Qty: 14 0RF Rx Instructions: every 5 minutes for chest pain x max 3 doses. Report to ER for pain not relieved with Nitro Changed pantoprazole 40 mg Tablet,Delayed Release (Dr/Ec) 40 mg PO BID Qty: 60 0RF Held metformin 500 mg tablet 500 mg PO DAILY Qty: 90 3RF Hold Instructions: Resume on 12/30/22. Discontinued metoprolol tartrate 100 mg Tablet 100 mg PO BID Qty: 60 0RF clopidogrel 75 mg Tablet 75 mg PO QAM Qty: 30 3RF Discharge Orders: Discharge Order (Routine); Ordered 12/26/22 Ordered By: Mary Allen/Other Patient Handouts: Prediabetes, Eating Heart-Healthy Foods Admission Data Admit Date/Time: 12/20/22 12:23 Attending Provider: Dameon Menjivar Admit Provider: Jalil Marmolejo Primary Care Provider: Fidel Borden Other Providers: Rafael Watts ; Jalil Marmolejo ; Dae Simmons Supervising Physician Co-Signing Physician Notes The patient was not seen by me. The chart was reviewed. Case discussed with OLIVA Valdez. Agree with assessment and plan Coding Level of Care Code 69179 INP/OBS DISCH >30 MIN Diagnoses Chest pain R07.9 Atrial fibrillation I48.91 Diabetes mellitus E11.9 HTN (hypertension) I10 ERNESTO on CPAP G47.33; Z99.89 Acid reflux disease K21.9 Gout attack M10.9
[2022-12-26] MEDS ORDERED: FUROSEMIDE 40 MG TAB PO ONE (11:45)
[2022-12-26] MEDS ORDERED: ATROPINE SULFATE 0.1 MG/ML 10ML SYR IV ONE (15:32)
--- NOTE | 2022-12-26 15:50 | Cardiology Progress Note ---
Date of Service December 26, 2022 Assessment & Plan (1) ACS (acute coronary syndrome): (2) Atrial fibrillation: (3) Ventricular fibrillation: Plan 1. Tachy-adeola syndrome 2. 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 Residual intermediate mid LAD, 90% ostial D2 3. A-fib with RVR 4. CardiomyopathyEF 40 to 45% with inferoseptal wall motion abnormality 5. Hypertension 6. Right bundle branch block 7. Type 2 diabetes 8. GERD 9. Mild JEANINE 10. Ventricular fibrillation Currently stable for discharge. Asymptomatic. No evidence of recurrent ischemia, congestive heart failure or concerning arrhythmia. He converted to a sinus rhythm around 1:00 p.m. this afternoon. Unfortunately, no atrial lead was placed at the time of his device implant this he appeared to be in permanent atrial fibrillation. Now on amiodarone he has returned to a sinus rhythm. However, I think this is still temporary. Will continue him on his current medications. The intention is to discontinue amiodarone at some point he certainly not a good candidate for long-term amiodarone. Xarelto restarted last evening. He can be discharged on aspirin, Brilinta and rivaroxaban. He should continue his current dose of metoprolol succinate and amiodarone 400 mg daily either in a single dose or split dose. There will be a trial of oral diuretic for lower extremity edema. Electrolytes will be checked early next week. Perhaps he will only need this on a p.r.n. basis. I will put in a consult for cardiac rehab (likely already placed from last admission) I will ask him to schedule him an appointment for device evaluation in a few weeks Admission and Anticipated Discharge Date Admission Date: December 20, 2022 Subjective This afternoon the patient is feeling well. He has been ambulatory in his ankle discomfort appears to have improved. He denies significant dyspnea with most activity. Some mild dyspnea when walking rapidly. No dizziness or lightheadedness. No recurrent chest pain. No sense of palpitation. Still some mild lower extremity edema. Review of Systems Review of Systems: Per HPI Physical Exam Physical Exam: The patient is alert and oriented. Mood and affect appeared normal. He answered all questions appropriately. Obese HEENT: Pupils are equal and reactive to light and accommodation. Extraocular movements are intact. The sclerae are anicteric. Neuro: Cranial nerves intact Chest: No evidence of hematoma at the device implant site in the left upper pectoral area. Minor ecchymosis Lungs: Clear to auscultation bilaterally. He has good air movement without use of accessory muscles. No rales wheezes or rhonchi. Cardiac: Heart demonstrates a regular rate and rhythm. Normal S1 and S2. No murmurs on examination. Pulses: Good perfusion of the right hand with palpable right radial pulse. Extremities: There was no evidence of hypoperfusion. There is no cyanosis or clubbing. Mild lower extremity edema bilaterally Skin: I did not appreciate any rashes on examination today. ENMT: Mallampati Class: III Respiratory: normal respiratory effort Cardiovascular: Rate/Rhythm: + tachycardic and + irregularly irregular Results & Data Vital Signs (Past 12 Hours) Vital Signs Temp Pulse Pulse Pulse Resp BP BP 12/26/22 15:15 36.6 C 62 20 112/77 12/26/22 14:59 36.5 C 88 76 20 116/74 130/87 12/26/22 08:00 12/26/22 08:00 73 12/26/22 11:09 36.5 C 76 20 130/87 12/26/22 07:17 36.6 C 76 16 135/87 12/26/22 04:56 36.4 C L 88 18 147/84 H Pulse Ox O2 Del Method 12/26/22 15:15 96 Room Air 12/26/22 14:59 98 12/26/22 08:00 Room Air 12/26/22 08:00 12/26/22 11:09 98 Room Air 12/26/22 07:17 95 Room Air 12/26/22 04:56 98 Room Air Laboratory Results Abnormal Lab Results 12/26/22 12/26/22 12/26/22 05:55 05:55 05:55 WBC 9.78 RBC 3.98 L Hgb 11.5 L Hct 34.9 L MCV 87.7 MCH 28.9 MCHC 33.0 RDW Std Deviation 39.8 RDW Coeff of Tripp 12.4 Plt Count 329 MPV 11.6 Immature Gran % (Auto) 0.6 Neut % (Auto) 73.5 Lymph % (Auto) 10.6 [place] % (Auto) 12.0 Eos % (Auto) 3.0 Baso % (Auto) 0.3 Neut # (Auto) 7.19 H Lymph # (Auto) 1.04 L [place] # (Auto) 1.17 H Eos # (Auto) 0.29 Baso # (Auto) 0.03 Immature Gran # (Auto) 0.06 Sodium 138 Potassium 3.4 L Chloride 102 Carbon Dioxide 28 Anion Gap 8 BUN 27 H Creatinine 1.15 Est Cr Clr Drug Dosing 128.3 Est GFR ( Amer) 85.5 Est GFR (Non-Af Amer) 73.8 BUN/Creatinine Ratio 23.5 H Glucose 86 POC Glucose Calcium 8.8 Magnesium 2.0 Iron 56 TIBC 216 L Unsaturated IBC 160 Transferrin % Sat 26 Ferritin 1169.6 H Vitamin B12 458 Folate 12.98 12/26/22 11:03 WBC RBC Hgb Hct MCV MCH MCHC RDW Std Deviation RDW Coeff of Tripp Plt Count MPV Immature Gran % (Auto) Neut % (Auto) Lymph % (Auto) [place] % (Auto) Eos % (Auto) Baso % (Auto) Neut # (Auto) Lymph # (Auto) [place] # (Auto) Eos # (Auto) Baso # (Auto) Immature Gran # (Auto) Sodium Potassium Chloride Carbon Dioxide Anion Gap BUN Creatinine Est Cr Clr Drug Dosing Est GFR ( Amer) Est GFR (Non-Af Amer) BUN/Creatinine Ratio Glucose POC Glucose 98 Calcium Magnesium Iron TIBC Unsaturated IBC Transferrin % Sat Ferritin Vitamin B12 Folate PG Care Time/CCT Total # of Minutes Spent Total Time Spent with Patient: Total time spent is greater than 50% in coordination of care (as documented) at patient's floor/unit and/or counseling patient: Coding Level of Care Code 63052 SUB INP/OBS CARE 2/35MIN Diagnoses ACS (acute coronary syndrome) I24.9 Atrial fibrillation I48.91 Ventricular fibrillation I49.01
== END 2022-12-26 15:33 | disposition home or self-care (01) | DRG 222 ==
LOC: ED 10:37 → CC 11:36 → SUATTDRO 12:23 → 1E 13:20 → 2S 12-25 06:03
PROC: EPB.ICD (2022-12-22 10:00)
PROC: CLB.CPR (2022-12-22 10:00)

== ENCOUNTER 2024-02-25 21:27 | Inpatient (IN) ==
[2024-02-25 22:03] LABS: Basophils # (auto) 0.04 K/uL (0.00-0.20); Basophils % (auto) 0.3 %; Eosinophils # (auto) 0.24 K/uL (0.00-0.50); Eosinophils % (auto) 2.1 %; Hematocrit (blood only) 47.1 % (42.0-52.0); Immature Granulocytes # (auto) 0.08 K/uL (0.01-0.20); Immature Granulocytes % (auto) 0.7 %; Lymphocytes # (auto) 1.85 K/uL (1.20-3.40); Lymphocytes % (auto) 16.2 %; Mean Corpuscular Hemoglobin 29.6 pg (25.0-34.0); Mean Corpuscular Hgb Conc 31.8 g/dL (32.0-36.0); Mean Corpuscular Volume 93.1 fL (80.0-100.0); Mean Platelet Volume 10.8 fL (9.4-12.4); Monocytes % (auto) 8.7 %; Neutrophils # (auto) 8.22 K/uL (1.40-6.50); Platelet Count 227 K/uL (130-400); RDW Coefficient of Variation 13.4 % (11.5-14.5); RDW Standard Deviation 45.6 fL (36.4-46.3); Red Blood Count 5.06 M/uL (4.70-6.10); White Blood Count 11.43 K/ul (4.8-10.8)
[2024-02-25 22:18] LABS: INR 1.2 (0.9-1.1); Partial Thromboplastin Ratio 1.1; Partial Thromboplastin Time 30 Seconds (21-31); Prothrombin Time 13.1 Seconds (9.0-12.0)
[2024-02-25 22:30] LABS: Troponin I High Sensitivity 6.9 pg/ml (0-20)
[2024-02-25 22:46] LABS: Albumin Level 4.5 gm/dl (3.4-5.0); Bilirubin,Total 0.4 mg/dl (0.2-1.0); Calcium 9.4 mg/dl (8.6-10.3)
[2024-02-25 22:52] LABS: Albumin Globulin Ratio 1.6 (0.9-2); BUN Creatinine Ratio 24.2 (10-20); Creatinine Clr Calc Pharmacy 114.5 ml/min; Globulin 2.9 gm/dl (2.5-4.0); Total Protein 7.4 gm/dl (6.0-8.3)
--- NOTE | 2024-02-25 22:52 | Emergency Department Note ---
Impression & Plan Syncope, V tach ED Provider Note Provider: Maxime Suarez MD DATE OF SERVICE: 02/25/2024 CHIEF COMPLAINT: Syncopized twice HISTORY OF PRESENT ILLNESS: Patient is a 53-year past medical history of CAD, heart failure/cardiomyopathy, A-fib, hypertension, obesity, AICD pacemaker presenting here today from home. Has had a chronic cough for multiple weeks and recently physicians a prednisone taper yesterday. Has been using Mucinex Nexium for the pain. No significant shortness of breath or chest pain. States occasionally gets a little dizzy when standing up or move around but otherwise has been doing fairly well. Was on the couch this evening all of a sudden felt a little bit head pressure and dizzy and then according to passed out. He does not remember this. states it seemed like he was shaking just a bit and jolted. He then awoke and was talking and felt okay. This was around 7:30 PM. Around 9 PM was walking in the hallway to get to bed slumped over against the wall and went to the ground. states he was briefly out then and then awoke. Came here. Denies a second trauma. States medication compliance and has been taking his meds. PAST MEDICAL HISTORY: As noted above MEDICATIONS: Reviewed home medications and states compliance. Has been using Mucinex with this fourth and and just finished a prednisone course SOCIAL HISTORY: PHYSICAL EXAM: GENERAL: alert and oriented in no acute distress on stretcher Head: normocephalic and atraumatic EYES: No injection, discharge or icterus. NECK: Trachea midline. ENT: Mucous membranes pink and moist. LUNGS: Airway patent. No retractions or tachypnea HEART: Irregular irregular rate and rhythm. No chest wall tenderness ABDOMEN: Soft and non-tender, without guarding or rebound. SKIN: Acyanotic, warm, dry, without rashes EXTREMITIES: Without tenderness or deformity with trace lower extremity edema. NEUROLOGICAL: No focal deficits. No aphasia. No facial droop or slurred speech. Ambulatory. EK bpm ventricularly paced rhythm occasionally transmitted beat. Intraventricular conduction delay consistent with pacing without clear evidence of acute ST segment elevation or depression of significance. EK bpm ventricular paced rhythm with a few natively conducted beats. No obvious acute ST segment elevation with a QTc of 556. CONTINUOUS CARDIAC MONITORING: was ordered and showed a heart rate of 70s to 90s bpm in ventricular paced rhythm occasional PVC. 1 view chest x-ray: Pacemaker in place. Cardiomegaly. No clear effusion or pneumonia noted. No pneumothorax. Patient's laboratory studies and imaging reviewed. Differential includes Vasovagal event, dehydration, infection, hypoglycemia, electrolyte abnormalities, cardiac sources, intracerebral event, pulmonary embolism, seizure, toxicologic, neurologic, as well as other pathologies. IMPRESSION/MEDICAL DECISION MAKING: Vitals reassuring at this time. Pacemaker interrogation obtained. No chest pain. Troponin normal. Pacemaker interrogation confirms likely cause of symptoms. Has had multiple episodes of VT and what the device reported as VF this evening for which she received 35 J shock. Seems to have brought the patient back around. Reviewing the strips transmitted from the device optical glass sawyer themselves that are faxed, I do question that these are more VT than VF. Patient's blood work obtained without significant anemia or platelet abnormality. Electrolytes without severe abnormality. Normal troponin again. Chest x-ray without significant abnormality beyond cardiomegaly. Does not appear significantly fluid overloaded. Unsure exactly why he had this episode. Reached out discussed with cardiology on-call Dr. Mccartney for the patient follows with. Does have another episode of feeling dizzy here but not obviously in V-fib or V. tach. Will bring in for further observation and the hospitalist was contacted. Will give an extra dose of metoprolol here I been Toprol and some IV magnesium. As being seen by the hospitalist here the patient had a another episode of V- fib/V. tach with syncope in the room. AICD appropriately discharged for this rhythm here. Patient will be loaded on amiodarone by the hospitalist and the ICU was at bedside and will monitor the patient there for the night. He returns to baseline after being shocked. DIAGNOSIS: Syncope, AICD defibrillation, V. tach DISPOSITION: Hospitalist will evaluate Patient was agreeable with this plan. Past Med/Surg History Problem List (Updated 02/25/24 @ 23:46 by Maxime Suarez M.D.) V tach (Acute) Syncope (Acute) COVID-19 Diarrhea Rash History of anemia Biventricular ICD (implantable cardioverter-defibrillator) in place Shoulder pain, left Neck pain Heart failure with mid-range ejection fraction (HFmEF) Cardiomyopathy Dyspnea Coronary artery disease Gout attack Sinus pause (Acute) Atrial fibrillation Asthma Obesity, diabetes, and hypertension syndrome Gout ERNESTO on CPAP Chest pain (Acute) Non-ST elevation WI (NSTEMI) (Acute) HTN (hypertension) Proteinuria Microalbuminuria Morbid obesity Left knee pain Plantar fasciitis of right foot Pain of right heel Annual physical exam Vitamin D deficiency Anemia Allergies Hypokalemia Acid reflux disease Medical History (Updated 02/25/24 @ 23:46 by Maxime Suarez M.D.) Acute UTI Ventricular fibrillation ACS (acute coronary syndrome) Unstable angina Atrial fibrillation with rapid ventricular response Glaucoma Finger laceration involving tendon Surgical History H/O oral surgery History of hand surgery Family History Mother Coronary heart disease Myocardial infarction Diabetes Father Coronary heart disease Myocardial infarction Other Hypertension Denies family history of Ovarian cancer Prostate cancer Breast cancer Colorectal cancer Social History Smoking Status: Never smoker Second Hand Exposure: No; Do You Dip or Chew Tobacco: No; Hx Alcohol Use: Yes Hx Substance Use: No Preferred Language: [place]an Communication Ability: Effective Visual Impairment: No Limitations Hearing Ability: Normal Forensic Locksmith Required: No Beliefs That Will Affect Care: None marital status: Current Living Situation: Spouse current occupational status: employed current occupation: [employer] How many Children do You have: 0 Feels Safe at Home: Yes Childhood Exposure to Second-Hand Smoke: Yes Diet: regular caffeine: Yes Dental Care, Regularly: Yes Physical Activity Frequency: Does not Exercise Seatbelt Use: always Sunscreen Use: No Assistive Devices: CPAP Allergies Allergies Allergy/AdvReac Type Severity Reaction Status Date / Time cat dander Allergy Intermediate Itchy, Verified 02/01/24 11:43 watery eyes, sneezing dog dander Allergy Intermediate Itchy, Verified 02/01/24 11:43 watery eyes, sneezing pollen extracts Allergy Intermediate SNEEZE,ITCHY Verified 02/01/24 11:43 WATERY EYES house dust mite Allergy Unknown Verified 02/01/24 11:43 mold Allergy Unknown Verified 02/01/24 11:43 morphine Allergy Vomiting Verified 02/01/24 11:43 oxycodone [From Percocet] Allergy Unknown Verified 02/01/24 11:43 Home Meds Home Medications Medication Instructions Recorded Confirmed dorzolamide 22.3 mg-timolol 6.8 1 drops ophthalmic (eye) BID 02/25/19 02/01/24 mg/mL eye drops acetaminophen 500 mg tablet 1,000 mg PO BID PRN Pain 12/15/22 02/01/24 calcium carbonate (Calcium 600) 600 mg PO BID 12/15/22 02/01/24 cholecalciferol (vitamin D3) 125 125 mcg PO DAILY 12/15/22 02/01/24 mcg (5,000 unit) tablet (Vitamin D3) ferrous sulfate 325 mg (65 mg 325 mg PO DAILY 12/15/22 02/01/24 iron) tablet budesonide 0.5 mg/2 mL suspension 0.5 mg inhalation DAILY 05/01/23 02/01/24 for nebulization levocetirizine 5 mg tablet (Xyzal) 5 mg PO DAILY 05/01/23 02/01/24 Previous Rx's Medication Instructions Recorded nitroglycerin 0.4 mg sublingual 0.4 mg sublingual Q5M PRN chest 12/16/22 tablet pain #14 tabs potassium chloride 10 mEq 10 meq PO DAILY #90 caps 12/30/22 capsule,extended release omeprazole 40 mg capsule,delayed 40 mg PO DAILY #90 caps 01/30/23 release ticagrelor 90 mg tablet (Brilinta) 90 mg PO BID 90 days #180 tabs 02/04/23 albuterol sulfate 90 mcg/actuation 2 puff inhalation Q6H PRN 03/03/23 aerosol inhaler shortness of breath or wheezing #8.5 grams metoprolol succinate 200 mg 200 mg PO BID #180 tabs 03/12/23 tablet,extended release 24 hr montelukast 10 mg tablet 10 mg PO DAILY #90 tabs 04/14/23 atorvastatin 40 mg tablet 40 mg PO QAM #90 tabs 04/24/23 rivaroxaban 20 mg tablet (Xarelto) 20 mg PO DAILY #90 tabs 05/19/23 furosemide 20 mg tablet 20 mg PO DAILY #120 tabs 06/05/23 sacubitril 97 mg-valsartan 103 mg 1 tab PO BID #180 tabs 06/05/23 tablet (Entresto) spironolactone 25 mg tablet 25 mg PO DAILY #90 tabs 06/05/23 empagliflozin 10 mg tablet 10 mg PO DAILY #90 tabs 08/26/23 (Jardiance) fluticasone 113 mcg-salmeterol 14 1 inh inhalation BID #1 ea 08/26/23 mcg/actuation breath activated powdr (AirDuo RespiClick) prednisone 10 mg tablet 40 mg (4 x 10 mg) PO DAILY #30 tabs 10/05/23 metformin 500 mg tablet 500 mg PO DAILY #90 tabs 11/24/23 allopurinol 300 mg tablet 300 mg PO DAILY #90 tabs 02/08/24 azithromycin 250 mg tablet See Rx Instructions PO .COMPLEX #6 02/09/24 tabs benzonatate 200 mg capsule 200 mg PO TID PRN cough #60 caps 02/09/24 prednisone 10 mg tablet 40 mg (4 x 10 mg) PO DAILY 7 days 02/18/24 #28 tabs Results & Data (ED) Vital Signs Vital Signs - 24 hr 02/25/24 21:30 02/25/24 21:36 02/25/24 21:53 Temperature 36.8 C Temperature Source Temporal Artery Scan Pulse Rate 95 H 111 H Pulse Rate [Apical] Pulse Rate from SpO2 Sensor Respiratory Rate 18 Respiratory Effort / Characteristics Respiratory Depth Normal Respiratory Pattern Blood Pressure 144/88 H Blood Pressure [Right Arm] Blood Pressure Mean 106 Blood Pressure Mean [Right Arm] Blood Pressure Position [Right Arm] Pulse Oximetry 98 96 Oxygen Delivery Method Room Air Room Air Oxygen Flow Rate 0 Sepsis Recent Fever Within 48 Hours No Sepsis New/Unexplained Change in Mental Status No Sepsis Action Taken by Nursing No Action Required 02/25/24 21:53 02/25/24 23:00 02/25/24 23:30 Temperature Temperature Source Pulse Rate 90 83 Pulse Rate [Apical] Pulse Rate from SpO2 Sensor 85 84 Respiratory Rate 22 17 Respiratory Effort / Characteristics Respiratory Depth Respiratory Pattern Blood Pressure 117/94 155/98 H Blood Pressure [Right Arm] Blood Pressure Mean 101 117 Blood Pressure Mean [Right Arm] Blood Pressure Position [Right Arm] Pulse Oximetry 96 96 98 Oxygen Delivery Method Room Air Room Air Room Air Oxygen Flow Rate Sepsis Recent Fever Within 48 Hours Sepsis New/Unexplained Change in Mental Status Sepsis Action Taken by Nursing 02/26/24 00:03 02/26/24 00:32 02/26/24 00:44 Temperature Temperature Source Pulse Rate 90 88 94 H Pulse Rate [Apical] Pulse Rate from SpO2 Sensor Respiratory Rate Respiratory Effort / Characteristics Respiratory Depth Respiratory Pattern Blood Pressure 141/122 H 143/115 H Blood Pressure [Right Arm] Blood Pressure Mean Blood Pressure Mean [Right Arm] Blood Pressure Position [Right Arm] Pulse Oximetry Oxygen Delivery Method Oxygen Flow Rate Sepsis Recent Fever Within 48 Hours Sepsis New/Unexplained Change in Mental Status Sepsis Action Taken by Nursing 02/26/24 00:57 Temperature Temperature Source Pulse Rate Pulse Rate [Apical] 80 Pulse Rate from SpO2 Sensor Respiratory Rate 20 Respiratory Effort / Characteristics Non-Labored Spontaneous Respiratory Depth Normal Respiratory Pattern Regular Blood Pressure Blood Pressure [Right Arm] 132/92 Blood Pressure Mean Blood Pressure Mean [Right Arm] 105 Blood Pressure Position [Right Arm] Sitting Pulse Oximetry 96 Oxygen Delivery Method Room Air Oxygen Flow Rate Sepsis Recent Fever Within 48 Hours Sepsis New/Unexplained Change in Mental Status Sepsis Action Taken by Nursing Laboratory Data 02/25/24 21:42 02/25/24 21:42 Lab Results 02/25/24 Range/Units 21:42 WBC 11.43 H (4.8-10.8) K/ul RBC 5.06 (4.70-6.10) M/uL Hgb 15.0 (14.0-18.0) g/dl Hct 47.1 (42.0-52.0) % MCV 93.1 (80.0-100.0) fL MCH 29.6 (25.0-34.0) pg MCHC 31.8 L (32.0-36.0) g/dL RDW Std Deviation 45.6 (36.4-46.3) fL RDW Coeff of Tripp 13.4 (11.5-14.5) % Plt Count 227 (130-400) K/uL MPV 10.8 (9.4-12.4) fL Immature Gran % (Auto) 0.7 % Neut % (Auto) 72.0 % Lymph % (Auto) 16.2 % [place] % (Auto) 8.7 % Eos % (Auto) 2.1 % Baso % (Auto) 0.3 % Neut # (Auto) 8.22 H (1.40-6.50) K/uL Lymph # (Auto) 1.85 (1.20-3.40) K/uL [place] # (Auto) 1.00 H (0.11-0.59) K/uL Eos # (Auto) 0.24 (0.00-0.50) K/uL Baso # (Auto) 0.04 (0.00-0.20) K/uL Immature Gran # (Auto) 0.08 (0.01-0.20) K/uL PT 13.1 H (9.0-12.0) Seconds INR 1.2 H (0.9-1.1) APTT 30 (21-31) Seconds PTT Ratio 1.1 Sodium 141 (136-145) mmol/L Potassium 4.0 (3.5-5.1) mmol/L Chloride 106 (98-107) mmol/L Carbon Dioxide 27 (21-32) mmol/L Anion Gap 8 (3-11) BUN 29 H (6-23) mg/dl Creatinine 1.20 (0.6-1.4) mg/dl Est Cr Clr Drug Dosing 114.5 ml/min eGFR 73.22 BUN/Creatinine Ratio 24.2 H (10-20) Glucose 80 (70-99(Fasting)) mg/dl Calcium 9.4 (8.6-10.3) mg/dl Magnesium 2.0 (1.7-2.4) mg/dl Total Bilirubin 0.4 (0.2-1.0) mg/dl AST 16 (13-39) U/L ALT 27 (7-52) U/L Alkaline Phosphatase 51 (34-104) U/L Troponin I High Sens 6.9 (0-20) pg/ml Total Protein 7.4 (6.0-8.3) gm/dl Albumin 4.5 (3.4-5.0) gm/dl Globulin 2.9 (2.5-4.0) gm/dl Albumin/Globulin Ratio 1.6 (0.9-2) Administered Medications Amiodarone HCl/Dextrose (Nexterone / D5w) 360 mg in 200 mls @ 33.333 mls/hr IV .Q6H [facility] Stop: 02/26/24 06:44 Last Admin: 02/26/24 00:45 Dose: 1 mg/min, 33.3 mls/hr Documented By: Co-signed By: Discontinued Medications Amiodarone HCl/Dextrose (Amiodarone 360mg / 200ml D5w) Confirm Administered Dose 360 mg IV .STK-MED ONE Stop: 02/26/24 00:36 Last Admin: 02/26/24 00:47 Dose: Not Given Documented By: Amiodarone HCl/Dextrose (Amiodarone 150mg / 100ml D5w) Confirm Administered Dose 150 mg IV .STK-MED ONE Stop: 02/26/24 00:36 Last Admin: 02/26/24 00:48 Dose: Not Given Documented By: Amiodarone HCl (Amiodarone Hcl Inj 50 Mg/Ml 3 Ml Vial) Confirm Administered Dose 300 mg IV .STK-MED ONE Stop: 02/26/24 00:37 Last Admin: 02/26/24 01:05 Dose: Not Given Documented By: Magnesium Sulfate/Dextrose (Magnesium Sulfate / D5w) 1 gm in 100 mls @ 200 mls/hr IV Q30M [facility] Stop: 02/26/24 00:44 Last Admin: 02/26/24 00:50 Dose: 200 mls/hr Documented By: Infusion: 02/26/24 00:35 Dose: Infused Documented By: Admin: 02/26/24 00:05 Dose: 200 mls/hr Documented By: Amiodarone HCl (Cordarone) 6 mls @ 6 mls/10 sec IV NOW STA Stop: 02/26/24 00:36 Last Admin: 02/26/24 00:45 Dose: 6 mls/10 sec Documented By: Co-signed By: DEBI Metoprolol Tartrate (Metoprolol Tartrate 1 Mg/Ml Vial) 5 mg IV NOW STA Stop: 02/25/24 23:54 Last Admin: 02/26/24 00:03 Dose: 5 mg Documented By: Discharge Plan Visit Data Chief Complaint: Syncope (Near Syncope) Stated Complaint: FAINTED TWICE/AT HOME ED Provider: Maxime Suarez Discharge Problem: Syncope, V tach Patient Disposition: Being Evaluated by Hospitalist Forms Stand Alone Forms: [facility] [place] [employer] Prescriptions Prescriptions: No Action Brilinta 90 mg tablet 90 mg PO BID 90 Days Qty: 180 3RF metoprolol succinate 200 mg tablet extended release 24 hr 200 mg PO BID Qty: 180 3RF montelukast 10 mg tablet 10 mg PO DAILY Qty: 90 3RF atorvastatin 40 mg tablet 40 mg PO QAM Qty: 90 3RF Xarelto 20 mg tablet 20 mg PO DAILY Qty: 90 3RF Rx Instructions: must administer with evening meal Jardiance 10 mg tablet 10 mg PO DAILY Qty: 90 3RF fluticasone propion-salmeterol [AirDuo RespiClick] 113-14 mcg/actuation aerosol powdr breath activated 1 inh inhalation BID Qty: 1 5RF prednisone 10 mg tablet 40 mg PO DAILY Qty: 30 0RF Rx Instructions: 40mg po daily x 3 days, then 30mg po daily x 3 days, then 20mg po daily x 3 days, then 10mg po daily x 3 days, then stop metformin 500 mg tablet 500 mg PO DAILY Qty: 90 3RF allopurinol 300 mg tablet 300 mg PO DAILY Qty: 90 3RF prednisone 10 mg tablet 40 mg PO DAILY 7 Days Qty: 28 0RF dorzolamide-timolol 22.3-6.8 mg/mL drops 1 drops OP BID levocetirizine [Xyzal] 5 mg tablet 5 mg PO DAILY budesonide 0.5 mg/2 mL suspension for nebulization 0.5 mg inhalation DAILY albuterol sulfate 90 mcg/actuation HFA aerosol inhaler 2 puff inhalation Q6H PRN (Reason: shortness of breath or wheezing) Qty: 8.5 2RF furosemide 20 mg tablet 20 mg PO DAILY Qty: 120 3RF Rx Instructions: May increase to 40 mg daily as needed for weight gain, shortness of breath or edema. Entresto 97-103 mg tablet 1 tab PO BID Qty: 180 3RF spironolactone 25 mg tablet 25 mg PO DAILY Qty: 90 3RF omeprazole 40 mg capsule,delayed release(DR/EC) 40 mg PO DAILY Qty: 90 3RF potassium chloride 10 mEq capsule, extended release 10 meq PO DAILY Qty: 90 3RF azithromycin 250 mg tablet See Rx Instructions PO .COMPLEX Qty: 6 0RF Rx Instructions: For 250 mg dose pack: take 500 mg today (day 1), then 250 mg for 4 days (days 2-5) PO benzonatate 200 mg capsule 200 mg PO TID PRN (Reason: cough) Qty: 60 2RF acetaminophen 500 mg Tablet 1,000 mg PO BID PRN (Reason: Pain) calcium carbonate [Calcium 600] 600 mg calcium (1,500 mg) Tablet 600 mg PO BID ferrous sulfate 325 mg (65 mg iron) Tablet 325 mg PO DAILY cholecalciferol (vitamin D3) [Vitamin D3] 125 mcg (5,000 unit) Tablet 125 mcg PO DAILY nitroglycerin 0.4 mg tablet, sublingual 0.4 mg sublingual Q5M PRN (Reason: chest pain) Qty: 14 0RF Rx Instructions: every 5 minutes for chest pain x max 3 doses. Report to ER for pain not relieved with Nitro Referrals Referrals: Fidel Borden DO [Primary Care Provider] -
[2024-02-26] MEDS: METOPROLOL TARTRATE 1 MG/ML VIAL IV STA (00:03)
[2024-02-26] MEDS: MAGNESIUM SULFATE / D5W 1 GM/100 ML BAG IV SCH (00:05)
[2024-02-26] MEDS ORDERED: AMIODARONE IV BOLUS & DRIP IV STA (00:36)
[2024-02-26] MEDS ORDERED: 0.2 MICRON FILTER SET 1 EACH IV ONE (00:45)
[2024-02-26] MEDS: AMIODARONE IV STA (00:45)
[2024-02-26] MEDS: AMIODARONE / D5W 360 MG/200 ML BAG IV SCH ×2 (00:45→06:07)
[2024-02-26] MEDS: AMIODARONE 360MG / 200ML D5W IV ONE (00:47)
[2024-02-26] MEDS: AMIODARONE 150MG / 100ML D5W IV ONE (00:48)
[2024-02-26] MEDS: AMIODARONE HCL INJ 50 MG/ML 3 ML VIAL IV ONE (01:05)
--- NOTE | 2024-02-26 01:09 | History & Physical Report ---
Date of Service February 26, 2024 Assessment & Plan (1) AICD discharge: (2) Ventricular fibrillation: (3) V tach: (4) Admitted to intensive care unit: (5) Syncope: (6) COVID-19: (7) Biventricular ICD (implantable cardioverter-defibrillator) in place: (8) Heart failure with mid-range ejection fraction (HFmEF): (9) Cardiomyopathy: (10) Coronary artery disease: (11) ERNESTO on CPAP: (12) HTN (hypertension): (13) Acid reflux disease: (14) Atrial fibrillation: Plan Ventricular tachycardia/ventricular fibrillation/AICD discharge/atrial fibrillation on chronic anticoagulation/CAD/hypertension/HFrEF/cardiomyopathy- Admit to intensive care unit, status post AICD firing for ventricular fibrillation at home as noted on interrogation of device, and as witnessed in the ED Continue metoprolol Succinate 100 mg p.o. twice daily, Xarelto 20 mg daily, Entresto 97/103 twice daily Brilinta 90 mg p.o. twice daily Received amiodarone 300 mg IV bolus, followed by standard amiodarone drip protocol For now hold furosemide 20 mg daily, spironolactone 25 mg daily and empagliflozin Ordered CBC with differential, chemistry profile, magnesium level and troponin for the a.m. Consult property assistant Dr. Steven Consult reinforcer Dr. Mccartney Diabetes mellitus- Hold metformin Place on Accu-Cheks with SSI Check hemoglobin A1c COVID-19 infection/persistent cough- Symptoms began about 3 to 4 weeks ago Did not require specific antiviral treatment However, did receive a course of prednisone and azithromycin, followed by a prednisone taper which was completed 1 day ago Will continue Tessalon Perles 100 mg p.o. 3 times daily as needed Hold inhalers and nebulizers due to present cardiac issues Pulse ox is 97% on room air If persistent fatigue, may consider trial of stress dose steroids Hyperlipidemia- On atorvastatin Check a fasting lipid panel ERNESTO- On CPAP at home, will use own History of Present Illness Chief Complaint: The patient presents to the emergency department, at his 's insistence, due to episodes of lightheadedness and dizziness earlier today, then later in the evening, had a more significant episode where he felt lightheaded and dizzy, then leaned against the wall and went down to the floor. He did feel that he lost consciousness at that time. He did not have loss of bowel or bladder control. Patient does report an irritating cough that he has had ever since he had COVID about 3 to 4 weeks ago, which he did not require antiviral treatment for, but did receive a course of prednisone and azithromycin Z-Samy, and presently has been on prednisone daily since that time. Primary Care Provider: Fidel Borden DO The patient is a 53-year-old male with a past medical history including ventricular dysrhythmia, V. tach/V. fibrillation, COVID-19 about 3 to 4 weeks ago, HFmrEF, cardiomyopathy, CAD, gout, atrial fibrillation on Xarelto, NSTEMI, hypertension, GERD, and vitamin D deficiency. The patient had two episodes of lightheadedness and dizziness, that he reports it is feeling funny in his head. With The second episode today he leaned against the wall and went down to the floor, and felt that he had passed out. His became concerned, and he come to the ED for assessment. His AICD was interrogated in the ED, and suggested multiple episodes of V. tach, and that there was an episode of V-fib earlier this evening for which he received a 35 J shock. While I was talking with the patient in the ED, he went into an episode of ventricular fibrillation with LOC, for which his AICD shocked him, and returned him to a V paced rhythm. He was then given amiodarone 300 mg IV bolus, placed on amiodarone drip per protocol, and then admitted to the ICU. Patient had already received magnesium sulfate 2 g IV, and Lopressor 5 mg IV from the ED. Allergies Allergy/AdvReac Type Severity Reaction Status Date / Time cat dander Allergy Intermediate Itchy, Verified 02/01/24 11:43 watery eyes, sneezing dog dander Allergy Intermediate Itchy, Verified 02/01/24 11:43 watery eyes, sneezing pollen extracts Allergy Intermediate SNEEZE,ITCHY Verified 02/01/24 11:43 WATERY EYES house dust mite Allergy Unknown Verified 02/01/24 11:43 mold Allergy Unknown Verified 02/01/24 11:43 morphine Allergy Vomiting Verified 02/01/24 11:43 oxycodone [From Percocet] Allergy Unknown Verified 02/01/24 11:43 Home Medications Medication Instructions Recorded Confirmed Type dorzolamide 22.3 mg-timolol 6.8 1 drops ophthalmic (eye) BID 02/25/19 02/01/24 History mg/mL eye drops acetaminophen 500 mg tablet 1,000 mg PO BID PRN Pain 12/15/22 02/01/24 History calcium carbonate (Calcium 600) 600 mg PO BID 12/15/22 02/01/24 History cholecalciferol (vitamin D3) 125 125 mcg PO DAILY 12/15/22 02/01/24 History mcg (5,000 unit) tablet (Vitamin D3) ferrous sulfate 325 mg (65 mg 325 mg PO DAILY 12/15/22 02/01/24 History iron) tablet nitroglycerin 0.4 mg sublingual 0.4 mg sublingual Q5M PRN chest 12/16/22 02/01/24 Rx tablet pain #14 tabs potassium chloride 10 mEq 10 meq PO DAILY #90 caps 12/30/22 02/01/24 Rx capsule,extended release omeprazole 40 mg capsule,delayed 40 mg PO DAILY #90 caps 01/30/23 02/01/24 Rx release ticagrelor 90 mg tablet (Brilinta) 90 mg PO BID 90 days #180 tabs 02/04/23 02/01/24 Rx albuterol sulfate 90 mcg/actuation 2 puff inhalation Q6H PRN 03/03/23 02/01/24 Rx aerosol inhaler shortness of breath or wheezing #8.5 grams metoprolol succinate 200 mg 200 mg PO BID #180 tabs 03/12/23 02/01/24 Rx tablet,extended release 24 hr montelukast 10 mg tablet 10 mg PO DAILY #90 tabs 04/14/23 02/01/24 Rx atorvastatin 40 mg tablet 40 mg PO QAM #90 tabs 04/24/23 02/01/24 Rx budesonide 0.5 mg/2 mL suspension 0.5 mg inhalation DAILY 05/01/23 02/01/24 History for nebulization levocetirizine 5 mg tablet (Xyzal) 5 mg PO DAILY 05/01/23 02/01/24 History rivaroxaban 20 mg tablet (Xarelto) 20 mg PO DAILY #90 tabs 05/19/23 02/01/24 Rx furosemide 20 mg tablet 20 mg PO DAILY #120 tabs 06/05/23 02/01/24 Rx sacubitril 97 mg-valsartan 103 mg 1 tab PO BID #180 tabs 06/05/23 02/01/24 Rx tablet (Entresto) spironolactone 25 mg tablet 25 mg PO DAILY #90 tabs 06/05/23 02/01/24 Rx empagliflozin 10 mg tablet 10 mg PO DAILY #90 tabs 08/26/23 02/01/24 Rx (Jardiance) fluticasone 113 mcg-salmeterol 14 1 inh inhalation BID #1 ea 08/26/23 02/01/24 Rx mcg/actuation breath activated powdr (AirDuo RespiClick) prednisone 10 mg tablet 40 mg (4 x 10 mg) PO DAILY #30 tabs 10/05/23 02/01/24 Rx metformin 500 mg tablet 500 mg PO DAILY #90 tabs 11/24/23 02/01/24 Rx allopurinol 300 mg tablet 300 mg PO DAILY #90 tabs 02/08/24 Rx azithromycin 250 mg tablet See Rx Instructions PO .COMPLEX #6 02/09/24 02/09/24 Rx tabs benzonatate 200 mg capsule 200 mg PO TID PRN cough #60 caps 02/09/24 02/09/24 Rx prednisone 10 mg tablet 40 mg (4 x 10 mg) PO DAILY 7 days 02/18/24 Rx #28 tabs Past Med/Surg History Problem List (Updated 02/26/24 @ 02:47 by Kurt Salguero MD) Admitted to intensive care unit Ventricular fibrillation AICD discharge Ventricular dysrhythmia V tach (Acute) Syncope (Acute) COVID-19 Diarrhea Rash History of anemia Biventricular ICD (implantable cardioverter-defibrillator) in place Shoulder pain, left Neck pain Heart failure with mid-range ejection fraction (HFmEF) Cardiomyopathy Dyspnea Coronary artery disease Gout attack Sinus pause (Acute) Atrial fibrillation Asthma Obesity, diabetes, and hypertension syndrome Gout ERNESTO on CPAP Chest pain (Acute) Non-ST elevation MT (NSTEMI) (Acute) HTN (hypertension) Proteinuria Microalbuminuria Morbid obesity Left knee pain Plantar fasciitis of right foot Pain of right heel Annual physical exam Vitamin D deficiency Anemia Allergies Hypokalemia Acid reflux disease Medical History Acute UTI Ventricular fibrillation ACS (acute coronary syndrome) Unstable angina Atrial fibrillation with rapid ventricular response Glaucoma Finger laceration involving tendon Surgical History H/O oral surgery History of hand surgery Family History Mother Coronary heart disease Myocardial infarction Diabetes Father Coronary heart disease Myocardial infarction Other Hypertension Denies family history of Ovarian cancer Prostate cancer Breast cancer Colorectal cancer Social History Smoking Status: Never smoker Second Hand Exposure: No; Do You Dip or Chew Tobacco: No; Hx Alcohol Use: Yes Hx Substance Use: No Preferred Language: Romanian Communication Ability: Effective Visual Impairment: No Limitations Hearing Ability: Normal 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 Education Required: No Beliefs That Will Affect Care: None marital status: Current Living Situation: Spouse current occupational status: employed current occupation: [employer] How many Children do You have: 0 Feels Safe at Home: Yes Childhood Exposure to Second-Hand Smoke: Yes Diet: regular caffeine: Yes Dental Care, Regularly: Yes Physical Activity Frequency: Does not Exercise Seatbelt Use: always Sunscreen Use: No Assistive Devices: CPAP Review of Systems Review of Systems: The patient denies chest pain, lower extremity swelling, sore throat, fevers, chills, sweats, nausea, vomiting, diarrhea , constipation, abdominal pain, pelvic pain, blood in urine or stool, dysuria, urinary frequency or urgency, rash, abnormal bruising or bleeding, imbalance, focal weakness, numbness or tingling in arms or legs, generalized arthralgias or myalgias, back or neck pain, or night sweats. The review of systems is otherwise negative other than for that already noted above, and at least 10 systems have been reviewed. Physical Exam Physical Exam: The patient is awake, alert and oriented 3, well developed and well nourished, normocephalic and atraumatic, lying in bed and in no acute distress. HEENT--PERRL, EOMI, mucous membranes and oropharynx dry. Neck--supple. No JVD. No bruits. Thyroid normal, trachea midline, no adenopathy. Heart--irregular with premature contractions. no murmurs, rubs or gallops. Lungs--clear bilaterally, no respiratory distress, no accessory muscle use. Abdomen--normal bowel sounds and soft. Nontender. Nondistended. Morbidly obese Extremities--no cyanosis or clubbing. No edema. Dermatologic--normal skin turgor, normal color, no abnormal lymph nodes, no rash. Neurologic--cranial nerves II through XII grossly intact. Rheumatologic--normal range of motion. Psychiatric--normal affect. Results & Data Results & Data Vital Signs (Past 12 Hours) Vital Signs Temp Pulse Pulse Resp BP BP Pulse Ox 02/26/24 00:57 80 20 132/92 96 02/26/24 00:44 94 H 143/115 H 02/26/24 00:32 88 02/26/24 00:03 90 141/122 H 02/25/24 23:30 83 17 155/98 H 98 02/25/24 23:00 90 22 117/94 96 02/25/24 21:53 96 02/25/24 21:53 96 02/25/24 21:36 111 H 02/25/24 21:30 36.8 C 95 H 18 144/88 H 98 O2 Del Method O2 Flow Rate 02/26/24 00:57 Room Air 02/26/24 00:44 02/26/24 00:32 02/26/24 00:03 02/25/24 23:30 Room Air 02/25/24 23:00 Room Air 02/25/24 21:53 Room Air 02/25/24 21:53 Room Air 0 02/25/24 21:36 02/25/24 21:30 Room Air Laboratory Results Laboratory Results WBC 11.43 K/ul (4.8-10.8) H 02/25/24 21:42 RBC 5.06 M/uL (4.70-6.10) 02/25/24 21:42 Hgb 15.0 g/dl (14.0-18.0) 02/25/24 21:42 Hct 47.1 % (42.0-52.0) 02/25/24 21:42 MCV 93.1 fL (80.0-100.0) 02/25/24 21:42 MCH 29.6 pg (25.0-34.0) 02/25/24 21:42 MCHC 31.8 g/dL (32.0-36.0) L 02/25/24 21:42 RDW Std Deviation 45.6 fL (36.4-46.3) 02/25/24 21:42 RDW Coeff of Tripp 13.4 % (11.5-14.5) 02/25/24 21:42 Plt Count 227 K/uL (130-400) 02/25/24 21:42 MPV 10.8 fL (9.4-12.4) 02/25/24 21:42 Immature Gran % (Auto) 0.7 % 02/25/24 21:42 Neut % (Auto) 72.0 % 02/25/24 21:42 Lymph % (Auto) 16.2 % 02/25/24 21:42 F[place]ardo % (Auto) 8.7 % 02/25/24 21:42 Eos % (Auto) 2.1 % 02/25/24:42 Baso % (Auto) 0.3 % 02/25/24 21:42 Neut # (Auto) 8.22 K/uL (1.40-6.50) H 02/25/24 21:42 Lymph # (Auto) 1.85 K/uL (1.20-3.40) 02/25/24 21:42 [place]ardo # (Auto) 1.00 K/uL (0.11-0.59) H 02/25/24 21:42 Eos # (Auto) 0.24 K/uL (0.00-0.50) 02/25/24 21:42 Baso # (Auto) 0.04 K/uL (0.00-0.20) 02/25/24 21:42 Immature Gran # (Auto) 0.08 K/uL (0.01-0.20) 02/25/24 21:42 PT 13.1 Seconds (9.0-12.0) H 02/25/24:42 INR 1.2 (0.9-1.1) H 02/25/24:42 APTT 30 Seconds (21-31) 02/25/24 21:42 PTT Ratio 1.1 02/25/24 21:42 Sodium 141 mmol/L (136-145) 02/25/24:42 Potassium 4.0 mmol/L (3.5-5.1) 02/25/24 21:42 Chloride 106 mmol/L (98-107) 02/25/24 21:42 Carbon Dioxide 27 mmol/L (21-32) 02/25/24 21:42 Anion Gap 8 (3-11) 02/25/24 21:42 BUN 29 mg/dl (6-23) H 02/25/24 21:42 Creatinine 1.20 mg/dl (0.6-1.4) 02/25/24 21:42 Est Cr Clr Drug Dosing 114.5 ml/min 02/25/24 21:42 eGFR 73.22 02/25/24 21:42 BUN/Creatinine Ratio 24.2 (10-20) H 02/25/24 21:42 Glucose 80 mg/dl (70-99(Fasting)) 02/25/24 21:42 Calcium 9.4 mg/dl (8.6-10.3) 02/25/24 21:42 Magnesium 2.0 mg/dl (1.7-2.4) 02/25/24 21:42 Total Bilirubin 0.4 mg/dl (0.2-1.0) 02/25/24 21:42 AST 16 U/L (13-39) 02/25/24 21:42 ALT 27 U/L (7-52) 02/25/24 21:42 Alkaline Phosphatase 51 U/L (34-104) 02/25/24 21:42 Troponin I High Sens 6.9 pg/ml (0-20) 02/25/24 21:42 Total Protein 7.4 gm/dl (6.0-8.3) 02/25/24 21:42 Albumin 4.5 gm/dl (3.4-5.0) 02/25/24 21:42 Globulin 2.9 gm/dl (2.5-4.0) 02/25/24 21:42 Albumin/Globulin Ratio 1.6 (0.9-2) 02/25/24 21:42 Code Status & VTE Plan Code Status Full Code VTE Prophylaxis Plan VTE Prophylaxis will be ordered: Yes PG Care Time/CCT Total # of Minutes Spent Total Time Spent with Patient: Total time spent is greater than 50% in coordination of care (as documented) at patient's floor/unit and/or counseling patient: 50 minutes Coding Level of Care Code 90222 INT INP/OBS CARE 3/75MIN Diagnoses AICD discharge Z45.02 Ventricular fibrillation I49.01 V tach I47.20 Admitted to intensive care unit Z78.9 Syncope R55 COVID-19 U07.1 Biventricular ICD (implantable cardioverter-defibrillator) in place Z95.810 Heart failure with mid-range ejection fraction (HFmEF) I50.22 Cardiomyopathy I42.9 Coronary artery disease I25.10 Coronary Disease-Associated Artery/Lesion type: [place] artery ERNESTO on CPAP G47.33; Z99.89 HTN (hypertension) I10 Acid reflux disease K21.9 Permanent atrial fibrillation I48.21 Atrial fibrillation type: permanent (10) Coronary artery disease Coronary Disease-Associated Artery/Lesion type: [place] artery (14) Atrial fibrillation Atrial fibrillation type: permanent Qualified Code(s): I48.21 - Permanent atrial fibrillation
--- NOTE | 2024-02-26 01:23 | Critical Care Consultation ---
Date of Consultation February 26, 2024 Assessment & Plan (1) Ventricular dysrhythmia: (2) AICD discharge: (3) Heart failure with mid-range ejection fraction (HFmEF): (4) Cardiomyopathy: (5) Coronary artery disease: (6) Atrial fibrillation: (7) HTN (hypertension): (8) Morbid obesity: Plan Reason Critically Ill: 53 YOM presents to EMD for syncopal event later discovered that he had 2 AICD discharges at home, had another AICD discharge that was VFib related during admission resulting in rapid response evaluation. To ICU for rhythm monitoring with management. Neuro - No acute needs CAM ICU: NEGATIVE Cardiac - Ventricular dysrhythmias, AICD discharge x3, Hx CAD, HTN, HLD, HFmEF Initially responded to Rapid Response in EMD following his- AICD discharge- which at that time was Vfib- not preceded by pause or fusion beat - Etiologies at this time remain broad- may be post viral vs. worsening of conduction disease vs. volume related vs. other- ECHO in am - Ventricular dysrhythmias- NSVT and Vfib per AICD interrogation report - Loaded with 300mg Amiodarone following last episode- continue infusion at 1mg/min then 0.5mg/min - If patient has another episode of VFib/NSVT- provide another 150 mg amiodarone load - Could also consider adding Esmolol infusion - Continue Metoprolol for now - Fusion beats noted- however at this time none visualized in down slope of R wave or R on T - Mag appropriate at 2.0- also was given mag IV in the EMD - He is without symptoms concerning for ischemia at this time - Case was discussed with Stores Clerk animation producer by Dr. Suarez EM provider - Dr. Mccartney Stores Clerk- he normally follows patient- BB and eval in am - Appreciate consultation - HFrEF- Previous ECHO 08/08- EF 35% reported as LVSF moderately reduced- limited study secondary technically difficult study - Follows with HF clinic- dry weight 375lbs- does not appear at this time overtly fluid overloaded - - Patient reports last time weighed self was approx 1 week ago - 285lbs - Continue Entresto as hemodynamics permit - continue Home diuretics- Spironolactone 25mg daily- bolus dosing if needed - Afib/CAD- Continue Brilinta and Rivaroxaban Respiratory - Asthma, ERNESTO - Continue Fluticasone/Sameterol- hold on DORI unless need to avoid further tachycardia inducing agent - Can likely discontinue his prednisone- may be worsening his fluid retention - ERNESTO- he is unsure of his settings reports having very old machine- no records for review at this time- will place on Auto CPAP/BIPAP if better tolerated - recommend up to date outpatient sleep study- as currently he reports no body is following his need/use GI - GERD, Morbid obesity, DM II - Continue PPI - ICU hyperglycemic protocol - Hold Metformin RENAL/LYTES - No acute needs - Keep K >4.0 and Mag >2.0 - No acute needs ENDO - DMII as above HEME - No acute need - Follow HGB/HCT/Platelet count - Transfuse if indicated ID - No concerns for infectious etiology at this time LINES/IV ACCESS - PIV Continue use of these lines DVT PROPHYLAXIS - SCDS, Rivaroxaban DISPO: ICU until rhythm and hemodynamics proven stable Supervising Physician Co-Signing Physician Notes I saw and evaluated the patient with TERRIE Hall, and agree with findings and plan as documented in the note. 53-year-old male with complicated cardiac history ultimately needing AICD present to the hospital because AICD fired x 3 Time of examination patient was on amiodarone drip. Heart rate was in the high 70s to low 80s. Not in any distress He denied any chest pain, no dizziness, no nausea, no vomiting No abdominal pain He was n.p.o. for possible procedure today. Constitutional: No acute distress HEENT: EOMI, PERRLA Respiratory system: Decreased air entry bilaterally, no wheeze, no rhonchi, no crackles CVS: S1-S2 positive, no murmurs or gallops Abdomen: Soft, nontender, nondistended, positive bowel sounds x4, obese Extremities: +2 pulses bilaterally radialis/ dorsalis pedis, no cyanosis, no edema Neuro: Awake alert oriented x3 Psych: Normal mood and affect G/U: No Ramon --Prophylaxis VTE: Xarelto GI: Pantoprazole Lines: Peripheral Diet: N.p.o. Plan: In/out: +200 Patient did get 450 mg of amiodarone in total bolus, continue with amiodarone drip Patient is to be seen by cardiology for possible cardiac cath today given the V- fib's to rule out cardiac etiology Keep potassium greater than 4, magnesium greater than 3 Continue with BiPAP qhs and PRN shortness of breath I have personally spent 48 minutes of critical care time in the direct management of this patient. This is a life/limb threatening event. This includes time spent evaluating patient, direct bedside care, chart review, placing orders, interpretation of diagnostic studies, discussion with consultants, patient, and family members, as well as other required patient management activities. This time is exclusive of all separately billable procedures, and teaching time and separate from and in addition to any other critical care service time. Please note the above document was generated using voice recognition software. It may contain grammatical, syntax or spelling errors. History of Present Illness Reason for Consultation: Ventricular Dysrythmias associated with syncompe and discharge of AICD Requesting Physician: Kurt Salguero MD Attending Physician: Kurt Salguero MD History of Present Illness 53 YOM medical history of: Morbid Obesity, CAD, Cardiomyopathy ([place] to be mix if NICM and ICM), HFmEF, NSTEMI with LUZ stent (D1) and stent re-occlusion, Bi-V AICD, Permanent Afib, COVID 01/20/24. He came to the EMD today following 2 syncope related episodes at home that were both preceded by dizziness and fu llness in his head. First episode today was while he was watching a movie with his , she reports that she heard a weird noise and looked over at him, his glasses were on his chest and his head was down, he then jerked and woke up confused and did not know what happened. The second episode occurred this evening while he was getting ready to go to bed, he was ambulating to the restroom, felt the dizziness and fullness in his head again rested up against the door frame and woke up on the floor. The 3rd episode occurred during his admission process where he was talking with the admitting physician, and said its starting again- and he went into Vfib - for which his AICD fired returning him to spontaneous circulation. Per discussion with EMD provider, interrogation from his AICD was reported that he got shocked 2 times at home as well. Initially was treated with IV beta blockade in the EMD and felt to be stabilized, following his shock during admission, he was loaded with 300mg amio darone and infusion initiated at 1mg/min. Patient will be admitted to the ICU follow hemodynamics, rhythms, and continue antiarrhythmics. Prior hospitalization patient was treated for viral illness which was tested for COVID + on 01/19 with prednisone and Azithromycin. The Azithromycin has been stopped. He reports symptoms are improved and is tapering down his prednisone. He denies any chest pain or dyspnea, or symptoms that were present with his previous 2 MIs. Patient previously was on amiodarone in , for short course following his NSTEMi as his ventricular dysrhythmias at that time were felt to be related to post [place] and possibly conduction pause related. He previoulsy had temporary TVP and was scheduled to get a device secondary to tachybrady syndrome, but prior to procedure he had episode of Vfib, hence he received a Bi- V AICD. He was eventually discharged on 200mg of metoprolol BID and amiodarone, as above the amiodarone was discontinued some time after. Last seen by cardiology 02/01/24 and no new medications were imitated at that time. CODE: FULL Allergies Allergy/AdvReac Type Severity Reaction Status Date / Time cat dander Allergy Intermediate Itchy, Verified 02/01/24 11:43 watery eyes, sneezing dog dander Allergy Intermediate Itchy, Verified 02/01/24 11:43 watery eyes, sneezing pollen extracts Allergy Intermediate SNEEZE,ITCHY Verified 02/01/24 11:43 WATERY EYES house dust mite Allergy Unknown Verified 02/01/24 11:43 mold Allergy Unknown Verified 02/01/24 11:43 morphine Allergy Vomiting Verified 02/01/24 11:43 oxycodone [From Percocet] Allergy Unknown Verified 02/01/24 11:43 Home Medications Medication Instructions Recorded Confirmed Type dorzolamide 22.3 mg-timolol 6.8 1 drops ophthalmic (eye) BID 02/25/19 02/01/24 History mg/mL eye drops acetaminophen 500 mg tablet 1,000 mg PO BID PRN Pain 12/15/22 02/01/24 History calcium carbonate (Calcium 600) 600 mg PO BID 12/15/22 02/01/24 History cholecalciferol (vitamin D3) 125 125 mcg PO DAILY 12/15/22 02/01/24 History mcg (5,000 unit) tablet (Vitamin D3) ferrous sulfate 325 mg (65 mg 325 mg PO DAILY 12/15/22 02/01/24 History iron) tablet nitroglycerin 0.4 mg sublingual 0.4 mg sublingual Q5M PRN chest 12/16/22 02/01/24 Rx tablet pain #14 tabs potassium chloride 10 mEq 10 meq PO DAILY #90 caps 12/30/22 02/01/24 Rx capsule,extended release omeprazole 40 mg capsule,delayed 40 mg PO DAILY #90 caps 01/30/23 02/01/24 Rx release ticagrelor 90 mg tablet (Brilinta) 90 mg PO BID 90 days #180 tabs 02/04/23 02/01/24 Rx albuterol sulfate 90 mcg/actuation 2 puff inhalation Q6H PRN 03/03/23 02/01/24 Rx aerosol inhaler shortness of breath or wheezing #8.5 grams metoprolol succinate 200 mg 200 mg PO BID #180 tabs 03/12/23 02/01/24 Rx tablet,extended release 24 hr montelukast 10 mg tablet 10 mg PO DAILY #90 tabs 04/14/23 02/01/24 Rx atorvastatin 40 mg tablet 40 mg PO QAM #90 tabs 04/24/23 02/01/24 Rx budesonide 0.5 mg/2 mL suspension 0.5 mg inhalation DAILY 05/01/23 02/01/24 History for nebulization levocetirizine 5 mg tablet (Xyzal) 5 mg PO DAILY 05/01/23 02/01/24 History rivaroxaban 20 mg tablet (Xarelto) 20 mg PO DAILY #90 tabs 05/19/23 02/01/24 Rx furosemide 20 mg tablet 20 mg PO DAILY #120 tabs 06/05/23 02/01/24 Rx sacubitril 97 mg-valsartan 103 mg 1 tab PO BID #180 tabs 06/05/23 02/01/24 Rx tablet (Entresto) spironolactone 25 mg tablet 25 mg PO DAILY #90 tabs 06/05/23 02/01/24 Rx empagliflozin 10 mg tablet 10 mg PO DAILY #90 tabs 08/26/23 02/01/24 Rx (Jardiance) fluticasone 113 mcg-salmeterol 14 1 inh inhalation BID #1 ea 08/26/23 02/01/24 Rx mcg/actuation breath activated powdr (AirDuo RespiClick) prednisone 10 mg tablet 40 mg (4 x 10 mg) PO DAILY #30 tabs 10/05/23 02/01/24 Rx metformin 500 mg tablet 500 mg PO DAILY #90 tabs 11/24/23 02/01/24 Rx allopurinol 300 mg tablet 300 mg PO DAILY #90 tabs 02/08/24 Rx azithromycin 250 mg tablet See Rx Instructions PO .COMPLEX #6 02/09/24 02/09/24 Rx tabs benzonatate 200 mg capsule 200 mg PO TID PRN cough #60 caps 02/09/24 02/09/24 Rx prednisone 10 mg tablet 40 mg (4 x 10 mg) PO DAILY 7 days 02/18/24 Rx #28 tabs Patient History Medical History Acute UTI Ventricular fibrillation ACS (acute coronary syndrome) Unstable angina Atrial fibrillation with rapid ventricular response Glaucoma Finger laceration involving tendon Surgical History H/O oral surgery History of hand surgery Family History Mother Coronary heart disease Myocardial infarction Diabetes Father Coronary heart disease Myocardial infarction Other Hypertension Denies family history of Ovarian cancer Prostate cancer Breast cancer Colorectal cancer Social History Smoking Status: Never smoker Second Hand Exposure: No; Do You Dip or Chew Tobacco: No; Hx Alcohol Use: Yes Alcohol type: beer Hx Substance Use: No Preferred Language: French Communication Ability: Effective Visual Impairment: No Limitations Hearing Ability: Normal Lead Javascript Engineer Required: No Beliefs That Will Affect Care: None marital status: Current Living Situation: Spouse current occupational status: employed current occupation: [employer] How many Children do You have: 0 Other Information That Helps Us Care for You: No Feels Safe at Home: Yes Safety Concerns: Feels Safe At This Time Childhood Exposure to Second-Hand Smoke: Yes Diet: regular caffeine: Yes Dental Care, Regularly: Yes Physical Activity Frequency: Does not Exercise Seatbelt Use: always Sunscreen Use: No Assistive Devices: None Review of Systems Review of Systems: REVIEW OF SYSTEMS: Constitutional: No fever, sweats or chills Eyes: No diplopia, no worsening or blurred vision ENT: normal hearing, no trouble swallowing Respiratory: No cough, sputum, dyspnea at rest or on exertion Cardiovascular: (+) dizziness, syncope, discharge of AICD, No chest pain, tightness or palpitations Abdomen: No pain, nausea, vomiting, diarrhea or constipation Musculoskeletal: No joint pain, calf pain, swelling Neurologic: No weakness, numbness/tingling, or balance problems Psychiatric: No anxiety or depression Skin: No rash or itch Physical Exam Physical Exam: PHYSICAL EXAM: General: awake, alert, no apparent distress Head: Normocephalic, atraumatic ENT: PERRL, EOMI, no pharyngeal exudate, mucous membranes moist Neuro: AAO x 3, speech clear and appropriate, strength intact bilaterally 5/5, sensation intact and equal all extremities, no pronator drift Chest: equal rise and fall of the chest, no accessory muscle use, no heaves or thrills, Clear to auscultation, on room air, Cardiac: irregular rate and rhythm, telemetry reviewed- V-paced with fusion beats, skin warm dry, cap refill <3 seconds, peripheral pulses +2 no JVD, no murmur appreciated however difficult exam secondary to body habitus, GI: NABS x 4 quadrants, soft, nontender to palpation, no rebound, guarding or tenderness : Spontaneously voiding, no pain, no CVA tenderness, Skin: no rash or erythema Results & Data Results & Data Vital Signs (Past 12 Hours) Vital Signs Temp Pulse Pulse Resp BP BP Pulse Ox 02/26/24 00:57 80 20 132/92 96 02/26/24 00:44 94 H 143/115 H 02/26/24 00:32 88 02/26/24 00:03 90 141/122 H 02/25/24 23:30 83 17 155/98 H 98 02/25/24 23:00 90 22 117/94 96 02/25/24 21:53 96 02/25/24 21:53 96 02/25/24 21:36 111 H 02/25/24 21:30 36.8 C 95 H 18 144/88 H 98 O2 Del Method O2 Flow Rate 10/11/24 00:57 Room Air 02/26/24 00:44 02/26/24 00:32 02/26/24 00:03 02/25/24 23:30 Room Air 02/25/24 23:00 Room Air 02/25/24 21:53 Room Air 02/25/24 21:53 Room Air 0 02/25/24 21:36 02/25/24 21:30 Room Air Laboratory Results Abnormal lab results 02/25/24 Range/Units 21:42 WBC 11.43 H (4.8-10.8) K/ul MCHC 31.8 L (32.0-36.0) g/dL Neut # (Auto) 8.22 H (1.40-6.50) K/uL [place] # (Auto) 1.00 H (0.11-0.59) K/uL PT 13.1 H (9.0-12.0) Seconds INR 1.2 H (0.9-1.1) BUN 29 H (6-23) mg/dl BUN/Creatinine Ratio 24.2 H (10-20) Medications Administered Amiodarone HCl/Dextrose (Nexterone / D5w) 360 mg in 200 mls @ 33.333 mls/hr IV .Q6H MARTITA Stop: 02/26/24 06:44 Last Admin: 02/26/24 00:45 Dose: 1 mg/min, 33.3 mls/hr Documented By: Co-signed By: Discontinued Medications Amiodarone HCl/Dextrose (Amiodarone 360mg / 200ml D5w) Confirm Administered Dose 360 mg IV .STK-MED ONE Stop: 02/26/24 00:36 Last Admin: 02/26/24 00:47 Dose: Not Given Documented By: Amiodarone HCl/Dextrose (Amiodarone 150mg / 100ml D5w) Confirm Administered Dose 150 mg IV .STK-MED ONE Stop: 02/26/24 00:36 Last Admin: 02/26/24 00:48 Dose: Not Given Documented By: Amiodarone HCl (Amiodarone Hcl Inj 50 Mg/Ml 3 Ml Vial) Confirm Administered Dose 300 mg IV .STK-MED ONE Stop: 02/26/24 00:37 Last Admin: 02/26/24 01:05 Dose: Not Given Documented By: Magnesium Sulfate/Dextrose (Magnesium Sulfate / D5w) 1 gm in 100 mls @ 200 mls/hr IV Q30M MARTITA Stop: 02/26/24 00:44 Last Infusion: 02/26/24 01:30 Dose: Infused Documented By: Admin: 02/26/24 00:50 Dose: 200 mls/hr Documented By: Infusion: 02/26/24 00:35 Dose: Infused Documented By: Admin: 02/26/24 00:05 Dose: 200 mls/hr Documented By: Amiodarone HCl (Cordarone) 6 mls @ 6 mls/10 sec IV NOW STA Stop: 02/26/24 00:36 Last Admin: 02/26/24 00:45 Dose: 6 mls/10 sec Documented By: Co-signed By: DEBI Metoprolol Tartrate (Metoprolol Tartrate 1 Mg/Ml Vial) 5 mg IV NOW STA Stop: 02/25/24 23:54 Last Admin: 02/26/24 00:03 Dose: 5 mg Documented By: Home Medications dorzolamide 22.3 mg-timolol 6.8 mg/mL eye drops 1 drops ophthalmic (eye) BID 02/25/19 [History Confirmed 02/01/24] acetaminophen 500 mg tablet 1,000 mg PO BID PRN Pain 12/15/22 [History Confirmed 02/01/24] calcium carbonate (Calcium 600) 600 mg PO BID 12/15/22 [History Confirmed 02/01/24] cholecalciferol (vitamin D3) 125 mcg (5,000 unit) tablet (Vitamin D3) 125 mcg PO DAILY 12/15/22 [History Confirmed 02/01/24] ferrous sulfate 325 mg (65 mg iron) tablet 325 mg PO DAILY 12/15/22 [History Confirmed 02/01/24] nitroglycerin 0.4 mg sublingual tablet 0.4 mg sublingual Q5M PRN chest pain #14 tabs 12/16/22 [Rx Confirmed 02/01/24] potassium chloride 10 mEq capsule,extended release 10 meq PO DAILY #90 caps 12/30/22 [Rx Confirmed 02/01/24] omeprazole 40 mg capsule,delayed release 40 mg PO DAILY #90 caps 01/30/23 [Rx Confirmed 02/01/24] ticagrelor 90 mg tablet (Brilinta) 90 mg PO BID 90 days #180 tabs 02/04/23 [Rx Confirmed 02/01/24] albuterol sulfate 90 mcg/actuation aerosol inhaler 2 puff inhalation Q6H PRN shortness of breath or wheezing #8.5 grams 03/03/23 [Rx Confirmed 02/01/24] metoprolol succinate 200 mg tablet,extended release 24 hr 200 mg PO BID #180 tabs 03/12/23 [Rx Confirmed 02/01/24] montelukast 10 mg tablet 10 mg PO DAILY #90 tabs 04/14/23 [Rx Confirmed 02/01/24] atorvastatin 40 mg tablet 40 mg PO QAM #90 tabs 04/24/23 [Rx Confirmed 02/01/24] budesonide 0.5 mg/2 mL suspension for nebulization 0.5 mg inhalation DAILY 05/01/23 [History Confirmed 02/01/24] levocetirizine 5 mg tablet (Xyzal) 5 mg PO DAILY 05/01/23 [History Confirmed 02/01/24] rivaroxaban 20 mg tablet (Xarelto) 20 mg PO DAILY #90 tabs 05/19/23 [Rx Confirmed 02/01/24] furosemide 20 mg tablet 20 mg PO DAILY #120 tabs 06/05/23 [Rx Confirmed 02/01/24] sacubitril 97 mg-valsartan 103 mg tablet (Entresto) 1 tab PO BID #180 tabs 06/05/23 [Rx Confirmed 02/01/24] spironolactone 25 mg tablet 25 mg PO DAILY #90 tabs 06/05/23 [Rx Confirmed 02/01/24] empagliflozin 10 mg tablet (Jardiance) 10 mg PO DAILY #90 tabs 08/26/23 [Rx Confirmed 02/01/24] fluticasone 113 mcg-salmeterol 14 mcg/actuation breath activated powdr (AirDuo RespiClick) 1 inh inhalation BID #1 ea 08/26/23 [Rx Confirmed 02/01/24] prednisone 10 mg tablet 40 mg (4 x 10 mg) PO DAILY #30 tabs 10/05/23 [Rx Confirmed 02/01/24] metformin 500 mg tablet 500 mg PO DAILY #90 tabs 11/24/23 [Rx Confirmed 02/01/24] allopurinol 300 mg tablet 300 mg PO DAILY #90 tabs 02/08/24 [Rx] azithromycin 250 mg tablet See Rx Instructions PO .COMPLEX #6 tabs 02/09/24 [Rx Confirmed 02/09/24] benzonatate 200 mg capsule 200 mg PO TID PRN cough #60 caps 02/09/24 [Rx C onfirmed 02/09/24] prednisone 10 mg tablet 40 mg (4 x 10 mg) PO DAILY 7 days #28 tabs 02/18/24 [Rx] Active Medications Amiodarone HCl/Dextrose (Nexterone / D5w) 360 mg in 200 mls @ 33.333 mls/hr IV .Q6H MARTITA Stop: 02/26/24 06:44 Last Admin: 02/26/24 00:45 Dose: 1 mg/min, 33.3 mls/hr Amiodarone HCl/Dextrose (Nexterone / D5w) 360 mg in 200 mls @ 16.667 mls/hr IV .Q12H MARTITA Stop: 03/27/24 06:44 ECG Additional Comments: Ventricular-paced rhythm Biventricular pacemaker detected Abnormal ECG When compared with ECG [id number] 04:27, Vent. ratehas increasedby 9bpm Coding Level of Care Code 73242 CRITICAL CARE 1ST 30-74M Diagnoses Ventricular dysrhythmia I49.9 AICD discharge Z45.02 Heart failure with mid-range ejection fraction (HFmEF) I50.22 Cardiomyopathy I42.9 Coronary artery disease I25.10 Coronary Disease-Associated Artery/Lesion type: samish artery Permanent atrial fibrillation I48.21 Atrial fibrillation type: permanent HTN (hypertension) I10 Morbid obesity E66.01 (5) Coronary artery disease Coronary Disease-Associated Artery/Lesion type: samish artery (6) Atrial fibrillation Atrial fibrillation type: permanent Qualified Code(s): I48.21 - Permanent atrial fibrillation
[2024-02-26] MEDS ORDERED: DEXTROSE 50% 50 ML SYRINGE IV PRN (01:55)
[2024-02-26] MEDS ORDERED: GLUCOSE 40% GEL 15 GM TUBE PO PRN (01:55)
[2024-02-26] MEDS ORDERED: BENZONATATE 100 MG CAPSULE PO PRN (01:55)
[2024-02-26] MEDS ORDERED: GLUCOSE 10 TAB/TUBE PO PRN (01:55)
[2024-02-26] MEDS ORDERED: ACETAMINOPHEN 325 MG TAB PO PRN (01:55)
[2024-02-26] MEDS ORDERED: CARBOHYDRATES FOR HYPOGLYCEMIA PO PRN (01:55)
[2024-02-26] MEDS ORDERED: GLUCAGON FOR INJ 1 MG VIAL SQ PRN (01:55)
[2024-02-26] MEDS ORDERED: INFLUENZA VACC TS2024-25(6m+)/PF (IIV3) 0.5mL Syr IM ONE (02:16)
--- NOTE | 2024-02-26 02:59 | Billing Data ---
Date of Service February 26, 2024 Coding Level of Care Code 46388 CRITICAL CARE
[2024-02-26 04:19] LABS: Basophils # (auto) 0.03 K/uL (0.00-0.20); Basophils % (auto) 0.3 %; Eosinophils # (auto) 0.26 K/uL (0.00-0.50); Eosinophils % (auto) 2.7 %; Hematocrit (blood only) 40.3 % (42.0-52.0); Hemoglobin 13.2 g/dl (14.0-18.0); Immature Granulocytes # (auto) 0.05 K/uL (0.01-0.20); Immature Granulocytes % (auto) 0.5 %; Lymphocytes % (auto) 11.4 %; Mean Corpuscular Hemoglobin 30.3 pg (25.0-34.0); Mean Corpuscular Hgb Conc 32.8 g/dL (32.0-36.0); Mean Corpuscular Volume 92.4 fL (80.0-100.0); Mean Platelet Volume 11.2 fL (9.4-12.4); Monocytes # (auto) 0.73 K/uL (0.11-0.59); Monocytes % (auto) 7.6 %; Neutrophils # (auto) 7.44 K/uL (1.40-6.50); Neutrophils % (auto) 77.5 %; Platelet Count 195 K/uL (130-400); RDW Coefficient of Variation 13.3 % (11.5-14.5); RDW Standard Deviation 45.7 fL (36.4-46.3); Red Blood Count 4.36 M/uL (4.70-6.10); White Blood Count 9.61 K/ul (4.8-10.8)
[2024-02-26 04:43] LABS: Alanine Aminotransferase 28 U/L (7-52); Albumin Globulin Ratio 1.6 (0.9-2); Albumin Level 3.8 gm/dl (3.4-5.0); Alkaline Phosphatase 42 U/L (34-104); Anion Gap 6 (3-11); Aspartate Aminotransferase 21 U/L (13-39); BUN Creatinine Ratio 25.2 (10-20); Bilirubin,Total 0.5 mg/dl (0.2-1.0); Blood Urea Nitrogen 29 mg/dl (6-23); C Reactive Protein < 0.50 mg/dl (0-0.5); Calcium 8.6 mg/dl (8.6-10.3); Carbon Dioxide 27 mmol/L (21-32); Chloride 107 mmol/L (98-107); Chol HDL Ratio 2.2 (0-5); Cholesterol 87 mg/dl (0-200); Creatinine Clr Calc Pharmacy 128.7 ml/min; Globulin 2.4 gm/dl (2.5-4.0); Glucose 105 mg/dl (70-99(Fasting)); HDL Cholesterol 40 mg/dl; LDL Cholesterol Calculated 22 mg/dl; Magnesium 2.2 mg/dl (1.7-2.4); Potassium 4.6 mmol/L (3.5-5.1); Sodium 140 mmol/L (136-145); Total Protein 6.2 gm/dl (6.0-8.3); Triglycerides 123 mg/dl (0-150); VLDL Cholesterol 25 mg/dl (0-30)
[2024-02-26 04:48] LABS: Troponin I High Sensitivity 11.6 pg/ml (0-20)
--- NOTE | 2024-02-26 06:52 | XRay Report ---
XR chest 1V not portable HISTORY: 53 years-old Male Chest pain, nonspecific COMPARISON: 12/25/2022 TECHNIQUE: AP view of the chest FINDINGS: Cardiac silhouette is enlarged. Dual lead left subclavian pacer/AICD. No pneumothorax, pleural effusi on or airspace consolidation. The bones appear intact. IMPRESSION: Cardiomegaly without acute process. ACT 112: Negative or not required by law. The above report was generated using voice recognition software. It may contain grammatical, syntax o r spelling errors. Electronically signed by: Matthew Pelletier M.D. 02/26/2024 6:51 AM
[2024-02-26] MEDS: BUDESONIDE 0.5 MG/2 ML VIAL (PULMICORT) INH SCH (07:09)
--- NOTE | 2024-02-26 07:12 | Critical Care Progress Note ---
Date of Service February 26, 2024 Assessment & Plan Plan Reason Critically Ill: 53 YOM presents to EMD for syncopal event later discovered that he had 2 AICD discharges at home, had another AICD discharge that was VFib related during admission resulting in rapid response evaluation. To ICU for rhythm monitoring with management. Neuro - No acute needs CAM ICU: NEGATIVE Cardiac - Ventricular dysrhythmias, AICD discharge x3, Hx CAD, HTN, HLD, HFmEF Initially responded to Rapid Response in EMD following his- AICD discharge- which at that time was Vfib- not preceded by pause or fusion beat - Etiologies at this time remain broad- may be post viral vs. worsening of conduction disease vs. volume related vs. other- ECHO in am - Ventricular dysrhythmias- NSVT and Vfib per AICD interrogation report - Loaded with 300mg Amiodarone following last episode- continue infusion at 1mg/min then 0.5mg/min - If patient has another episode of VFib/NSVT- provide another 150 mg amiodarone load - Could also consider adding Esmolol infusion - Continue Metoprolol for now - Fusion beats noted- however at this time none visualized in down slope of R wave or R on T - Mag appropriate at 2.0- also was given mag IV in the EMD - He is without symptoms concerning for ischemia at this time - Case was discussed with Director [place] regional recruiter by Dr. Suarez EM provider - Dr. Mccartney Director [place]- he normally follows patient- BB and eval in am - Appreciate consultation - HFmEF- Previous ECHO 08/08- EF 35% reported as LVSF moderately reduced- limited study secondary technically difficult study - Follows with HF clinic- dry weight 375lbs- does not appear at this time ove rtly fluid overloaded - - Patient reports last time weighed self was approx 1 week ago - 285lbs - Continue Entresto as hemodynamics permit - continue Home diuretics- Spironolactone 25mg daily- bolus dosing if needed - Afib/CAD- Continue Brilinta and Rivaroxaban Respiratory - Asthma, ERNESTO - Continue Fluticasone/Sameterol- hold on DORI unless need to avoid further tachycardia inducing agent - Can likely discontinue his prednisone- may be worsening his fluid retention - ERNESTO- he is unsure of his settings reports having very old machine- no records for review at this time- will place on Auto CPAP/BIPAP if better tolerated - recommend up to date outpatient sleep study- as currently he reports no body is following his need/use GI - GERD, Morbid obesity, DM II - Continue PPI - ICU hyperglycemic protocol - Hold Metformin RENAL/LYTES - No acute needs - Keep K >4.0 and Mag >2.0 - No acute needs ENDO - DMII as above HEME - No acute need - Follow HGB/HCT/Platelet count - Transfuse if indicated ID - No concerns for infectious etiology at this time LINES/IV ACCESS - PIV Continue use of these lines DVT PROPHYLAXIS - SCDS, Rivaroxaban DISPO: ICU until rhythm and hemodynamics proven stable Admission and Anticipated Discharge Date Admission Date: February 26, 2024 Subjective Pt is a [] yo [male][female] with a past medical hx of [] who presented to the hospital on [] for [] Today, Review of Systems Review of Systems: All systems reviewed & are unremarkable except as noted in HPI & below Physical Exam Physical Exam: General: Alert and oriented, no acute distress [] HEENT: Normocephalic, atraumatic, Resp: Lungs clear to auscultation bilaterally, no increased work of breathing Cardio: Regular rate and rhythm, no murmurs GI: Soft and nontender, nondistended, bowel sounds active Skin: Warm, dry, no rashes on visible skin Neuro: Nonfocal exam Results & Data Results & Data Vital Signs (Past 12 Hours) Vital Signs Temp Pulse Pulse Resp BP BP Pulse Ox 02/26/24 07:09 75 16 97 02/26/24 06:48 69 19 96 02/26/24 06:03 70 17 98 02/26/24 06:01 114/79 02/26/24 06:01 114/79 02/26/24 06:01 114/79 02/26/24 05:39 72 16 98 02/26/24 05:33 74 17 98 02/26/24 05:03 70 18 97 02/26/24 05:01 112/65 02/26/24 04:51 83 16 95 02/26/24 04:36 72 17 96 02/26/24 04:01 118/78 02/26/24 04:00 76 14 97 02/26/24 03:30 80 18 97 02/26/24 03:24 74 15 100 02/26/24 03:01 108/77 02/26/24 02:57 86 20 93 02/26/24 02:30 81 14 95 02/26/24 02:18 82 18 97 02/26/24 02:01 121/79 02/26/24 01:58 119/83 02/26/24 01:57 79 15 96 02/26/24 01:56 35.9 C L 82 18 119/83 95 02/26/24 01:55 02/26/24 01:55 88 02/26/24 01:33 78 16 96 02/26/24 01:33 02/26/24 01:31 133/104 H 02/26/24 00:57 80 20 132/92 96 02/26/24 00:44 94 H 143/115 H 02/26/24 00:32 88 02/26/24 00:03 90 141/122 H 02/25/24 23:30 83 17 155/98 H 98 02/25/24 23:00 90 22 117/94 96 02/25/24 21:53 96 02/25/24 21:53 96 02/25/24 21:36 111 H 02/25/24 21:30 36.8 C 95 H 18 144/88 H 98 Pulse Ox O2 Del Method O2 Del Method O2 Flow Rate 02/26/24 07:09 Room Air 02/26/24 06:48 02/26/24 06:03 02/26/24 06:01 02/26/24 06:01 02/26/24 06:01 02/26/24 05:39 02/26/24 05:33 02/26/24 05:03 02/26/24 05:01 02/26/24 04:51 02/26/24 04:36 02/26/24 04:01 02/26/24 04:00 02/26/24 03:30 02/26/24 03:24 02/26/24 03:01 02/26/24 02:57 02/26/24 02:30 02/26/24 02:18 02/26/24 02:01 02/26/24 01:58 02/26/24 01:57 02/26/24 01:56 Room Air 02/26/24 01:55 100 Room Air 02/26/24 01:55 02/26/24 01:33 Room Air 02/26/24 01:33 Room Air 02/26/24 01:31 02/26/24 00:57 Room Air 02/26/24 00:44 02/26/24 00:32 02/26/24 00:03 02/25/24 23:30 Room Air 02/25/24 23:00 Room Air 02/25/24 21:53 Room Air 02/25/24 21:53 Room Air 0 02/25/24 21:36 02/25/24 21:30 Room Air
[2024-02-26 07:16] LABS: Estimated Average Glucose 123 mg/dl; Hemoglobin A1C 5.9 % (4.5-5.6)
[2024-02-26] MEDS ORDERED: ICU Protocol for HYPERglycemia SCH (07:30)
--- NOTE | 2024-02-26 07:50 | Hospitalist Progress Note ---
Date of Service February 26, 2024 Assessment & Plan (1) AICD discharge: Plan: syncope with associated AICD defibrillation Ventricular tachycardia/ventricular fibrillation/AICD discharge secondary to HFrEF/cardiomyopathy- h/oatrial fibrillation on chronic anticoagulation h/o CAD/hypertension status post AICD firing for ventricular fibrillation at home as noted on interrogation of device, and as witnessed in the ED Echo with EF 20-25% left heart cath Moderate to severe coronary artery disease - 50-60% mid LAD at bifurcation with D2. D2 80% ostial stenosis. - Late-mid LAD 60-70% - D1 stents widely patent - 40% mid circumflex Continue metoprolol Succinate 100 mg p.o. twice daily, Xarelto 20 mg daily, Entresto 97/103 twice daily Brilinta 90 mg p.o. twice daily Received amiodarone 300 mg IV bolus, followed by standard amiodarone drip protocol Pt with consideration of AV ablation, that may improve biV pacing hold furosemide 20 mg daily, daily and empagliflozin Consult promotion manager Dr. Steven, leather piece inspector Dr. Mccartney (2) COVID-19: Plan: COVID-19 infection/persistent cough- Symptoms began about 3 to 4 weeks ago past time window does not qualify for antiviral treatment Pre hospital did receive a course of prednisone and azithromycin, followed by a prednisone taper which was completed 1 day prior to admission (3) ERNESTO on CPAP: Plan: ERNESTO- On CPAP at home, will use own Plan Diabetes mellitus-aic is 5.[address] on Accu-Cheks with SSI Hyperlipidemia-On atorvastatin Admission and Anticipated Discharge Date Admission Date: February 26, 2024 Results & Data Results & Data Vital Signs (Past 12 Hours) Vital Signs Temp Pulse Pulse Resp BP BP Pulse Ox 02/26/24 07:09 75 16 97 02/26/24 06:48 69 19 96 02/26/24 06:03 70 17 98 02/26/24 06:01 114/79 02/26/24 06:01 114/79 02/26/24 06:01 11479 02/26/24 05:39 72 16 98 02/26/24 05:33 74 17 98 02/26/24 05:03 70 18 97 02/26/24 05:01 112/65 02/26/24 04:51 83 16 95 02/26/24 04:36 72 17 96 02/26/24 04:01 118/78 02/26/24 04:00 76 14 97 02/26/24 03:30 80 18 97 02/26/24 03:24 74 15 100 02/26/24 03:01 108/77 02/26/24 02:57 86 20 93 02/26/24 02:30 81 14 95 02/26/24 02:18 82 18 97 02/26/24 02:01 121/79 02/26/24 01:58 119/83 02/26/24 01:57 79 15 96 02/26/24 01:56 96.6 F L 82 18 119/83 95 02/26/24 01:55 02/26/24 01:55 88 02/26/24 01:33 78 16 96 02/26/24 01:33 02/26/24 01:31 133/104 H 02/26/24 00:57 80 20 132/92 96 02/26/24 00:44 94 H 143/115 H 02/26/24 00:32 88 02/26/24 00:03 90 141/122 H 02/25/24 23:30 83 17 155/98 H 98 02/25/24 23:00 90 22 117/94 96 02/25/24 21:53 96 02/25/24 21:53 96 02/25/24 21:36 111 H 02/25/24 21:30 98.2 F 95 H 18 144/88 H 98 Pulse Ox O2 Del Method O2 Del Method O2 Flow Rate 02/26/24 07:09 Room Air 02/26/24 06:48 02/26/24 06:03 02/26/24 06:01 02/26/24 06:01 02/26/24 06:01 02/26/24 05:39 02/26/24 05:33 02/26/24 05:03 02/26/24 05:01 02/26/24 04:51 02/26/24 04:36 02/26/24 04:01 02/26/24 04:00 02/26/24 03:30 02/26/24 03:24 02/26/24 03:01 02/26/24 02:57 02/26/24 02:30 02/26/24 02:18 02/26/24 02:01 02/26/24 01:58 02/26/24 01:57 02/26/24 01:56 Room Air 02/26/24 01:55 100 Room Air 02/26/24 01:55 02/26/24 01:33 Room Air 02/26/24 01:33 Room Air 02/26/24 01:31 02/26/24 00:57 Room Air 02/26/24 00:44 02/26/24 00:32 02/26/24 00:03 02/25/24 23:30 Room Air 02/25/24 23:00 Room Air 02/25/24 21:53 Room Air 02/25/24 21:53 Room Air 0 02/25/24 21:36 02/25/24 21:30 Room Air PG Care Time/CCT Total # of Minutes Spent Total Time Spent with Patient: Total time spent is greater than 50% in coordination of care (as documented) at patient's floor/unit and/or counseling patient: Coding Level of Care Code None Diagnoses AICD discharge Z45.02 COVID-19 U07.1 ERNESTO on CPAP G47.33; Z99.89
[2024-02-26] MEDS: ATORVASTATIN 40 MG TAB PO SCH (08:17)
[2024-02-26] MEDS: MONTELUKAST SODIUM 10 MG TABLET PO SCH (08:17)
[2024-02-26] MEDS: PANTOprazole 40 MG TAB PO SCH (08:17)
[2024-02-26] MEDS: CHOLECALCIFEROL 125 MCG (5,000 UNITS) TAB PO SCH (08:18)
[2024-02-26] MEDS: SPIRONOLACTONE 25 MG TAB PO SCH (08:18)
[2024-02-26] MEDS: FERROUS SULFATE 325 MG TAB PO SCH (08:18)
[2024-02-26] MEDS: RIVAROXABAN 20 MG TAB PO SCH (08:18)
[2024-02-26] MEDS: allopurinoL 300 MG TAB PO SCH (08:18)
[2024-02-26] MEDS: VALSARTAN/SACUBITRIL 103/97MG TAB PO SCH (08:18)
[2024-02-26] MEDS: METOPROLOL SUCC 50MG EXT REL TAB PO SCH (08:18)
[2024-02-26] MEDS: DORZOLAMIDE/TIMOLOL 22.3/6.8MG/ML 10 ML BTL OP SCH (08:18)
[2024-02-26] MEDS: TICAGRELOR 90 MG TAB PO SCH (08:18)
[2024-02-26] MEDS: CALCIUM CARBONATE 1250MG TAB PO SCH (08:24)
[2024-02-26] MEDS: INSULIN ASPART PER UNIT CHARGE SC SCH (08:28)
[2024-02-26] MEDS ORDERED: predniSONE 20 MG TAB PO SCH (09:00)
--- NOTE | 2024-02-26 12:18 | XCELERA ---
[id number] \\[id number]
--- NOTE | 2024-02-26 12:52 | Cardiology Consultation ---
Date of Consultation February 26, 2024 Assessment & Plan (1) Ventricular dysrhythmia: -3 episodes of ventricular fibrillation requiring defibrillation. -Agree with intravenous amiodarone. -Case discussed with Dr. Mccartney. He suggest we consider a cardiac catheterization. (2) Coronary artery disease: -s/p D1 LUZ as described above. -Residual disease in the mid LAD into the second diagonal branch. -Case discussed with Dr. Barroso. Proceed with a cardiac catheterization. (3) Cardiomyopathy: -Left ventricular systolic function now severely reduced with an ejection fraction of 20 to 25%. -LVEF was 35% back in July 2023. -As above, proceed with a cardiac catheterization. (4) Atrial fibrillation: -Continue rate control and long-term anticoagulation. (5) Biventricular ICD (implantable cardioverter-defibrillator) in place: -Placed in December 2022. -Dr. Mccartney was making arrangements for an AV node ablation to improve overall pacing percentage in the ventricles. History of Present Illness Attending Physician: Rafael Watts MD History of Present Illness Mr. Roque is a 53-year-old male admitted last evening after a syncopal event related to ventricular fibrillation and a defibrillator discharge. This consultation was ordered to assist in his cardiac management. Of note, the patient is well-known to me from the outpatient setting. He also follows with Dr. Mccartney in the device clinic. The patient was in his usual state of health until approximately 7:30 PM yesterday. While seated on the couch. The patient had the abrupt onset of "dizziness." This lasted a short period of time and then resolved. At approximately 9 PM, the patient stood up from the couch to use the bathroom. He again had the abrupt onset of "dizziness" and leaned against the door frame. The next thing he knew, he was on the floor. He does feel that he lost consciousness. Interrogation of the ICD noted to defibrillations for ventricular fibrillation. While in the emergency room, the patient again noticed the abrupt onset of "dizziness" and was noted to have Vfib on the monitor and received a defibrillation. The patient has been carrying on activity of daily life without exertional angina pectoris or limiting dyspnea. He was diagnosed with COVID 3 to 4 weeks ago. He did receive a course of prednisone and azithromycin. The patient does carry history of coronary artery disease diagnosed at the time of a non-ST elevation DC back on December 15, 2022. He had a LUZ placed in the first diagonal branch. Other disease included a 50 to 60% mid LAD stenosis right at the ostium of D2. D2 had an 80 to 90% ostial stenosis. There is a 30% proximal and 40% mid LCx stenosis. The right coronary was nondominant. An echocardiogram performed at that time noted an ejection fraction of 40 to 45%. On December 20, 2022, the patient developed recurrent chest discomfort. He was found to have an acute stent thrombosis which required a 2.25 x 12 Xience LUZ. He developed some asystole with the left coronary injections and a witnessed VF arrest. Therefore, Dr. Mccartney placed a biventricular ICD during that hospitalization. An echocardiogram performed back in July noted moderate left ventricular dysfunction with ejection fraction of 35%. He has been following in the CHF clinic. Currently, patient is resting comfortably in bed and without complaints. Past medical and surgical history 1. Coronary artery disease-see above 2. D1 DESsee above 3. Ischemic cardiomyopathy 4. Permanent atrial fibrillation 5. Biventricular ICDAugust 2022 6. Chronic systolic CHF 7. Hypertension 8. Hypercholesterolemia 9. Diabetes mellitus 10. Obesity 11. Obstructive sleep apnea 12. Exercise-induced asthma 13. 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 Allergies Allergy/AdvReac Type Severity Reaction Status Date / Time cat dander Allergy Intermediate Itchy, Verified 02/01/24 11:43 watery eyes, sneezing dog dander Allergy Intermediate Itchy, Verified 02/01/24 11:43 watery eyes, sneezing pollen extracts Allergy Intermediate SNEEZE,ITCHY Verified 02/01/24 11:43 WATERY EYES house dust mite Allergy Unknown Verified 02/01/24 11:43 mold Allergy Unknown Verified 02/01/24 11:43 morphine Allergy Vomiting Verified 02/01/24 11:43 oxycodone [From Percocet] Allergy Unknown Verified 02/01/24 11:43 Home Medications Medication Instructions Recorded Confirmed Type dorzolamide 22.3 mg-timolol 6.8 1 drops ophthalmic (eye) BID 02/25/19 02/01/24 History mg/mL eye drops acetaminophen 500 mg tablet 1,000 mg PO BID PRN Pain 12/15/22 02/01/24 History calcium carbonate (Calcium 600) 600 mg PO BID 12/15/22 02/01/24 History cholecalciferol (vitamin D3) 125 125 mcg PO DAILY 12/15/22 02/01/24 History mcg (5,000 unit) tablet (Vitamin D3) ferrous sulfate 325 mg (65 mg 325 mg PO DAILY 12/15/22 02/01/24 History iron) tablet nitroglycerin 0.4 mg sublingual 0.4 mg sublingual Q5M PRN chest 12/16/22 0 02/01/24 Rx tablet pain #14 tabs potassium chloride 10 mEq 10 meq PO DAILY #90 caps 12/30/22 02/01/24 Rx capsule,extended release omeprazole 40 mg capsule,delayed 40 mg PO DAILY #90 caps 01/30/23 02/01/24 Rx release ticagrelor 90 mg tablet (Brilinta) 90 mg PO BID 90 days #180 tabs 02/04/23 02/01/24 Rx albuterol sulfate 90 mcg/actuation 2 puff inhalation Q6H PRN 03/03/23 02/01/24 Rx aerosol inhaler shortness of breath or wheezing #8.5 grams metoprolol succinate 200 mg 200 mg PO BID #180 tabs 03/12/23 02/01/24 Rx tablet,extended release 24 hr montelukast 10 mg tablet 10 mg PO DAILY #90 tabs 04/14/23 02/01/24 Rx atorvastatin 40 mg tablet 40 mg PO QAM #90 tabs 04/24/23 02/01/24 Rx budesonide 0.5 mg/2 mL suspension 0.5 mg inhalation DAILY 05/01/23 02/01/24 History for nebulization levocetirizine 5 mg tablet (Xyzal) 5 mg PO DAILY 05/01/23 02/01/24 History rivaroxaban 20 mg tablet (Xarelto) 20 mg PO DAILY #90 tabs 05/19/23 02/01/24 Rx furosemide 20 mg tablet 20 mg PO DAILY #120 tabs 06/05/23 02/01/24 Rx sacubitril 97 mg-valsartan 103 mg 1 tab PO BID #180 tabs 06/05/23 02/01/24 Rx tablet (Entresto) spironolactone 25 mg tablet 25 mg PO DAILY #90 tabs 06/05/23 02/01/24 Rx empagliflozin 10 mg tablet 10 mg PO DAILY #90 tabs 08/26/23 02/01/24 Rx (Jardiance) fluticasone 113 mcg-salmeterol 14 1 inh inhalation BID #1 ea 08/26/23 02/01/24 Rx mcg/actuation breath activated powdr (AirDuo RespiClick) prednisone 10 mg tablet 40 mg (4 x 10 mg) PO DAILY #30 tabs 10/05/23 02/01/24 Rx metformin 500 mg tablet 500 mg PO DAILY #90 tabs 11/24/23 02/01/24 Rx allopurinol 300 mg tablet 300 mg PO DAILY #90 tabs 02/08/24 Rx azithromycin 250 mg tablet See Rx Instructions PO .COMPLEX #6 02/09/24 02/09/24 Rx tabs benzonatate 200 mg capsule 200 mg PO TID PRN cough #60 caps 02/09/24 02/09/24 Rx prednisone 10 mg tablet 40 mg (4 x 10 mg) PO DAILY 7 days 02/18/24 Rx #28 tabs Patient History Medical History Acute UTI Ventricular fibrillation ACS (acute coronary syndrome) Unstable angina Atrial fibrillation with rapid ventricular response Glaucoma Finger laceration involving tendon Surgical History H/O oral surgery History of hand surgery Family History Mother Coronary heart disease Myocardial infarction Diabetes Father Coronary heart disease Myocardial infarction Other Hypertension Denies family history of Ovarian cancer Prostate cancer Breast cancer Colorectal cancer Social History Smoking Status: Never smoker Second Hand Exposure: No; Do You Dip or Chew Tobacco: No; Hx Alcohol Use: Yes Alcohol type: beer Hx Substance Use: No Preferred Language: Kazakh Communication Ability: Effective Visual Impairment: No Limitations Hearing Ability: Normal Press Tender Smoke Signal Required: No Beliefs That Will Affect Care: None marital status: Current Living Situation: Spouse current occupational status: employed current occupation: [employer] How many Children do You have: 0 Other Information That Helps Us Care for You: No Feels Safe at Home: Yes Safety Concerns: Feels Safe At This Time Childhood Exposure to Second-Hand Smoke: Yes Diet: regular caffeine: Yes Dental Care, Regularly: Yes Physical Activity Frequency: Does not Exercise Seatbelt Use: always Sunscreen Use: No Assistive Devices: None Physical Exam Physical Exam: In general this is a morbidly obese male in no acute distress. HEENT exam is negative. Neck is supple with full carotid upstrokes. There are no carotid bruits. No jugular venous distention. There is no thyromegaly. Cardiovascular exam reveals an irregular rhythm with distant heart sounds. No obvious murmurs. Chest reveals a palpable device in the left subclavicular region. Lungs are clear without rales, rhonchi, or wheezes. Abdomen is obese without bruits. Extremities reveal intact radial artery pulses bilaterally. Trace pretibial edema is noted. Results & Data Vital Signs (Past 12 Hours) Vital Signs Temp Pulse Pulse Resp BP BP Pulse Ox 02/26/24 10:57 77 23 96 02/26/24 10:03 77 14 98 02/26/24 10:01 103/72 02/26/24 09:54 82 18 98 02/26/24 09:39 78 16 97 02/26/24 09:12 80 11 L 97 02/26/24 09:01 109/76 02/26/24 08:51 79 16 96 02/26/24 08:30 86 16 96 02/26/24 08:11 36.4 C L 02/26/24 08:06 85 14 97 02/26/24 08:01 114/81 02/26/24 08:01 114/81 02/26/24 08:00 70 11 L 97 02/26/24 07:39 83 21 98 02/26/24 07:15 79 14 99 02/26/24 07:09 75 16 97 02/26/24 06:48 69 19 96 02/26/24 06:03 70 17 98 02/26/24 06:01 114/79 02/26/24 06:01 114/79 02/26/24 06:01 114/79 02/26/24 05:39 72 16 98 02/26/24 05:33 74 17 98 02/26/24 05:03 70 18 97 02/26/24 05:01 112/65 02/26/24 04:51 83 16 95 02/26/24 04:36 72 17 96 02/26/24 04:01 118/78 02/26/24 04:00 76 14 97 02/26/24 03:30 80 18 97 02/26/24 03:24 74 15 100 02/26/24 03:01 108/77 02/26/24 02:57 86 20 93 02/26/24 02:30 81 14 95 02/26/24 02:18 82 18 97 02/26/24 02:01 121/79 02/26/24 01:58 119/83 02/26/24 01:57 79 15 96 02/26/24 01:56 35.9 C L 82 18 119/83 95 02/26/24 01:55 02/26/24 01:55 88 02/26/24 01:33 78 16 96 02/26/24 01:33 02/26/24 01:31 133/104 H 02/26/24 00:57 80 20 132/92 96 02/26/24 00:44 94 H 143/115 H 02/26/24 00:32 88 Pulse Ox O2 Del Method O2 Del Method 02/26/24 10:57 02/26/24 10:03 02/26/24 10:01 02/26/24 09:54 02/26/24 09:39 02/26/24 09:12 02/26/24 09:01 02/26/24 08:51 02/26/24 08:30 02/26/24 08:11 02/26/24 08:06 02/26/24 08:01 02/26/24 08:01 02/26/24 08:00 02/26/24 07:39 02/26/24 07:15 02/26/24 07:09 Room Air 02/26/24 06:48 02/26/24 06:03 02/26/24 06:01 02/26/24 06:01 02/26/24 06:01 02/26/24 05:39 02/26/24 05:33 02/26/24 05:03 02/26/24 05:01 02/26/24 04:51 02/26/24 04:36 02/26/24 04:01 02/26/24 04:00 02/26/24 03:30 02/26/24 03:24 02/26/24 03:01 02/26/24 02:57 02/26/24 02:30 02/26/24 02:18 02/26/24 02:01 02/26/24 01:58 02/26/24 01:57 02/26/24 01:56 Room Air 02/26/24 01:55 100 Room Air 02/26/24 01:55 02/26/24 01:33 Room Air 02/26/24 01:33 Room Air 02/26/24 01:31 02/26/24 00:57 Room Air 02/26/24 00:44 02/26/24 00:32 Laboratory Results CBC notes hemoglobin of 13.2, medic at 40.3, white count 9.6, platelet count 195,000. Electrolytes noted sodium of 140, potassium 4.6, chloride 107, bicarb 27, BUN 29, creatinine 1.15, and a glucose of 105. Magnesium level normal at 2.2. Initial high-sensitivity troponin was 6.9 with a follow-up value of 11.6. BNP mildly elevated at 311. LDL cholesterol 22 with an HDL cholesterol 40. Diagnostic Findings Echocardiogram notes severe left ventricular dysfunction with an ejection fraction of 20 to 25%. There is mild mitral regurgitation. EKG notes atrial fibrillation with ventricular pacing. Chest x-ray shows significant cardiomegaly and a left-sided ICD. PG Care Time/CCT Total # of Minutes Spent Total Time Spent with Patient: Total time spent is greater than 50% in coordination of care (as documented) at patient's floor/unit and/or counseling patient: Coding Level of Care Code 34894 IN/OBS CONSULT LVL 5,80M Diagnoses Ventricular dysrhythmia I49.9 Coronary artery disease I25.10 Coronary Disease-Associated Artery/Lesion type: [place] artery Cardiomyopathy I42.9 Permanent atrial fibrillation I48.21 Atrial fibrillation type: permanent Biventricular ICD (implantable cardioverter-defibrillator) in place Z95.810 (2) Coronary artery disease Coronary Disease-Associated Artery/Lesion type: [place] artery (4) Atrial fibrillation Atrial fibrillation type: permanent Qualified Code(s): I48.21 - Permanent atrial fibrillation
[2024-02-26] MEDS: fentaNYL citrate PF 100 MCG/2 ML VIAL ONE (13:44)
[2024-02-26] MEDS: MIDAZOLAM HCL 1 MG/ML 2ML VIAL ONE (13:45)
[2024-02-26] MEDS: niCARdipine HCL INJ 2.5 MG/ML 10 ML AMP ONE (13:45)
[2024-02-26] MEDS: NITROGLYCERIN/D5W 100MCG/ML 20ML SYR ONE (13:46)
[2024-02-26] MEDS: OPTIRAY 350 ONE (13:46)
--- NOTE | 2024-02-26 13:59 | Post Anesthesia Assessment ---
Date of Service February 26, 2024 Post Sedation Assessment Vital Signs Temp Pulse Pulse Resp BP BP Pulse Ox 02/26/24 12:03 81 18 96 02/26/24 12:01 114/88 02/26/24 12:01 114/88 02/26/24 12:01 114/88 02/26/24 11:57 81 19 96 02/26/24 11:33 78 20 97 02/26/24 11:01 116/85 02/26/24 11:00 81 10 L 96 02/26/24 10:57 77 23 96 02/26/24 10:03 77 14 98 02/26/24 10:01 103/72 02/26/24 09:54 82 18 98 02/26/24 09:39 78 16 97 02/26/24 09:12 80 11 L 97 02/26/24 09:01 109/76 02/26/24 08:51 79 16 96 02/26/24 08:30 86 16 96 02/26/24 08:11 97.5 F L 02/26/24 08:06 85 14 97 02/26/24 08:01 114/81 02/26/24 08:01 114/81 02/26/24 08:00 70 11 L 97 02/26/24 07:39 83 21 98 02/26/24 07:15 79 14 99 02/26/24 07:09 75 16 97 02/26/24 06:49 78 02/26/24 06:48 69 19 96 02/26/24 06:03 70 17 98 02/26/24 06:01 114/79 02/26/24 06:01 114/79 02/26/24 06:01 114/79 02/26/24 05:39 72 16 98 02/26/24 05:33 74 17 98 02/26/24 05:03 70 18 97 02/26/24 05:01 112/65 02/26/24 04:51 83 16 95 02/26/24 04:36 72 17 96 02/26/24 04:01 118/78 02/26/24 04:00 76 14 97 02/26/24 03:30 80 18 97 02/26/24 03:24 74 15 100 02/26/24 03:01 108/77 02/26/24 02:57 86 20 93 02/26/24 02:30 81 14 95 02/26/24 02:18 82 18 97 02/26/24 02:01 121/79 02/26/24 01:58 119/83 02/26/24 01:57 79 15 96 02/26/24 01:56 96.6 F L 82 18 119/83 95 02/26/24 01:55 02/26/24 01:55 88 02/26/24 01:33 78 16 96 02/26/24 01:33 02/26/24 01:31 133/104 H 02/26/24 00:57 80 20 132/92 96 02/26/24 00:44 94 H 143/115 H 02/26/24 00:32 88 02/26/24 00:03 90 141/122 H 02/25/24 23:30 83 17 155/98 H 98 02/25/24 23:00 90 22 117/94 96 02/25/24 21:53 96 02/25/24 21:53 96 02/25/24 21:36 111 H 02/25/24 21:30 98.2 F 95 H 18 144/88 H 98 Pulse Ox O2 Del Method O2 Del Method O2 Flow Rate 02/26/24 12:03 02/26/24 12:01 02/26/24 12:01 02/26/24 12:01 02/26/24 11:57 02/26/24 11:33 02/26/24 11:01 02/26/24 11:00 02/26/24 10:57 02/26/24 10:03 02/26/24 10:01 02/26/24 09:54 02/26/24 09:39 02/26/24 09:12 02/26/24 09:01 02/26/24 08:51 02/26/24 08:30 02/26/24 08:11 02/26/24 08:06 02/26/24 08:01 02/26/24 08:01 02/26/24 08:00 02/26/24 07:39 02/26/24 07:15 02/26/24 07:09 Room Air 02/26/24 06:49 02/26/24 06:48 02/26/24 06:03 02/26/24 06:01 02/26/24 06:01 02/26/24 06:01 02/26/24 05:39 02/26/24 05:33 02/26/24 05:03 02/26/24 05:01 02/26/24 04:51 02/26/24 04:36 02/26/24 04:01 02/26/24 04:00 02/26/24 03:30 02/26/24 03:24 02/26/24 03:01 02/26/24 02:57 02/26/24 02:30 02/26/24 02:18 02/26/24 02:01 02/26/24 01:58 02/26/24 01:57 02/26/24 01:56 Room Air 02/26/24 01:55 100 Room Air 02/26/24 01:55 02/26/24 01:33 Room Air 02/26/24 01:33 Room Air 02/26/24 01:31 02/26/24 00:57 Room Air 02/26/24 00:44 02/26/24 00:32 02/26/24 00:03 02/25/24 23:30 Room Air 02/25/24 23:00 Room Air 02/25/24 21:53 Room Air 02/25/24 21:53 Room Air 0 02/25/24 21:36 02/25/24 21:30 Room Air Recovery Score Activity: Moves 4 extremities Respiration: Deep Breath/Cough Circulation: +/-20% PreAnes Value Consciousness: Fully Awake Oxygen Saturation: O2 needed for >90% Discharge Sedation Level of Care: Fast Track Phase II Post Sedation Plan On clinical assessment, the patient appears to have tolerated the sedation without complications. Patient is recovering as anticipated. Patient will continue to be monitored by nursing and may be discharged when sedation discharge criteria are met per below protocol. Upon Completions of procedure up to 15 minutes continue every 5 minute vital signs and the P.A.R. score; then discharge to a Phase I or Fast Track to Phase II per the following guidelines: * Discharge Patient to appropriate Phase II area if PAR is 8 or greater or return to pre- procedure baseline. The post - procedure orders will be as directed. * If PAR score is less than 8 or not return to pre-procedure baseline then patient will follow Phase I monitoring till PAR is reached for Phase II. The Phase I may be done in procedure room or may call to secure a Phase I area. * If naloxone or flumazenil are used for reversal, hold in Phase I for contin ued monitoring from when last reversal dose was given for a minimum of 60 minutes or longer pending the nurse and/or physician discretion of patient condition before discharge to Phase II. Please call the Sedation Physician to re-evaluate and complete post-note for discharge to Phase II area. Do NOT discharge from procedure sedation or Phase 1 until post- sedation evaluation note is complete by procedure /sedation MD Sedation Discharge Instructions to be given to the patient at discharge to home.
--- NOTE | 2024-02-26 14:13 | Cardiac Catheterization ---
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 Cardiac Status Clinical evaluation leading to the procedure CAD Presenation: Sx unlikely to be ischemic Diagnostic Physicians Name: Zane Barroso MD Closure Device Recommendations: Medical Therapy and/or Counseling Cardiac Cath Procedure Full Procedure Date February 26, 2024 Pre-Procedure Diagnosis Pre-Procedure Diagnosis: Cardiomyopathy and Arrhythmia AUC Score AUC Score: 8 Post-Procedure Diagnosis Post-Procedure Diagnosis: Severe CAD and Normal Intracardiac Pressures Procedure(s) Performed Procedure(s) Performed: Coronary Angiography and Left Heart Cath Tablet Machine Operator Zane Barroso MD Animal Care Technician(s) Jonny Estimated Blood Loss Estimated Blood Loss: 15 Medication(s) Medication(s): Fentanyl, Heparin, Lidocaine 1%, Nicardipine, Nitroglycerin and Versed Summary of Findings Indication: Worsened LV dysfunction, ventricular arrhythmia Access: 6 Fr slender right radial artery Catheters: [place], diagnostic JL 3.5 Findings: Findings: LM -normal caliber, no significant disease LAD -large caliber, calcified, 50-60% mid segment stenosis at takeoff of second diagonal, latemid 60-70% stenosis with myocardial bridging, distal with mild disease and wraps around apex. D1 with stents widely patent. Medium D2 with 80% ostial stenosis Circumflex -medium caliber, 20 to 30% proximal stenosis, 40% mid segment stenosis at takeoff of small OM2. Gives a very small left PDA which tapers prior to apex. RCA -nondominant, 30% proximal to mid disease LVEDP - 18 Arterial Closure: TR Band Summary: 1. Moderate to severe coronary artery disease - 50-60% mid LAD at bifurcation with D2. D2 80% ostial stenosis. - Late-mid LAD 60-70% - D1 stents widely patent - 40% mid circumflex 2. Borderline elevated intracardiac filling pressure Recommendations: No acute or high risk CAD to explain patients recent ventricular arrhythmias. Recommend continued medical management of stable CAD. If exertional anginal symptoms in the future could consider PCI to LAD/D2 bifurcation, latemid LAD. Continue ASCVD risk factor modification . GDMT for NICM and further arrhythmia management per Dr. Espinal and Dr. Mccartney. Hemodynamics Rest Ao:: 120/83/97 Final Ao: 121/83/95 LV: 119/18 Recommendations Recommendations: Medical Therapy and/or Counseling Specimens Specimens: None Radiation Exposure (mGy) 1608 Contrast (mls) 60 Anesthesia Moderate 8981-8448 Procedural Complication(s) None Disposition ICU I attest to the content of the Intraoperative Record and any orders documented therein. Any exceptions are noted below. [facility] Card Cath Procedure Codes Cardiac Catheterization Procedure 1: Cardiovascular Cath Procedures: 56751 Coronaries and LHC (+/-LV) Moderate Sedation Procedure 1: Sedation/Anesthesia: 80215 Mod Sedation by the same physician;Init15 Min Child Age 5 & Up PG Care Time/CCT Total # of Minutes Spent Total Time Spent with Patient: Total time spent is greater than 50% in coordination of care (as documented) at patient's floor/unit and/or counseling patient:
--- NOTE | 2024-02-26 14:27 | Electrocardiogram Report ---
Test Reason : Blood Pressure : */* mmHG Vent. Rate : 91 BPM Atrial Rate : 65 BPM P-R Int : * ms QRS Dur : 196 ms QT Int : 462 ms P-R-T Axes : * -68 90 degrees QTcB Int : 568 ms Ventricular-paced rhythm Biventricular pacemaker detected Abnormal ECG When compared with ECG of 26-Dec-2022 04:27, Vent. rate has increased by 9 bpm Confirmed by Tono Espinal ([id number]) on 02/26/2024 2:27:42 PM Referred By: REFERRED SELF Confirmed By: Tono Espinal
--- NOTE | 2024-02-26 14:27 | Electrocardiogram Report ---
Test Reason : Blood Pressure : */* mmHG Vent. Rate : 85 BPM Atrial Rate : 89 BPM P-R Int : * ms QRS Dur : 192 ms QT Int : 468 ms P-R-T Axes : * -63 84 degrees QTcB Int : 556 ms Ventricular-paced rhythm Abnormal ECG When compared with ECG of 25-Feb-2024 21:58, (unconfirmed) Vent. rate has decreased by 6 bpm Confirmed by Tono Espinal ([id number]) on 02/26/2024 2:27:49 PM Referred By: REFERRED SELF Confirmed By: Tono Espinal
[2024-02-26] MEDS: HEPARIN (PORCINE) 1000 UNIT/ML 10 ML (CATH LAB USE ONLY) ONE (15:31)
[2024-02-27 04:14] LABS: Basophils # (auto) 0.03 K/uL (0.00-0.20); Basophils % (auto) 0.3 %; Eosinophils # (auto) 0.26 K/uL (0.00-0.50); Eosinophils % (auto) 2.4 %; Hematocrit (blood only) 40.3 % (42.0-52.0); Hemoglobin 13.1 g/dl (14.0-18.0); Immature Granulocytes # (auto) 0.03 K/uL (0.01-0.20); Immature Granulocytes % (auto) 0.3 %; Lymphocytes # (auto) 1.32 K/uL (1.20-3.40); Lymphocytes % (auto) 12.3 %; Mean Corpuscular Hemoglobin 29.5 pg (25.0-34.0); Mean Corpuscular Hgb Conc 32.5 g/dL (32.0-36.0); Mean Corpuscular Volume 90.8 fL (80.0-100.0); Mean Platelet Volume 10.6 fL (9.4-12.4); Monocytes # (auto) 0.78 K/uL (0.11-0.59); Monocytes % (auto) 7.3 %; Neutrophils # (auto) 8.33 K/uL (1.40-6.50); Neutrophils % (auto) 77.4 %; Platelet Count 186 K/uL (130-400); RDW Coefficient of Variation 13.3 % (11.5-14.5); Red Blood Count 4.44 M/uL (4.70-6.10); White Blood Count 10.75 K/ul (4.8-10.8)
[2024-02-27 04:29] LABS: Albumin Globulin Ratio 1.6 (0.9-2); Albumin Level 3.7 gm/dl (3.4-5.0); BUN Creatinine Ratio 23.7 (10-20); Bilirubin,Total 0.8 mg/dl (0.2-1.0); Calcium 8.3 mg/dl (8.6-10.3); Creatinine Clr Calc Pharmacy 152.6 ml/min; Globulin 2.3 gm/dl (2.5-4.0); Magnesium 1.9 mg/dl (1.7-2.4)
--- NOTE | 2024-02-27 07:58 | Critical Care Progress Note ---
Date of Service February 27, 2024 Assessment & Plan (1) Ventricular dysrhythmia: (2) AICD discharge: (3) Heart failure with mid-range ejection fraction (HFmEF): (4) Cardiomyopathy: (5) Coronary artery disease: (6) Atrial fibrillation: (7) HTN (hypertension): (8) Morbid obesity: Plan Reason Critically Ill: 53 YOM presents to EMD for syncopal event later discovered that he had 2 AICD discharges at home, had another AICD discharge that was VFib related during admission resulting in rapid response evaluation. To ICU for rhythm monitoring with management. Neuro - No acute needs CAM ICU: NEGATIVE Cardiac - Ventricular dysrhythmias, AICD discharge x3, Hx CAD, HTN, HLD, HFmEF Initially responded to Rapid Response in EMD following his- AICD discharge- which at that time was Vfib- not preceded by pause or fusion beat - Etiologies at this time remain broad- may be post viral vs. worsening of conduction disease vs. volume related vs. other - Ventricular dysrhythmias- NSVT and Vfib per AICD interrogation report - Loaded with total of 450 mg Amiodarone following last episode - Continue Metoprolol for now -S/p cardiac cath 02/26/2024, no significant obstruction. -Cardiology on board 2D echo 02/26/2024: EF 20-25%, severe global hypokinesis, mild MR - HFrEF- - Follows with HF clinic- dry weight 375lbs- does not appear at this time overtly fluid overloaded - - Patient reports last time weighed self was approx 1 week ago - 285lbs - Continue Entresto as hemodynamics permit - continue Home diuretics- Spironolactone 25mg daily - Afib/CAD- Continue Brilinta and Rivaroxaban Respiratory - Asthma, ERNESTO - Continue Fluticasone/Sameterol - ERNESTO- Continue with CPAP in the hospital He says he is compliant with his CPAP when at home GI - GERD, Morbid obesity, DM II - Continue PPI RENAL/LYTES - No acute needs - Keep K >4.0 and Mag >2.0 ENDO - ICU hypoglycemia protocol HEME - No acute need - Follow HGB/HCT/Platelet count - Transfuse if indicated ID - No concerns for infectious etiology at this time --Prophylaxis VTE: Xarelto GI: Pantoprazole Lines: Peripheral Diet: Cardiac diet Plan: In/out: +88, urine output 725 Magnesium being replaced Keep potassium greater than 4, magnesium greater than 3 Amiodarone drip can be transition to p.o. I will defer to cardiology Continue with CPAP qhs and PRN shortness of breath Hemodynamically stable from ICU perspective for downgrade or discharge Disposition as per primary team and cardiology Case discussed with primary team Please note the above document was generated using voice recognition software. It may contain grammatical, syntax or spelling errors.Any formal questions or concerns about the content, text or information contained within the body of this dictation should be directly addressed to the provider for clarification. Admission and Anticipated Discharge Date Admission Date: February 26, 2024 Subjective Patient seen and examined at bedside. No acute distress, no adverse events overnight He was on amiodarone drip Systolic blood pressure was in 110s, heart rate in the high 70s to low 80s Denied any chest pain, no dizziness, no palpitation, no diaphoresis No nausea vomiting Finished his breakfast without any issues Did use his CPAP overnight Review of Systems 2 Review of Systems: All systems reviewed & are unremarkable except as noted in Subjective Physical Exam 2 Physical Exam: Constitutional: No acute distress HEENT: EOMI, PERRLA Respiratory system: Decreased air entry bilaterally, no wheeze, no rhonchi, no crackles CVS: S1-S2 positive, no murmurs or gallops Abdomen: Soft, nontender, nondistended, positive bowel sounds x4, obese Extremities: +2 pulses bilaterally radialis/ dorsalis pedis, no cyanosis, no edema Neuro: Awake alert oriented x3 Psych: Normal mood and affect G/U: No Ramon Skin: no rashes, warm and dry Lymphatic: no cervical or axillary lymphadenopathy Results & Data Results & Data Vital Signs (Past 12 Hours) Vital Signs Pulse Resp BP Pulse Ox Pulse Ox O2 Del Method 02/27/24 06:03 74 21 95 02/27/24 06:01 114/76 02/27/24 05:57 74 13 96 02/27/24 05:06 65 14 96 02/27/24 05:01 108/74 02/27/24 04:54 77 17 95 02/27/24 04:42 74 13 96 02/27/24 04:01 118/80 02/27/24 03:48 68 16 96 02/27/24 03:33 69 17 96 02/27/24 03:12 74 16 95 02/27/24 03:00 117/74 02/27/24 02:57 70 16 93 02/27/24 02:39 67 17 92 02/27/24 02:00 116/73 02/27/24 02:00 116/73 02/27/24 02:00 70 16 93 02/27/24 01:55 94 Room Air 02/27/24 01:30 76 17 93 02/27/24 01:09 69 16 97 02/27/24 01:01 89/46 L 02/27/24 01:01 89/46 L 02/27/24 00:42 80 16 95 02/27/24 00:30 73 15 94 02/27/24 00:03 74 16 95 02/27/24 00:01 109/74 02/27/24 00:01 109/74 02/27/24 00:00 76 02/26/24 23:45 76 17 95 02/26/24 23:36 76 20 95 02/26/24 23:18 74 19 96 02/26/24 23:03 75 20 96 02/26/24 23:01 98/60 L 02/26/24 23:01 98/60 L 02/26/24 22:42 71 19 94 02/26/24 22:03 82 16 97 02/26/24 22:01 110/75 02/26/24 22:01 110/75 02/26/24 22:01 110/75 02/26/24 21:57 79 23 94 02/26/24 21:30 78 17 95 02/26/24 21:09 80 20 95 02/26/24 21:01 118/81 02/26/24 21:01 118/81 02/26/24 20:54 81 16 94 02/26/24 20:33 86 26 H 94 02/26/24 20:30 87 17 95 02/26/24 20:01 10702/26/24 20:01 107/65 02/26/24 20:01 107/65 02/26/24 20:01 107/65 02/26/24 20:00 88 14 94 Laboratory Results 02/27/24 03:50 02/27/24 03:50 Coding Level of Care Code 40129 SUB INP/OBS CARE 3/50MIN Diagnoses Ventricular dysrhythmia I49.9 AICD discharge Z45.02 Heart failure with mid-range ejection fraction (HFmEF) I50.22 Cardiomyopathy I42.9 Coronary artery disease I25.10 Coronary Disease-Associated Artery/Lesion type: [place] artery Permanent atrial fibrillation I48.21 Atrial fibrillation type: permanent HTN (hypertension) I10 Morbid obesity E66.01 (5) Coronary artery disease Coronary Disease-Associated Artery/Lesion type: [place] artery (6) Atrial fibrillation Atrial fibrillation type: permanent Qualified Code(s): I48.21 - Permanent atrial fibrillation
[2024-02-27] MEDS: MAGNESIUM SULFATE / D5W 1 GM/100 ML BAG IV SCH (08:11)
[2024-02-27 09:05] VITALS: RESP 16; TEMP 97.5; O2SAT 94
[2024-02-27] MEDS: AMIODARONE 200 MG TAB PO ONE (09:59)
[2024-02-27 10:07] VITALS: BP 148/105; PULSE 70
--- NOTE | 2024-02-27 10:21 | Discharge Summary ---
Discharge Summary Date of Service February 27, 2024 Principal Dx & Hospital Course #1 = Principal Diagnosis (1) AICD discharge: syncope with associated AICD defibrillation- V Fib Ventricular tachycardia/ventricular fibrillation/AICD discharge secondary to H FrEF/cardiomyopathy- h/oatrial fibrillation on chronic anticoagulation h/o CAD/hypertension status post AICD firing for ventricular fibrillation at home as noted on interrogation of device, and as witnessed in the ED Echo with EF 20-25% left heart cath Moderate to severe coronary artery disease - 50-60% mid LAD at bifurcation with D2. D2 80% ostial stenosis. - Late-mid LAD 60-70% - D1 stents widely patent - 40% mid circumflex Continue metoprolol Succinate 100 mg p.o. twice daily, Xarelto 20 mg daily, Entresto 97/103 twice daily Brilinta 90 mg p.o. twice daily Received amiodarone 300 mg IV bolus, followed by standard amiodarone drip protocol discharged on 400mg po bid x 10 days then 400mg a day, follow up with EP Pt informed of no driving for 30 days, understands Pt with consideration of AV ablation, that may improve biV pacing EP will coordinate as outpt (2) COVID-19: COVID-19 infection/persistent cough- Symptoms began about 3 to 4 weeks ago past time window does not qualify for antiviral treatment Pre hospital did receive a course of prednisone and azithromycin, followed by a prednisone taper which was completed 1 day prior to admission (3) ERNESTO on CPAP: ERNESTO- On CPAP at home, will use own Plan Diabetes mellitus-aic is 5.[address] on Accu-Cheks with SSI Hyperlipidemia-On atorvastatin Notes For Next Care Provider will need to coordinate care with Electrophysiology Admission HPI Per Admitting Provider The patient is a 53-year-old male with a past medical history including ventricular dysrhythmia, V. tach/V. fibrillation, COVID-19 about 3 to 4 weeks ago, HFmrEF, cardiomyopathy, CAD, gout, atrial fibrillation on Xarelto, NSTEMI, hypertension, GERD, and vitamin D deficiency. The patient had two episodes of lightheadedness and dizziness, that he reports it is feeling funny in his head. With The second episode today he leaned against the wall and went down to the floor, and felt that he had passed out. His became concerned, and he come to the ED for assessment. His AICD was interrogated in the ED, and suggested multiple episodes of V. tach, and that there was an episode of V-fib earlier th is evening for which he received a 35 J shock. While I was talking with the patient in the ED, he went into an episode of ventricular fibrillation with LOC, for which his AICD shocked him, and returned him to a V paced rhythm. He was then given amiodarone 300 mg IV bolus, placed on amiodarone drip per protocol, and then admitted to the ICU. Patient had already received magnesium sulfate 2 g IV, and Lopressor 5 mg IV from the ED. Discharge Exam Constitutional awake and alert, no distress, cath site with good distal pulse and cap refill Discharge Plan Discharge Items Patient Disposition: Home - Self-Care Reason For Visit: V FIB ARREST, AICD DEFIBRILLATION Discharge Diagnosis: cardiomyopathy, defiibrillator discharge, passing out heart cancerization stents are open, does have residual coronary artery disease severe reduction in heart fuinction Activity: Per Instructions section Activity Comment: take it easy, no intentional execise unitl seem by cardiology Non-emergency contact: Primary Care Provider Call non-emergency contact if: you have any medication questions Follow-up/Referrals: Fidel Borden DO [Primary Care Provider] - 03/03/24 10:00 am (Hospital follow up scheduled March 03 at 10 with TERRIE Alexandre) Diet: Heart Healthy Hema Attending Provider Instructions: there are no new blockages in your hearts arteries, you have coronary artery disease as you have had. 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 Provider Instructions: no driving for 30 days Pending Studies at Discharge: No Stand-Alone Forms: My [facility] [employer], Smoking Cessation Medications and DC Order Prescriptions: New amiodarone 400 mg tablet 400 mg PO UD 30 Days Qty: 60 4RF Rx Instructions: 400 mg po bid x 10 days then reduce to once a day there after subsequent rx to be just once a day Continued Brilinta 90 mg tablet 90 mg PO BID 90 Days Qty: 180 3RF metoprolol succinate 200 mg tablet extended release 24 hr 200 mg PO BID Qty: 180 3RF montelukast 10 mg tablet 10 mg PO DAILY Qty: 90 3RF atorvastatin 40 mg tablet 40 mg PO QAM Qty: 90 3RF Xarelto 20 mg tablet 20 mg PO DAILY Qty: 90 3RF Rx Instructions: must administer with evening meal Jardiance 10 mg tablet 10 mg PO DAILY Qty: 90 3RF fluticasone propion-salmeterol [AirDuo RespiClick] 113-14 mcg/actuation aerosol powdr breath activated 1 inh inhalation BID Qty: 1 5RF metformin 500 mg tablet 500 mg PO DAILY Qty: 90 3RF allopurinol 300 mg tablet 300 mg PO DAILY Qty: 90 3RF dorzolamide-timolol 22.3-6.8 mg/mL drops 1 drops OP BID levocetirizine [Xyzal] 5 mg tablet 5 mg PO DAILY budesonide 0.5 mg/2 mL suspension for nebulization 0.5 mg inhalation DAILY albuterol sulfate 90 mcg/actuation HFA aerosol inhaler 2 puff inhalation Q6H PRN (Reason: shortness of breath or wheezing) Qty: 8.5 2RF furosemide 20 mg tablet 20 mg PO DAILY Qty: 120 3RF Rx Instructions: May increase to 40 mg daily as needed for weight gain, shortness of breath or edema. Entresto 97-103 mg tablet 1 tab PO BID Qty: 180 3RF spironolactone 25 mg tablet 25 mg PO DAILY Qty: 90 3RF omeprazole 40 mg capsule,delayed release(DR/EC) 40 mg PO DAILY Qty: 90 3RF potassium chloride 10 mEq capsule, extended release 10 meq PO DAILY Qty: 90 3RF azithromycin 250 mg tablet See Rx Instructions PO .COMPLEX Qty: 6 0RF Rx Instructions: For 250 mg dose pack: take 500 mg today (day 1), then 250 mg for 4 days (days 2-5) PO benzonatate 200 mg capsule 200 mg PO TID PRN (Reason: cough) Qty: 60 2RF acetaminophen 500 mg Tablet 1,000 mg PO BID PRN (Reason: Pain) calcium carbonate [Calcium 600] 600 mg calcium (1,500 mg) Tablet 600 mg PO BID ferrous sulfate 325 mg (65 mg iron) Tablet 325 mg PO DAILY cholecalciferol (vitamin D3) [Vitamin D3] 125 mcg (5,000 unit) Tablet 125 mcg PO DAILY nitroglycerin 0.4 mg tablet, sublingual 0.4 mg sublingual Q5M PRN (Reason: chest pain) Qty: 14 0RF Rx Instructions: every 5 minutes for chest pain x max 3 doses. Report to ER for pain not relieved with Nitro Discontinued prednisone 10 mg tablet 40 mg PO DAILY Qty: 30 0RF Rx Instructions: 40mg po daily x 3 days, then 30mg po daily x 3 days, then 20mg po daily x 3 days, then 10mg po daily x 3 days, then stop prednisone 10 mg tablet 40 mg PO DAILY 7 Days Qty: 28 0RF Discharge Orders: Discharge Order (Routine); Ordered 02/27/24 Ordered By: Rafael Watts Admission Data Admit Date/Time: 02/26/24 01:09 Attending Provider: Rafael Watts Admit Provider: Kurt Salguero Primary Care Provider: Fidel Borden Other Providers: Kurt Salguero; Van Steven; Zane Mccartney Other Interventions: Discharge Summary Assessment (RN) Last Done: 02/27/24 10:06 Hospital Stay Data Consultations 02/25/24 23:54 ED Decision to Admit Stat 02/26/24 01:55 Consult Fishing Lure Assembler Routine 02/26/24 02:51 Consult Cardiology Routine Procedures Performed Operation Date: 02/26/24 13:00 Actual Procedures p Cineradiography w/Routine Exam(Not Applicable) - Zane Barroso MD p Cath, Left with Cors and Vent - Zane Barroso MD Diagnostic Imagining Performed 02/26/24 13:00 CL Cath Imgs for PACS use only Routine Pending Results Patient Have Any Pending Studies at Discharge: No Discharge Instructions Given to Patient (Per Discharging Provider) there are no new blockages in your hearts arteries, you have coronary artery disease as you have had. If you symptoms persist despite medication changes cardiology may consider attempting and intervention Total Time Total Time Spent Total Time Spent (In Minutes): It required greater than 30 minutes to prepare this patient for discharge. Coding Level of Care Code 92806 INP/OBS DISCH >30 MIN Diagnoses AICD discharge Z45.02 COVID-19 U07.1 ERNESTO on CPAP G47.33; Z99.89
--- NOTE | 2024-02-27 10:31 | Cardiology Progress Note ---
Date of Service February 27, 2024 Assessment & Plan (1) Ventricular dysrhythmia: Plan: -3 episodes of ventricular fibrillation requiring defibrillation. -Each episode with loss of consciousness. -Cardiac catheterization revealed stable coronary artery disease. -Case discussed with Dr. Mccartney. -Discharge on amiodarone 400 mg twice daily x 10 days, then 400 mg daily. -No driving for 30 days. -Stable for discharge. -Follow-up with Dr. Mccartney. (2) Coronary artery disease: Plan: -s/p D1 LUZ as described. -Cardiac catheterization notes stable coronary artery disease. -Continue medical management. (3) Cardiomyopathy: Plan: -Left ventricular systolic function now severely reduced with an ejection fraction of 20-25%. -LVEF was 35% back in July 2023. -As above, cardiac catheterization notes stable disease. (4) Atrial fibrillation: Plan: -Continue rate control and long-term anticoagulation. (5) Biventricular ICD (implantable cardioverter-defibrillator) in place: Plan: -Placed in December 2022. -Dr. Mccartney making arrangements for an AV node ablation to improve overall pacing percentage in the ventricles. Admission and Anticipated Discharge Date Admission Date: February 26, 2024 Subjective The patient is resting comfortably in the bedside chair without complaints of chest pain, dyspnea, syncope, or presyncope. Cardiac catheterization findings w ere reviewed in detail. He is anxious for hospital discharge. Physical Exam Physical Exam: In general this is a morbidly obese male in no acute distress. HEENT exam is negative. Neck is supple with full carotid upstrokes. There are no carotid bruits. No jugular venous distention. There is no thyromegaly. Cardiovascular exam reveals an irregular rhythm with distant heart sounds. No obvious murmurs. Chest reveals a palpable device in the left subclavicular region. Lungs are clear without rales, rhonchi, or wheezes. Abdomen is obese without bruits. Extremities reveal intact radial artery pulses bilaterally. Right wrist dressing is dry. Trace pretibial edema is noted. Results & Data Vital Signs (Past 12 Hours) Vital Signs Temp Pulse Pulse Resp BP BP Pulse Ox 02/27/24 10:06 36.4 C L 70 16 148/105 H 94 02/27/24 08:35 85 16 94 02/27/24 08:02 85 21 96 02/27/24 08:01 110/76 02/27/24 08:00 36.4 C L 02/27/24 07:53 80 17 96 02/27/24 07:38 91 H 17 94 02/27/24 07:02 78 20 96 02/27/24 07:01 120/83 02/27/24 07:00 76 02/27/24 06:59 68 15 95 02/27/24 06:47 71 14 96 02/27/24 06:03 74 21 95 02/27/24 06:01 114/76 02/27/24 05:57 74 13 96 02/27/24 05:06 65 14 96 02/27/24 05:01 108/74 02/27/24 04:54 77 17 95 02/27/24 04:42 74 13 96 02/27/24 04:01 118/80 02/27/24 03:48 68 16 96 02/27/24 03:33 69 17 96 02/27/24 03:12 74 16 95 02/27/24 03:00 117/74 02/27/24 02:57 70 16 93 02/27/24 02:39 67 17 92 02/27/24 02:00 116/73 02/27/24 02:00 116/73 02/27/24 02:00 70 16 93 02/27/24 01:55 02/27/24 01:30 76 17 93 02/27/24 01:09 69 16 97 02/27/24 01:01 89/46 L 02/27/24 01:01 89/46 L 02/27/24 00:42 80 16 95 02/27/24 00:30 73 15 94 02/27/24 00:03 74 16 95 02/27/24 00:01 109/74 02/27/24 00:01 109/74 02/27/24 00:00 76 02/26/24 23:45 76 17 95 02/26/24 23:36 76 20 95 02/26/24 23:18 74 19 96 02/26/24 23:03 75 20 96 02/26/24 23:01 98/60 L 02/26/24 23:01 98/60 L 02/26/24 22:42 71 19 94 Pulse Ox O2 Del Method 02/27/24 10:06 02/27/24 08:35 02/27/24 08:02 02/27/24 08:01 02/27/24 08:00 02/27/24 07:53 02/27/24 07:38 02/27/24 07:02 02/27/24 07:01 02/27/24 07:00 02/27/24 06:59 02/27/24 06:47 02/27/24 06:03 02/27/24 06:01 02/27/24 05:57 02/27/24 05:06 02/27/24 05:01 02/27/24 04:54 02/27/24 04:42 02/27/24 04:01 02/27/24 03:48 02/27/24 03:33 02/27/24 03:12 02/27/24 03:00 02/27/24 02:57 02/27/24 02:39 02/27/24 02:00 02/27/24 02:00 02/27/24 02:00 02/27/24 01:55 94 Room Air 02/27/24 01:30 02/27/24 01:09 02/27/24 01:01 02/27/24 01:01 02/27/24 00:42 02/27/24 00:30 02/27/24 00:03 02/27/24 00:01 02/27/24 00:01 02/27/24 00:00 02/26/24 23:45 02/26/24 23:36 02/26/24 23:18 02/26/24 23:03 02/26/24 23:01 02/26/24 23:01 02/26/24 22:42 Diagnostic Findings cardiac monitor technician notes atrial fibrillation and intermittent ventricular pacing. PG Care Time/CCT Total # of Minutes Spent Total Time Spent with Patient: Total time spent is greater than 50% in coordination of care (as documented) at patient's floor/unit and/or counseling patient: Coding Level of Care Code 59617 SUB INP/OBS CARE 3/50MIN Diagnoses Ventricular dysrhythmia I49.9 Coronary artery disease I25.10 Coronary Disease-Associated Artery/Lesion type: [place] artery Cardiomyopathy I42.9 Permanent atrial fibrillation I48.21 Atrial fibrillation type: permanent Biventricular ICD (implantable cardioverter-defibrillator) in place Z95.810 (2) Coronary artery disease Coronary Disease-Associated Artery/Lesion type: [place] artery (4) Atrial fibrillation Atrial fibrillation type: permanent Qualified Code(s): I48.21 - Permanent atrial fibrillation
== END 2024-02-27 12:07 | disposition home or self-care (01) | DRG 287 ==
LOC: ED 21:27 → 1E 02-26 01:09 → SUATTDRO 02-26 01:09 → 1E 02-26 01:33